=== PATIENT | female | born 1955 | race Caucasian/White ===

== ENCOUNTER 2017-04-22 16:31 | Outpatient (RCR) | payer MEDICARE, MEDICAID, SELFPAY ==
[2017-04-22 17:23] LABS: Absolute Lymphocyte Count 1.56 X10^3/ul (0.83-4.51); Absolute Neutrophil Count 4.3 X10^3/uL (2.0-7.7); Basophil# 0.06 X10^3/uL; Basophil% 0.8 % (0-1); Eosinophil# 0.39 X10^3/uL; Eosinophils% 5.4 % (0-5); Hematocrit 34.5 % (37-47); Hemoglobin 10.9 g/dl (12.0-15.0); Lymphocyte # 1.56 X10^3/ul (4.0); Lymphocyte % 21.8 % (19-41); Mean Corp Hgb Conc 31.6 g/gl (32-36); Mean Corpuscular Hgb 30.2 pg (27.0-32.0); Mean Corpuscular Volume 95.6 fL (81-99); Mean Platelet Vol. 11.1 fl (6.2-12.0); Monocyte# 0.69 X10^3/uL; Monocyte% 9.6 % (0-10); Neutrophil # 4.33 X10^3/uL (2.7-7.7); Neutrophil % 60.4 % (47-70); Platelet Count 273 K/mm3 (150-450); RBC Distribution Width CV 12.8 % (11.6-14.6); RBC Distribution Width SD 42.9 fl (35.1-43.9); Red Blood Count 3.61 M/mm3 (4.2-5.4); White Blood Count 7.2 K/mm3 (4.4-11.0)
[2017-04-22 17:24] LABS: POSITIVE COUNT YES; POSITIVE DIFFERENTIAL NO; POSITIVE MORPHOLOGY YES
[2017-04-26 09:43] LABS: Pathologist Review Reviewed
== END 2017-04-22 16:45 | disposition home or self-care (01) ==
LOC: LAB 16:31
PROVIDERS: Family Provider Internal Medicine; PCP Internal Medicine; Visit Provider Psychiatry & Neurology Child & Adolescent Psychiatry
DX: F25.0 Schizoaffective disorder, bipolar type (principal); Z51.81 Encounter for therapeutic drug level monitoring
CPT/HCPCS: 36415; 85025

== ENCOUNTER 2017-04-23 11:15 | Emergency (ER) | payer MEDICARE, MEDICAID, SELFPAY ==
[2017-04-23 11:16] VITALS: BP 134/100; PULSE 127; RESP 17; TEMP 36.7; O2SAT 93; BMI 23.8
--- NOTE | 2017-04-23 11:33 | CT_ITS ---
STUDY: CT ABDOMEN AND PELVIS WITHOUT CONTRAST REASON FOR EXAM: Female, 61 years old. BLOOD IN STOOL AND URINE. RADIATION DOSAGE (If Supplied By Facility): CTDIvol = ( 8.18 ) mGy, DLP = ( 431.23 ) mGycm TECHNIQUE: Transaxial images were obtained from the dome of the diaphragm to the symphysis pubis without oral contrast, and without intravenous contrast. Sagittal and coronal images were reconstructed. Individualized dose optimization techniques were used for this CT. COMPARISON: None. FINDINGS: The visualized lung bases are unremarkable. The visualized portions of the heart are within normal limits. Normal liver. Normal gallbladder and extrahepatic biliary system. Normal spleen. Normal pancreas. Normal bilateral adrenal glands. The kidneys demonstrate the presence of multiple bilateral nonobstructing kidney stones. The largest is at the left lower pole measuring up to 1 cm Normal visualized stomach. Normal small intestine. Normal colon. The appendix is visualized and appears normal. There is diffuse atherosclerotic calcification of the abdominal aorta, without a demonstrated aneurysm. Normal inferior vena cava. Normal retroperitoneum. Normal urinary bladder. Normal abdominal wall. Normal osseous structures. CT/Abdomen/Pelvis without Cont IMPRESSION: Bilateral nonobstructing kidney stones Electronically Signed: Kailee Amador MD at 12:31 EST Tel , Service support ,
[2017-04-23 11:46] LABS: Mucous, Urine 0 SEEN /hpf (<or=2+)
[2017-04-23 11:49] LABS: Color, Urine Yellow (Yellow); Glucose, Dipstick Normal (Normal); Ketone-Dipstick Negative (Negative); Leukocyte Esterase-Dipstick 100 /ul (Negative); Nitrite-Dipstick Negative (Negative); Occult Blood-Urine 25 /ul (Negative); Protein-Dipstick Negative (Negative); Specific Gravity, Urine 1.015 (1.002-1.030); Urine Bilirubin Dipstick Negative (Negative); Urine Clarity Clear (Clear); Urine Urobilinogen Normal (Normal)
[2017-04-23] MEDS: 0.9% Normal Saline 1,000 ML 125 ML IV (11:53)
[2017-04-23 11:56] LABS: Absolute Lymphocyte Count 1.62 X10^3/ul (0.83-4.51); Absolute Neutrophil Count 4.1 X10^3/uL (2.0-7.7); Basophil# 0.07 X10^3/uL; Eosinophil# 0.49 X10^3/uL; Hematocrit 37.1 % (37-47); Hemoglobin 11.7 g/dl (12.0-15.0); Lymphocyte # 1.62 X10^3/ul (4.0); Lymphocyte % 23.3 % (19-41); Mean Corp Hgb Conc 31.5 g/gl (32-36); Mean Corpuscular Hgb 30.2 pg (27.0-32.0); Mean Corpuscular Volume 95.9 fL (81-99); Mean Platelet Vol. 10.6 fl (6.2-12.0); Monocyte% 8.6 % (0-10); Neutrophil # 4.05 X10^3/uL (2.7-7.7); Neutrophil % 58.2 % (47-70); Platelet Count 283 K/mm3 (150-450); RBC Distribution Width SD 43.7 fl (35.1-43.9); Red Blood Count 3.87 M/mm3 (4.2-5.4)
[2017-04-23 11:57] LABS: POSITIVE COUNT NO; POSITIVE DIFFERENTIAL NO; POSITIVE MORPHOLOGY NO
[2017-04-23 11:57] LABS: Bacteria RARE /hpf (None Seen); Red Blood Cells-Urine 0-5 SEEN /hpf (0-5); Squamous Epithelial Cells - UA 0-5 SEEN /hpf (5-10); White Blood Cells 0-5 SEEN /hpf (0-5)
[2017-04-23 12:11] LABS: ALB/GLOB Ratio 1.1 RATIO (0.9-2.4); AST(SGOT) 24 U/L (15-37); Alanine Aminotransfer ALT/SGPT 60 U/L (12-78); Albumin, Serum 3.7 g/dL (3.4-5.0); Alkaline Phosphatase 68 U/L (45-117); Anion Gap 9 (5-15); BUN 10 mg/dL (7-18); BUN/Creat Ratio 16.5 RATIO (10-20); Calcium,Total 9.3 mg/dL (8.5-10.1); Chloride 104 mmol/L (98-107); Creatinine, Serum 0.61 mg/dL (0.55-1.02); EST Glomerular Filtration Rate 106 mL/min (>60); Est Glom Filt Rate - Afr Amer 129 mL/min (>60); Estimated Creatinine Clearance 96.46 ml/min; Globulin 3.4 g/dL (2.2-4.2); Glucose 116 mg/dL (70-110); Lipase 98 U/L (73-393); Potassium 3.9 mmol/L (3.5-5.1); Protein, Total 7.1 g/dL (6.4-8.2); Sodium Level 143 mmol/L (136-145)
--- NOTE | 2017-04-23 13:16 | ED.VISSUMM ---
- ER Visit Summary Date of Service: 04/23/17 Chief Complaint: [Blood in urine and stool and abdominal pain] History of Present Illness: The patient is a 61 F [presents from [facility] with caregivers with complaint of abdominal pain and dark stools ?2 days. Patient was taken to an urgent care 2 days ago and had a urine dip done that showed blood and they were instructed to come to the emergency department however the power of assistant county attorney for the patient would not authorize that. Patient continued to complain of abdominal pain apparently today and they were not instructed to bring the patient to the emergency department today. On arrival to the emergency department patient denies any abdominal pain. Patient has not had any fever. There is not been any vomiting or diarrhea. Patient denies any dysuria.] Patient has a history of schizophrenia bipolar and mild cognitive impairment. Physical Examination: [HEENT-PERRLA, EOMI. Cranial nerves II through XII grossly intact. TMs clear. Mucous membranes moist. No adenopathy. Cardiovascular-regular rate and rhythm without murmur or ectopy Lungs-clear to auscultation, chest wall stable without crepitus or subcu emphysema Abdomen-normoactive bowel sounds, soft, nontender, no rebound or rigidity, no peritoneal signs. Rectal exam-brown stool that was Hemoccult negative. No masses palpated. Extremities-intact ?4, normal range of motion, normal pulses, atraumatic] Test Results: [CBC with differential obtained was normal. Chemistries were normal. LFTs were normal. Urinalysis was normal. Hemoccult was negative. CT scan of the abdomen pelvis without contrast showed bilateral kidney stones that are nonobstructive, normal appendix, nothing else acute.] Emergency Department Course and Treatment: [Patient initially had an IV line established with normal saline.] Treatment Plan: [Follow-up with primary care physician as needed] Disposition: [Discharged home in stable condition] Impression: [Abdominal pain-etiology unclear-resolved] This note was generated with [employer] dictation software. It may contain incorrect words, spelling, and punctuation that were not noted in review of the chart prior to signing ED Disposition - Plan for ED Patient: Chief Complaint: Abd Pain Referrals: Adia Mckeon MD [Primary Care Provider] -
--- NOTE | 2017-04-23 13:19 | ED.DCSUM_ITS ---
- ER Visit Summary Date of Service: 04/23/17 Chief Complaint: [Blood in urine and stool and abdominal pain] History of Present Illness: The patient is a 61 F [presents from residential with caregivers with complaint of abdominal pain and dark stools ?2 days. Patient was taken to an urgent care 2 days ago and had a urine dip done that showed blood and they were instructed to come to the emergency department however the power of real estate attorney for the patient would not authorize that. Patient continued to complain of abdominal pain apparently today and they were not instructed to bring the patient to the emergency department today. On arrival to the emergency department patient denies any abdominal pain. Patient has not had any fever. There is not been any vomiting or diarrhea. Patient denies any dysuria.] Patient has a history of schizophrenia bipolar and mild cognitive impairment. Physical Examination: [HEENT-PERRLA, EOMI. Cranial nerves II through XII grossly intact. TMs clear. Mucous membranes moist. No adenopathy. Cardiovascular-regular rate and rhythm without murmur or ectopy Lungs-clear to auscultation, chest wall stable without crepitus or subcu emphysema Abdomen-normoactive bowel sounds, soft, nontender, no rebound or rigidity, no peritoneal signs. Rectal exam-brown stool that was Hemoccult negative. No masses palpated. Extremities-intact ?4, normal range of motion, normal pulses, atraumatic] Test Results: [CBC with differential obtained was normal. Chemistries were normal. LFTs were normal. Urinalysis was normal. Hemoccult was negative. CT scan of the abdomen pelvis without contrast showed bilateral kidney stones that are nonobstructive, normal appendix, nothing else acute.] Emergency Department Course and Treatment: [Patient initially had an IV line established with normal saline.] Treatment Plan: [Follow-up with primary care physician as needed] Disposition: [Discharged home in stable condition] Impression: [Abdominal pain-etiology unclear-resolved] This note was generated with [employer] dictation software. It may contain incorrect words, spelling, and punctuation that were not noted in review of the chart prior to signing ED Disposition - Plan for ED Patient: Chief Complaint: Abd Pain Referrals: Adia Mckeon MD [Primary Care Provider] -
--- NOTE | 2017-04-23 13:19 | ED.DEP ---
ED Disposition - Plan for ED Patient: Chief Complaint: Abd Pain Instructions: ED Abdominal Pain Unkn Cause Referrals: Adia Mckeon MD [Primary Care Provider] - As Needed
[2017-04-23 13:32] VITALS: BP 155/87; PULSE 113; RESP 18; O2SAT 96
--- NOTE | 2017-04-23 13:33 | ED.RN ---
VERBAL AND WRITTEN D/C INSTRUCTIONS GIVEN. ALL QUESTIONS ANSWERED. SKIN W/D. ABCS INTACT. GAIT STEADY OUT OF DEPARTMENT.
== END 2017-04-23 13:33 | disposition home or self-care (01) ==
LOC: ED 11:40
PROVIDERS: Emergency Provider Emergency Medicine; Family Provider Internal Medicine; PCP Internal Medicine
DX: R10.9 Unspecified abdominal pain (principal); R31.9 Hematuria, unspecified; R19.5 Other fecal abnormalities; N20.0 Calculus of kidney; F20.9 Schizophrenia, unspecified; F31.9 Bipolar disorder, unspecified; F70 Mild intellectual disabilities; Z79.84 Long term (current) use of oral hypoglycemic drugs; Z79.899 Other long term (current) drug therapy
CPT/HCPCS: 74176; 80053; 81001; 82274; 83690; 85025; 87086; 87088; 96360; 99283; J7030; A4216

== ENCOUNTER 2017-05-11 09:35 | Day surgery (SDC) | payer MEDICARE, MEDICAID, SELFPAY ==
[2017-05-11] VITALS (9 sets, daily range): BP systolic 126–149; BP diastolic 81–91; PULSE 93–112; RESP 14–17; TEMP 36.1–36.9; O2SAT 92–97; BMI 24.5
--- NOTE | 2017-05-11 09:30 | RAD_ITS ---
STUDY: X-RAY - ABDOMEN/PELVIS REASON FOR EXAM: Female, 61 years old. Kidney stones. Pre-ESWL assessment. TECHNIQUE: Single AP view of the abdomen / pelvis. COMPARISON: None. FINDINGS: There is a moderate amount of colonic fecal material. There is a 5.8 mm calculus in the lower pole of the left kidney. Adjacent to this, there is a punctate calcification. Questionable tiny calculus in the upper pole of the right kidney. Normal soft tissue structures. There are degenerative changes of the visualized lumbar spine. RAD/Abdomen Single View IMPRESSION: 2 calculi are seen in the lower pole of the left kidney. Electronically Signed: Monroe Lynne MD at 11:45 EST Tel [phone], Service support ,
[2017-05-11 10:36] LABS: Bedside Glucose 117 mg/dL (70-110)
[2017-05-11] MEDS: Cefazolin 2 GM in 0.9% Normal Saline 100 ML IV (11:30)
--- NOTE | 2017-05-11 11:41 | PCM.DC.URO ---
Discharge Diet: Light diet - advance as tolerated Discharge Activity: May Not Drive Call your doctor if your incision/area has: Sudden Increased Bleeding Call your doctor if you observe: Fever of 101 or Higher Instructions: Shock Wave Lithotripsy Allergies/Adverse Reactions: Allergies sulfamethoxazole [From Bactrim] Allergy (Verified 05/09/17 11:19) Rash trimethoprim [From Bactrim] Allergy (Verified 05/09/17 11:19) Rash Medications to take at Discharge Clozapine [Clozaril] 125 mg PO BID 09/14/13 Docusate Sodium [Colace] 100 mg PO BID 09/14/13 Ferrous Sulfate [Iron Supplement] 325 mg PO BID 09/14/13 Folic Acid 0.4 mg PO BID 09/14/13 Loratadine [Claritin] 10 mg PO DAILY 09/14/13 Lorazepam [Ativan] 1 mg PO TID 09/14/13 Metformin HCl [Glucophage] 1,000 mg PO BID 09/14/13 Nitrofurantoin Macrocrystal [Macrodantin] 100 mg PO DAILY 09/14/13 Omeprazole [Prilosec] 20 mg PO DAILY 09/14/13 Risperidone [Risperdal] 2 mg PO BID 09/14/13 Fluticasone 0.05% [Flonase Nasal [place]] 2 spray NASAL DAILY 12/05/13 Risperidone [Risperdal] 1 mg PO QHS 12/05/13 Oxybutynin Chloride [Oxybutynin Chloride ER] 10 mg PO DAILY #30 tab.er.24 12/26/13 Sertraline HCl [Zoloft] 25 mg PO DAILY 04/23/17 Multivitamin [Multiple Vitamins] 1 each PO BID 05/09/17 Simvastatin [Zocor] 20 mg PO QHS 05/09/17 Hydrocodone/Acetaminophen [[place] 5-325 Tablet] 1 ea PO Q4H PRN PRN 5 Days #14 tab 05/11/17 Primary Care Physician: Adia Mckeon MD [Primary Care Provider] - Please Follow Up With: Josef Anders MD When: May 26 at 8:45 am get xray before appt.
--- NOTE | 2017-05-11 12:00 | DCINST_ITS ---
Discharge Diet: Light diet - advance as tolerated Discharge Activity: May Not Drive Call your doctor if your incision/area has: Sudden Increased Bleeding Call your doctor if you observe: Fever of 101 or Higher Instructions: Shock Wave Lithotripsy Allergies/Adverse Reactions: Allergies sulfamethoxazole [From Bactrim] Allergy (Verified 05/09/17 11:19) Rash trimethoprim [From Bactrim] Allergy (Verified 05/09/17 11:19) Rash Medications to take at Discharge Clozapine [Clozaril] 125 mg PO BID 09/14/13 Docusate Sodium [Colace] 100 mg PO BID 09/14/13 Ferrous Sulfate [Iron Supplement] 325 mg PO BID 09/14/13 Folic Acid 0.4 mg PO BID 09/14/13 Loratadine [Claritin] 10 mg PO DAILY 09/14/13 Lorazepam [Ativan] 1 mg PO TID 09/14/13 Metformin HCl [Glucophage] 1,000 mg PO BID 09/14/13 Nitrofurantoin Macrocrystal [Macrodantin] 100 mg PO DAILY 09/14/13 Omeprazole [Prilosec] 20 mg PO DAILY 09/14/13 Risperidone [Risperdal] 2 mg PO BID 09/14/13 Fluticasone 0.05% [Flonase Nasal [place]] 2 spray NASAL DAILY 12/05/13 Risperidone [Risperdal] 1 mg PO QHS 12/05/13 Oxybutynin Chloride [Oxybutynin Chloride ER] 10 mg PO DAILY #30 tab.er.24 Sertraline HCl [Zoloft] 25 mg PO DAILY 04/23/17 Multivitamin [Multiple Vitamins] 1 each PO BID 05/09/17 Simvastatin [Zocor] 20 mg PO QHS 05/09/17 Hydrocodone/Acetaminophen [[place] 5-325 Tablet] 1 ea PO Q4H PRN PRN 5 Days #14 tab 05/11/17 Primary Care Physician: Adia Mckeon MD [Primary Care Provider] - Please Follow Up With: Josef Anders MD When: May 26 at 8:45 am get xray before appt.
--- NOTE | 2017-05-11 12:26 | PCM.OPRPT ---
Problem List (1) Calculus of left kidney Status: Acute Report of Operation Date of Procedure: 05/11/17 Pre-Operative Diagnosis: Left kidney stone Post-Operative Diagnosis: Same Surgery/Procedure Performed:: Left extracorporeal shockwave lithotripsy Description of Surgical Findings:: 61-year-old female taken back to the operating room after smooth induction of general anesthesia she was placed supine on the table we then moved the lithotripter table around and found the stone in the lower pole the left kidney we did check a right kidney there is no significant fragments that needed to be treated. We then applied 3000 shockwaves at a rate of 90 power up to 5 and 6 to the stones in the lower pole the left kidney stone broke up fairly well had a significant amount of change. Do not think she will need another treatment of the stones broke up really well patient's anesthetic was reversed she was taken back to PACU in good condition plan to see her back in a few weeks with a KUB. Type of Anesthesia:: General Drains: None - Admit VTE Documentation VTE Present on Admission: No VTE Mechan Device Prophylaxis: SCD's VTE Pharm Prophylaxis ordered?: No Reason prophylaxis not ordered:: Treatment Not Indicated
--- NOTE | 2017-05-11 13:56 | RAD_ITS ---
STUDY: X-RAY CHEST REASON FOR EXAM: Female, 61 years old. Cough and shortness of breath. TECHNIQUE: PA and lateral views of the chest. COMPARISON: None. FINDINGS: Mild degree of increased markings at the left lung base with blunting of the posterior left costophrenic angle. This may represent linear atelectasis. Normal size heart. Normal mediastinum and frederic. Normal visualized pulmonary arteries. There is atherosclerotic calcification of the aortic arch with tortuosity. Normal visualized thoracic spine. Normal visualized ribs, clavicles, and shoulders. There is no demonstrated abnormality of the visualized soft tissue structures of the upper abdomen. RAD/Chest PA and Lateral IMPRESSION: Linear increased markings at the left lung base with blunting of the left costophrenic angle suggestive of linear atelectasis. Electronically Signed: Monroe Lynne MD at 14:25 EST Tel [phone], Service support ,
[2017-05-11] MEDS: HYDROcodone Bitartrate/Apap 5/325 Tablet PO (14:46)
== END 2017-05-11 14:56 | disposition home or self-care (01) ==
LOC: SDC 09:35 → AC 09:36
PROVIDERS: Family Provider Internal Medicine; PCP Internal Medicine; Visit Provider Urology
PROC: (CPT 50590; principal; 2017-05-11 11:15)
DX: N20.0 Calculus of kidney (principal); F25.9 Schizoaffective disorder, unspecified; F41.9 Anxiety disorder, unspecified; K21.9 Gastro-esophageal reflux disease without esophagitis; E78.5 Hyperlipidemia, unspecified; E11.9 Type 2 diabetes mellitus without complications; Z79.899 Other long term (current) drug therapy; Z79.84 Long term (current) use of oral hypoglycemic drugs; D64.9 Anemia, unspecified; K59.09 Other constipation; Z87.820 Personal history of traumatic brain injury
CPT/HCPCS: 50590; 71046; 74018; 82962; J7120; J2405

== ENCOUNTER 2017-05-19 09:16 | Outpatient (RCR) | payer MEDICARE, MEDICAID, SELFPAY ==
[2017-04-23 13:32] VITALS: BP 155/87
[2017-05-19 10:17] LABS: Absolute Lymphocyte Count 0.94 X10^3/ul (0.83-4.51); Absolute Neutrophil Count 4.7 X10^3/uL (2.0-7.7); Basophil# 0.06 X10^3/uL; Basophil% 0.9 % (0-1); Eosinophils% 5.7 % (0-5); Hematocrit 37.4 % (37-47); Hemoglobin 11.5 g/dl (12.0-15.0); Lymphocyte # 0.94 X10^3/ul (4.0); Lymphocyte % 13.5 % (19-41); Mean Corp Hgb Conc 30.7 g/gl (32-36); Mean Corpuscular Hgb 29.8 pg (27.0-32.0); Mean Corpuscular Volume 96.9 fL (81-99); Mean Platelet Vol. 10.2 fl (6.2-12.0); Monocyte# 0.69 X10^3/uL; Monocyte% 9.9 % (0-10); Neutrophil # 4.74 X10^3/uL (2.7-7.7); Neutrophil % 68.1 % (47-70); Platelet Count 360 K/mm3 (150-450); RBC Distribution Width CV 12.6 % (11.6-14.6); RBC Distribution Width SD 43.5 fl (35.1-43.9); Red Blood Count 3.86 M/mm3 (4.2-5.4)
== END 2017-05-19 15:00 | disposition home or self-care (01) ==
LOC: LAB 09:16
PROVIDERS: Family Provider Internal Medicine; PCP Internal Medicine; Visit Provider Psychiatry & Neurology Child & Adolescent Psychiatry
DX: F25.0 Schizoaffective disorder, bipolar type (principal); Z51.81 Encounter for therapeutic drug level monitoring
CPT/HCPCS: 36415; 85025

== ENCOUNTER → 2017-05-26 08:12 | Outpatient (CLI) | payer MEDICARE, MEDICAID, SELFPAY ==
--- NOTE | 2017-05-26 08:17 | RAD_ITS ---
STUDY: X-RAY - ABDOMEN/PELVIS REASON FOR EXAM: Female, 61 years old. Follow-up kidney stones TECHNIQUE: Single AP view of the abdomen / pelvis. COMPARISON: CT scan 04/23/2017 and KUB 05/11/2017. FINDINGS: Normal visualized lung bases. Question of several very tiny calcifications less than 3 mm size in the lower pole of the left kidney. No other definite renal stones although much of the right kidney is obscured by fecal material. There is an unremarkable bowel gas pattern. There is no demonstrated free abdominal air. The visualized liver, spleen and kidneys are grossly normal in size and morphology. Normal soft tissue structures. Normal visualized osseous structures. RAD/Abdomen Single View IMPRESSION: Question of several very tiny calcifications less than 3 mm size in the lower pole of the left kidney. Electronically Signed: Rick Vyas MD at 17:19 EST , Service support ,
== END ==
LOC: RAD.FUTURE 08:16 → RAD 08:17
PROVIDERS: Family Provider Internal Medicine; PCP Internal Medicine; Visit Provider Nurse Practitioner Adult Health
DX: N20.0 Calculus of kidney (principal)
CPT/HCPCS: 74018

== ENCOUNTER 2017-06-02 16:27 | Outpatient (RCR) | payer MEDICARE, MEDICAID, SELFPAY ==
[2017-06-02 17:54] LABS: Absolute Lymphocyte Count 1.32 X10^3/ul (0.83-4.51); Absolute Neutrophil Count 3.4 X10^3/uL (2.0-7.7); Basophil# 0.07 X10^3/uL; Basophil% 1.2 % (0-1); Eosinophil# 0.33 X10^3/uL; Eosinophils% 5.8 % (0-5); Hematocrit 35.3 % (37-47); Hemoglobin 11.1 g/dl (12.0-15.0); Lymphocyte # 1.32 X10^3/ul (4.0); Lymphocyte % 23.1 % (19-41); Mean Corp Hgb Conc 31.4 g/gl (32-36); Mean Corpuscular Hgb 30.2 pg (27.0-32.0); Mean Corpuscular Volume 95.9 fL (81-99); Mean Platelet Vol. 10.7 fl (6.2-12.0); Monocyte# 0.49 X10^3/uL; Monocyte% 8.6 % (0-10); Neutrophil # 3.42 X10^3/uL (2.7-7.7); Neutrophil % 59.7 % (47-70); Platelet Count 297 K/mm3 (150-450); RBC Distribution Width CV 12.9 % (11.6-14.6); RBC Distribution Width SD 43.6 fl (35.1-43.9); Red Blood Count 3.68 M/mm3 (4.2-5.4); White Blood Count 5.7 K/mm3 (4.4-11.0)
[2017-06-02 18:07] LABS: POSITIVE COUNT NO; POSITIVE DIFFERENTIAL NO; POSITIVE MORPHOLOGY NO
== END 2017-06-02 17:00 | disposition home or self-care (01) ==
LOC: LAB 16:27
PROVIDERS: Family Provider Internal Medicine; PCP Internal Medicine; Visit Provider Psychiatry & Neurology Child & Adolescent Psychiatry
DX: Z51.81 Encounter for therapeutic drug level monitoring (principal); F25.0 Schizoaffective disorder, bipolar type
CPT/HCPCS: 36415; 85025

== ENCOUNTER 2017-06-30 16:04 | Outpatient (RCR) | payer MEDICARE, MEDICAID, SELFPAY ==
[2017-06-30 16:58] LABS: Absolute Lymphocyte Count 1.47 X10^3/ul (0.83-4.51); Absolute Neutrophil Count 3.8 X10^3/uL (2.0-7.7); Basophil# 0.04 X10^3/uL; Basophil% 0.6 % (0-1); Eosinophil# 0.36 X10^3/uL; Eosinophils% 5.8 % (0-5); Hemoglobin 11.2 g/dl (12.0-15.0); Lymphocyte # 1.47 X10^3/ul (4.0); Lymphocyte % 23.8 % (19-41); Mean Corp Hgb Conc 31.1 g/gl (32-36); Mean Corpuscular Hgb 29.3 pg (27.0-32.0); Mean Corpuscular Volume 94.2 fL (81-99); Mean Platelet Vol. 10.6 fl (6.2-12.0); Monocyte# 0.45 X10^3/uL; Monocyte% 7.3 % (0-10); Neutrophil # 3.76 X10^3/uL (2.7-7.7); Platelet Count 257 K/mm3 (150-450); RBC Distribution Width CV 13.2 % (11.6-14.6); RBC Distribution Width SD 45.1 fl (35.1-43.9); Red Blood Count 3.82 M/mm3 (4.2-5.4); White Blood Count 6.2 K/mm3 (4.4-11.0)
[2017-06-30 17:18] LABS: POSITIVE COUNT NO; POSITIVE DIFFERENTIAL NO; POSITIVE MORPHOLOGY NO
== END 2017-06-30 17:00 | disposition home or self-care (01) ==
LOC: LAB 16:04
PROVIDERS: Family Provider Internal Medicine; PCP Internal Medicine; Visit Provider Psychiatry & Neurology Child & Adolescent Psychiatry
DX: F25.0 Schizoaffective disorder, bipolar type (principal); Z51.81 Encounter for therapeutic drug level monitoring
CPT/HCPCS: 36415; 85025

== ENCOUNTER 2017-07-29 15:34 | Outpatient (RCR) | payer MEDICARE, MEDICAID, SELFPAY ==
[2017-07-29 17:07] LABS: Absolute Lymphocyte Count 1.71 X10^3/ul (0.83-4.51); Absolute Neutrophil Count 4.4 X10^3/uL (2.0-7.7); Basophil# 0.07 X10^3/uL; Basophil% 0.9 % (0-1); Eosinophil# 0.41 X10^3/uL; Eosinophils% 5.5 % (0-5); Hematocrit 36.2 % (37-47); Hemoglobin 11.4 g/dl (12.0-15.0); Lymphocyte # 1.71 X10^3/ul (4.0); Mean Corp Hgb Conc 31.5 g/gl (32-36); Mean Corpuscular Hgb 30.3 pg (27.0-32.0); Mean Corpuscular Volume 96.3 fL (81-99); Mean Platelet Vol. 11.1 fl (6.2-12.0); Monocyte# 0.75 X10^3/uL; Monocyte% 10.1 % (0-10); Neutrophil # 4.36 X10^3/uL (2.7-7.7); Neutrophil % 58.9 % (47-70); Platelet Count 237 K/mm3 (150-450); RBC Distribution Width CV 13.3 % (11.6-14.6); RBC Distribution Width SD 44.8 fl (35.1-43.9); Red Blood Count 3.76 M/mm3 (4.2-5.4); White Blood Count 7.4 K/mm3 (4.4-11.0)
[2017-07-29 17:20] LABS: POSITIVE COUNT NO; POSITIVE DIFFERENTIAL NO; POSITIVE MORPHOLOGY NO
== END 2017-07-29 16:00 | disposition home or self-care (01) ==
LOC: LAB 15:34
PROVIDERS: Family Provider Internal Medicine; PCP Internal Medicine; Visit Provider Psychiatry & Neurology Child & Adolescent Psychiatry
DX: F25.0 Schizoaffective disorder, bipolar type (principal); Z51.81 Encounter for therapeutic drug level monitoring
CPT/HCPCS: 36415; 85025

== ENCOUNTER 2017-09-01 15:57 | Outpatient (RCR) | payer MEDICARE, MEDICAID, SELFPAY ==
--- NOTE | 2017-09-01 15:57 | DT_ITS ---
This patient was seen during an EMR downtime August 29, 2017 - September 05, 2017. This patient may have a combination of paper and electronic documentation or all paper documentation. All documentation is viewable within the e-chart portion of [employer] for each patient visit.
[2017-09-06 01:32] LABS: Hematocrit 34.4 % (37-47); Hemoglobin 10.7 g/dl (12.0-15.0); Mean Corp Hgb Conc 31.1 g/gl (32-36); Mean Corpuscular Hgb 29.6 pg (27.0-32.0); Mean Corpuscular Volume 95.3 fL (81-99); Mean Platelet Vol. 10.6 fl (6.2-12.0); Platelet Count 247 K/mm3 (150-450); RBC Distribution Width CV 13.8 % (11.6-14.6); RBC Distribution Width SD 47.7 fl (35.1-43.9); Red Blood Count 3.61 M/mm3 (4.2-5.4); White Blood Count 7.3 K/mm3 (4.4-11.0)
[2017-09-06 01:33] LABS: Absolute Lymphocyte Count 1.79 X10^3/ul (0.83-4.51); Basophil# 0.04 X10^3/uL; Basophil% 0.5 % (0-1); Eosinophil# 0.86 X10^3/uL; Eosinophils% 11.7 % (0-5); Lymphocyte # 1.79 X10^3/ul (4.0); Lymphocyte % 24.4 % (19-41); Monocyte# 0.54 X10^3/uL; Monocyte% 7.4 % (0-10); Neutrophil # 4.04 X10^3/uL (2.7-7.7); POSITIVE COUNT NO; POSITIVE DIFFERENTIAL NO; POSITIVE MORPHOLOGY NO
== END 2017-09-01 17:00 | disposition home or self-care (01) ==
LOC: LAB 15:57
PROVIDERS: Family Provider Internal Medicine; PCP Internal Medicine; Visit Provider Psychiatry & Neurology Child & Adolescent Psychiatry
DX: F25.0 Schizoaffective disorder, bipolar type (principal); Z51.81 Encounter for therapeutic drug level monitoring
CPT/HCPCS: 36415; 85025

== ENCOUNTER 2017-10-03 15:53 | Outpatient (RCR) | payer MEDICARE, MEDICAID, SELFPAY ==
[2017-10-03 16:44] LABS: Absolute Lymphocyte Count 1.35 X10^3/ul (0.83-4.51); Absolute Neutrophil Count 4.7 X10^3/uL (2.0-7.7); Basophil# 0.03 X10^3/uL; Basophil% 0.4 % (0-1); Eosinophil# 0.35 X10^3/uL; Eosinophils% 4.9 % (0-5); Hematocrit 35.7 % (37-47); Hemoglobin 11.1 g/dl (12.0-15.0); Lymphocyte # 1.35 X10^3/ul (4.0); Mean Corp Hgb Conc 31.1 g/gl (32-36); Mean Corpuscular Hgb 29.6 pg (27.0-32.0); Mean Corpuscular Volume 95.2 fL (81-99); Mean Platelet Vol. 10.6 fl (6.2-12.0); Monocyte# 0.59 X10^3/uL; Monocyte% 8.3 % (0-10); Neutrophil # 4.68 X10^3/uL (2.7-7.7); Neutrophil % 65.9 % (47-70); Platelet Count 271 K/mm3 (150-450); RBC Distribution Width CV 13.4 % (11.6-14.6); RBC Distribution Width SD 44.4 fl (35.1-43.9); Red Blood Count 3.75 M/mm3 (4.2-5.4); White Blood Count 7.1 K/mm3 (4.4-11.0)
[2017-10-03 16:46] LABS: POSITIVE COUNT NO; POSITIVE DIFFERENTIAL NO; POSITIVE MORPHOLOGY NO
== END 2017-10-03 17:00 | disposition home or self-care (01) ==
LOC: LAB 15:53
PROVIDERS: Family Provider Internal Medicine; PCP Internal Medicine; Visit Provider Psychiatry & Neurology Child & Adolescent Psychiatry
DX: F25.0 Schizoaffective disorder, bipolar type (principal); Z51.81 Encounter for therapeutic drug level monitoring
CPT/HCPCS: 36415; 85025

== ENCOUNTER 2017-10-31 16:22 | Outpatient (RCR) | payer MEDICARE, MEDICAID, SELFPAY ==
[2017-10-31 17:05] LABS: Absolute Lymphocyte Count 1.92 X10^3/ul (0.83-4.51); Absolute Neutrophil Count 5.3 X10^3/uL (2.0-7.7); Basophil# 0.04 X10^3/uL; Basophil% 0.5 % (0-1); Eosinophil# 0.36 X10^3/uL; Eosinophils% 4.4 % (0-5); Hematocrit 35.5 % (37-47); Hemoglobin 10.9 g/dl (12.0-15.0); Lymphocyte # 1.92 X10^3/ul (4.0); Lymphocyte % 23.4 % (19-41); Mean Corp Hgb Conc 30.7 g/gl (32-36); Mean Corpuscular Hgb 29.1 pg (27.0-32.0); Mean Corpuscular Volume 94.9 fL (81-99); Mean Platelet Vol. 10.7 fl (6.2-12.0); Monocyte# 0.48 X10^3/uL; Monocyte% 5.9 % (0-10); Neutrophil # 5.31 X10^3/uL (2.7-7.7); Neutrophil % 64.7 % (47-70); Platelet Count 255 K/mm3 (150-450); RBC Distribution Width CV 13.8 % (11.6-14.6); RBC Distribution Width SD 47.9 fl (35.1-43.9); Red Blood Count 3.74 M/mm3 (4.2-5.4); White Blood Count 8.2 K/mm3 (4.4-11.0)
[2017-10-31 17:08] LABS: POSITIVE COUNT NO; POSITIVE DIFFERENTIAL NO; POSITIVE MORPHOLOGY NO
== END 2017-10-31 18:00 | disposition home or self-care (01) ==
LOC: LAB 16:22
PROVIDERS: Family Provider Internal Medicine; PCP Internal Medicine; Visit Provider Psychiatry & Neurology Child & Adolescent Psychiatry
DX: F25.0 Schizoaffective disorder, bipolar type (principal); Z51.81 Encounter for therapeutic drug level monitoring
CPT/HCPCS: 36415; 85025

== ENCOUNTER 2017-11-30 15:51 | Outpatient (RCR) | payer MEDICARE, MEDICAID, SELFPAY ==
[2017-11-30 18:43] LABS: Absolute Lymphocyte Count 1.72 X10^3/ul (0.83-4.51); Absolute Neutrophil Count 5.4 X10^3/uL (2.0-7.7); Basophil% 0.6 % (0-1); Eosinophils% 6.2 % (0-5); Hematocrit 35.1 % (37-47); Hemoglobin 10.8 g/dl (12.0-15.0); Lymphocyte # 1.72 X10^3/ul (4.0); Lymphocyte % 19.8 % (19-41); Mean Corp Hgb Conc 30.8 g/gl (32-36); Mean Corpuscular Hgb 29.7 pg (27.0-32.0); Mean Corpuscular Volume 96.4 fL (81-99); Mean Platelet Vol. 10.6 fl (6.2-12.0); Monocyte% 8.6 % (0-10); Neutrophil % 62.2 % (47-70); POSITIVE COUNT YES; POSITIVE DIFFERENTIAL NO; POSITIVE MORPHOLOGY YES; Platelet Count 303 K/mm3 (150-450); RBC Distribution Width CV 13.6 % (11.6-14.6); RBC Distribution Width SD 45.6 fl (35.1-43.9); Red Blood Count 3.64 M/mm3 (4.2-5.4); White Blood Count 8.7 K/mm3 (4.4-11.0)
[2017-11-30 18:44] LABS: Basophil# 0.05 X10^3/uL; Eosinophil# 0.54 X10^3/uL; Monocyte# 0.75 X10^3/uL
[2017-12-01 14:42] LABS: Pathologist Review Reviewed
== END 2017-12-25 12:35 | disposition home or self-care (01) ==
LOC: LAB 15:51
PROVIDERS: Family Provider Internal Medicine; PCP Internal Medicine; Visit Provider Psychiatry & Neurology Child & Adolescent Psychiatry
DX: F25.0 Schizoaffective disorder, bipolar type (principal); Z51.81 Encounter for therapeutic drug level monitoring
CPT/HCPCS: 36415; 85025

== ENCOUNTER 2018-01-18 15:51 | Outpatient (RCR) | payer MEDICARE, MEDICAID, SELFPAY ==
[2017-12-27 13:14] LABS: Absolute Lymphocyte Count 1.42 X10^3/ul (0.83-4.51); Absolute Neutrophil Count 5.4 X10^3/uL (2.0-7.7); Basophil# 0.05 X10^3/uL; Basophil% 0.6 % (0-1); Eosinophil# 0.48 X10^3/uL; Hematocrit 36.7 % (37-47); Hemoglobin 11.5 g/dl (12.0-15.0); Lymphocyte # 1.42 X10^3/ul (4.0); Lymphocyte % 17.8 % (19-41); Mean Corp Hgb Conc 31.3 g/gl (32-36); Mean Corpuscular Hgb 30.5 pg (27.0-32.0); Mean Corpuscular Volume 97.3 fL (81-99); Mean Platelet Vol. 10.6 fl (6.2-12.0); Monocyte# 0.46 X10^3/uL; Monocyte% 5.8 % (0-10); Neutrophil # 5.42 X10^3/uL (2.7-7.7); Neutrophil % 67.8 % (47-70); Platelet Count 292 K/mm3 (150-450); RBC Distribution Width CV 13.5 % (11.6-14.6); RBC Distribution Width SD 46.6 fl (35.1-43.9); Red Blood Count 3.77 M/mm3 (4.2-5.4)
[2017-12-27 13:16] LABS: Differential Indicated SCAN CRITERIA MET; POSITIVE COUNT YES; POSITIVE DIFFERENTIAL NO; POSITIVE MORPHOLOGY YES
[2017-12-28 13:02] LABS: Pathologist Review Reviewed
[2018-01-18 17:18] LABS: Basophil# 0.06 X10^3/uL; Basophil% 0.7 % (0-1); Eosinophil# 0.47 X10^3/uL; Eosinophils% 5.8 % (0-5); Hematocrit 37.8 % (37-47); Hemoglobin 11.3 g/dl (12.0-15.0); Lymphocyte % 25.8 % (19-41); Mean Corp Hgb Conc 29.9 g/gl (32-36); Mean Corpuscular Volume 97.2 fL (81-99); Mean Platelet Vol. 10.9 fl (6.2-12.0); Monocyte# 0.43 X10^3/uL; Monocyte% 5.3 % (0-10); Neutrophil # 4.99 X10^3/uL (2.7-7.7); Neutrophil % 61.3 % (47-70); Platelet Count 279 K/mm3 (150-450); RBC Distribution Width CV 13.9 % (11.6-14.6); RBC Distribution Width SD 49.3 fl (35.1-43.9); Red Blood Count 3.89 M/mm3 (4.2-5.4); White Blood Count 8.1 K/mm3 (4.4-11.0)
[2018-01-18 17:19] LABS: POSITIVE COUNT NO; POSITIVE DIFFERENTIAL NO; POSITIVE MORPHOLOGY NO
== END 2018-01-18 17:00 | disposition home or self-care (01) ==
LOC: LAB 15:51
PROVIDERS: Family Provider Internal Medicine; PCP Internal Medicine; Referring Provider Psychiatry & Neurology Child & Adolescent Psychiatry; Visit Provider Psychiatry & Neurology Child & Adolescent Psychiatry
DX: F25.0 Schizoaffective disorder, bipolar type (principal); Z51.81 Encounter for therapeutic drug level monitoring
CPT/HCPCS: 36415; 85025

== ENCOUNTER 2018-01-30 15:57 | Outpatient (RCR) | payer MEDICARE, MEDICAID, SELFPAY ==
[2018-01-30 17:21] LABS: Absolute Lymphocyte Count 1.69 X10^3/ul (0.83-4.51); Absolute Neutrophil Count 4.4 X10^3/uL (2.0-7.7); Basophil# 0.07 X10^3/uL; Eosinophil# 0.47 X10^3/uL; Eosinophils% 6.4 % (0-5); Hematocrit 38.6 % (37-47); Hemoglobin 11.5 g/dl (12.0-15.0); Lymphocyte # 1.69 X10^3/ul (4.0); Lymphocyte % 23.2 % (19-41); Mean Corp Hgb Conc 29.8 g/gl (32-36); Mean Corpuscular Volume 97.2 fL (81-99); Mean Platelet Vol. 11.1 fl (6.2-12.0); Monocyte# 0.57 X10^3/uL; Monocyte% 7.8 % (0-10); Neutrophil # 4.41 X10^3/uL (2.7-7.7); Neutrophil % 60.4 % (47-70); Platelet Count 273 K/mm3 (150-450); RBC Distribution Width CV 13.6 % (11.6-14.6); RBC Distribution Width SD 47.2 fl (35.1-43.9); Red Blood Count 3.97 M/mm3 (4.2-5.4); White Blood Count 7.3 K/mm3 (4.4-11.0)
[2018-01-30 17:24] LABS: POSITIVE COUNT NO; POSITIVE DIFFERENTIAL NO; POSITIVE MORPHOLOGY NO
== END 2018-02-24 12:31 | disposition home or self-care (01) ==
LOC: LAB 15:57
PROVIDERS: Family Provider Internal Medicine; PCP Internal Medicine; Referring Provider Psychiatry & Neurology Child & Adolescent Psychiatry; Visit Provider Psychiatry & Neurology Child & Adolescent Psychiatry
DX: F25.0 Schizoaffective disorder, bipolar type (principal)
CPT/HCPCS: 36415; 85025

== ENCOUNTER 2018-03-15 13:41 | Outpatient (RCR) | payer MEDICARE, MEDICAID, SELFPAY ==
[2018-02-27 16:28] LABS: Absolute Lymphocyte Count 1.65 X10^3/ul (0.83-4.51); Absolute Neutrophil Count 8.4 X10^3/uL (2.0-7.7); Basophil# 0.03 X10^3/uL; Basophil% 0.3 % (0-1); Eosinophil# 0.41 X10^3/uL; Eosinophils% 3.6 % (0-5); Hematocrit 37.3 % (37-47); Hemoglobin 11.4 g/dl (12.0-15.0); Lymphocyte # 1.65 X10^3/ul (4.0); Lymphocyte % 14.4 % (19-41); Mean Corp Hgb Conc 30.6 g/gl (32-36); Mean Corpuscular Hgb 29.6 pg (27.0-32.0); Mean Corpuscular Volume 96.9 fL (81-99); Mean Platelet Vol. 10.6 fl (6.2-12.0); Monocyte# 0.91 X10^3/uL; Neutrophil # 8.36 X10^3/uL (2.7-7.7); Platelet Count 260 K/mm3 (150-450); RBC Distribution Width CV 13.7 % (11.6-14.6); Red Blood Count 3.85 M/mm3 (4.2-5.4); White Blood Count 11.4 K/mm3 (4.4-11.0)
[2018-02-27 16:29] LABS: POSITIVE COUNT NO; POSITIVE DIFFERENTIAL NO; POSITIVE MORPHOLOGY NO
[2018-03-15 14:09] LABS: Absolute Neutrophil Count 4.5 X10^3/uL (2.0-7.7); Basophil# 0.07 X10^3/uL; Eosinophil# 0.45 X10^3/uL; Eosinophils% 6.1 % (0-5); Hematocrit 37.3 % (37-47); Hemoglobin 11.6 g/dl (12.0-15.0); Lymphocyte % 23.2 % (19-41); Mean Corp Hgb Conc 31.1 g/gl (32-36); Mean Corpuscular Hgb 30.2 pg (27.0-32.0); Mean Corpuscular Volume 97.1 fL (81-99); Mean Platelet Vol. 10.7 fl (6.2-12.0); Monocyte# 0.48 X10^3/uL; Monocyte% 6.6 % (0-10); Neutrophil % 61.5 % (47-70); POSITIVE COUNT NO; POSITIVE DIFFERENTIAL NO; POSITIVE MORPHOLOGY NO; Platelet Count 268 K/mm3 (150-450); RBC Distribution Width CV 13.6 % (11.6-14.6); RBC Distribution Width SD 46.9 fl (35.1-43.9); Red Blood Count 3.84 M/mm3 (4.2-5.4); White Blood Count 7.3 K/mm3 (4.4-11.0)
== END 2018-03-15 14:00 | disposition home or self-care (01) ==
LOC: LAB 13:41
PROVIDERS: Family Provider Internal Medicine; PCP Internal Medicine; Referring Provider Psychiatry & Neurology Child & Adolescent Psychiatry; Visit Provider Psychiatry & Neurology Child & Adolescent Psychiatry
DX: F25.0 Schizoaffective disorder, bipolar type (principal)
CPT/HCPCS: 36415; 85025

== ENCOUNTER 2018-04-10 10:38 | Outpatient (RCR) | payer MEDICARE, MEDICAID, SELFPAY ==
[2018-04-10 11:10] LABS: Absolute Lymphocyte Count 1.87 X10^3/ul (0.83-4.51); Absolute Neutrophil Count 5.2 X10^3/uL (2.0-7.7); Basophil# 0.06 X10^3/uL; Basophil% 0.7 % (0-1); Eosinophil# 0.42 X10^3/uL; Eosinophils% 5.2 % (0-5); Hematocrit 40.2 % (37-47); Hemoglobin 11.9 g/dl (12.0-15.0); Lymphocyte # 1.87 X10^3/ul (4.0); Mean Corp Hgb Conc 29.6 g/gl (32-36); Mean Corpuscular Hgb 29.2 pg (27.0-32.0); Mean Corpuscular Volume 98.8 fL (81-99); Mean Platelet Vol. 10.6 fl (6.2-12.0); Monocyte% 6.2 % (0-10); Neutrophil # 5.15 X10^3/uL (2.7-7.7); Neutrophil % 63.4 % (47-70); Platelet Count 318 K/mm3 (150-450); RBC Distribution Width CV 14.1 % (11.6-14.6); RBC Distribution Width SD 50.7 fl (35.1-43.9); Red Blood Count 4.07 M/mm3 (4.2-5.4); White Blood Count 8.1 K/mm3 (4.4-11.0)
[2018-04-10 11:11] LABS: POSITIVE COUNT NO; POSITIVE DIFFERENTIAL NO; POSITIVE MORPHOLOGY NO
== END 2018-04-10 12:00 | disposition home or self-care (01) ==
LOC: LAB 10:38
PROVIDERS: Family Provider Internal Medicine; PCP Internal Medicine; Referring Provider Psychiatry & Neurology Child & Adolescent Psychiatry; Visit Provider Psychiatry & Neurology Child & Adolescent Psychiatry
DX: F25.0 Schizoaffective disorder, bipolar type (principal)
CPT/HCPCS: 36415; 85025

== ENCOUNTER 2018-05-04 15:46 | Outpatient (RCR) | payer MEDICARE, MEDICAID, SELFPAY ==
[2018-05-04 16:12] LABS: Absolute Lymphocyte Count 1.39 X10^3/ul (0.83-4.51); Basophil# 0.03 X10^3/uL; Basophil% 0.5 % (0-1); Eosinophil# 0.41 X10^3/uL; Eosinophils% 6.4 % (0-5); Hematocrit 37.5 % (37-47); Hemoglobin 11.3 g/dl (12.0-15.0); Lymphocyte # 1.39 X10^3/ul (4.0); Lymphocyte % 21.8 % (19-41); Mean Corp Hgb Conc 30.1 g/gl (32-36); Mean Corpuscular Hgb 29.1 pg (27.0-32.0); Mean Corpuscular Volume 96.6 fL (81-99); Mean Platelet Vol. 10.8 fl (6.2-12.0); Monocyte# 0.45 X10^3/uL; Neutrophil # 4.03 X10^3/uL (2.7-7.7); Platelet Count 251 K/mm3 (150-450); RBC Distribution Width CV 13.9 % (11.6-14.6); Red Blood Count 3.88 M/mm3 (4.2-5.4); White Blood Count 6.4 K/mm3 (4.4-11.0)
[2018-05-04 16:19] LABS: POSITIVE COUNT NO; POSITIVE DIFFERENTIAL NO; POSITIVE MORPHOLOGY NO
== END 2018-05-25 16:00 | disposition home or self-care (01) ==
LOC: LAB 15:46
PROVIDERS: Family Provider Internal Medicine; PCP Internal Medicine; Referring Provider Psychiatry & Neurology Child & Adolescent Psychiatry; Visit Provider Psychiatry & Neurology Child & Adolescent Psychiatry
DX: F25.0 Schizoaffective disorder, bipolar type (principal)
CPT/HCPCS: 36415; 85025

== ENCOUNTER 2018-06-05 15:52 | Outpatient (RCR) | payer MEDICARE, MEDICAID, SELFPAY ==
[2018-06-05 16:26] LABS: Absolute Lymphocyte Count 1.75 X10^3/ul (0.83-4.51); Absolute Neutrophil Count 4.2 X10^3/uL (2.0-7.7); Basophil# 0.06 X10^3/uL; Basophil% 0.9 % (0-1); Eosinophil# 0.38 X10^3/uL; Eosinophils% 5.5 % (0-5); Hematocrit 36.5 % (37-47); Hemoglobin 11.2 g/dl (12.0-15.0); Lymphocyte # 1.75 X10^3/ul (4.0); Lymphocyte % 25.3 % (19-41); Mean Corp Hgb Conc 30.7 g/gl (32-36); Mean Corpuscular Hgb 29.9 pg (27.0-32.0); Mean Corpuscular Volume 97.3 fL (81-99); Mean Platelet Vol. 10.7 fl (6.2-12.0); Monocyte# 0.45 X10^3/uL; Monocyte% 6.5 % (0-10); Neutrophil # 4.21 X10^3/uL (2.7-7.7); Neutrophil % 60.6 % (47-70); Platelet Count 276 K/mm3 (150-450); RBC Distribution Width SD 49.4 fl (35.1-43.9); Red Blood Count 3.75 M/mm3 (4.2-5.4); White Blood Count 6.9 K/mm3 (4.4-11.0)
[2018-06-05 16:27] LABS: POSITIVE COUNT NO; POSITIVE DIFFERENTIAL NO; POSITIVE MORPHOLOGY NO
== END 2018-06-05 16:52 | disposition home or self-care (01) ==
LOC: LAB 15:52
PROVIDERS: Family Provider Internal Medicine; PCP Internal Medicine; Referring Provider Psychiatry & Neurology Child & Adolescent Psychiatry; Visit Provider Psychiatry & Neurology Child & Adolescent Psychiatry
DX: F25.0 Schizoaffective disorder, bipolar type (principal)
CPT/HCPCS: 36415; 85025

== ENCOUNTER 2018-07-05 10:18 | Outpatient (RCR) | payer MEDICARE, MEDICAID, SELFPAY ==
[2018-07-05 10:42] LABS: Absolute Lymphocyte Count 1.39 X10^3/ul (0.83-4.51); Absolute Neutrophil Count 4.6 X10^3/uL (2.0-7.7); Basophil# 0.04 X10^3/uL; Basophil% 0.6 % (0-1); Eosinophils% 5.8 % (0-5); Hematocrit 38.1 % (37-47); Hemoglobin 11.6 g/dl (12.0-15.0); Lymphocyte # 1.39 X10^3/ul (4.0); Lymphocyte % 20.2 % (19-41); Mean Corp Hgb Conc 30.4 g/gl (32-36); Mean Corpuscular Hgb 29.5 pg (27.0-32.0); Mean Corpuscular Volume 96.9 fL (81-99); Monocyte# 0.43 X10^3/uL; Monocyte% 6.3 % (0-10); Neutrophil # 4.57 X10^3/uL (2.7-7.7); Neutrophil % 66.4 % (47-70); Platelet Count 265 K/mm3 (150-450); RBC Distribution Width CV 13.8 % (11.6-14.6); RBC Distribution Width SD 49.2 fl (35.1-43.9); Red Blood Count 3.93 M/mm3 (4.2-5.4); White Blood Count 6.9 K/mm3 (4.4-11.0)
[2018-07-05 10:47] LABS: POSITIVE COUNT NO; POSITIVE DIFFERENTIAL NO; POSITIVE MORPHOLOGY NO
== END 2018-07-25 16:00 | disposition home or self-care (01) ==
LOC: LAB 10:18
PROVIDERS: Family Provider Internal Medicine; PCP Internal Medicine; Referring Provider Psychiatry & Neurology Child & Adolescent Psychiatry; Visit Provider Psychiatry & Neurology Child & Adolescent Psychiatry
DX: F25.0 Schizoaffective disorder, bipolar type (principal)
CPT/HCPCS: 36415; 85025

== ENCOUNTER 2018-07-26 16:25 | Outpatient (RCR) | payer MEDICARE, MEDICAID, SELFPAY ==
[2018-07-26 17:23] LABS: Absolute Lymphocyte Count 1.53 X10^3/ul (0.83-4.51); Absolute Neutrophil Count 4.2 X10^3/uL (2.0-7.7); Basophil# 0.05 X10^3/uL; Basophil% 0.7 % (0-1); Eosinophil# 0.43 X10^3/uL; Eosinophils% 6.3 % (0-5); Hematocrit 37.1 % (37-47); Hemoglobin 11.2 g/dl (12.0-15.0); Lymphocyte # 1.53 X10^3/ul (4.0); Lymphocyte % 22.4 % (19-41); Mean Corp Hgb Conc 30.2 g/gl (32-36); Mean Corpuscular Volume 96.1 fL (81-99); Mean Platelet Vol. 11.4 fl (6.2-12.0); Monocyte# 0.51 X10^3/uL; Monocyte% 7.5 % (0-10); Neutrophil # 4.22 X10^3/uL (2.7-7.7); Neutrophil % 61.9 % (47-70); Platelet Count 257 K/mm3 (150-450); RBC Distribution Width CV 13.6 % (11.6-14.6); RBC Distribution Width SD 45.7 fl (35.1-43.9); Red Blood Count 3.86 M/mm3 (4.2-5.4); White Blood Count 6.8 K/mm3 (4.4-11.0)
[2018-07-26 17:24] LABS: POSITIVE COUNT NO; POSITIVE DIFFERENTIAL NO; POSITIVE MORPHOLOGY NO
== END 2018-07-26 18:00 | disposition home or self-care (01) ==
LOC: LAB 16:25
PROVIDERS: Family Provider Internal Medicine; PCP Internal Medicine; Referring Provider Psychiatry & Neurology Child & Adolescent Psychiatry; Visit Provider Psychiatry & Neurology Child & Adolescent Psychiatry
DX: F25.0 Schizoaffective disorder, bipolar type (principal)
CPT/HCPCS: 36415; 85025

== ENCOUNTER 2018-08-29 12:36 | Outpatient (RCR) | payer MEDICARE, MEDICAID, SELFPAY ==
[2018-08-29 13:23] LABS: Absolute Lymphocyte Count 1.38 X10^3/ul (0.83-4.51); Absolute Neutrophil Count 4.2 X10^3/uL (2.0-7.7); Basophil# 0.05 X10^3/uL; Basophil% 0.8 % (0-1); Eosinophil# 0.43 X10^3/uL; Eosinophils% 6.6 % (0-5); Hematocrit 36.6 % (37-47); Hemoglobin 11.4 g/dl (12.0-15.0); Lymphocyte # 1.38 X10^3/ul (4.0); Lymphocyte % 21.1 % (19-41); Mean Corp Hgb Conc 31.1 g/gl (32-36); Mean Corpuscular Hgb 29.5 pg (27.0-32.0); Mean Corpuscular Volume 94.8 fL (81-99); Mean Platelet Vol. 10.9 fl (6.2-12.0); Monocyte# 0.46 X10^3/uL; Neutrophil # 4.15 X10^3/uL (2.7-7.7); Neutrophil % 63.6 % (47-70); Platelet Count 276 K/mm3 (150-450); RBC Distribution Width CV 13.9 % (11.6-14.6); Red Blood Count 3.86 M/mm3 (4.2-5.4); White Blood Count 6.5 K/mm3 (4.4-11.0)
[2018-08-29 13:24] LABS: POSITIVE COUNT NO; POSITIVE DIFFERENTIAL NO; POSITIVE MORPHOLOGY NO
== END 2018-09-24 12:00 | disposition home or self-care (01) ==
LOC: LAB 12:36
PROVIDERS: Family Provider Internal Medicine; PCP Internal Medicine; Referring Provider Psychiatry & Neurology Child & Adolescent Psychiatry; Visit Provider Psychiatry & Neurology Child & Adolescent Psychiatry
DX: F25.0 Schizoaffective disorder, bipolar type (principal)
CPT/HCPCS: 36415; 85025

== ENCOUNTER 2018-09-25 16:10 | Outpatient (RCR) | payer MEDICARE, MEDICAID, SELFPAY ==
[2018-09-25 17:03] LABS: Absolute Lymphocyte Count 1.72 X10^3/ul (0.83-4.51); Absolute Neutrophil Count 5.1 X10^3/uL (2.0-7.7); Basophil# 0.03 X10^3/uL; Basophil% 0.4 % (0-1); Eosinophil# 0.35 X10^3/uL; Eosinophils% 4.6 % (0-5); Hematocrit 37.4 % (37-47); Hemoglobin 11.4 g/dl (12.0-15.0); Lymphocyte # 1.72 X10^3/ul (4.0); Lymphocyte % 22.4 % (19-41); Mean Corp Hgb Conc 30.5 g/gl (32-36); Mean Corpuscular Hgb 28.9 pg (27.0-32.0); Mean Corpuscular Volume 94.7 fL (81-99); Mean Platelet Vol. 10.6 fl (6.2-12.0); Monocyte# 0.39 X10^3/uL; Monocyte% 5.1 % (0-10); Neutrophil # 5.07 X10^3/uL (2.7-7.7); Neutrophil % 66.1 % (47-70); POSITIVE COUNT NO; POSITIVE DIFFERENTIAL NO; POSITIVE MORPHOLOGY NO; Platelet Count 268 K/mm3 (150-450); RBC Distribution Width CV 13.8 % (11.6-14.6); RBC Distribution Width SD 47.6 fl (35.1-43.9); Red Blood Count 3.95 M/mm3 (4.2-5.4); White Blood Count 7.7 K/mm3 (4.4-11.0)
== END 2018-10-25 17:23 | disposition home or self-care (01) ==
LOC: LAB 16:10
PROVIDERS: Family Provider Internal Medicine; PCP Internal Medicine; Referring Provider Psychiatry & Neurology Child & Adolescent Psychiatry; Visit Provider Psychiatry & Neurology Child & Adolescent Psychiatry
DX: F25.0 Schizoaffective disorder, bipolar type (principal); Z51.81 Encounter for therapeutic drug level monitoring
CPT/HCPCS: 36415; 85025

== ENCOUNTER 2018-10-27 11:23 | Outpatient (RCR) | payer MEDICARE, MEDICAID, SELFPAY ==
[2018-10-27 12:35] LABS: Absolute Lymphocyte Count 1.23 X10^3/uL (0.83-4.51); Absolute Neutrophil Count 5.1 X10^3/uL (2.0-7.7); Basophil# 0.09 X10^3/uL; Basophil% 1.2 % (0-1); Eosinophils% 5.3 % (0-5); Hematocrit 40.4 % (37-47); Lymphocyte # 1.23 X10^3/ul (4.0); Lymphocyte % 16.3 % (19-41); Mean Corp Hgb Conc 29.7 g/dL (32-36); Mean Corpuscular Hgb 29.1 pg (27.0-32.0); Mean Corpuscular Volume 98.1 fL (81-99); Mean Platelet Vol. 11.2 fl (6.2-12.0); Monocyte# 0.62 X10^3/uL; Monocyte% 8.2 % (0-10); NRBC Flagged by Analyzer 0 % (0-5); Neutrophil # 5.07 X10^3/uL (2.7-7.7); Neutrophil % 67.4 % (47-70); Platelet Count 287 K/mm3 (150-450); RBC Distribution Width CV 13.4 % (11.6-14.6); RBC Distribution Width SD 48.3 fl (35.1-43.9); Red Blood Count 4.12 M/mm3 (4.2-5.4); White Blood Count 7.5 K/mm3 (4.4-11.0)
== END 2018-11-14 12:23 | disposition home or self-care (01) ==
LOC: LAB 11:23
PROVIDERS: Family Provider Internal Medicine; PCP Internal Medicine; Referring Provider Psychiatry & Neurology Child & Adolescent Psychiatry; Visit Provider Psychiatry & Neurology Child & Adolescent Psychiatry
DX: F25.0 Schizoaffective disorder, bipolar type (principal); Z51.81 Encounter for therapeutic drug level monitoring
CPT/HCPCS: 36415; 85025

== ENCOUNTER 2018-11-29 11:53 | Outpatient (RCR) | payer MEDICARE, MEDICAID, SELFPAY ==
[2018-11-29 12:34] LABS: Absolute Lymphocyte Count 1.41 X10^3/uL (0.83-4.51); Absolute Neutrophil Count 5.4 X10^3/uL (2.0-7.7); Basophil# 0.08 X10^3/uL; Eosinophil# 0.44 X10^3/uL; Eosinophils% 5.4 % (0-5); Hematocrit 39.8 % (37-47); Hemoglobin 11.8 g/dL (12.0-15.0); Lymphocyte # 1.41 X10^3/ul (4.0); Lymphocyte % 17.4 % (19-41); Mean Corp Hgb Conc 29.6 g/dL (32-36); Mean Corpuscular Hgb 29.1 pg (27.0-32.0); Mean Corpuscular Volume 98.3 fL (81-99); Mean Platelet Vol. 11.3 fl (6.2-12.0); Monocyte# 0.64 X10^3/uL; Monocyte% 7.9 % (0-10); NRBC Flagged by Analyzer 0 % (0-5); Neutrophil # 5.44 X10^3/uL (2.7-7.7); Neutrophil % 67.2 % (47-70); Platelet Count 265 K/mm3 (150-450); RBC Distribution Width CV 13.6 % (11.6-14.6); RBC Distribution Width SD 48.7 fl (35.1-43.9); Red Blood Count 4.05 M/mm3 (4.2-5.4); White Blood Count 8.1 K/mm3 (4.4-11.0)
[2018-11-29 13:20] LABS: ALB/GLOB Ratio 1.1 RATIO (0.9-2.4); AST(SGOT) 26 U/L (15-37); Alanine Aminotransfer ALT/SGPT 61 U/L (13-56); Albumin, Serum 3.6 g/dL (3.2-5.0); Alkaline Phosphatase 103 U/L (45-117); Anion Gap 4 (5-15); BUN 18 mg/dL (7-18); Calcium,Total 8.8 mg/dL (8.5-10.1); Chloride 105 mmol/L (98-107); Creatinine, Serum 0.75 mg/dL (0.55-1.02); EST Glomerular Filtration Rate 83 mL/min (>60); Est Glom Filt Rate - Afr Amer 100 mL/min (>60); Globulin 3.4 g/dL (2.2-4.2); Glucose 153 mg/dL (74-106); Potassium 4.4 mmol/L (3.5-5.1); Sodium Level 139 mmol/L (136-145)
== END 2018-12-25 18:00 | disposition home or self-care (01) ==
LOC: LAB 11:53
PROVIDERS: Family Provider Internal Medicine; PCP Internal Medicine; Referring Provider Psychiatry & Neurology Child & Adolescent Psychiatry; Visit Provider Psychiatry & Neurology Child & Adolescent Psychiatry
DX: F25.0 Schizoaffective disorder, bipolar type (principal); Z51.81 Encounter for therapeutic drug level monitoring
CPT/HCPCS: 36415; 80053; 85025

== ENCOUNTER 2018-12-27 12:24 | Outpatient (RCR) | payer MEDICARE, MEDICAID, SELFPAY ==
[2018-12-27 13:38] LABS: Absolute Lymphocyte Count 1.45 X10^3/uL (0.83-4.51); Basophil# 0.08 X10^3/uL; Eosinophil# 0.49 X10^3/uL; Eosinophils% 6.3 % (0-5); Hematocrit 40.5 % (37-47); Hemoglobin 12.3 g/dL (12.0-15.0); Lymphocyte # 1.45 X10^3/ul (4.0); Lymphocyte % 18.7 % (19-41); Mean Corp Hgb Conc 30.4 g/dL (32-36); Mean Corpuscular Hgb 29.9 pg (27.0-32.0); Mean Corpuscular Volume 98.5 fL (81-99); Mean Platelet Vol. 11.3 fl (6.2-12.0); Monocyte# 0.61 X10^3/uL; Monocyte% 7.9 % (0-10); NRBC Flagged by Analyzer 0 % (0-5); Neutrophil # 4.97 X10^3/uL (2.7-7.7); Neutrophil % 64.3 % (47-70); Platelet Count 275 K/mm3 (150-450); RBC Distribution Width CV 13.2 % (11.6-14.6); RBC Distribution Width SD 48.3 fl (35.1-43.9); Red Blood Count 4.11 M/mm3 (4.2-5.4); White Blood Count 7.7 K/mm3 (4.4-11.0)
== END 2018-12-27 18:00 | disposition home or self-care (01) ==
LOC: LAB 12:24
PROVIDERS: Family Provider Internal Medicine; PCP Internal Medicine; Referring Provider Psychiatry & Neurology Child & Adolescent Psychiatry; Visit Provider Psychiatry & Neurology Child & Adolescent Psychiatry
DX: F25.0 Schizoaffective disorder, bipolar type (principal); Z51.81 Encounter for therapeutic drug level monitoring
CPT/HCPCS: 36415; 85025

== ENCOUNTER 2019-01-26 16:28 | Outpatient (RCR) | payer MEDICARE, MEDICAID, SELFPAY ==
[2019-01-26 17:27] LABS: Absolute Lymphocyte Count 1.45 X10^3/uL (0.83-4.51); Absolute Neutrophil Count 4.7 X10^3/uL (2.0-7.7); Basophil# 0.08 X10^3/uL; Basophil% 1.1 % (0-1); Eosinophil# 0.32 X10^3/uL; Eosinophils% 4.4 % (0-5); Hematocrit 38.8 % (37-47); Hemoglobin 11.8 g/dL (12.0-15.0); Lymphocyte # 1.45 X10^3/ul (4.0); Lymphocyte % 20.1 % (19-41); Mean Corp Hgb Conc 30.4 g/dL (32-36); Mean Corpuscular Hgb 29.6 pg (27.0-32.0); Mean Corpuscular Volume 97.5 fL (81-99); Mean Platelet Vol. 11.5 fl (6.2-12.0); Monocyte# 0.54 X10^3/uL; Monocyte% 7.5 % (0-10); NRBC Flagged by Analyzer 0 % (0-5); Neutrophil # 4.73 X10^3/uL (2.7-7.7); Neutrophil % 65.5 % (47-70); Platelet Count 260 K/mm3 (150-450); RBC Distribution Width CV 13.2 % (11.6-14.6); RBC Distribution Width SD 47.6 fl (35.1-43.9); Red Blood Count 3.98 M/mm3 (4.2-5.4); White Blood Count 7.2 K/mm3 (4.4-11.0)
== END 2019-01-26 18:00 | disposition home or self-care (01) ==
LOC: LAB 16:28
PROVIDERS: Family Provider Internal Medicine; PCP Internal Medicine; Referring Provider Psychiatry & Neurology Child & Adolescent Psychiatry; Visit Provider Psychiatry & Neurology Child & Adolescent Psychiatry
DX: F25.0 Schizoaffective disorder, bipolar type (principal); Z51.81 Encounter for therapeutic drug level monitoring
CPT/HCPCS: 36415; 85025

== ENCOUNTER 2019-02-27 15:58 | Outpatient (RCR) | payer MEDICARE, MEDICAID, SELFPAY ==
[2019-02-27 16:30] LABS: Absolute Neutrophil Count 5.2 X10^3/uL (2.0-7.7); Basophil# 0.07 X10^3/uL; Basophil% 0.9 % (0-1); Eosinophil# 0.45 X10^3/uL; Eosinophils% 5.8 % (0-5); Hematocrit 37.6 % (37-47); Hemoglobin 11.5 g/dL (12.0-15.0); Lymphocyte % 16.9 % (19-41); Mean Corp Hgb Conc 30.6 g/dL (32-36); Mean Corpuscular Hgb 29.6 pg (27.0-32.0); Mean Corpuscular Volume 96.9 fL (81-99); Mean Platelet Vol. 11.3 fl (6.2-12.0); Monocyte# 0.58 X10^3/uL; Monocyte% 7.5 % (0-10); NRBC Flagged by Analyzer 0 % (0-5); Neutrophil % 67.5 % (47-70); Platelet Count 246 K/mm3 (150-450); RBC Distribution Width CV 13.2 % (11.6-14.6); Red Blood Count 3.88 M/mm3 (4.2-5.4); White Blood Count 7.7 K/mm3 (4.4-11.0)
[2019-02-27 16:44] LABS: Color, Urine Yellow (Yellow); Glucose, Dipstick Normal (Normal); Ketone-Dipstick 5 mg/dl (Negative); Leukocyte Esterase-Dipstick 100 /ul (Negative); Nitrite-Dipstick Negative (Negative); Occult Blood-Urine 10 /ul (Negative); Protein-Dipstick 15 mg/dl (Negative); Urine Bilirubin Dipstick Negative (Negative); Urine Clarity Sl. Cloudy (Clear); Urine Urobilinogen Normal (Normal)
[2019-02-27 16:54] LABS: ALB/GLOB Ratio 1.1 RATIO (0.9-2.4); AST(SGOT) 15 U/L (15-37); Alanine Aminotransfer ALT/SGPT 47 U/L (13-56); Albumin, Serum 3.6 g/dL (3.2-5.0); Alkaline Phosphatase 90 U/L (45-117); Anion Gap 2 (5-15); BUN 17 mg/dL (7-18); BUN/Creat Ratio 23.1 RATIO (10-20); Calcium,Total 9.6 mg/dL (8.5-10.1); Chloride 99 mmol/L (98-107); Creatinine, Serum 0.74 mg/dL (0.55-1.02); EST Glomerular Filtration Rate 85 mL/min (>60); Est Glom Filt Rate - Afr Amer 102 mL/min (>60); Globulin 3.2 g/dL (2.2-4.2); Glucose 131 mg/dL (74-106); Potassium 4.2 mmol/L (3.5-5.1); Protein, Total 6.8 g/dL (6.4-8.2); Sodium Level 139 mmol/L (136-145)
== END 2019-02-27 18:00 | disposition home or self-care (01) ==
LOC: LAB 15:58
PROVIDERS: Family Provider Internal Medicine; PCP Internal Medicine; Referring Provider Psychiatry & Neurology Child & Adolescent Psychiatry; Visit Provider Psychiatry & Neurology Child & Adolescent Psychiatry
DX: F25.0 Schizoaffective disorder, bipolar type (principal); Z51.81 Encounter for therapeutic drug level monitoring
CPT/HCPCS: 36415; 80053; 81002; 85025

== ENCOUNTER 2019-03-30 10:16 | Outpatient (RCR) | payer MEDICARE, MEDICAID, SELFPAY ==
[2019-03-30 10:39] LABS: Absolute Lymphocyte Count 2.07 X10^3/uL (0.83-4.51); Absolute Neutrophil Count 6.4 X10^3/uL (2.0-7.7); Eosinophil# 0.72 X10^3/uL; Hematocrit 40.8 % (37-47); Hemoglobin 12.3 g/dL (12.0-15.0); Lymphocyte # 2.07 X10^3/ul (4.0); Lymphocyte % 20.1 % (19-41); Mean Corp Hgb Conc 30.1 g/dL (32-36); Mean Corpuscular Hgb 29.6 pg (27.0-32.0); Mean Corpuscular Volume 98.1 fL (81-99); Mean Platelet Vol. 10.9 fl (6.2-12.0); Monocyte# 0.87 X10^3/uL; Monocyte% 8.4 % (0-10); NRBC Flagged by Analyzer 0 % (0-5); Neutrophil # 6.36 X10^3/uL (2.7-7.7); Neutrophil % 61.8 % (47-70); Platelet Count 289 K/mm3 (150-450); RBC Distribution Width CV 13.4 % (11.6-14.6); Red Blood Count 4.16 M/mm3 (4.2-5.4); White Blood Count 10.3 K/mm3 (4.4-11.0)
== END 2019-03-30 18:00 | disposition home or self-care (01) ==
LOC: LAB 10:16
PROVIDERS: Family Provider Internal Medicine; PCP Internal Medicine; Referring Provider Psychiatry & Neurology Child & Adolescent Psychiatry; Visit Provider Psychiatry & Neurology Child & Adolescent Psychiatry
DX: F25.0 Schizoaffective disorder, bipolar type (principal); Z51.81 Encounter for therapeutic drug level monitoring
CPT/HCPCS: 36415; 85025

== ENCOUNTER 2019-04-30 08:54 | Outpatient (RCR) | payer MEDICARE, MEDICAID, SELFPAY ==
[2019-04-30 09:27] LABS: Absolute Neutrophil Count 6.1 X10^3/uL (2.0-7.7); Basophil# 0.05 X10^3/uL; Basophil% 0.6 % (0-1); Eosinophil# 0.31 X10^3/uL; Eosinophils% 3.8 % (0-5); Hemoglobin 12.4 g/dL (12.0-15.0); Lymphocyte % 14.6 % (19-41); Mean Corp Hgb Conc 30.2 g/dL (32-36); Mean Corpuscular Hgb 29.6 pg (27.0-32.0); Mean Corpuscular Volume 97.9 fL (81-99); Mean Platelet Vol. 11.1 fl (6.2-12.0); Monocyte# 0.48 X10^3/uL; Monocyte% 5.8 % (0-10); NRBC Flagged by Analyzer 0 % (0-5); Neutrophil # 6.06 X10^3/uL (2.7-7.7); Neutrophil % 73.9 % (47-70); Platelet Count 303 K/mm3 (150-450); RBC Distribution Width CV 13.4 % (11.6-14.6); RBC Distribution Width SD 47.4 fl (35.1-43.9); Red Blood Count 4.19 M/mm3 (4.2-5.4); White Blood Count 8.2 K/mm3 (4.4-11.0)
== END 2019-04-30 18:00 | disposition home or self-care (01) ==
LOC: LAB 08:54
PROVIDERS: Family Provider Internal Medicine; PCP Internal Medicine; Referring Provider Psychiatry & Neurology Child & Adolescent Psychiatry; Visit Provider Psychiatry & Neurology Child & Adolescent Psychiatry
DX: F25.0 Schizoaffective disorder, bipolar type (principal); Z51.81 Encounter for therapeutic drug level monitoring
CPT/HCPCS: 36415; 85025

== ENCOUNTER 2019-05-29 07:45 | Outpatient (RCR) | payer MEDICARE, MEDICAID, SELFPAY ==
[2019-05-29 08:25] LABS: Absolute Neutrophil Count 6.5 X10^3/uL (2.0-7.7); Basophil# 0.06 X10^3/uL; Basophil% 0.7 % (0-1); Eosinophil# 0.51 X10^3/uL; Eosinophils% 5.9 % (0-5); Hematocrit 41.1 % (37-47); Hemoglobin 12.5 g/dL (12.0-15.0); Lymphocyte % 11.5 % (19-41); Mean Corp Hgb Conc 30.4 g/dL (32-36); Mean Corpuscular Hgb 29.7 pg (27.0-32.0); Mean Corpuscular Volume 97.6 fL (81-99); Mean Platelet Vol. 11.1 fl (6.2-12.0); Monocyte# 0.57 X10^3/uL; Monocyte% 6.6 % (0-10); NRBC Flagged by Analyzer 0 % (0-5); Neutrophil # 6.46 X10^3/uL (2.7-7.7); Neutrophil % 74.3 % (47-70); Platelet Count 277 K/mm3 (150-450); RBC Distribution Width CV 13.2 % (11.6-14.6); Red Blood Count 4.21 M/mm3 (4.2-5.4); White Blood Count 8.7 K/mm3 (4.4-11.0)
== END 2019-05-29 18:00 | disposition home or self-care (01) ==
LOC: LAB 07:45
PROVIDERS: Family Provider Internal Medicine; PCP Internal Medicine; Referring Provider Psychiatry & Neurology Child & Adolescent Psychiatry; Visit Provider Psychiatry & Neurology Child & Adolescent Psychiatry
DX: F25.0 Schizoaffective disorder, bipolar type (principal); Z51.81 Encounter for therapeutic drug level monitoring
CPT/HCPCS: 36415; 85025

== ENCOUNTER 2019-06-28 10:03 | Outpatient (RCR) | payer MEDICARE, MEDICAID, SELFPAY ==
[2019-06-28 10:24] LABS: Absolute Neutrophil Count 5.4 X10^3/uL (2.0-7.7); Basophil# 0.05 X10^3/uL; Basophil% 0.6 % (0-1); Eosinophil# 0.39 X10^3/uL; Eosinophils% 5.1 % (0-5); Hematocrit 40.6 % (37-47); Hemoglobin 12.4 g/dL (12.0-15.0); Lymphocyte % 15.6 % (19-41); Mean Corp Hgb Conc 30.5 g/dL (32-36); Mean Corpuscular Volume 98.3 fL (81-99); Mean Platelet Vol. 10.9 fl (6.2-12.0); Monocyte# 0.54 X10^3/uL; NRBC Flagged by Analyzer 0 % (0-5); Neutrophil # 5.44 X10^3/uL (2.7-7.7); Neutrophil % 70.5 % (47-70); Platelet Count 277 K/mm3 (150-450); RBC Distribution Width CV 13.1 % (11.6-14.6); RBC Distribution Width SD 46.5 fl (35.1-43.9); Red Blood Count 4.13 M/mm3 (4.2-5.4); White Blood Count 7.7 K/mm3 (4.4-11.0)
[2019-06-28 11:06] LABS: ALB/GLOB Ratio 1.2 RATIO (0.9-2.4); AST(SGOT) 17 U/L (15-37); Alanine Aminotransfer ALT/SGPT 44 U/L (13-56); Albumin, Serum 3.7 g/dL (3.2-5.0); Alkaline Phosphatase 92 U/L (45-117); Anion Gap 5 (5-15); BUN 23 mg/dL (7-18); BUN/Creat Ratio 28.8 RATIO (10-20); Calcium,Total 9.7 mg/dL (8.5-10.1); Chloride 102 mmol/L (98-107); EST Glomerular Filtration Rate 77 mL/min (>60); Est Glom Filt Rate - Afr Amer 93 mL/min (>60); Globulin 3.1 g/dL (2.2-4.2); Glucose 128 mg/dL (74-106); Potassium 4.4 mmol/L (3.5-5.1); Protein, Total 6.8 g/dL (6.4-8.2); Sodium Level 140 mmol/L (136-145)
== END 2019-07-26 18:00 | disposition home or self-care (01) ==
LOC: LAB 10:03
PROVIDERS: Family Provider Internal Medicine; PCP Internal Medicine; Referring Provider Psychiatry & Neurology Child & Adolescent Psychiatry; Visit Provider Psychiatry & Neurology Child & Adolescent Psychiatry
DX: F25.0 Schizoaffective disorder, bipolar type (principal); Z51.81 Encounter for therapeutic drug level monitoring
CPT/HCPCS: 36415; 80053; 85025

== ENCOUNTER 2019-07-27 08:42 | Outpatient (RCR) | payer MEDICARE, MEDICAID, SELFPAY ==
[2019-07-27 09:44] LABS: Bacteria 0 SEEN /hpf (None Seen); Mucous, Urine 0 SEEN /hpf (<or=2+); Squamous Epithelial Cells - UA 0 SEEN /hpf (5-10)
[2019-07-27 09:50] LABS: Absolute Lymphocyte Count 0.96 X10^3/uL (0.83-4.51); Absolute Neutrophil Count 6.3 X10^3/uL (2.0-7.7); Basophil# 0.06 X10^3/uL; Basophil% 0.7 % (0-1); Eosinophil# 0.24 X10^3/uL; Eosinophils% 2.9 % (0-5); Hematocrit 38.1 % (37-47); Hemoglobin 11.3 g/dL (12.0-15.0); Lymphocyte # 0.96 X10^3/ul (4.0); Lymphocyte % 11.6 % (19-41); Mean Corp Hgb Conc 29.7 g/dL (32-36); Mean Corpuscular Hgb 29.2 pg (27.0-32.0); Mean Corpuscular Volume 98.4 fL (81-99); Mean Platelet Vol. 11.5 fl (6.2-12.0); Monocyte# 0.58 X10^3/uL; NRBC Flagged by Analyzer 0 % (0-5); Neutrophil # 6.31 X10^3/uL (2.7-7.7); Platelet Count 246 K/mm3 (150-450); RBC Distribution Width CV 13.3 % (11.6-14.6); RBC Distribution Width SD 47.7 fl (35.1-43.9); Red Blood Count 3.87 M/mm3 (4.2-5.4); White Blood Count 8.3 K/mm3 (4.4-11.0)
[2019-07-27 10:13] LABS: Microalbumin:Creatinine Ratio 211.5 mg/g CRE (<30 mg/g CRE)
[2019-07-27 10:20] LABS: Cholesterol 165 mg/dL (200); High Density Lipoprotein 41 mg/dL; Triglycerides 306 mg/dL; Very Low Density Lipoprotein 61 mg/dL (5-40)
[2019-07-27 10:24] LABS: Hemoglobin A1c 7.5 % (4.2-6.3)
[2019-07-27 10:41] LABS: Color, Urine Yellow (Yellow); Glucose, Dipstick Normal (Normal); Ketone-Dipstick Negative (Negative); Leukocyte Esterase-Dipstick Negative /ul (Negative); Nitrite-Dipstick Negative (Negative); Occult Blood-Urine 10 /ul (Negative); Protein-Dipstick 30 mg/dl (Negative); Specific Gravity, Urine 1.015 (1.002-1.030); Urine Bilirubin Dipstick Negative (Negative); Urine Clarity Clear (Clear); Urine Urobilinogen Normal (Normal)
[2019-07-27 10:52] LABS: Red Blood Cells-Urine 0-5 SEEN /hpf (0-5); White Blood Cells 0-5 SEEN /hpf (0-5)
== END 2019-07-27 18:00 | disposition home or self-care (01) ==
LOC: LAB 08:42
PROVIDERS: Family Provider Internal Medicine; PCP Internal Medicine; Referring Provider Psychiatry & Neurology Child & Adolescent Psychiatry; Visit Provider Psychiatry & Neurology Child & Adolescent Psychiatry
DX: F25.0 Schizoaffective disorder, bipolar type (principal); Z51.81 Encounter for therapeutic drug level monitoring; E78.2 Mixed hyperlipidemia; E11.9 Type 2 diabetes mellitus without complications
CPT/HCPCS: 36415; 80061; 81001; 82043; 82570; 83036; 85025

== ENCOUNTER 2019-09-12 11:15 | Outpatient (RCR) | payer MEDICARE, MEDICAID, SELFPAY ==
[2019-08-28 12:47] LABS: Absolute Lymphocyte Count 1.22 X10^3/uL (0.83-4.51); Absolute Neutrophil Count 7.2 X10^3/uL (2.0-7.7); Basophil# 0.04 X10^3/uL; Basophil% 0.4 % (0-1); Eosinophil# 0.44 X10^3/uL; Eosinophils% 4.6 % (0-5); Hematocrit 41.2 % (37-47); Hemoglobin 12.1 g/dL (12.0-15.0); Lymphocyte # 1.22 X10^3/ul (4.0); Lymphocyte % 12.7 % (19-41); Mean Corp Hgb Conc 29.4 g/dL (32-36); Mean Corpuscular Hgb 29.2 pg (27.0-32.0); Mean Corpuscular Volume 99.5 fL (81-99); Mean Platelet Vol. 11.3 fl (6.2-12.0); Monocyte# 0.63 X10^3/uL; Monocyte% 6.5 % (0-10); NRBC Flagged by Analyzer 0 % (0-5); Neutrophil % 74.9 % (47-70); Platelet Count 271 K/mm3 (150-450); RBC Distribution Width CV 13.5 % (11.6-14.6); RBC Distribution Width SD 49.2 fl (35.1-43.9); Red Blood Count 4.14 M/mm3 (4.2-5.4); White Blood Count 9.6 K/mm3 (4.4-11.0)
[2019-09-12 11:32] LABS: Absolute Lymphocyte Count 1.01 X10^3/uL (0.83-4.51); Basophil# 0.06 X10^3/uL; Basophil% 0.9 % (0-1); Eosinophil# 0.37 X10^3/uL; Eosinophils% 5.3 % (0-5); Hemoglobin 11.9 g/dL (12.0-15.0); Lymphocyte # 1.01 X10^3/ul (4.0); Lymphocyte % 14.4 % (19-41); Mean Corp Hgb Conc 29.8 g/dL (32-36); Mean Corpuscular Hgb 29.8 pg (27.0-32.0); Mean Corpuscular Volume 100.3 fL (81-99); Monocyte# 0.43 X10^3/uL; Monocyte% 6.1 % (0-10); NRBC Flagged by Analyzer 0 % (0-5); Neutrophil % 71.3 % (47-70); Platelet Count 273 K/mm3 (150-450); RBC Distribution Width CV 13.2 % (11.6-14.6); RBC Distribution Width SD 49.1 fl (35.1-43.9); Red Blood Count 3.99 M/mm3 (4.2-5.4)
== END 2019-09-12 18:00 | disposition home or self-care (01) ==
LOC: LAB 11:15
PROVIDERS: Family Provider Internal Medicine; PCP Internal Medicine; Referring Provider Psychiatry & Neurology Child & Adolescent Psychiatry; Visit Provider Psychiatry & Neurology Child & Adolescent Psychiatry
DX: F25.0 Schizoaffective disorder, bipolar type (principal); Z51.81 Encounter for therapeutic drug level monitoring
CPT/HCPCS: 36415; 85025

== ENCOUNTER 2019-10-16 12:16 | Outpatient (RCR) | payer MEDICARE, MEDICAID, SELFPAY ==
[2019-10-16 12:40] LABS: Absolute Lymphocyte Count 1.18 X10^3/uL (0.83-4.51); Absolute Neutrophil Count 5.4 X10^3/uL (2.0-7.7); Basophil# 0.06 X10^3/uL; Basophil% 0.8 % (0-1); Eosinophil# 0.48 X10^3/uL; Eosinophils% 6.2 % (0-5); Hematocrit 42.3 % (37-47); Hemoglobin 12.9 g/dL (12.0-15.0); Lymphocyte # 1.18 X10^3/ul (4.0); Lymphocyte % 15.2 % (19-41); Mean Corp Hgb Conc 30.5 g/dL (32-36); Mean Corpuscular Hgb 29.7 pg (27.0-32.0); Mean Corpuscular Volume 97.5 fL (81-99); Monocyte# 0.49 X10^3/uL; Monocyte% 6.3 % (0-10); NRBC Flagged by Analyzer 0 % (0-5); Neutrophil # 5.42 X10^3/uL (2.7-7.7); Neutrophil % 70.1 % (47-70); Platelet Count 301 K/mm3 (150-450); RBC Distribution Width CV 13.6 % (11.6-14.6); RBC Distribution Width SD 48.8 fl (35.1-43.9); Red Blood Count 4.34 M/mm3 (4.2-5.4); White Blood Count 7.7 K/mm3 (4.4-11.0)
[2019-10-16 13:03] LABS: ALB/GLOB Ratio 1.2 RATIO (0.9-2.4); AST(SGOT) 14 U/L (15-37); Alanine Aminotransfer ALT/SGPT 39 U/L (13-56); Albumin, Serum 3.8 g/dL (3.2-5.0); Alkaline Phosphatase 98 U/L (45-117); Anion Gap 3 (5-15); BUN 20 mg/dL (7-18); BUN/Creat Ratio 25.3 RATIO (10-20); Calcium,Total 9.7 mg/dL (8.5-10.1); Chloride 102 mmol/L (98-107); Creatinine, Serum 0.79 mg/dL (0.55-1.02); EST Glomerular Filtration Rate 78 mL/min (>60); Est Glom Filt Rate - Afr Amer 94 mL/min (>60); Globulin 3.3 g/dL (2.2-4.2); Glucose 154 mg/dL (74-106); Potassium 4.5 mmol/L (3.5-5.1); Protein, Total 7.1 g/dL (6.4-8.2); Sodium Level 141 mmol/L (136-145)
== END 2019-10-16 18:00 | disposition home or self-care (01) ==
LOC: LAB 12:16
PROVIDERS: Family Provider Internal Medicine; PCP Internal Medicine; Referring Provider Psychiatry & Neurology Child & Adolescent Psychiatry; Visit Provider Psychiatry & Neurology Child & Adolescent Psychiatry
DX: F25.0 Schizoaffective disorder, bipolar type (principal); Z51.81 Encounter for therapeutic drug level monitoring
CPT/HCPCS: 36415; 80053; 85025

== ENCOUNTER 2019-11-13 07:13 | Outpatient (RCR) | payer MEDICARE, MEDICAID, SELFPAY ==
[2019-11-13 07:47] LABS: Absolute Lymphocyte Count 1.21 X10^3/uL (0.83-4.51); Absolute Neutrophil Count 5.1 X10^3/uL (2.0-7.7); Basophil# 0.05 X10^3/uL; Basophil% 0.7 % (0-1); Eosinophil# 0.58 X10^3/uL; Eosinophils% 7.7 % (0-5); Hematocrit 39.5 % (37-47); Lymphocyte # 1.21 X10^3/ul (4.0); Lymphocyte % 16.2 % (19-41); Mean Corp Hgb Conc 30.4 g/dL (32-36); Mean Corpuscular Hgb 30.1 pg (27.0-32.0); Mean Platelet Vol. 10.8 fl (6.2-12.0); Monocyte# 0.46 X10^3/uL; Monocyte% 6.1 % (0-10); NRBC Flagged by Analyzer 0 % (0-5); Neutrophil % 68.1 % (47-70); Platelet Count 266 K/mm3 (150-450); RBC Distribution Width CV 13.6 % (11.6-14.6); RBC Distribution Width SD 48.7 fl (35.1-43.9); Red Blood Count 3.99 M/mm3 (4.2-5.4); White Blood Count 7.5 K/mm3 (4.4-11.0)
== END 2019-11-26 18:00 | disposition home or self-care (01) ==
LOC: LAB 07:13
PROVIDERS: Family Provider Internal Medicine; PCP Internal Medicine; Referring Provider Psychiatry & Neurology Child & Adolescent Psychiatry; Visit Provider Psychiatry & Neurology Child & Adolescent Psychiatry
DX: Z79.899 Other long term (current) drug therapy (principal)
CPT/HCPCS: 36415; 85025

== ENCOUNTER 2019-12-13 11:58 | Outpatient (RCR) | payer MEDICARE, MEDICAID, SELFPAY ==
[2019-12-13 13:07] LABS: Absolute Lymphocyte Count 0.95 X10^3/uL (0.83-4.51); Absolute Neutrophil Count 4.6 X10^3/uL (2.0-7.7); Basophil# 0.06 X10^3/uL; Basophil% 0.9 % (0-1); Eosinophils% 4.6 % (0-5); Hematocrit 40.6 % (37-47); Hemoglobin 12.1 g/dL (12.0-15.0); Lymphocyte # 0.95 X10^3/ul (4.0); Lymphocyte % 14.6 % (19-41); Mean Corp Hgb Conc 29.8 g/dL (32-36); Mean Corpuscular Hgb 28.9 pg (27.0-32.0); Mean Corpuscular Volume 97.1 fL (81-99); Mean Platelet Vol. 11.2 fl (6.2-12.0); Monocyte# 0.48 X10^3/uL; Monocyte% 7.4 % (0-10); NRBC Flagged by Analyzer 0 % (0-5); Neutrophil # 4.61 X10^3/uL (2.7-7.7); Platelet Count 278 K/mm3 (150-450); RBC Distribution Width CV 13.4 % (11.6-14.6); RBC Distribution Width SD 47.2 fl (35.1-43.9); Red Blood Count 4.18 M/mm3 (4.2-5.4); White Blood Count 6.5 K/mm3 (4.4-11.0)
== END 2019-12-13 18:00 | disposition home or self-care (01) ==
LOC: LAB 11:58
PROVIDERS: Family Provider Internal Medicine; PCP Internal Medicine; Referring Provider Psychiatry & Neurology Child & Adolescent Psychiatry; Visit Provider Psychiatry & Neurology Child & Adolescent Psychiatry
DX: Z79.899 Other long term (current) drug therapy (principal)
CPT/HCPCS: 36415; 85025

== ENCOUNTER 2020-01-11 14:58 | Outpatient (RCR) | payer MEDICARE, MEDICAID, SELFPAY ==
[2020-01-11 16:19] LABS: Absolute Lymphocyte Count 1.26 X10^3/uL (0.83-4.51); Absolute Neutrophil Count 5.5 X10^3/uL (2.0-7.7); Basophil# 0.05 X10^3/uL; Basophil% 0.6 % (0-1); Eosinophil# 0.41 X10^3/uL; Eosinophils% 5.3 % (0-5); Hematocrit 40.8 % (37-47); Hemoglobin 12.3 g/dL (12.0-15.0); Lymphocyte # 1.26 X10^3/ul (4.0); Lymphocyte % 16.2 % (19-41); Mean Corp Hgb Conc 30.1 g/dL (32-36); Mean Corpuscular Hgb 29.9 pg (27.0-32.0); Mean Corpuscular Volume 99.3 fL (81-99); Mean Platelet Vol. 11.5 fl (6.2-12.0); Monocyte% 6.4 % (0-10); NRBC Flagged by Analyzer 0 % (0-5); Neutrophil # 5.47 X10^3/uL (2.7-7.7); Neutrophil % 70.2 % (47-70); Platelet Count 290 K/mm3 (150-450); RBC Distribution Width CV 13.3 % (11.6-14.6); RBC Distribution Width SD 48.1 fl (35.1-43.9); Red Blood Count 4.11 M/mm3 (4.2-5.4); White Blood Count 7.8 K/mm3 (4.4-11.0)
[2020-01-11 16:33] LABS: ALB/GLOB Ratio 1.1 RATIO (0.9-2.4); AST(SGOT) 15 U/L (15-37); Alanine Aminotransfer ALT/SGPT 42 U/L (13-56); Albumin, Serum 3.5 g/dL (3.2-5.0); Alkaline Phosphatase 104 U/L (45-117); Anion Gap 3 (5-15); BUN 23 mg/dL (7-18); BUN/Creat Ratio 27.6 RATIO (10-20); Calcium,Total 9.4 mg/dL (8.5-10.1); Chloride 101 mmol/L (98-107); Creatinine, Serum 0.83 mg/dL (0.55-1.02); EST Glomerular Filtration Rate 73 mL/min (>60); Est Glom Filt Rate - Afr Amer 88 mL/min (>60); Globulin 3.3 g/dL (2.2-4.2); Glucose 179 mg/dL (74-106); Potassium 4.5 mmol/L (3.5-5.1); Protein, Total 6.8 g/dL (6.4-8.2); Sodium Level 138 mmol/L (136-145)
== END 2020-01-11 18:00 | disposition home or self-care (01) ==
LOC: LAB 14:58
PROVIDERS: Family Provider Internal Medicine; PCP Internal Medicine; Referring Provider Psychiatry & Neurology Child & Adolescent Psychiatry; Visit Provider Psychiatry & Neurology Child & Adolescent Psychiatry
DX: Z79.899 Other long term (current) drug therapy (principal)
CPT/HCPCS: 36415; 80053; 85025

== ENCOUNTER 2020-02-08 15:42 | Outpatient (RCR) | payer MEDICARE, MEDICAID, SELFPAY ==
[2020-01-11 15:52] VITALS: BMI 28.4
[2020-02-08 16:18] LABS: Absolute Lymphocyte Count 1.45 X10^3/uL (0.83-4.51); Absolute Neutrophil Count 4.3 X10^3/uL (2.0-7.7); Basophil# 0.04 X10^3/uL; Basophil% 0.6 % (0-1); Eosinophil# 0.39 X10^3/uL; Eosinophils% 5.7 % (0-5); Hematocrit 37.7 % (37-47); Hemoglobin 11.4 g/dL (12.0-15.0); Lymphocyte # 1.45 X10^3/ul (4.0); Lymphocyte % 21.1 % (19-41); Mean Corp Hgb Conc 30.2 g/dL (32-36); Mean Corpuscular Hgb 29.9 pg (27.0-32.0); Mean Platelet Vol. 11.3 fl (6.2-12.0); Monocyte# 0.57 X10^3/uL; Monocyte% 8.3 % (0-10); NRBC Flagged by Analyzer 0 % (0-5); Neutrophil # 4.33 X10^3/uL (2.7-7.7); Neutrophil % 63.1 % (47-70); Platelet Count 249 K/mm3 (150-450); RBC Distribution Width CV 13.3 % (11.6-14.6); RBC Distribution Width SD 48.8 fl (35.1-43.9); Red Blood Count 3.81 M/mm3 (4.2-5.4); White Blood Count 6.9 K/mm3 (4.4-11.0)
== END 2020-02-08 18:00 | disposition home or self-care (01) ==
LOC: LAB 15:42
PROVIDERS: Family Provider Internal Medicine; PCP Internal Medicine; Referring Provider Psychiatry & Neurology Child & Adolescent Psychiatry; Visit Provider Psychiatry & Neurology Child & Adolescent Psychiatry
DX: Z79.899 Other long term (current) drug therapy (principal)
CPT/HCPCS: 36415; 85025

== ENCOUNTER 2020-03-13 11:21 | Outpatient (RCR) | payer MEDICARE, MEDICAID, SELFPAY ==
[2020-01-11 15:52] VITALS: BMI 28.4
[2020-03-13 12:29] LABS: Absolute Lymphocyte Count 1.33 X10^3/uL (0.83-4.51); Absolute Neutrophil Count 5.9 X10^3/uL (2.0-7.7); Basophil# 0.06 X10^3/uL; Basophil% 0.7 % (0-1); Eosinophil# 0.36 X10^3/uL; Eosinophils% 4.3 % (0-5); Hematocrit 40.4 % (37-47); Hemoglobin 12.1 g/dL (12.0-15.0); Lymphocyte # 1.33 X10^3/ul (4.0); Lymphocyte % 15.9 % (19-41); Mean Corpuscular Hgb 29.7 pg (27.0-32.0); Mean Platelet Vol. 10.9 fl (6.2-12.0); Monocyte# 0.51 X10^3/uL; Monocyte% 6.1 % (0-10); NRBC Flagged by Analyzer 0 % (0-5); Neutrophil # 5.94 X10^3/uL (2.7-7.7); Neutrophil % 71.2 % (47-70); Platelet Count 318 K/mm3 (150-450); RBC Distribution Width CV 13.3 % (11.6-14.6); RBC Distribution Width SD 48.5 fl (35.1-43.9); Red Blood Count 4.08 M/mm3 (4.2-5.4); White Blood Count 8.4 K/mm3 (4.4-11.0)
== END 2020-03-13 18:00 | disposition home or self-care (01) ==
LOC: LAB 11:21
PROVIDERS: Family Provider Internal Medicine; PCP Internal Medicine; Referring Provider Psychiatry & Neurology Child & Adolescent Psychiatry; Visit Provider Psychiatry & Neurology Child & Adolescent Psychiatry
DX: Z79.899 Other long term (current) drug therapy (principal)
CPT/HCPCS: 36415; 85025

== ENCOUNTER 2020-04-15 12:27 | Outpatient (RCR) | payer MEDICARE, MEDICAID, SELFPAY ==
[2020-01-11 15:52] VITALS: BMI 28.4
[2020-04-15 14:26] LABS: ALB/GLOB Ratio 1.1 RATIO (0.9-2.4); AST(SGOT) 15 U/L (15-37); Alanine Aminotransfer ALT/SGPT 40 U/L (13-56); Albumin, Serum 3.6 g/dL (3.2-5.0); Alkaline Phosphatase 99 U/L (45-117); Anion Gap 3 (5-15); BUN 27 mg/dL (7-18); Calcium,Total 9.8 mg/dL (8.5-10.1); Chloride 100 mmol/L (98-107); EST Glomerular Filtration Rate 67 mL/min (>60); Est Glom Filt Rate - Afr Amer 81 mL/min (>60); Globulin 3.4 g/dL (2.2-4.2); Glucose 136 mg/dL (74-106); Potassium 4.3 mmol/L (3.5-5.1); Sodium Level 139 mmol/L (136-145)
[2020-04-15 15:06] LABS: Absolute Lymphocyte Count 1.37 X10^3/uL (0.83-4.51); Absolute Neutrophil Count 5.1 X10^3/uL (2.0-7.7); Basophil# 0.07 X10^3/uL; Basophil% 0.9 % (0-1); Eosinophil# 0.35 X10^3/uL; Eosinophils% 4.7 % (0-5); Hematocrit 41.1 % (37-47); Hemoglobin 12.7 g/dL (12.0-15.0); Lymphocyte # 1.37 X10^3/ul (4.0); Lymphocyte % 18.4 % (19-41); Mean Corp Hgb Conc 30.9 g/dL (32-36); Mean Corpuscular Volume 97.2 fL (81-99); Mean Platelet Vol. 11.6 fl (6.2-12.0); Monocyte# 0.53 X10^3/uL; Monocyte% 7.1 % (0-10); NRBC Flagged by Analyzer 0 % (0-5); Neutrophil # 5.06 X10^3/uL (2.7-7.7); Platelet Count 317 K/mm3 (150-450); RBC Distribution Width CV 13.2 % (11.6-14.6); RBC Distribution Width SD 47.3 fl (35.1-43.9); Red Blood Count 4.23 M/mm3 (4.2-5.4); White Blood Count 7.5 K/mm3 (4.4-11.0)
== END 2020-04-15 18:00 | disposition home or self-care (01) ==
LOC: LAB 12:27
PROVIDERS: Family Provider Internal Medicine; PCP Internal Medicine; Referring Provider Psychiatry & Neurology Child & Adolescent Psychiatry; Visit Provider Psychiatry & Neurology Child & Adolescent Psychiatry
DX: Z79.899 Other long term (current) drug therapy (principal)
CPT/HCPCS: 36415; 80053; 85025

== ENCOUNTER 2020-05-15 08:43 | Outpatient (RCR) | payer MEDICARE, MEDICAID, SELFPAY ==
[2020-01-11 15:52] VITALS: BMI 28.4
[2020-05-15 09:59] LABS: Absolute Lymphocyte Count 0.87 X10^3/uL (0.83-4.51); Absolute Neutrophil Count 4.1 X10^3/uL (2.0-7.7); Basophil# 0.05 X10^3/uL; Basophil% 0.9 % (0-1); Eosinophil# 0.28 X10^3/uL; Eosinophils% 4.9 % (0-5); Hematocrit 40.8 % (37-47); Hemoglobin 12.5 g/dL (12.0-15.0); Lymphocyte # 0.87 X10^3/ul (4.0); Lymphocyte % 15.1 % (19-41); Mean Corp Hgb Conc 30.6 g/dL (32-36); Mean Corpuscular Hgb 29.4 pg (27.0-32.0); Mean Platelet Vol. 11.6 fl (6.2-12.0); Monocyte% 6.9 % (0-10); NRBC Flagged by Analyzer 0 % (0-5); Neutrophil # 4.12 X10^3/uL (2.7-7.7); Neutrophil % 71.3 % (47-70); Platelet Count 246 K/mm3 (150-450); RBC Distribution Width SD 45.9 fl (35.1-43.9); Red Blood Count 4.25 M/mm3 (4.2-5.4); White Blood Count 5.8 K/mm3 (4.4-11.0)
== END 2020-05-15 18:00 | disposition home or self-care (01) ==
LOC: LAB 08:43
PROVIDERS: Family Provider Internal Medicine; PCP Internal Medicine; Referring Provider Psychiatry & Neurology Child & Adolescent Psychiatry; Visit Provider Psychiatry & Neurology Child & Adolescent Psychiatry
DX: Z79.899 Other long term (current) drug therapy (principal)
CPT/HCPCS: 36415; 85025

== ENCOUNTER 2020-06-11 11:53 | Outpatient (RCR) | payer MEDICARE, MEDICAID, SELFPAY ==
[2020-01-11 15:52] VITALS: BMI 28.4
[2020-06-11 12:21] LABS: Absolute Lymphocyte Count 1.41 X10^3/uL (0.83-4.51); Absolute Neutrophil Count 4.5 X10^3/uL (2.0-7.7); Basophil# 0.05 X10^3/uL; Basophil% 0.7 % (0-1); Eosinophil# 0.36 X10^3/uL; Eosinophils% 5.2 % (0-5); Hematocrit 39.1 % (37-47); Hemoglobin 11.9 g/dL (12.0-15.0); Lymphocyte # 1.41 X10^3/ul (4.0); Lymphocyte % 20.5 % (19-41); Mean Corp Hgb Conc 30.4 g/dL (32-36); Mean Corpuscular Hgb 29.8 pg (27.0-32.0); Mean Platelet Vol. 11.5 fl (6.2-12.0); Monocyte# 0.52 X10^3/uL; Monocyte% 7.5 % (0-10); NRBC Flagged by Analyzer 0 % (0-5); Neutrophil # 4.47 X10^3/uL (2.7-7.7); Neutrophil % 64.9 % (47-70); Platelet Count 268 K/mm3 (150-450); RBC Distribution Width CV 12.9 % (11.6-14.6); RBC Distribution Width SD 46.2 fl (35.1-43.9); Red Blood Count 3.99 M/mm3 (4.2-5.4); White Blood Count 6.9 K/mm3 (4.4-11.0)
== END 2020-06-11 18:00 | disposition home or self-care (01) ==
LOC: LAB 11:53
PROVIDERS: Family Provider Internal Medicine; PCP Internal Medicine; Referring Provider Psychiatry & Neurology Child & Adolescent Psychiatry; Visit Provider Psychiatry & Neurology Child & Adolescent Psychiatry
DX: Z79.899 Other long term (current) drug therapy (principal)
CPT/HCPCS: 36415; 85025

== ENCOUNTER 2020-07-10 10:38 | Outpatient (RCR) | payer MEDICARE, MEDICAID, SELFPAY ==
[2020-01-11 15:52] VITALS: BMI 28.4
[2020-07-10 11:29] LABS: Absolute Neutrophil Count 9.7 X10^3/uL (2.0-7.7); Basophil# 0.07 X10^3/uL; Basophil% 0.6 % (0-1); Eosinophil# 0.36 X10^3/uL; Eosinophils% 2.9 % (0-5); Hematocrit 39.4 % (37-47); Hemoglobin 11.6 g/dL (12.0-15.0); Lymphocyte % 9.7 % (19-41); Mean Corp Hgb Conc 29.4 g/dL (32-36); Mean Corpuscular Hgb 29.3 pg (27.0-32.0); Mean Corpuscular Volume 99.5 fL (81-99); Mean Platelet Vol. 11.7 fl (6.2-12.0); Monocyte# 0.91 X10^3/uL; Monocyte% 7.4 % (0-10); NRBC Flagged by Analyzer 0 % (0-5); Neutrophil % 78.8 % (47-70); Platelet Count 276 K/mm3 (150-450); RBC Distribution Width CV 13.2 % (11.6-14.6); RBC Distribution Width SD 48.4 fl (35.1-43.9); Red Blood Count 3.96 M/mm3 (4.2-5.4); White Blood Count 12.3 K/mm3 (4.4-11.0)
== END 2020-07-10 18:00 | disposition home or self-care (01) ==
LOC: LAB 10:38
PROVIDERS: Family Provider Internal Medicine; PCP Internal Medicine; Referring Provider Psychiatry & Neurology Child & Adolescent Psychiatry; Visit Provider Psychiatry & Neurology Child & Adolescent Psychiatry
DX: Z79.899 Other long term (current) drug therapy (principal)
CPT/HCPCS: 36415; 85025

== ENCOUNTER 2020-08-12 11:42 | Outpatient (RCR) | payer MEDICARE, MEDICAID, SELFPAY ==
[2020-01-11 15:52] VITALS: BMI 28.4
[2020-08-12 12:27] LABS: Absolute Lymphocyte Count 1.26 X10^3/uL (0.83-4.51); Basophil# 0.06 X10^3/uL; Basophil% 0.8 % (0-1); Eosinophil# 0.33 X10^3/uL; Eosinophils% 4.5 % (0-5); Lymphocyte # 1.26 X10^3/ul (0.83-4.51); Lymphocyte % 17.3 % (19-41); Mean Corpuscular Hgb 29.6 pg (27.0-32.0); Mean Corpuscular Volume 98.8 fL (81-99); Mean Platelet Vol. 11.5 fl (6.2-12.0); Monocyte# 0.53 X10^3/uL; Monocyte% 7.3 % (0-10); NRBC Flagged by Analyzer 0 % (0-5); Neutrophil # 5.02 X10^3/uL (2.7-7.7); Neutrophil % 68.7 % (47-70); Platelet Count 283 K/mm3 (150-450); RBC Distribution Width CV 12.8 % (11.6-14.6); RBC Distribution Width SD 46.5 fl (35.1-43.9); Red Blood Count 4.05 M/mm3 (4.2-5.4); White Blood Count 7.3 K/mm3 (4.4-11.0)
[2020-08-12 13:11] LABS: ALB/GLOB Ratio 1.1 RATIO (0.9-2.4); AST(SGOT) 14 U/L (15-37); Alanine Aminotransfer ALT/SGPT 45 U/L (13-56); Albumin, Serum 3.7 g/dL (3.2-5.0); Alkaline Phosphatase 94 U/L (45-117); Anion Gap 4 (5-15); BUN 18 mg/dL (7-18); Calcium,Total 9.9 mg/dL (8.5-10.1); Chloride 99 mmol/L (98-107); Creatinine, Serum 0.69 mg/dL (0.55-1.02); EST Glomerular Filtration Rate 90 mL/min (>60); Est Glom Filt Rate - Afr Amer 109 mL/min (>60); Globulin 3.3 g/dL (2.2-4.2); Glucose 133 mg/dL (74-106); Potassium 4.4 mmol/L (3.5-5.1); Sodium Level 140 mmol/L (136-145)
== END 2020-08-12 18:00 | disposition home or self-care (01) ==
LOC: LAB 11:42
PROVIDERS: Family Provider Internal Medicine; PCP Internal Medicine; Referring Provider Psychiatry & Neurology Child & Adolescent Psychiatry; Visit Provider Psychiatry & Neurology Child & Adolescent Psychiatry
DX: Z79.899 Other long term (current) drug therapy (principal)
CPT/HCPCS: 36415; 80053; 85025

== ENCOUNTER 2020-09-12 09:16 | Outpatient (RCR) | payer MEDICARE, MEDICAID, SELFPAY ==
[2020-01-11 15:52] VITALS: BMI 28.4
[2020-09-12 10:06] LABS: Absolute Lymphocyte Count 0.92 X10^3/uL (0.83-4.51); Absolute Neutrophil Count 5.3 X10^3/uL (2.0-7.7); Basophil# 0.06 X10^3/uL; Basophil% 0.8 % (0-1); Eosinophils% 6.9 % (0-5); Hematocrit 41.3 % (37-47); Hemoglobin 12.5 g/dL (12.0-15.0); Lymphocyte # 0.92 X10^3/ul (0.83-4.51); Lymphocyte % 12.7 % (19-41); Mean Corp Hgb Conc 30.3 g/dL (32-36); Mean Corpuscular Hgb 29.6 pg (27.0-32.0); Mean Corpuscular Volume 97.6 fL (81-99); Mean Platelet Vol. 11.4 fl (6.2-12.0); Monocyte# 0.37 X10^3/uL; Monocyte% 5.1 % (0-10); NRBC Flagged by Analyzer 0 % (0-5); Neutrophil # 5.28 X10^3/uL (2.7-7.7); Neutrophil % 73.1 % (47-70); Platelet Count 300 K/mm3 (150-450); RBC Distribution Width CV 12.8 % (11.6-14.6); RBC Distribution Width SD 45.7 fl (35.1-43.9); Red Blood Count 4.23 M/mm3 (4.2-5.4); White Blood Count 7.2 K/mm3 (4.4-11.0)
== END 2020-09-12 18:00 | disposition home or self-care (01) ==
LOC: LAB 09:16
PROVIDERS: Family Provider Internal Medicine; PCP Internal Medicine; Referring Provider Psychiatry & Neurology Child & Adolescent Psychiatry; Visit Provider Psychiatry & Neurology Child & Adolescent Psychiatry
DX: Z79.899 Other long term (current) drug therapy (principal)
CPT/HCPCS: 36415; 85025

== ENCOUNTER 2020-10-10 07:58 | Outpatient (RCR) | payer MEDICARE, MEDICAID, SELFPAY ==
[2020-01-11 15:52] VITALS: BMI 28.4
[2020-10-10 08:29] LABS: Absolute Lymphocyte Count 1.09 X10^3/uL (0.83-4.51); Absolute Neutrophil Count 4.9 X10^3/uL (2.0-7.7); Basophil# 0.05 X10^3/uL; Basophil% 0.7 % (0-1); Eosinophil# 0.29 X10^3/uL; Eosinophils% 4.2 % (0-5); Hematocrit 39.6 % (37-47); Hemoglobin 12.2 g/dL (12.0-15.0); Lymphocyte # 1.09 X10^3/ul (0.83-4.51); Lymphocyte % 15.8 % (19-41); Mean Corp Hgb Conc 30.8 g/dL (32-36); Mean Corpuscular Hgb 30.2 pg (27.0-32.0); Mean Platelet Vol. 11.3 fl (6.2-12.0); Monocyte% 7.3 % (0-10); NRBC Flagged by Analyzer 0 % (0-5); Neutrophil % 71.1 % (47-70); Platelet Count 265 K/mm3 (150-450); RBC Distribution Width CV 12.7 % (11.6-14.6); RBC Distribution Width SD 45.5 fl (35.1-43.9); Red Blood Count 4.04 M/mm3 (4.2-5.4); White Blood Count 6.9 K/mm3 (4.4-11.0)
[2020-10-10 09:27] LABS: Cholesterol 190 mg/dL (200); High Density Lipoprotein 35 mg/dL; Thyroid Stim Hormone (TSH) 3.45 uIU/mL (0.358-3.74); Triglycerides 639 mg/dL
== END 2020-10-10 18:00 | disposition home or self-care (01) ==
LOC: LAB 07:58
PROVIDERS: Family Provider Internal Medicine; PCP Internal Medicine; Referring Provider Psychiatry & Neurology Child & Adolescent Psychiatry; Visit Provider Psychiatry & Neurology Child & Adolescent Psychiatry
DX: Z79.899 Other long term (current) drug therapy (principal)
CPT/HCPCS: 36415; 80061; 83036; 84443; 85025

== ENCOUNTER 2020-11-12 15:04 | Outpatient (RCR) | payer MEDICARE, MEDICAID, SELFPAY ==
[2020-01-11 15:52] VITALS: BMI 28.4
[2020-11-12 16:00] LABS: Absolute Lymphocyte Count 1.39 X10^3/uL (0.83-4.51); Absolute Neutrophil Count 4.3 X10^3/uL (2.0-7.7); Basophil# 0.04 X10^3/uL; Basophil% 0.6 % (0-1); Eosinophil# 0.38 X10^3/uL; Eosinophils% 5.6 % (0-5); Hematocrit 36.6 % (37-47); Hemoglobin 11.2 g/dL (12.0-15.0); Lymphocyte # 1.39 X10^3/ul (0.83-4.51); Lymphocyte % 20.6 % (19-41); Mean Corp Hgb Conc 30.6 g/dL (32-36); Mean Corpuscular Hgb 29.5 pg (27.0-32.0); Mean Corpuscular Volume 96.3 fL (81-99); Mean Platelet Vol. 11.6 fl (6.2-12.0); Monocyte# 0.61 X10^3/uL; NRBC Flagged by Analyzer 0 % (0-5); Neutrophil # 4.26 X10^3/uL (2.7-7.7); Platelet Count 258 K/mm3 (150-450); RBC Distribution Width CV 12.7 % (11.6-14.6); RBC Distribution Width SD 44.7 fl (35.1-43.9); White Blood Count 6.8 K/mm3 (4.4-11.0)
== END 2020-11-12 18:00 | disposition home or self-care (01) ==
LOC: LAB 15:04
PROVIDERS: Family Provider Internal Medicine; PCP Internal Medicine; Referring Provider Psychiatry & Neurology Child & Adolescent Psychiatry; Visit Provider Psychiatry & Neurology Child & Adolescent Psychiatry
DX: Z79.899 Other long term (current) drug therapy (principal)
CPT/HCPCS: 36415; 85025

== ENCOUNTER 2020-11-28 08:01 | Emergency (ER) | payer MEDICARE, MEDICAID, SELFPAY ==
[2020-11-28 08:02] VITALS: BP 150/101; PULSE 124; RESP 12; TEMP 36.8; O2SAT 94; BMI 28.9
--- NOTE | 2020-11-28 08:28 | EKG12_ITS ---
Test Reason : SOB Blood Pressure : / mmHG Vent. Rate : 116 BPM Atrial Rate : 116 BPM P-R Int : 144 ms QRS Dur : 084 ms QT Int : 328 ms P-R-T Axes : 044 014 024 degrees QTc Int : 455 ms Sinus tachycardia Otherwise normal ECG Confirmed by AVIS NAPIER, ANTIONE ([id number]), film editor supervisor ALLEN SHERIFF ([id number]) on 12/02/2020 8:34:53 AM Referred By: LUPIS Confirmed By:SHAYY ALBARRAN MD
--- NOTE | 2020-11-28 08:28 | RAD_ITS ---
STUDY: X-RAY CHEST REASON FOR EXAM: Female, 65 years old. cough TECHNIQUE: Single AP portable view of the chest. COMPARISON: 05/11/2017 FINDINGS: The lungs are clear and expanded. There is no demonstrated pleural abnormality. Normal size heart. Normal mediastinum and frederic. Normal visualized pulmonary arteries. Normal visualized aortic arch and descending thoracic aorta. Normal visualized thoracic spine. Normal visualized ribs, clavicles, and shoulders. There is no demonstrated abnormality of the visualized soft tissue structures of the upper abdomen. RAD/Chest 1 View (Portable) IMPRESSION: Normal x-ray examination of the chest. Electronically Signed: Clark Tariq MD at 10:26 EDT Tel , Service support ,
[2020-11-28 08:40] VITALS: O2SAT 91
[2020-11-28 09:02] LABS: Color, Urine Yellow (Yellow); Glucose, Dipstick Normal (Normal); Ketone-Dipstick Negative (Negative); Leukocyte Esterase-Dipstick 100 /ul (Negative); Nitrite-Dipstick Negative (Negative); Occult Blood-Urine Negative /ul (Negative); Protein-Dipstick 15 mg/dl (Negative); Urine Bilirubin Dipstick Negative (Negative); Urine Clarity Clear (Clear); Urine Urobilinogen Normal (Normal)
[2020-11-28 09:12] LABS: Red Blood Cells-Urine 0-5 SEEN /hpf (0-5); Squamous Epithelial Cells - UA 0-5 SEEN /hpf (5-10); White Blood Cells 0-5 SEEN /hpf (0-5)
[2020-11-28 09:13] LABS: Bacteria 1+ /hpf (None Seen); Mucous, Urine 1+ /hpf (<or=2+)
[2020-11-28 09:19] LABS: Absolute Lymphocyte Count 0.89 X10^3/uL (0.83-4.51); Absolute Neutrophil Count 4.8 X10^3/uL (2.0-7.7); Basophil# 0.04 X10^3/uL; Basophil% 0.6 % (0-1); Eosinophil# 0.32 X10^3/uL; Eosinophils% 4.9 % (0-5); Hemoglobin 12.2 g/dL (12.0-15.0); Lymphocyte # 0.89 X10^3/ul (0.83-4.51); Lymphocyte % 13.5 % (19-41); Mean Corp Hgb Conc 31.3 g/dL (32-36); Mean Corpuscular Volume 96.1 fL (81-99); Mean Platelet Vol. 11.4 fl (6.2-12.0); Monocyte# 0.51 X10^3/uL; Monocyte% 7.8 % (0-10); NRBC Flagged by Analyzer 0 % (0-5); Neutrophil # 4.75 X10^3/uL (2.7-7.7); Neutrophil % 72.1 % (47-70); Platelet Count 238 K/mm3 (150-450); RBC Distribution Width CV 12.6 % (11.6-14.6); RBC Distribution Width SD 43.9 fl (35.1-43.9); Red Blood Count 4.06 M/mm3 (4.2-5.4); White Blood Count 6.6 K/mm3 (4.4-11.0)
[2020-11-28 09:35] LABS: Lactic Acid 1.9 mmol/L (0.4-1.9)
[2020-11-28 09:37] LABS: ALB/GLOB Ratio 1.1 RATIO (0.9-2.4); AST(SGOT) 16 U/L (15-37); Alanine Aminotransfer ALT/SGPT 43 U/L (13-56); Albumin, Serum 3.5 g/dL (3.2-5.0); Alkaline Phosphatase 84 U/L (45-117); Anion Gap 3 (5-15); BUN 18 mg/dL (7-18); BUN/Creat Ratio 26.8 RATIO (10-20); Calcium,Total 9.3 mg/dL (8.5-10.1); Chloride 103 mmol/L (98-107); Creatinine, Serum 0.67 mg/dL (0.55-1.02); EST Glomerular Filtration Rate 93 mL/min (>60); Est Glom Filt Rate - Afr Amer 113 mL/min (>60); Globulin 3.3 g/dL (2.2-4.2); Glucose 186 mg/dL (74-106); Protein, Total 6.8 g/dL (6.4-8.2); Sodium Level 141 mmol/L (136-145); Troponin-I HS 7 pg/mL (3.0-54.0)
[2020-11-28 10:19] LABS: Procalcitonin < 0.04 ng/mL (0.00-0.09)
--- NOTE | 2020-11-28 10:40 | CT_ITS ---
STUDY: CTA CHEST REASON FOR EXAM: Female, 65 years old. hypoxia RADIATION DOSAGE (If Supplied By Facility): CTDIvol = ( 12.37 ) mGy, DLP = ( 415.07 ) mGycm TECHNIQUE: The examination was performed with the intravenous administration of IV 100ML ISOVUE 370. Post-processing of the angiographic images was performed, with multiplanar reformation and 3D reconstruction. Individualized dose optimization techniques were used for this CT. COMPARISON: Chest x-ray earlier today FINDINGS: Normal enhancement of the main pulmonary artery and right and left pulmonary arteries. Normal enhancement of the bilateral peripheral pulmonary arteries. There is no demonstrated pulmonary embolism. Normal thoracic aorta and visualized great vessels. There is no demonstrated aortic dissection. Normal heart and pericardium. Normal mediastinum. Normal hilar regions. Normal visualized trachea and bronchi. The lungs are well expanded. Normal pulmonary parenchyma. Tiny bilateral pleural effusions with some bibasilar atelectasis. Normal chest wall structures. Normal osseous structures. Normal visualized upper abdomen. CT/CTA Chest W/WO Contrast IMPRESSION: Normal CTA chest examination, without a demonstrated pulmonary embolism or arterial dissection. Electronically Signed: Clark Tariq MD at 12:06 EDT Tel , Service support ,
[2020-11-28 12:14] VITALS: BP 138/84; PULSE 101; RESP 20; TEMP 36.4; O2SAT 96
[2020-11-28 12:55] VITALS: O2SAT 95
--- NOTE | 2020-11-28 14:28 | EDS_ITS ---
HPI History of Present Illness Chief Complaint: Shortness of Breath Narrative Narrative: Patient presenting with her family member and nursing staff from her facility as she was found to be hypoxic in the 70s upon awakening today. Staff does state that they are told to warm her hands before they take her pulse ox because she has had some low readings. She also wears nail namibian. Patient does not have any symptoms of cough, fever, shortness of breath. On arrival her oxygen is in the low 90s and she was placed on O2 initially. She is reported to be otherwise active and healthy. There is some concern that she might have sleep apnea which has not been followed up on. [facility] Medical History Chest pain Depression Diabetes Diabetes HLD (hyperlipidemia) Schizoaffective disorder TBI (traumatic brain injury) Home Medications clozapine 125 mg PO BID 09/14/13 [History Last Taken 12/26/13 05:00 100] docusate sodium 100 mg PO BID 09/14/13 [History Last Taken Unknown] ferrous sulfate 325 mg PO BID 09/14/13 [History Last Taken Unknown] folic acid 0.4 mg PO BID 09/14/13 [History Last Taken Unknown] loratadine 10 mg PO DAILY 09/14/13 [History Last Taken Unknown] metformin 1,000 mg PO BID 09/14/13 [History Last Taken Unknown] nitrofurantoin macrocrystal 100 mg PO DAILY 09/14/13 [History Last Taken Unknown] omeprazole 20 mg PO DAILY 09/14/13 [History Last Taken 05/11/17 05:00 20 MG] risperidone 2 mg PO BID 09/14/13 [History Last Taken 05/11/17 05:00 2 MG] fluticasone propionate 2 spray NASAL DAILY 12/05/13 [History Last Taken Unknown] oxybutynin chloride 10 mg PO DAILY #30 tab.er.24 12/26/13 [Rx Last Taken Unknown] sertraline 25 mg PO DAILY 04/23/17 [History Last Taken 05/11/17 05:00 25 MG] atorvastatin 80 mg tablet 80 mg PO DAILY tab 01/11/20 [History Last Taken Unknown] bisacodyl 5 mg tablet,delayed release 5 mg PO ONCE 01/11/20 [History Last Taken Unknown] blood sugar diagnostic #10 ea 01/11/20 [History Last Taken Unknown] brimonidine 0.2 %-timolol 0.5 % eye drops 1 drp OPHTHALMIC DAILY ml 01/11/20 [History Last Taken Unknown] lancets 28 gauge #100 ea 01/11/20 [History Last Taken Unknown] latanoprost 0.005 % eye drops 1 drp OPHTHALMIC ml 01/11/20 [History Last Taken Unknown] nttfwkot-fqt-adcui acid 0.4 mg-lycopene 300 mcg-lutein 250 mcg tablet 1 tab PO DAILY 01/11/20 [History Last Taken Unknown] polyethylene glycol 3350 17 gram/dose oral powder g PO 01/11/20 [History Last Taken Unknown] prednisolone acetate 1 % eye drops,suspension 1 drp OPHTHALMIC ml 01/11/20 [Hi story Last Taken Unknown] sitagliptin 25 mg tablet 25 mg PO DAILY tab 01/11/20 [History Last Taken Unknown] white petrolatum 1 applic TOPICAL 6XD 01/11/20 [History Last Taken Unknown] lorazepam 2 mg IV PRN PRN 11/28/20 [History Last Taken Unknown] Allergy/AdvReac Type Severity Reaction Status Date / Time sulfamethoxazole Allergy Rash Verified 11/28/20 09:18 [From Bactrim] trimethoprim [From Bactrim] Allergy Rash Verified 11/28/20 09:18 Social History Smoking Status: Never smoker alcohol intake: never ROS ROS ED Constitutional Constitutional ED: Denies chills or fever(s) Eyes Eyes: Denies blurry vision or diplopia ENT ENT ED: Denies rhinorrhea or sore throat Cardiovascular Cardiovascular: Denies chest pain or palpitations Respiratory/Chest Respiratory/Chest: Reports other Details: Low pulse oximeter reading ; Denies cough, dyspnea or sputum Gastrointestinal Gastrointestinal: Denies abdominal pain Genitourinary Genitourinary ED: Denies dysuria or hematuria Musculoskeletal Musculoskeletal: Denies arthralgias or myalgias Integumentary Denies abscess or rash Neurologic Neurologic: Denies headache(s), paresthesias or weakness EXAM Physical Exam Const Vital Signs: 11/28/20 08:02 11/28/20 12:14 Temperature 98.2 F 97.6 F L Temperature Source Oral Temporal Pulse Rate 124 H 101 H Respiratory Rate 12 20 H Respiratory Effort Normal Non-Labored Respiratory Depth Normal Respiratory Pattern Normal Blood Pressure 150/101 H 138/84 H Blood Pressure Mean 117 102 Pulse Ox 94 96 Oxygen Delivery Method Room Air Room Air Positive well nourished General Appearance ED: NAD; Negative for pallor HEENT Reports normocephalic, head/scalp atraumatic and moist mucous membranes Eyes PERRL and EOMs intact bilaterally Neck no lymphadenopathy and supple Chest Wall inspection of chest normal and palpation of chest normal Resp normal respiratory effort and clear to auscultation bilaterally Auscultation: Negative for rales, rhonchi or wheezes Cardio regular rate and regular rhythm GI normal to inspection, nondistended, normoactive bowel sounds and non-distended Auscultation: normoactive bowel sounds Palpation: soft Narrative: Deferred Back/Spine Cervical Spine: Negative for cervical spine tenderness Extremity normal to inspection General Extremety ED: Negative for edema or tenderness General Extremity: Negative for edema Neuro oriented x3 and CN's II-XII intact bilaterally Sensorium / Orientation: alert Motor Exam: strength 5/5 throughout Psych mental status grossly normal Attitude: No agitated Skin no rashes or lesions noted and no wounds General Skin Exam: Negative for jaundice or pallor MDM MDM MDM Narrative Medical decision making narrative: Patient arriving tachypneic and tachycardic with reported hypoxia. Was placed on oxygen while evaluating. Given her vitals with a septic work-up was pursued. Patient CBC and CMP are unremarkable. Troponin is negative. EKG on my interpretation shows a sinus rhythm at a tachycardic rate of 116/min with signs of ischemic change. Chest x-ray my interpretation shows no acute cardiopulmonary process. Lactic acid is negative. Procalcitonin negative. Urinalysis negative for infection. Patient had CTA of the chest which is also negative for acute cardiopulmonary process as interp reted by the radiologist. I did review this. Upon reevaluating the patient she is sitting in the bed with a mask on without oxygen maintaining sats of 96%. She apparently had got up and walked her self to the bathroom and came back. She does not appear to be toxic or short of breath. I did have a discussion with her sister as well as her caregiver and we determined that we did ambulate her in the hallway. She did briskly ambulate around the hallway without any sort of distressed and upon coming back to her bed she was noted to be 88% which quickly cipriano to the mid 90s. She had no difficulty with this. I did have a conversation with her sister as well as her caregiver regarding the 88% and I did ask if they wanted to admit her to start oxygen therapy or whether they would feel comfortable going home. Her sister did not want her to have to wear oxygen without any further work-up. I did tell her that she may need a sleep study but that we would not be able to get that as an inpatient or in the emergency room. They did express a lot of concern about the hypoxia upon awakening. I did speak with her primary care doctor Dr. Mckeon who stated that she was happy to follow-up with her on an outpatient basis and set up a sleep study and monitor her. Her caregiver at the home will watch her pulse ox and remove her nail namibian in order to get clear pulse ox readings. They are given strict return precautions. Patient is discharged home in stable condition. Impression: 1. Hypoxia with ambulation 2. Possible sleep apnea. Lab Data Labs: Laboratory Results - last 24 hr 11/28/20 11/28/20 11/28/20 08:25 08:30 08:30 WBC Cancelled Corrected WBC Cancelled RBC Cancelled Hgb Cancelled Hct Cancelled MCV Cancelled MCH Cancelled MCHC Cancelled RDW Std Deviation Cancelled RDW Coeff of Erwin Cancelled Plt Count Cancelled MPV Cancelled Immature Gran % (Auto) Cancelled Neut % (Auto) Cancelled Lymph % (Auto) Cancelled Bailey % (Auto) Cancelled Eos % (Auto) Cancelled Baso % (Auto) Cancelled Absolute Neuts (auto) Cancelled Absolute Lymphs (auto) Cancelled Total Counted Cancelled Neutrophils % (Manual) Cancelled Band Neutrophils % Cancelled Lymphocytes % (Manual) Cancelled Monocytes % (Manual) Cancelled Eosinophils % (Manual) Cancelled Basophils % (Manual) Cancelled Metamyelocytes % Cancelled Myelocytes % Cancelled Promyelocytes % Cancelled Blast Cells % Cancelled Plasma Cell % (Manual) Cancelled Other Cells % Cancelled Nucleated RBC % Cancelled Nucleated RBCs/100 WBC Cancelled Differential Comment Cancelled Diff Path Review Cancelled Hypersegmented Neuts Cancelled Atypical Lymphocytes Cancelled Reactive Lymphocytes Cancelled Smudge Cells Cancelled Toxic Granulation Cancelled Toxic Vacuolation Cancelled Dohle Bodies Cancelled Monica Rods Cancelled Platelet Estimate Cancelled Plt Morphology Comment Cancelled RBC Morphology Cancelled Polychromasia Cancelled Hypochromasia Cancelled Poikilocytosis Cancelled Basophilic Stippling Cancelled Anisocytosis Cancelled Microcytosis Cancelled Macrocytosis Cancelled Spherocytes Cancelled Sickle Cells Cancelled Target Cells Cancelled Tear Drop Cells Cancelled Ovalocytes Cancelled Stomatocytes Cancelled [place] Bodies Cancelled [place] Cells Cancelled Bite Cells Cancelled Crenated Cell Cancelled Acanthocytes (Spur) Cancelled Rouleaux Cancelled Schistocytes Cancelled Sodium Cancelled Potassium Cancelled Chloride Cancelled Carbon Dioxide Cancelled Anion Gap Cancelled BUN Cancelled Creatinine Cancelled Estim Creat Clear Calc Cancelled Est GFR (MDRD) Af Amer Cancelled Est GFR (MDRD) Non-Af Cancelled BUN/Creatinine Ratio Cancelled Glucose Cancelled Lactic Acid Calcium Cancelled Total Bilirubin Cancelled AST Cancelled ALT Cancelled Alkaline Phosphatase Cancelled Troponin I High Sens Cancelled Total Protein Cancelled Albumin Cancelled Globulin Cancelled Albumin/Globulin Ratio Cancelled Procalcitonin Urine Color Yellow Urine Clarity Clear Urine pH 5.0 Ur Specific [place] 1.020 Urine Protein 15 H Urine Glucose (UA) Normal Urine Ketones Negative Urine Occult Blood Negative Urine Nitrite Negative Urine Bilirubin Negative Urine Urobilinogen Normal Ur Leukocyte Esterase 100 H Urine RBC 0-5 SEEN Urine WBC 0-5 SEEN Ur Squamous Epith Cells 0-5 SEEN Urine Bacteria 1+ Urine Mucus 1+ 11/28/20 11/28/20 11/28/20 09:00 09:00 09:00 WBC 6.6 Corrected WBC RBC 4.06 L Hgb 12.2 Hct 39.0 MCV 96.1 MCH 30.0 MCHC 31.3 L RDW Std Deviation 43.9 RDW Coeff of Erwin 12.6 Plt Count 238 MPV 11.4 Immature Gran % (Auto) 1.100 H Neut % (Auto) 72.1 H Lymph % (Auto) 13.5 L Bailey % (Auto) 7.8 Eos % (Auto) 4.9 Baso % (Auto) 0.6 Absolute Neuts (auto) 4.8 Absolute Lymphs (auto) 0.89 Total Counted Neutrophils % (Manual) Band Neutrophils % Lymphocytes % (Manual) Monocytes % (Manual) Eosinophils % (Manual) Basophils % (Manual) Metamyelocytes % Myelocytes % Promyelocytes % Blast Cells % Plasma Cell % (Manual) Other Cells % Nucleated RBC % 0 Nucleated RBCs/100 WBC Differential Comment Diff Path Review Hypersegmented Neuts Atypical Lymphocytes Reactive Lymphocytes Smudge Cells Toxic Granulation Toxic Vacuolation Dohle Bodies [place] Rods Platelet Estimate Plt Morphology Comment RBC Morphology Polychromasia Hypochromasia Poikilocytosis Basophilic Stippling Anisocytosis Microcytosis Macrocytosis Spherocytes Sickle Cells Target Cells Tear Drop Cells Ovalocytes Stomatocytes [place] Bodies [place] Cells Bite Cells Crenated Cell Acanthocytes (Spur) Rouleaux Schistocytes Sodium Potassium Chloride Carbon Dioxide Anion Gap BUN Creatinine Estim Creat Clear Calc Est GFR (MDRD) Af Amer Est GFR (MDRD) Non-Af BUN/Creatinine Ratio Glucose Lactic Acid 1.9 Calcium Total Bilirubin AST ALT Alkaline Phosphatase Troponin I High Sens Total Protein Albumin Globulin Albumin/Globulin Ratio Procalcitonin < 0.04 Urine Color Urine Clarity Urine pH Ur Specific [place] Urine Protein Urine Glucose (UA) Urine Ketones Urine Occult Blood Urine Nitrite Urine Bilirubin Urine Urobilinogen Ur Leukocyte Esterase Urine RBC Urine WBC Ur Squamous Epith Cells Urine Bacteria Urine Mucus 11/28/20 09:00 WBC Corrected WBC RBC Hgb Hct MCV MCH MCHC RDW Std Deviation RDW Coeff of Erwin Plt Count MPV Immature Gran % (Auto) Neut % (Auto) Lymph % (Auto) Bailey % (Auto) Eos % (Auto) Baso % (Auto) Absolute Neuts (auto) Absolute Lymphs (auto) Total Counted Neutrophils % (Manual) Band Neutrophils % Lymphocytes % (Manual) Monocytes % (Manual) Eosinophils % (Manual) Basophils % (Manual) Metamyelocytes % Myelocytes % Promyelocytes % Blast Cells % Plasma Cell % (Manual) Other Cells % Nucleated RBC % Nucleated RBCs/100 WBC Differential Comment Diff Path Review Hypersegmented Neuts Atypical Lymphocytes Reactive Lymphocytes Smudge Cells Toxic Granulation Toxic Vacuolation Dohle Bodies [place] Rods Platelet Estimate Plt Morphology Comment RBC Morphology Polychromasia Hypochromasia Poikilocytosis Basophilic Stippling Anisocytosis Microcytosis Macrocytosis Spherocytes Sickle Cells Target Cells Tear Drop Cells Ovalocytes Stomatocytes [place] Bodies [place] Cells Bite Cells Crenated Cell Acanthocytes (Spur) Rouleaux Schistocytes Sodium 141 Potassium 4.0 Chloride 103 Carbon Dioxide 35.0 H Anion Gap 3 L BUN 18 Creatinine 0.67 Estim Creat Clear Calc 49.80 Est GFR (MDRD) Af Amer 113 Est GFR (MDRD) Non-Af 93 BUN/Creatinine Ratio 26.8 H Glucose 186 H Lactic Acid Calcium 9.3 Total Bilirubin 0.20 AST 16 ALT 43 Alkaline Phosphatase 84 Troponin I High Sens 7 Total Protein 6.8 Albumin 3.5 Globulin 3.3 Albumin/Globulin Ratio 1.1 Procalcitonin Urine Color Urine Clarity Urine pH Ur Specific [place] Urine Protein Urine Glucose (UA) Urine Ketones Urine Occult Blood Urine Nitrite Urine Bilirubin Urine Urobilinogen Ur Leukocyte Esterase Urine RBC Urine WBC Ur Squamous Epith Cells Urine Bacteria Urine Mucus Radiography Diagnostic Testing: Radiology Impression Chest X-Ray 11/28/20 08:28 IMPRESSION: Normal x-ray examination of the chest. Electronically Signed: Clark Tariq MD at 10:26 EDT Tel , Service support , Chest CTA 11/28/20 10:40 IMPRESSION: Normal CTA chest examination, without a demonstrated pulmonary embolism or arterial dissection. Electronically Signed: Clark Tariq MD at 12:06 EDT Tel , Service support , Discharge Plan Triage Chief Complaint: Shortness of Breath ED Provider: Epi Ho Dx/Rx/DC Orders Instructions: ED Dyspnea Prescriptions: No Action atorvastatin 80 mg tablet 80 mg PO DAILY RF: 0 polyethylene glycol 3350 17 gram/dose powder PO RF: 0 sitagliptin 25 mg tablet 25 mg PO DAILY RF: 0 latanoprost 0.005 % drops 1 drp OPHTHALMIC RF: 0 (DME) blood sugar diagnostic Strip See Rx Instructions strip .ROUTE .MEDSUPPLY Qty: 10 RF: 0 (DME) lancets 28 gauge misc See Rx Instructions ea .ROUTE .MEDSUPPLY Qty: 100 RF: 0 white petrolatum [Vaseline] Gel 1 applic TOPICAL 6XD RF: 0 CertaVite Senior 0.4-300-250 mg-mcg-mcg tablet 1 tab PO DAILY RF: 0 brimonidine-timolol 0.2-0.5 % drops 1 drp OPHTHALMIC DAILY RF: 0 prednisolone acetate 1 % drops,suspension 1 drp OPHTHALMIC RF: 0 bisacodyl 5 mg tablet,delayed release (DR/EC) 5 mg PO ONCE RF: 0 clozapine 100 MG tablet 125 mg PO BID RF: 0 folic acid 0.4 MG tablet 0.4 mg PO BID RF: 0 ferrous sulfate 325 MG tablet 325 mg PO BID RF: 0 metformin 1,000 MG tablet 1,000 mg PO BID RF: 0 nitrofurantoin macrocrystal 100 MG capsule 100 mg PO DAILY RF: 0 docusate sodium 100 MG capsule 100 mg PO BID RF: 0 omeprazole 20 MG capsule 20 mg PO DAILY RF: 0 risperidone 1 MG tablet 2 mg PO BID RF: 0 loratadine 10 MG tablet 10 mg PO DAILY RF: 0 fluticasone propionate 1 SPRAY spray,suspension 2 spray NASAL DAILY RF: 0 oxybutynin chloride 10 MG tablet extended release 24hr 10 mg PO DAILY Qty: 30 RF: 0 sertraline 25 MG tablet 25 mg PO DAILY RF: 0 lorazepam 2 mg/mL Solution 2 mg IV PRN PRN (Reason: Anxiety) RF: 0 Primary Care Provider: Adia Mckeon Referrals: Adia Mckeon MD [Primary Care Provider] - Disposition Disposition: Home, Self Care
== END 2020-11-28 14:39 | disposition home or self-care (01) ==
PROVIDERS: Emergency Provider Student in an Organized Health Care Education/Training Program; PCP Internal Medicine
DX: R09.02 Hypoxemia (principal); E11.9 Type 2 diabetes mellitus without complications; E78.5 Hyperlipidemia, unspecified; F25.9 Schizoaffective disorder, unspecified; F32.9 Major depressive disorder, single episode, unspecified; Z87.820 Personal history of traumatic brain injury; Z79.84 Long term (current) use of oral hypoglycemic drugs; Z79.899 Other long term (current) drug therapy
CPT/HCPCS: 71045; 71275; 80053; 81001; 83605; 84145; 84484; 85025; 87040; 87426; 93005; 99285; Q9967; A4216

== ENCOUNTER 2020-12-12 07:12 | Outpatient (RCR) | payer MEDICARE, MEDICAID, SELFPAY ==
[2020-11-26 01:12] VITALS: BMI 28.4
[2020-12-12 07:31] LABS: Absolute Lymphocyte Count 1.12 X10^3/uL (0.83-4.51); Absolute Neutrophil Count 4.9 X10^3/uL (2.0-7.7); Basophil# 0.05 X10^3/uL; Basophil% 0.7 % (0-1); Eosinophil# 0.36 X10^3/uL; Eosinophils% 5.2 % (0-5); Hematocrit 37.8 % (37-47); Hemoglobin 11.7 g/dL (12.0-15.0); Lymphocyte # 1.12 X10^3/ul (0.83-4.51); Lymphocyte % 16.2 % (19-41); Mean Corpuscular Hgb 30.2 pg (27.0-32.0); Mean Corpuscular Volume 97.7 fL (81-99); Mean Platelet Vol. 11.1 fl (6.2-12.0); Monocyte# 0.42 X10^3/uL; Monocyte% 6.1 % (0-10); NRBC Flagged by Analyzer 0 % (0-5); Neutrophil # 4.92 X10^3/uL (2.7-7.7); Neutrophil % 70.9 % (47-70); Platelet Count 241 K/mm3 (150-450); RBC Distribution Width CV 12.6 % (11.6-14.6); RBC Distribution Width SD 45.1 fl (35.1-43.9); Red Blood Count 3.87 M/mm3 (4.2-5.4); White Blood Count 6.9 K/mm3 (4.4-11.0)
== END 2020-12-12 18:00 | disposition home or self-care (01) ==
LOC: LAB 07:12
PROVIDERS: Family Provider Internal Medicine; PCP Internal Medicine; Referring Provider Psychiatry & Neurology Child & Adolescent Psychiatry; Visit Provider Psychiatry & Neurology Child & Adolescent Psychiatry
DX: Z79.899 Other long term (current) drug therapy (principal)
CPT/HCPCS: 36415; 85025

== ENCOUNTER 2021-01-06 07:30 | Outpatient (RCR) | payer MEDICARE, MEDICAID, SELFPAY ==
[2020-12-26 00:43] VITALS: BMI 28.4
[2021-01-06 08:08] LABS: Absolute Lymphocyte Count 1.18 X10^3/uL (0.83-4.51); Absolute Neutrophil Count 4.7 X10^3/uL (2.0-7.7); Basophil# 0.05 X10^3/uL; Basophil% 0.7 % (0-1); Eosinophil# 0.46 X10^3/uL; Eosinophils% 6.6 % (0-5); Hematocrit 38.2 % (37-47); Hemoglobin 11.9 g/dL (12.0-15.0); Lymphocyte # 1.18 X10^3/ul (0.83-4.51); Lymphocyte % 16.8 % (19-41); Mean Corp Hgb Conc 31.2 g/dL (32-36); Mean Corpuscular Hgb 30.1 pg (27.0-32.0); Mean Corpuscular Volume 96.7 fL (81-99); Mean Platelet Vol. 11.2 fl (6.2-12.0); Monocyte# 0.51 X10^3/uL; Monocyte% 7.3 % (0-10); NRBC Flagged by Analyzer 0 % (0-5); Neutrophil # 4.73 X10^3/uL (2.7-7.7); Neutrophil % 67.5 % (47-70); Platelet Count 253 K/mm3 (150-450); RBC Distribution Width CV 12.5 % (11.6-14.6); RBC Distribution Width SD 44.4 fl (35.1-43.9); Red Blood Count 3.95 M/mm3 (4.2-5.4)
== END 2021-01-25 05:21 | disposition home or self-care (01) ==
LOC: LAB 07:30
PROVIDERS: Family Provider Internal Medicine; PCP Internal Medicine; Referring Provider Psychiatry & Neurology Child & Adolescent Psychiatry; Visit Provider Psychiatry & Neurology Child & Adolescent Psychiatry
DX: Z79.899 Other long term (current) drug therapy (principal)
CPT/HCPCS: 36415; 85025

== ENCOUNTER 2021-02-04 07:39 | Outpatient (RCR) | payer MEDICARE, MEDICAID, SELFPAY ==
[2021-01-25 05:21] VITALS: BMI 28.4
[2021-02-04 08:47] LABS: Absolute Neutrophil Count 5.6 X10^3/uL (2.0-7.7); Basophil# 0.04 X10^3/uL; Basophil% 0.6 % (0-1); Eosinophil# 0.31 X10^3/uL; Eosinophils% 4.3 % (0-5); Hemoglobin 11.6 g/dL (12.0-15.0); Mean Corp Hgb Conc 30.5 g/dL (32-36); Mean Corpuscular Hgb 29.1 pg (27.0-32.0); Mean Corpuscular Volume 95.2 fL (81-99); Mean Platelet Vol. 11.9 fl (6.2-12.0); Monocyte% 6.9 % (0-10); NRBC Flagged by Analyzer 0 % (0-5); Neutrophil # 5.56 X10^3/uL (2.7-7.7); Neutrophil % 76.6 % (47-70); Platelet Count 249 K/mm3 (150-450); RBC Distribution Width SD 42.1 fl (35.1-43.9); Red Blood Count 3.99 M/mm3 (4.2-5.4); White Blood Count 7.3 K/mm3 (4.4-11.0)
== END 2021-02-24 18:00 | disposition home or self-care (01) ==
LOC: LAB 07:39
PROVIDERS: Family Provider Internal Medicine; PCP Internal Medicine; Referring Provider Psychiatry & Neurology Child & Adolescent Psychiatry; Visit Provider Psychiatry & Neurology Child & Adolescent Psychiatry
DX: Z79.899 Other long term (current) drug therapy (principal)
CPT/HCPCS: 36415; 85025

== ENCOUNTER 2021-02-11 17:30 | Emergency (ER) | payer MEDICARE, MEDICAID, SELFPAY ==
[2021-02-11 17:31] VITALS: PULSE 125; RESP 24; TEMP 36.2; O2SAT 96; BMI 23.2
--- NOTE | 2021-02-11 18:23 | EDS_ITS ---
HPI History of Present Illness Chief Complaint: Confusion Informant: mental health staff Limited: uncooperative Onset/Context/Timing Onset: Days Context: Gradual Onset Timing: Continuous Quality: Confusion Location: General Worsened by: Nothing Relieved by: Nothing Narrative Narrative: Patient presents with abnormal behavior that has been getting worse over the past 2 days. Patient lives in a retirement. Staff states the patient has been refusing to eat or take her medications. Staff also reports the patient has not slept in 3 days. Staff reports patient does have a history of schizophrenia. Patient also has a history of frequent urinary tract infections. Patient is a poor historian and does not answer questions appropriately. [facility] Medical History Chest pain Depression Diabetes Diabetes HLD (hyperlipidemia) Schizoaffective disorder TBI (traumatic brain injury) Home Medications clozapine 50 mg PO BID 09/14/13 [History Last Taken 12/26/13 05:00 100] docusate sodium 100 mg PO BID 09/14/13 [History Last Taken Unknown] ferrous sulfate 325 mg PO BID 09/14/13 [History Last Taken Unknown] folic acid 0.4 mg PO BID 09/14/13 [History Last Taken Unknown] loratadine 10 mg PO DAILY 09/14/13 [History Last Taken Unknown] metformin 1,000 mg PO BID 09/14/13 [History Last Taken Unknown] nitrofurantoin macrocrystal 100 mg PO DAILY 09/14/13 [History Last Taken Unknown] omeprazole 20 mg PO DAILY 09/14/13 [History Last Taken 05/11/17 05:00 20 MG] risperidone 2 mg PO BID 09/14/13 [History Last Taken 05/11/17 05:00 2 MG] fluticasone propionate 2 spray NASAL DAILY 12/05/13 [History Last Taken Unknown] oxybutynin chloride 10 mg PO DAILY #30 tab.er.24 12/26/13 [Rx Last Taken Unknown] sertraline 25 mg PO DAILY 04/23/17 [History Last Taken 05/11/17 05:00 25 MG] atorvastatin 80 mg tablet 80 mg PO DAILY tab 01/11/20 [History Last Taken Unknown] bisacodyl 5 mg tablet,delayed release 5 mg PO ONCE 01/11/20 [History Last Taken Unknown] blood sugar diagnostic #10 ea 01/11/20 [History Last Taken Unknown] brimonidine 0.2 %-timolol 0.5 % eye drops 1 drp OPHTHALMIC DAILY ml 01/11/20 [History Last Taken Unknown] lancets 28 gauge #100 ea 01/11/20 [History Last Taken Unknown] latanoprost 0.005 % eye drops 1 drp OPHTHALMIC ml 01/11/20 [History Last Taken Unknown] ipumsrlc-cdw-iiggz acid 0.4 mg-lycopene 300 mcg-lutein 250 mcg tablet 1 tab PO DAILY 01/11/20 [History Last Taken Unknown] polyethylene glycol 3350 17 gram/dose oral powder g PO 01/11/20 [History Last Taken Unknown] prednisolone acetate 1 % eye drops,suspension 1 drp OPHTHALMIC ml 01/11/20 [History Last Taken Unknown] sitagliptin 25 mg tablet 25 mg PO DAILY tab 01/11/20 [History Last Taken Unknown] white petrolatum 1 applic TOPICAL 6XD 01/11/20 [History Last Taken Unknown] lorazepam 2 mg IV PRN PRN 11/28/20 [History Last Taken Unknown] cephalexin 500 mg PO Q6 #20 capsule 02/11/21 [Rx Last Taken Unknown] Allergy/AdvReac Type Severity Reaction Status Date / Time sulfamethoxazole Allergy Rash Verified 11/28/20 09:18 [From Bactrim] trimethoprim [From Bactrim] Allergy Rash Verified 11/28/20 09:18 Social History Smoking Status: Never smoker alcohol intake: never ROS ROS ED Constitutional Constitutional ED: Denies chills or fever(s) Eyes Eyes: Denies blurry vision or change in vision ENT ENT ED: Denies rhinorrhea or sore throat Cardiovascular Cardiovascular: Denies chest pain or palpitations Respiratory/Chest Respiratory/Chest: Denies cough or dyspnea Gastrointestinal Gastrointestinal: Denies nausea or vomiting Genitourinary Genitourinary ED: Denies dysuria or hematuria Musculoskeletal Musculoskeletal: Denies back pain or neck pain Integumentary Denies abscess or rash Neurologic Neurologic: Denies headache(s) or weakness Allergic/Immunologic Allergic/Immunologic ED: Denies mouth swelling or urticaria EXAM Physical Exam Const Vital Signs: 02/11/21 17:31 02/11/21 22:59 Temperature 97.2 F L Temperature Source Temporal Pulse Rate 125 H Respiratory Rate 24 H 18 Pulse Ox 96 Oxygen Delivery Method Room Air Positive well nourished and well developed General Appearance ED: well developed HEENT Reports moist mucous membranes Neck supple and no JVD Resp normal respiratory effort and clear to auscultation bilaterally Cardio regular rhythm Rate: tachycardic GI non-tender Palpation: soft Extremity normal to inspection General Extremety ED: Negative for edema or tenderness General Extremity: Negative for edema Neuro CN's II-XII intact bilaterally Sensorium / Orientation: alert Motor Exam: general weakness MDM MDM MDM Narrative Medical decision making narrative: Patient was given IV fluids. CBC showed a slight anemia with a hemoglobin of 11.4 hematocrit 35.8. Comprehensive metabolic profile was essentially within normal limits. BUN was slightly elevated at 28. Urinalysis shows urine ketones of 150. Leukocyte Estrace was 100. There were 5-10 white blood cells and 5-10 epithelial cells. There is 1+ bacteria. Since the patient has a history of frequent urinary tract infections, patient was given a dose of Keflex here. Patient was given a prescription for Keflex. Social work was also consulted to see the patient to make sure that she is safe to go back to the retirement. director workers compensation talked to the caregiver and they are agreeable that the patient will be able to go back to the retirement. Caregiver understood and was agreeable with the plan. All questions were answered. Lab Data Attestation: I reviewed the patient's lab results. Labs: Laboratory Results - last 24 hr 02/11/21 02/11/21 02/11/21 18:45 18:45 20:00 WBC 7.9 RBC 3.83 L Hgb 11.4 L Hct 35.8 L MCV 93.5 MCH 29.8 MCHC 31.8 L RDW Std Deviation 41.9 RDW Coeff of Erwin 12.3 Plt Count 297 MPV 11.6 Immature Gran % (Auto) 0.500 Neut % (Auto) 80.0 H Lymph % (Auto) 9.9 L [place] % (Auto) 7.3 Eos % (Auto) 1.9 Baso % (Auto) 0.4 Absolute Neuts (auto) 6.3 Absolute Lymphs (auto) 0.78 L Nucleated RBC % 0 Sodium 142 Potassium 3.8 Chloride 105 Carbon Dioxide 26.0 Anion Gap 11 BUN 28 H Creatinine 0.67 Estim Creat Clear Calc 57.83 Est GFR (MDRD) Af Amer 114 Est GFR (MDRD) Non-Af 94 BUN/Creatinine Ratio 42.0 H Glucose 113 H Calcium 10.1 Total Bilirubin 0.40 AST 18 ALT 36 Alkaline Phosphatase 83 Total Protein 7.2 Albumin 3.7 Globulin 3.5 Albumin/Globulin Ratio 1.1 Urine Color Yellow Urine Clarity Clear Urine pH 5.0 Ur Specific [place] 1.025 Urine Protein 30 H Urine Glucose (UA) Normal Urine Ketones 150 A* Urine Occult Blood Negative Urine Nitrite Negative Urine Bilirubin Negative Urine Urobilinogen Normal Ur Leukocyte Esterase 100 H Urine RBC 0 SEEN Urine WBC 5-10 SEEN Ur Squamous Epith Cells 5-10 SEEN Urine Bacteria 1+ Urine Mucus 0 SEEN Discharge Plan Triage Chief Complaint: Confusion ED Provider: Norberto Kay Dx/Rx/DC Orders Clinical Impression: Urinary tract infection Instructions: ED CYSTITIS Female Adult Prescriptions: New cephalexin [cephalexin] 500 MG capsule 500 mg PO Q6 Qty: 20 RF: 0 No Action atorvastatin 80 mg tablet 80 mg PO DAILY RF: 0 polyethylene glycol 3350 17 gram/dose powder PO RF: 0 sitagliptin 25 mg tablet 25 mg PO DAILY RF: 0 latanoprost 0.005 % drops 1 drp OPHTHALMIC RF: 0 (DME) blood sugar diagnostic Strip See Rx Instructions strip .ROUTE .MEDSUPPLY Qty: 10 RF: 0 (DME) lancets 28 gauge misc See Rx Instructions ea .ROUTE .MEDSUPPLY Qty: 100 RF: 0 white petrolatum [Vaseline] Gel 1 applic TOPICAL 6XD RF: 0 CertaVite Senior 0.4-300-250 mg-mcg-mcg tablet 1 tab PO DAILY RF: 0 brimonidine-timolol 0.2-0.5 % drops 1 drp OPHTHALMIC DAILY RF: 0 prednisolone acetate 1 % drops,suspension 1 drp OPHTHALMIC RF: 0 bisacodyl 5 mg tablet,delayed release (DR/EC) 5 mg PO ONCE RF: 0 clozapine 100 MG tablet 50 mg PO BID RF: 0 folic acid 0.4 MG tablet 0.4 mg PO BID RF: 0 ferrous sulfate 325 MG tablet 325 mg PO BID RF: 0 metformin 1,000 MG tablet 1,000 mg PO BID RF: 0 nitrofurantoin macrocrystal 100 MG capsule 100 mg PO DAILY RF: 0 docusate sodium 100 MG capsule 100 mg PO BID RF: 0 omeprazole 20 MG capsule 20 mg PO DAILY RF: 0 risperidone 1 MG tablet 2 mg PO BID RF: 0 loratadine 10 MG tablet 10 mg PO DAILY RF: 0 fluticasone propionate 1 SPRAY spray,suspension 2 spray NASAL DAILY RF: 0 oxybutynin chloride 10 MG tablet extended release 24hr 10 mg PO DAILY Qty: 30 RF: 0 sertraline 25 MG tablet 25 mg PO DAILY RF: 0 lorazepam 2 mg/mL Solution 2 mg IV PRN PRN (Reason: Anxiety) RF: 0 Primary Care Provider: Adia Mckeon Referrals: Adia Mckeon MD [Primary Care Provider] - 3-5 Days Disposition Disposition: Home, Self Care Discharge Date/Time: 02/11/21 22:59
[2021-02-11] MEDS: 0.9% Normal Saline 1,000 ML 1000 ML IV (18:49)
[2021-02-11 18:55] LABS: Absolute Lymphocyte Count 0.78 X10^3/uL (0.83-4.51); Absolute Neutrophil Count 6.3 X10^3/uL (2.0-7.7); Basophil# 0.03 X10^3/uL; Basophil% 0.4 % (0-1); Eosinophil# 0.15 X10^3/uL; Eosinophils% 1.9 % (0-5); Hematocrit 35.8 % (37-47); Hemoglobin 11.4 g/dL (12.0-15.0); Lymphocyte # 0.78 X10^3/ul (0.83-4.51); Lymphocyte % 9.9 % (19-41); Mean Corp Hgb Conc 31.8 g/dL (32-36); Mean Corpuscular Hgb 29.8 pg (27.0-32.0); Mean Corpuscular Volume 93.5 fL (81-99); Mean Platelet Vol. 11.6 fl (6.2-12.0); Monocyte# 0.58 X10^3/uL; Monocyte% 7.3 % (0-10); NRBC Flagged by Analyzer 0 % (0-5); Neutrophil # 6.33 X10^3/uL (2.7-7.7); Platelet Count 297 K/mm3 (150-450); RBC Distribution Width CV 12.3 % (11.6-14.6); RBC Distribution Width SD 41.9 fl (35.1-43.9); Red Blood Count 3.83 M/mm3 (4.2-5.4); White Blood Count 7.9 K/mm3 (4.4-11.0)
[2021-02-11 19:17] LABS: ALB/GLOB Ratio 1.1 RATIO (0.9-2.4); AST(SGOT) 18 U/L (15-37); Alanine Aminotransfer ALT/SGPT 36 U/L (13-56); Albumin, Serum 3.7 g/dL (3.2-5.0); Alkaline Phosphatase 83 U/L (45-117); Anion Gap 11 (5-15); BUN 28 mg/dL (7-18); Calcium,Total 10.1 mg/dL (8.5-10.1); Chloride 105 mmol/L (98-107); Creatinine, Serum 0.67 mg/dL (0.55-1.02); EST Glomerular Filtration Rate 94 mL/min (>60); Est Glom Filt Rate - Afr Amer 114 mL/min (>60); Estimated Creatinine Clearance 57.83 ml/min; Globulin 3.5 g/dL (2.2-4.2); Glucose 113 mg/dL (74-106); Potassium 3.8 mmol/L (3.5-5.1); Protein, Total 7.2 g/dL (6.4-8.2); Sodium Level 142 mmol/L (136-145)
--- NOTE | 2021-02-11 19:22 | NURSING ---
Caregiver in room with patient stated patient has not let her change her depends since yesterday. Patients depends diaper noted to be fully saturated and leaked onto ed bed. Pt assisted to bedside commode. Caregiver in room then placed two depends on patient.
[2021-02-11 20:16] LABS: Mucous, Urine 0 SEEN /hpf (<or=2+); Red Blood Cells-Urine 0 SEEN /hpf (0-5)
[2021-02-11 20:17] LABS: Color, Urine Yellow (Yellow); Glucose, Dipstick Normal (Normal); Leukocyte Esterase-Dipstick 100 /ul (Negative); Nitrite-Dipstick Negative (Negative); Occult Blood-Urine Negative /ul (Negative); Protein-Dipstick 30 mg/dl (Negative); Specific Gravity, Urine 1.025 (1.002-1.030); Urine Bilirubin Dipstick Negative (Negative); Urine Clarity Clear (Clear); Urine Urobilinogen Normal (Normal)
[2021-02-11 20:22] LABS: Ketone-Dipstick 150 mg/dl (Negative)
[2021-02-11 20:24] LABS: Bacteria 1+ /hpf (None Seen)
[2021-02-11 20:25] LABS: White Blood Cells 5-10 SEEN /hpf (0-5)
[2021-02-11 20:26] LABS: Squamous Epithelial Cells - UA 5-10 SEEN /hpf (5-10)
--- NOTE | 2021-02-11 21:42 | CM.ED ---
SOCIAL WORK Referral Source: Dr. Kay Reason for Consult: Discharge Planning Patient from [facility]. Patient presented to ER with confusion. Patient with history of schizophrenia and has not taken medication in 2 days. Patient has been diagnosed with UTI. Caregiver with patient in room. Met with patient and caregiver in room. Introduced role and reason for referral. Caregiver requested this worker speak with Georgie, senior case manager. Caregiver facilitated phone call. Per Georgie, plan for patient to return to [facility]. Caregiver will transport patient back to [facility]. Plan: Return to [facility] Cheri Irving MSW, CLAIMS COUNSEL
[2021-02-11] MEDS: Cephalexin 500 MG Capsule PO (22:31)
[2021-02-11 22:59] VITALS: RESP 18
== END 2021-02-11 22:59 | disposition home or self-care (01) ==
PROVIDERS: Emergency Provider Emergency Medicine; PCP Internal Medicine
DX: N39.0 Urinary tract infection, site not specified (principal); D64.9 Anemia, unspecified; E11.9 Type 2 diabetes mellitus without complications; E78.5 Hyperlipidemia, unspecified; F25.9 Schizoaffective disorder, unspecified; F32.A Depression, unspecified; Z87.820 Personal history of traumatic brain injury; Z87.440 Personal history of urinary (tract) infections; Z79.84 Long term (current) use of oral hypoglycemic drugs; Z79.899 Other long term (current) drug therapy
CPT/HCPCS: 80053; 81001; 85025; 96360; 96361; 99284; J7030; A4216

== ENCOUNTER 2021-03-03 11:15 | Emergency (ER) | payer MEDICARE, MEDICAID, SELFPAY ==
[2021-03-03 11:17] VITALS: BP 139/96; PULSE 103; RESP 16; TEMP 36.2; O2SAT 95; BMI 20.6
--- NOTE | 2021-03-03 12:25 | EKG12_ITS ---
Test Reason : MENTAL ALVIN Blood Pressure : / mmHG Vent. Rate : 105 BPM Atrial Rate : 105 BPM P-R Int : 132 ms QRS Dur : 080 ms QT Int : 330 ms P-R-T Axes : 066 020 022 degrees QTc Int : 436 ms Sinus tachycardia Otherwise normal ECG Confirmed by DIANE NAPIER, GRECIA ([id number]), primer expeditor and drier ALLEN SHERIFF ([id number]) on 03/05/2021 12:23:11 PM Referred By: LOC Confirmed By:GRECIA CONTRERAS MD
--- NOTE | 2021-03-03 12:27 | EX.ED.VIS.PS ---
HPI HPI - Psych History of Present Illness Chief Complaint: Mental Health Narrative Narrative: History and physical is limited secondary to MRDD. Patient presents from [facility]. bake room worker states that patient was seen by her psychiatrist today and needs evaluation. She has had abnormal behavior. She has been agitated in the past few days. She is refusing to eat. She is hallucinating, stating that she is hearing voices telling her not to eat. Additionally, there are times when the patient will take off her clothes and try to escape. The last time she started to do this, she needed stabilization in a psychiatric facility. [facility] Medical History Chest pain Depression Diabetes Diabetes HLD (hyperlipidemia) Schizoaffective disorder TBI (traumatic brain injury) Home Medications clozapine 50 mg PO BID 09/14/13 [History Last Taken 12/26/13 05:00 100] docusate sodium 100 mg PO BID 09/14/13 [History Last Taken Unknown] ferrous sulfate 325 mg PO BID 09/14/13 [History Last Taken Unknown] folic acid 0.4 mg PO BID 09/14/13 [History Last Taken Unknown] loratadine 10 mg PO DAILY 09/14/13 [History Last Taken Unknown] metformin 1,000 mg PO BID 09/14/13 [History Last Taken Unknown] nitrofurantoin macrocrystal 100 mg PO DAILY 09/14/13 [History Last Taken Unknown] omeprazole 20 mg PO DAILY 09/14/13 [History Last Taken 05/11/17 05:00 20 MG] risperidone 2 mg PO BID 09/14/13 [History Last Taken 05/11/17 05:00 2 MG] fluticasone propionate 2 spray NASAL DAILY 12/05/13 [History Last Taken Unknown] oxybutynin chloride 10 mg PO DAILY #30 tab.er.24 12/26/13 [Rx Last Taken Unknown] sertraline 25 mg PO DAILY 04/23/17 [History Last Taken 05/11/17 05:00 25 MG] atorvastatin 80 mg tablet 80 mg PO DAILY tab 01/11/20 [History Last Taken Unknown] bisacodyl 5 mg tablet,delayed release 5 mg PO ONCE 01/11/20 [History Last Taken Unknown] blood sugar diagnostic #10 ea 01/11/20 [History Last Taken Unknown] brimonidine 0.2 %-timolol 0.5 % eye drops 1 drp OPHTHALMIC DAILY ml 01/11/20 [History Last Taken Unknown] lancets 28 gauge #100 ea 01/11/20 [History Last Taken Unknown] latanoprost 0.005 % eye drops 1 drp OPHTHALMIC ml 01/11/20 [History Last Taken Unknown] njhwbyfq-zbh-jjvbv acid 0.4 mg-lycopene 300 mcg-lutein 250 mcg tablet 1 tab PO DAILY 01/11/20 [History Last Taken Unknown] polyethylene glycol 3350 17 gram/dose oral powder g PO 01/11/20 [History Last Taken Unknown] prednisolone acetate 1 % eye drops,suspension 1 drp OPHTHALMIC ml 01/11/20 [History Last Taken Unknown] sitagliptin 25 mg tablet 25 mg PO DAILY tab 01/11/20 [History Last Taken Unknown] white petrolatum 1 applic TOPICAL 6XD 01/11/20 [History Last Taken Unknown] lorazepam 2 mg IV PRN PRN 11/28/20 [History Last Taken Unknown] cephalexin 500 mg PO Q6 #20 capsule 02/11/21 [Rx Last Taken Unknown] Allergy/AdvReac Type Severity Reaction Status Date / Time sulfamethoxazole Allergy Rash Verified 03/03/21 11:17 [From Bactrim] trimethoprim [From Bactrim] Allergy Rash Verified 03/03/21 11:17 Social History Smoking Status: Never smoker alcohol intake: never ROS ROS ED ROS Narrative Unable to obtain review of systems secondary to patient's mental status at baseline/MRDD Review of Systems ROS Unobtainable: due to mental status EXAM Physical Exam Narrative Exam Narrative: Afebrile. Vital signs noted. HEENT: Normocephalic. Atraumatic. PERRL, EOMI. Neck soft and supple. No point tenderness or step off. Cardiovascular: Regular rate and rhythm. No murmurs, rubs, or gallops appreciated. Respiratory: No tachypnea. Lungs clear to auscultation bilaterally. Gastrointestinal: Abdomen soft, nontender, with normoactive bowel sounds. No rebound or guarding. Neurological: Awake. Alert. Nonfocal, nonlateralizing. Consistent with MRDD. Skin: No rash. Normal color. No pallor. Musculoskeletal: No pedal edema. Full range of motion extremities. Const Vital Signs: 03/03/21 11:17 Temperature 97.1 F L Temperature Source Temporal Pulse Rate 103 H Respiratory Rate 16 Blood Pressure 139/96 H Blood Pressure Mean 110 Pulse Ox 95 Oxygen Delivery Method Room Air MDM MDM MDM Narrative Medical decision making narrative: Medical clearance labs will be obtained. Case management will be consulted. Her CBC is grossly normal at 6.1, hemoglobin stable at 12.0. Hematocrit 39.4. Her electrolyte panel is grossly unremarkable except for CO2 of 33, glucose appropriately elevated at 122 with a normal anion gap of 5. Alcohol level is negative. Urine for drugs of abuse is negative. I do feel that she is medically cleared. Her EKG demonstrates a normal sinus rhythm that is tachycardic at [address] changes. In discussion with case management, and it was felt that she does need placement. Patient will be signed out to the oncoming physician to ensure final disposition to a psychiatric facility. She is in stable condition. Lab Data Attestation: I reviewed the patient's lab results. Labs: Laboratory Results - last 24 hr 03/03/21 03/03/21 03/03/21 13:30 13:30 13:30 WBC 6.1 RBC 4.09 L Hgb 12.0 Hct 39.4 MCV 96.3 MCH 29.3 MCHC 30.5 L RDW Std Deviation 42.5 RDW Coeff of Erwin 12.1 Plt Count 250 MPV 12.3 H Immature Gran % (Auto) 0.500 Neut % (Auto) 68.7 Lymph % (Auto) 17.6 L [place] % (Auto) 9.5 Eos % (Auto) 3.4 Baso % (Auto) 0.3 Absolute Neuts (auto) 4.2 Absolute Lymphs (auto) 1.08 Nucleated RBC % 0 Sodium 142 Potassium 4.5 Chloride 104 Carbon Dioxide 33.0 H Anion Gap 5 BUN 19 H Creatinine 0.71 Estim Creat Clear Calc 57.06 Est GFR (MDRD) Af Amer 107 Est GFR (MDRD) Non-Af 88 BUN/Creatinine Ratio 26.9 H Glucose 122 H Calcium 10.3 H Urine Opiates Screen Urine Methadone Screen Ur Barbiturates Screen Ur Phencyclidine Scrn Ur Amphetamines Screen U Methamphetamin-MDMA U Benzodiazepines Scrn Urine Cocaine Screen U Cannabinoids Screen Ur Drug Screen Comment Ethyl Alcohol < 3.0 03/03/21 14:31 WBC RBC Hgb Hct MCV MCH MCHC RDW Std Deviation RDW Coeff of Erwin Plt Count MPV Immature Gran % (Auto) Neut % (Auto) Lymph % (Auto) [place] % (Auto) Eos % (Auto) Baso % (Auto) Absolute Neuts (auto) Absolute Lymphs (auto) Nucleated RBC % Sodium Potassium Chloride Carbon Dioxide Anion Gap BUN Creatinine Estim Creat Clear Calc Est GFR (MDRD) Af Amer Est GFR (MDRD) Non-Af BUN/Creatinine Ratio Glucose Calcium Urine Opiates Screen NEGATIVE Urine Methadone Screen NEGATIVE Ur Barbiturates Screen NEGATIVE Ur Phencyclidine Scrn NEGATIVE Ur Amphetamines Screen NEGATIVE U Methamphetamin-MDMA NEGATIVE U Benzodiazepines Scrn NEGATIVE Urine Cocaine Screen NEGATIVE U Cannabinoids Screen NEGATIVE Ur Drug Screen Comment Ethyl Alcohol Discharge Plan Triage Chief Complaint: Mental Health ED Provider: Steven Gr Dx/Rx/DC Orders Clinical Impression: Developmental delay, moderate, Abnormal behavior, Aggression Prescriptions: No Action atorvastatin 80 mg tablet 80 mg PO DAILY RF: 0 polyethylene glycol 3350 17 gram/dose powder PO RF: 0 sitagliptin 25 mg tablet 25 mg PO DAILY RF: 0 latanoprost 0.005 % drops 1 drp OPHTHALMIC RF: 0 (DME) blood sugar diagnostic Strip See Rx Instructions strip .ROUTE .MEDSUPPLY Qty: 10 RF: 0 (DME) lancets 28 gauge misc See Rx Instructions ea .ROUTE .MEDSUPPLY Qty: 100 RF: 0 white petrolatum [Vaseline] Gel 1 applic TOPICAL 6XD RF: 0 CertaVite Senior 0.4-300-250 mg-mcg-mcg tablet 1 tab PO DAILY RF: 0 brimonidine-timolol 0.2-0.5 % drops 1 drp OPHTHALMIC DAILY RF: 0 prednisolone acetate 1 % drops,suspension 1 drp OPHTHALMIC RF: 0 bisacodyl [Dulcolax (bisacodyl)] 5 mg tablet,delayed release (DR/EC) 5 mg PO ONCE RF: 0 clozapine 100 MG tablet 50 mg PO BID RF: 0 folic acid 0.4 MG tablet 0.4 mg PO BID RF: 0 ferrous sulfate 325 MG tablet 325 mg PO BID RF: 0 metformin 1,000 MG tablet 1,000 mg PO BID RF: 0 nitrofurantoin macrocrystal 100 MG capsule 100 mg PO DAILY RF: 0 docusate sodium 100 MG capsule 100 mg PO BID RF: 0 omeprazole 20 MG capsule 20 mg PO DAILY RF: 0 risperidone 1 MG tablet 2 mg PO BID RF: 0 loratadine 10 MG tablet 10 mg PO DAILY RF: 0 fluticasone propionate 1 SPRAY spray,suspension 2 spray NASAL DAILY RF: 0 oxybutynin chloride 10 MG tablet extended release 24hr 10 mg PO DAILY Qty: 30 RF: 0 sertraline 25 MG tablet 25 mg PO DAILY RF: 0 lorazepam 2 mg/mL Solution 2 mg IV PRN PRN (Reason: Anxiety) RF: 0 cephalexin [cephalexin] 500 MG capsule 500 mg PO Q6 Qty: 20 RF: 0 Primary Care Provider: Adia Mckeon Referrals: Adia Mckeon MD [Primary Care Provider] - Disposition Disposition: Psychiatric Hospital or Unit
--- NOTE | 2021-03-03 13:03 | CM.ED ---
LILIA Note Referral Source: MD Referral Reason: Psych Placement LILIA met with patient and her caregiver in ED room. Patient was able to voice her name but did not participate in any of the other assessment. Staff, Mireille, from [facility] provided history and concerns. Mireille that patient was brought to the ED today as she had an appointment with Dr. Jordana Hernandez, psychiatrist who asked that patient be brought to the ED for psychiatric evaluation. LILIA asked for clarification regarding what a psychiatric evaluation is and patient's staff, Mireille, indicated that she thought that psychiatrist was referencing patient being admitted for psychiatric stabilization and treatment. Mireille said that the psychiatrist could not do med changes for patient as she is not eating or drinking and not consistently med compliant. Mireille said that patient has lost 30 lbs in 3 weeks. Mireille said that patient is refusing to eat and drink. Mireille reports that patient refuses medication but then said it's hit or miss. Patient said that the voices are talking to her and they tell her that she can't eat or drink as someone is going to hurt her and paranoid. Mireille said that patient will only drink when it is a new glass and then takes a sip and the drink has to be tossed and then then the glass can be refilled for more drink for patient. Per [facility] policy patient missed 3 consecutive doses of medication and did not eat so she was given Ativan yesterday. Mireille reports that patient took her medication this morning. Mireille thought patient has diagnosis of schizoaffective disorder and Moderate DD. LILIA inquired about IQ for patient and [facility] staff said that they do not know IQ. Mireille said that patient is able to dress herself but occasionally need help. Mireille said that patient wears depends and is incontinent but will tell you that she needs to go to the bathroom but has already started to urinate. Mireille reports patient needs help with personal hygiene such as wiping herself after going to the bathroom. Patient recently has been refusing shower and hygiene. Mireille said that in the past patient was able to shower herself but they would watch her for safety and help her with her hair. Patient has been able to eat independently previously. Patient is able to read and loves to read magazine. Patient ran around the house for 1 1/2 hours yesterday without clothes and per staff she never does that. Patient had previous psych hospitalization in 2017 at unknown facility. Plan: LILIA spoke to . Due to patients's erratic and unusual behavior, within the last 2 month, she needs inpatient psych hospitalization for crisis stabilization and medication assessment. Inpatient psych Gabriela MORALEZ
--- NOTE | 2021-03-03 13:41 | CM.ED ---
Addendum entered by Gabriela Mustafa 03/03/21 15:56: LILIA received call from Tabatha. She reported that Patient has a moderate IQ rate. Tabatha said that in 2017 the family intervined and keep patient at home for recovery for 1-2 days but patient has not had an incident since 2017. Gabriela MORALEZ Original Note: LILIA Note LILIA called Tabatha, patient's guardian/sister. She was updated regarding patient's presentation at [facility] and plan for inpatient psych. Tabatha gave consent for treatment and is in agreement with plan to transfer to psych. Tabatha said that patient graduated from high school. Tabatha said that patient's IQ is higher than she lets on.Tabatha said that patient is fairly well functioning. 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 Patient has been at [facility] for 7+ years. Tabatha is in agreement with plan for transfer to inpatient psych. Gabriela MORALEZ
[2021-03-03 13:43] LABS: Absolute Lymphocyte Count 1.08 X10^3/uL (0.83-4.51); Absolute Neutrophil Count 4.2 X10^3/uL (2.0-7.7); Basophil# 0.02 X10^3/uL; Basophil% 0.3 % (0-1); Eosinophil# 0.21 X10^3/uL; Eosinophils% 3.4 % (0-5); Hematocrit 39.4 % (37-47); Lymphocyte # 1.08 X10^3/ul (0.83-4.51); Lymphocyte % 17.6 % (19-41); Mean Corp Hgb Conc 30.5 g/dL (32-36); Mean Corpuscular Hgb 29.3 pg (27.0-32.0); Mean Corpuscular Volume 96.3 fL (81-99); Mean Platelet Vol. 12.3 fl (6.2-12.0); Monocyte# 0.58 X10^3/uL; Monocyte% 9.5 % (0-10); NRBC Flagged by Analyzer 0 % (0-5); Neutrophil % 68.7 % (47-70); Platelet Count 250 K/mm3 (150-450); RBC Distribution Width CV 12.1 % (11.6-14.6); RBC Distribution Width SD 42.5 fl (35.1-43.9); Red Blood Count 4.09 M/mm3 (4.2-5.4); White Blood Count 6.1 K/mm3 (4.4-11.0)
[2021-03-03 13:55] LABS: Anion Gap 5 (5-15); BUN 19 mg/dL (7-18); BUN/Creat Ratio 26.9 RATIO (10-20); Calcium,Total 10.3 mg/dL (8.5-10.1); Chloride 104 mmol/L (98-107); Creatinine, Serum 0.71 mg/dL (0.55-1.02); EST Glomerular Filtration Rate 88 mL/min (>60); Est Glom Filt Rate - Afr Amer 107 mL/min (>60); Estimated Creatinine Clearance 57.06 ml/min; Glucose 122 mg/dL (74-106); Potassium 4.5 mmol/L (3.5-5.1); Sodium Level 142 mmol/L (136-145)
[2021-03-03 14:06] LABS: Alcohol, Blood (Medical)-Serum < 3.0 mg/dL
[2021-03-03 14:47] LABS: Amphetamine Urine VISTA NEGATIVE (<1000 ng/mL); Barbiturate Urine VISTA NEGATIVE (< 200 ng/mL); Benzodiazepine Urine VISTA NEGATIVE (< 200 ng/mL); Cocaine Urine VISTA NEGATIVE (< 300 ng/mL); Ecstacy Urine VISTA NEGATIVE (< 500 ng/mL); Methadone Urine VISTA NEGATIVE (< 300 ng/mL); PCP Urine VISTA NEGATIVE (< 25 ng/mL); THC Urine VISTA NEGATIVE (< 50 ng/mL); Vista UDS pH Range 5
[2021-03-03 14:53] VITALS: PULSE 74; TEMP 36.8
[2021-03-03 15:51] VITALS: BP 114/68; PULSE 74; RESP 15; O2SAT 98
--- NOTE | 2021-03-03 17:57 | CM.ED ---
Addendum entered by Gabriela Mustafa 03/03/21 18:15: LILIA made referral to [facility] for patient. Original Note: LILIA Note SW received call from Lee Ann at [facility]. They declined patient due to her medical acuity. Gabriela MORALEZ
--- NOTE | 2021-03-03 18:35 | CM.ED ---
LILIA called [facility] and advised that patient's COVID screen negative. LILIA called [facility] and advised patient's COVID screen was negative. Gabriela MORALEZ
[2021-03-03 19:11] VITALS: BP 130/72; PULSE 76; RESP 17; O2SAT 98
--- NOTE | 2021-03-03 19:50 | CM.ED ---
LILIA received call from Tia at [facility]. They can not accept patient. LILIA called on line us administrative law judge line for [facility]. No beds at [facility] or [facility]. Patient is on a wait list. LILIA called [facility]. They continue to review patient's referral packet. LILIA called Deisy at [facility]. She indicated that they can review the referral. LILIA faxed referral to [facility]. LILIA updated patient's provider in the room. Plan: Inpatient psych Gabriela MORALEZ
--- NOTE | 2021-03-03 20:13 | CM.ED ---
LILIA called patient's sister/guardian Tabatha to update her. Tabatha said that in 2017 patient had similiar like symptoms but we caught it at the front end.. not the spiral that Shreya has for the past 6 weeks to 2/3 months. Tabatha said that she spoke to the Board of DD and she interviewed and brought Shreya home for a couple of days and patient got better. Tabatha indicated patient has moderate DD. Gabriela MORALEZ
--- NOTE | 2021-03-03 21:51 | CM.ED ---
LILIA Note SW received call from [facility]. They can not accept patient because no beds available. LILIA called Deisy at [facility]. They can accept patient. Deisy said that she talked to community services coordinator at [facility] who will schedule transport. Accepting MD is Castillo and patient is going to geriatric unit. RN to RN is [phone]. Deisy requested that patient's guardian be called for consent for treatment. LILIA called patient's guardian/sister, Mirella and provided her with the name and number to call at [facility] for consent for treatment. Tabatha said that she would call for consent for treatment. LILIA updated patient and [facility] staff that patient is going to [facility]. LILIA was advised that patient will be leaving in 2 hours per community services coordinator. LILIA updated patient and [facility] staff that patient is scheduled for discharge in 2 hours. LILIA faxed pink slip to [facility]. RN and biodiesel engineering manager updated. Plan: [facility] for patient Gabriela Mustafa MARCE MORALEZ
[2021-03-03 23:33] VITALS: BP 130/78; PULSE 92; RESP 16; TEMP 36.3; O2SAT 98
[2021-03-03 23:37] VITALS: RESP 16
== END 2021-03-04 00:59 ==
PROVIDERS: Emergency Provider Emergency Medicine; PCP Internal Medicine
DX: R45.4 Irritability and anger (principal); R62.50 Unspecified lack of expected normal physiological development in childhood; F70 Mild intellectual disabilities; E11.9 Type 2 diabetes mellitus without complications; E78.5 Hyperlipidemia, unspecified; F25.9 Schizoaffective disorder, unspecified; F32.A Depression, unspecified; Z87.820 Personal history of traumatic brain injury; Z79.84 Long term (current) use of oral hypoglycemic drugs; Z79.899 Other long term (current) drug therapy
CPT/HCPCS: 80048; 80307; 82077; 85025; 87426; 93005; 99285

== ENCOUNTER 2021-03-20 19:51 | Emergency (ER) | payer MEDICARE, MEDICAID, SELFPAY ==
[2021-03-20 19:52] VITALS: BP 142/94; PULSE 68; RESP 16; TEMP 36.6; O2SAT 97; BMI 22.4
--- NOTE | 2021-03-20 20:30 | EX.ED.VIS.PS ---
HPI HPI - Psych History of Present Illness Chief Complaint: Mental Health Informant: patient and mental health staff Onset/Context/Timing Onset: Days Context: Gradual Onset Timing: Continuous Current Severity: Mild Maximum Severity: Mild Associated Symptoms Associated Symptoms - Psych: Positive for Visual Hallucinations Narrative Narrative: 65-year-old female lives at [facility] home is a history of diabetes and schizoaffective disorder. Recently was hospitalized at [facility] and was just discharged 3 days ago. She has had recurrent visual hallucinations of rattlesnake's in her bathroom. She is not eating or drinking well reportedly per the recreation program specialist this with her. And she is picking at her skin. Otherwise she is not been ill or vomiting. No fever. Prior similar symptoms: Yes Recent Illness/Hospitalization: Yes [facility]SH [facility] Medical History Chest pain Depression Diabetes Diabetes HLD (hyperlipidemia) Schizoaffective disorder TBI (traumatic brain injury) Home Medications clozapine 50 mg PO BID 09/14/13 [History Last Taken 12/26/13 05:00 100] docusate sodium 100 mg PO BID 09/14/13 [History Last Taken Unknown] ferrous sulfate 325 mg PO BID 09/14/13 [History Last Taken Unknown] folic acid 0.4 mg PO BID 09/14/13 [History Last Taken Unknown] loratadine 10 mg PO DAILY 09/14/13 [History Last Taken Unknown] metformin 1,000 mg PO BID 09/14/13 [History Last Taken Unknown] nitrofurantoin macrocrystal 100 mg PO DAILY 09/14/13 [History Last Taken Unknown] omeprazole 20 mg PO DAILY 09/14/13 [History Last Taken 05/11/17 05:00 20 MG] risperidone 2 mg PO BID 09/14/13 [History Last Taken 05/11/17 05:00 2 MG] fluticasone propionate 2 spray NASAL DAILY 12/05/13 [History Last Taken Unknown] oxybutynin chloride 10 mg PO DAILY #30 tab.er.24 12/26/13 [Rx Last Taken Unknown] sertraline 25 mg PO DAILY 04/23/17 [History Last Taken 05/11/17 05:00 25 MG] atorvastatin 80 mg tablet 80 mg PO DAILY tab 01/11/20 [History Last Taken Unknown] bisacodyl 5 mg tablet,delayed release 5 mg PO ONCE 01/11/20 [History Last Taken Unknown] blood sugar diagnostic #10 ea 01/11/20 [History Last Taken Unknown] brimonidine 0.2 %-timolol 0.5 % eye drops 1 drp OPHTHALMIC DAILY ml 01/11/20 [History Last Taken Unknown] lancets 28 gauge #100 ea 01/11/20 [History Last Taken Unknown] latanoprost 0.005 % eye drops 1 drp OPHTHALMIC ml 01/11/20 [History Last Taken Unknown] bteswnop-lhp-joqls acid 0.4 mg-lycopene 300 mcg-lutein 250 mcg tablet 1 tab PO DAILY 01/11/20 [History Last Taken Unknown] polyethylene glycol 3350 17 gram/dose oral powder g PO 01/11/20 [History Last Taken Unknown] prednisolone acetate 1 % eye drops,suspension 1 drp OPHTHALMIC ml 01/11/20 [History Last Taken Unknown] sitagliptin 25 mg tablet 25 mg PO DAILY tab 01/11/20 [History Last Taken Unknown] white petrolatum 1 applic TOPICAL 6XD 01/11/20 [History Last Taken Unknown] lorazepam 2 mg IV PRN PRN 11/28/20 [History Last Taken Unknown] cephalexin 500 mg PO Q6 #20 capsule 02/11/21 [Rx Last Taken Unknown] Allergy/AdvReac Type Severity Reaction Status Date / Time sulfamethoxazole Allergy Rash Verified 03/20/21 19:54 [From Bactrim] trimethoprim [From Bactrim] Allergy Rash Verified 03/20/21 19:54 Social History Smoking Status: Never smoker alcohol intake: never ROS ROS ED ROS Narrative Denied. Review of Systems ROS Unobtainable: Denies due to encephalopathy Constitutional Constitutional ED: Denies fever(s) Eyes Eyes: Denies change in vision ENT ENT ED: Denies ear pain Cardiovascular Cardiovascular: Denies chest pain Respiratory/Chest Respiratory/Chest: Denies dyspnea Gastrointestinal Gastrointestinal: Denies abdominal pain, nausea or vomiting Genitourinary Genitourinary ED: Denies dysuria Musculoskeletal Musculoskeletal: Denies myalgias Integumentary Denies rash Neurologic Neurologic: Denies headache(s) Psychiatric Psychiatric: Denies depression Endocrine Endocrinology: Denies polyuria Hematologic/Lymphatic Hematologic/Lymphatic: Denies easy bruising Allergic/Immunologic Allergic/Immunologic ED: Denies urticaria EXAM Physical Exam Narrative Exam Narrative: 65-year-old female no acute distress vital signs stable afebrile. HEENT exam unremarkable. Neck nontender. Lungs are clear. Heart regular rhythm. Rate about 100. Chest wall nontender. Abdomen soft nontender. Moving all 4 extremities. Calves are nontender. She has been picking at her skin on her left elbow but there is no infection. There is breakdown of the skin. Calves are nontender without edema. Neurologically she is awake. She is alert. She answers questions and is moving all 4 extremities. Const Vital Signs: 03/20/21 19:52 Temperature 97.8 F Temperature Source Temporal Pulse Rate 168 H Respiratory Rate 16 Blood Pressure 142/94 H Blood Pressure Mean 110 Pulse Ox 97 Positive well nourished, well developed and obese; Negative for cachectic, contractures or unkempt General Appearance ED: well developed and NAD; Negative for unkempt, cachectic, contractures or pallor Nutritional Appearance: obese; Negative for cachectic HEENT Reports moist mucous membranes normocephalic and atraumatic; Negative for trauma or tenderness Eyes PERRL and EOMs intact bilaterally Neck no lymphadenopathy, supple and no JVD Resp normal respiratory effort and clear to auscultation bilaterally Auscultation: Negative for rales, rhonchi or wheezes Cardio S1 normal heart sound, S2 normal heart sound and no murmurs Rate: regular rate Rhythm: regular rhythm GI non-tender, non-distended and no masses Inspection: Negative for abdominal distention Auscultation: normoactive bowel sounds Palpation: soft; Negative for tender or guarding Back/Spine no CVA tenderness General Back: Negative for CVA tenderness Cervical Spine: Negative for cervical spine tenderness Extremity normal to inspection General Extremety ED: Negative for edema or tenderness General Extremity: Negative for edema Neuro Sensorium / Orientation: alert and oriented to person Motor Exam: strength 5/5 throughout Psych mental status grossly normal and activity/motor behavior normal; Negative for denies hallucinations Appearance: Negative for unkempt Skin Skin Narrative: Skin breakdown due to be taken. General Skin Exam: Negative for jaundice or pallor Lesions: no lesions Rashes: no rashes MDM MDM MDM Narrative Medical decision making narrative: 65-year-old diabetic female with schizoaffective disorder. Recently discharged from the psychiatric facility. Lives in a longterm. He thinks that she is having recurrent hallucinations and not doing well. Exam benign. She will undergo mental health evaluation and I will have our long term care social worker talk to the patient and the longterm to help decide on placement. Patient was evaluated by our long term care social worker. Will be turned over to crisis for placement. Patient is medically cleared. Lab Data Attestation: I reviewed the patient's lab results. Lab results narrative: CBC shows a white count 8. Hemoglobin 10.2 which is her baseline anemia. Platelets of 342. Electrolytes unremarkable gap at 9 BUN 23 creatinine 1. Glucose 100. Alcohol negative. Labs: Laboratory Results - last 24 hr 03/20/21 03/20/21 03/20/21 20:30 20:30 20:30 WBC 8.3 RBC 3.80 L Hgb 11.2 L Hct 36.7 L MCV 96.6 MCH 29.5 MCHC 30.5 L RDW Std Deviation 42.6 RDW Coeff of Erwin 12.1 Plt Count 342 MPV 12.1 H Immature Gran % (Auto) 1.100 H Neut % (Auto) 73.7 H Lymph % (Auto) 13.4 L Highland % (Auto) 8.3 Eos % (Auto) 2.8 Baso % (Auto) 0.7 Absolute Neuts (auto) 6.1 Absolute Lymphs (auto) 1.11 Nucleated RBC % 0 Sodium 142 Potassium 3.7 Chloride 100 Carbon Dioxide 33.0 H Anion Gap 9 BUN 23 H Creatinine 1.02 Estim Creat Clear Calc 48.82 Est GFR (MDRD) Af Amer 70 Est GFR (MDRD) Non-Af 58 L BUN/Creatinine Ratio 22.5 H Glucose 100 Calcium 10.0 Ethyl Alcohol < 3.0 Discharge Plan Triage Chief Complaint: Mental Health ED Provider: Cholo Landa Dx/Rx/DC Orders Clinical Impression: Schizoaffective disorder, Hallucinations, visual, Adult failure to thrive, History of diabetes mellitus Prescriptions: No Action atorvastatin 80 mg tablet 80 mg PO DAILY RF: 0 polyethylene glycol 3350 17 gram/dose powder PO RF: 0 sitagliptin 25 mg tablet 25 mg PO DAILY RF: 0 latanoprost 0.005 % drops 1 drp OPHTHALMIC RF: 0 (DME) blood sugar diagnostic Strip See Rx Instructions strip .ROUTE .MEDSUPPLY Qty: 10 RF: 0 (DME) lancets 28 gauge misc See Rx Instructions ea .ROUTE .MEDSUPPLY Qty: 100 RF: 0 white petrolatum [Vaseline] Gel 1 applic TOPICAL 6XD RF: 0 CertaVite Senior 0.4-300-250 mg-mcg-mcg tablet 1 tab PO DAILY RF: 0 brimonidine-timolol 0.2-0.5 % drops 1 drp OPHTHALMIC DAILY RF: 0 prednisolone acetate 1 % drops,suspension 1 drp OPHTHALMIC RF: 0 bisacodyl [Dulcolax (bisacodyl)] 5 mg tablet,delayed release (DR/EC) 5 mg PO ONCE RF: 0 clozapine 100 MG tablet 50 mg PO BID RF: 0 folic acid 0.4 MG tablet 0.4 mg PO BID RF: 0 ferrous sulfate 325 MG tablet 325 mg PO BID RF: 0 metformin 1,000 MG tablet 1,000 mg PO BID RF: 0 nitrofurantoin macrocrystal 100 MG capsule 100 mg PO DAILY RF: 0 docusate sodium 100 MG capsule 100 mg PO BID RF: 0 omeprazole 20 MG capsule 20 mg PO DAILY RF: 0 risperidone 1 MG tablet 2 mg PO BID RF: 0 loratadine 10 MG tablet 10 mg PO DAILY RF: 0 fluticasone propionate 1 SPRAY spray,suspension 2 spray NASAL DAILY RF: 0 oxybutynin chloride 10 MG tablet extended release 24hr 10 mg PO DAILY Qty: 30 RF: 0 sertraline 25 MG tablet 25 mg PO DAILY RF: 0 lorazepam 2 mg/mL Solution 2 mg IV PRN PRN (Reason: Anxiety) RF: 0 cephalexin [cephalexin] 500 MG capsule 500 mg PO Q6 Qty: 20 RF: 0 Primary Care Provider: Adia Mckeon Referrals: Adia Mckeon MD [Primary Care Provider] - Disposition Disposition: Psychiatric Hospital or Unit
--- NOTE | 2021-03-20 20:39 | CM.ED ---
SW Note Referral Source: MD Referral Reason: Decompensation in patient's behavior LILIA spoke to Cristal, from [facility] which is patient's board [facility] long-term. She said that patient came home from [facility] 3 days ago. Cristal said that patient reported hallucinations and stated that there was a rattlesnake in the bathroom and staff had to remove it prior to patient going into the bathroom. Patient, per Cristal, has eaten the tablecloth, pulling at her tongue and taste buds, picking at skin, not eating or drinking and stumbling. Cristal said that patient recently fell into a [employer] tree. Patient, per Cristal, has been sweating profusely and her pulse has been racing. Cristal said that previously patient needed verbal commands for her ADL's and now she is not can't do her ADL's. Cristal said that they are unsure if this is a reaction to the medication changes or an medication issue. Cristal said that patient's behavior has decompensated since she got back from [facility] as she is different more anxious. LILIA asked how patient did at [facility] and Cristal said the nurses told us one thing then we would have a meeting and be told another thing and then at discharge they were told another thing regarding patient's placement at [facility]. SW completed assessment on 03/03/21 and at that time patient was refusing to eat and drink and refusing medication. Patient, per staff said that she heard voices talking to her. Patient, per staff, said that patient is able to read and loves to read magazines. Patient's sister, Tabatha, who is patient's sister and guardian reports that patient graduated from high school. Tabatha had said that patient's IQ is higher than she lets on. Tabatha said that patient is fairly well functioning. 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 Patient has been at [facility] for 7+ years. SW called Faye at [facility]. They would review a referral regarding patient. SW met with patient in the room. Present in the room was patient's [place] Provider, Cristal. Sw attempted to talked to patient. Patient was not responsive to this advertising copywriter. She only responded when advertising copywriter asked about her sister and how her sister was doing and she said not good. Patient keep picking at her hair and appeared to be anxious. Patient's appearance was disheveled. Mood was anxious. Communication Pattern was incoherent. General Intellectual Functioning is below average. Patient receives Board of DD services. Due to patient's current functioning and deterioration in behavior since she has been home she needs inpatient psych for medication reevaluation and crisis stabilization. Gabriela MORALEZ
[2021-03-20 20:52] LABS: Absolute Lymphocyte Count 1.11 X10^3/uL (0.83-4.51); Absolute Neutrophil Count 6.1 X10^3/uL (2.0-7.7); Basophil# 0.06 X10^3/uL; Basophil% 0.7 % (0-1); Eosinophil# 0.23 X10^3/uL; Eosinophils% 2.8 % (0-5); Hematocrit 36.7 % (37-47); Hemoglobin 11.2 g/dL (12.0-15.0); Lymphocyte # 1.11 X10^3/ul (0.83-4.51); Lymphocyte % 13.4 % (19-41); Mean Corp Hgb Conc 30.5 g/dL (32-36); Mean Corpuscular Hgb 29.5 pg (27.0-32.0); Mean Corpuscular Volume 96.6 fL (81-99); Mean Platelet Vol. 12.1 fl (6.2-12.0); Monocyte# 0.69 X10^3/uL; Monocyte% 8.3 % (0-10); NRBC Flagged by Analyzer 0 % (0-5); Neutrophil # 6.13 X10^3/uL (2.7-7.7); Neutrophil % 73.7 % (47-70); Platelet Count 342 K/mm3 (150-450); RBC Distribution Width CV 12.1 % (11.6-14.6); RBC Distribution Width SD 42.6 fl (35.1-43.9); White Blood Count 8.3 K/mm3 (4.4-11.0)
[2021-03-20 21:04] LABS: Anion Gap 9 (5-15); BUN 23 mg/dL (7-18); BUN/Creat Ratio 22.5 RATIO (10-20); Chloride 100 mmol/L (98-107); Creatinine, Serum 1.02 mg/dL (0.55-1.02); EST Glomerular Filtration Rate 58 mL/min (>60); Est Glom Filt Rate - Afr Amer 70 mL/min (>60); Estimated Creatinine Clearance 48.82 ml/min; Glucose 100 mg/dL (74-106); Potassium 3.7 mmol/L (3.5-5.1); Sodium Level 142 mmol/L (136-145)
--- NOTE | 2021-03-20 21:13 | CM.ED ---
LILIA Note LILIA called Faye at [facility]. Faye said that they would review the referral. Referral will need to be faxed to [facility] [phone]. Fax sheet prepared for staff. LILIA called Crisis and asked to speak to reclamation furnace operatorcall out operator. LILIA spoke to Doris and updated her. LILIA faxed assessment, face sheet and MD notes to [facility]. Labs and covid are not back yet thus when they are back they will need to be faxed to [facility] and [facility] . Plan: Inpatient psych Gabriela MORALEZ
[2021-03-20 21:14] LABS: Alcohol, Blood (Medical)-Serum < 3.0 mg/dL
[2021-03-21] VITALS (11 sets, daily range): BP systolic 121–142; BP diastolic 67–99; PULSE 69–92; RESP 15–18; O2SAT 96–99
[2021-03-21 00:08] LABS: Amphetamine Urine VISTA NEGATIVE (<1000 ng/mL); Barbiturate Urine VISTA NEGATIVE (< 200 ng/mL); Benzodiazepine Urine VISTA NEGATIVE (< 200 ng/mL); Cocaine Urine VISTA NEGATIVE (< 300 ng/mL); Ecstacy Urine VISTA NEGATIVE (< 500 ng/mL); Methadone Urine VISTA NEGATIVE (< 300 ng/mL); PCP Urine VISTA NEGATIVE (< 25 ng/mL); THC Urine VISTA NEGATIVE (< 50 ng/mL); Vista UDS pH Range 5
[2021-03-21 13:00] LABS: Mucous, Urine 0 SEEN /hpf (<or=2+); Red Blood Cells-Urine 0 SEEN /hpf (0-5)
[2021-03-21 13:15] LABS: Color, Urine Yellow (Yellow); Glucose, Dipstick Normal (Normal); Ketone-Dipstick 15 mg/dl (Negative); Leukocyte Esterase-Dipstick 500 /ul (Negative); Nitrite-Dipstick Negative (Negative); Occult Blood-Urine Negative /ul (Negative); Protein-Dipstick 30 mg/dl (Negative); Specific Gravity, Urine 1.015 (1.002-1.030); Urine Clarity Turbid (Clear); Urine Urobilinogen Normal (Normal)
[2021-03-21 13:16] LABS: Urine Bilirubin Dipstick 1 mg/dL (Negative)
[2021-03-21 13:21] LABS: Bacteria 3+ /hpf (None Seen); Squamous Epithelial Cells - UA 0-5 SEEN /hpf (5-10); White Blood Cells 5-10 SEEN /hpf (0-5)
[2021-03-21 13:22] LABS: Amorphous Sediment 2+; Calcium Oxalate Crystals Ur 1+ /hpf (<or=2+)
--- NOTE | 2021-03-21 15:55 | ED.RN ---
patients caregiver notified this RN about [address] Mccartney, someone may bring in those medications for her.
--- NOTE | 2021-03-21 18:03 | ED.RN ---
patient given 1 drop Rocklatan in left eye, 1,000 mg tablet metformin, Aripiprazole 20 mg tablet bye caregiver. Per Dr. Aguilar, it is ok for caregiver to give home medications.
--- NOTE | 2021-03-21 18:23 | ED.RN ---
this nurse spoke with [facility] about the urine sample results, no new orders at this time. pt is still pending with [facility]
[2021-03-21] MEDS: Cephalexin 250 MG Capsule 500 MG PO (20:09)
--- NOTE | 2021-03-21 20:36 | ED.RN ---
Addendum entered by Sanford Gallardo 03/21/21 20:37: patient accepted by Dr. Quiros at [facility] Original Note: [facility] Nurse called and talked with this RN. Patient accepted. Patients sister Tabatha's information given to nurse to obtain consent to treat. Nurse states patient will be going to Geriatric Unit and will need a pink slip faxed over.
--- NOTE | 2021-03-21 23:27 | ED.RN ---
Nurse to Nurse report called to [facility]. This RN spoke with Harshad on the Geriatric unit. No further questions at this time.
--- NOTE | 2021-03-21 23:37 | ED.RN ---
Addendum entered by Sanford Gallardo 03/21/21 23:48: patients coat also given to caregiver Original Note: patients belongings giving to the caregiver. patient will be keeping coat.
== END 2021-03-21 23:47 ==
PROVIDERS: Emergency Medicine; Emergency Provider Emergency Medicine; PCP Internal Medicine
DX: F25.9 Schizoaffective disorder, unspecified (principal); R62.7 Adult failure to thrive; D64.9 Anemia, unspecified; N39.0 Urinary tract infection, site not specified; E11.9 Type 2 diabetes mellitus without complications; F32.A Depression, unspecified; E78.5 Hyperlipidemia, unspecified; Z87.820 Personal history of traumatic brain injury; Z79.84 Long term (current) use of oral hypoglycemic drugs; Z79.899 Other long term (current) drug therapy
CPT/HCPCS: 36415; 80048; 80307; 81001; 82077; 85025; 87426; 99281; 99285

== ENCOUNTER 2021-06-01 08:30 | Outpatient (CLI) | payer MEDICARE, MEDICAID, SELFPAY ==
[2021-06-01 09:39] LABS: Absolute Neutrophil Count 4.6 X10^3/uL (2.0-7.7); Basophil# 0.05 X10^3/uL; Basophil% 0.8 % (0-1); Eosinophil# 0.27 X10^3/uL; Eosinophils% 4.3 % (0-5); Hematocrit 35.4 % (37-47); Hemoglobin 11.3 g/dL (12.0-15.0); Lymphocyte % 14.2 % (19-41); Mean Corp Hgb Conc 31.9 g/dL (32-36); Mean Corpuscular Hgb 30.8 pg (27.0-32.0); Mean Corpuscular Volume 96.5 fL (81-99); Mean Platelet Vol. 12.1 fl (6.2-12.0); Monocyte# 0.44 X10^3/uL; Monocyte% 6.9 % (0-10); NRBC Flagged by Analyzer 0 % (0-5); Neutrophil # 4.63 X10^3/uL (2.7-7.7); Neutrophil % 72.9 % (47-70); Platelet Count 278 K/mm3 (150-450); RBC Distribution Width CV 12.4 % (11.6-14.6); RBC Distribution Width SD 43.8 fl (35.1-43.9); Red Blood Count 3.67 M/mm3 (4.2-5.4); White Blood Count 6.4 K/mm3 (4.4-11.0)
[2021-06-01 10:06] LABS: Hemoglobin A1c 5.8 % (3.8-5.6)
[2021-06-01 10:13] LABS: ALB/GLOB Ratio 1.3 RATIO (0.9-2.4); AST(SGOT) 11 U/L (15-37); Alanine Aminotransfer ALT/SGPT 23 U/L (13-56); Albumin, Serum 3.7 g/dL (3.2-5.0); Alkaline Phosphatase 68 U/L (45-117); Anion Gap 4 (5-15); BUN 25 mg/dL (7-18); BUN/Creat Ratio 36.5 RATIO (10-20); Calcium,Total 9.9 mg/dL (8.5-10.1); Chloride 103 mmol/L (98-107); Cholesterol 184 mg/dL (200); Creatinine, Serum 0.68 mg/dL (0.55-1.02); EST Glomerular Filtration Rate 91 mL/min (>60); Est Glom Filt Rate - Afr Amer 110 mL/min (>60); Globulin 2.9 g/dL (2.2-4.2); Glucose 118 mg/dL (74-106); High Density Lipoprotein 43 mg/dL; Potassium 4.2 mmol/L (3.5-5.1); Protein, Total 6.6 g/dL (6.4-8.2); Sodium Level 141 mmol/L (136-145); Triglycerides 223 mg/dL; Very Low Density Lipoprotein 45 mg/dL (5-40)
== END 2021-06-01 23:59 | disposition home or self-care (01) ==
LOC: LABSPEC 09:20
PROVIDERS: PCP Internal Medicine; Visit Provider Psychiatry & Neurology Child & Adolescent Psychiatry
DX: Z79.899 Other long term (current) drug therapy (principal)
CPT/HCPCS: 80053; 80061; 83036; 85025

== ENCOUNTER 2021-06-30 09:14 | Outpatient (CLI) | payer MEDICARE, MEDICAID, SELFPAY ==
[2021-06-30 09:25] LABS: Absolute Lymphocyte Count 1.01 X10^3/uL (0.83-4.51); Absolute Neutrophil Count 3.5 X10^3/uL (2.0-7.7); Basophil# 0.03 X10^3/uL; Basophil% 0.6 % (0-1); Eosinophils% 3.8 % (0-5); Hematocrit 33.8 % (37-47); Hemoglobin 10.6 g/dL (12.0-15.0); Lymphocyte # 1.01 X10^3/ul (0.83-4.51); Lymphocyte % 19.2 % (19-41); Mean Corp Hgb Conc 31.4 g/dL (32-36); Mean Corpuscular Hgb 29.9 pg (27.0-32.0); Mean Corpuscular Volume 95.5 fL (81-99); Mean Platelet Vol. 12.2 fl (6.2-12.0); Monocyte# 0.48 X10^3/uL; Monocyte% 9.1 % (0-10); NRBC Flagged by Analyzer 0 % (0-5); Neutrophil % 66.5 % (47-70); Platelet Count 247 K/mm3 (150-450); RBC Distribution Width CV 12.3 % (11.6-14.6); RBC Distribution Width SD 43.2 fl (35.1-43.9); Red Blood Count 3.54 M/mm3 (4.2-5.4); White Blood Count 5.3 K/mm3 (4.4-11.0)
== END 2021-06-30 23:59 | disposition home or self-care (01) ==
LOC: LABSPEC 09:16
PROVIDERS: PCP Internal Medicine; Visit Provider Psychiatry & Neurology Child & Adolescent Psychiatry
DX: Z79.899 Other long term (current) drug therapy (principal)
CPT/HCPCS: 85025

== ENCOUNTER 2021-07-22 17:31 | Emergency (ER) | payer MEDICARE, MEDICAID, SELFPAY ==
[2021-07-22 17:33] VITALS: BP 168/78; PULSE 133; RESP 16; TEMP 36.4; O2SAT 98; BMI 26.6
--- NOTE | 2021-07-22 17:57 | EDS_ITS ---
HPI HPI - Psych History of Present Illness Chief Complaint: Mental Health Informant: mental health staff Narrative Narrative: 65-year-old female with a history of developmental delay, TBI, schizoaffective disorder, from [place] [facility] presents to the emergency department for agitation. Patient was noted to not be taking her medicines today or eating or drinking. She was attempting to hit staff and they brought her medicines. She is to have a as needed Ativan injection order which helped in the past but in February she required hospitalization and when it failed to alleviate her symptoms. [facility] could not redirect her and so they brought her to emergency. They note that often times if she can rest she wakes up in a much better mood. No reported self-harm. [facility] Medical History Chest pain Depression Developmental delay, moderate Diabetes Diabetes HLD (hyperlipidemia) Schizoaffective disorder TBI (traumatic brain injury) Home Medications docusate sodium 100 mg PO BID 09/14/13 [History Last Taken Unknown] ferrous sulfate 325 mg PO BID 09/14/13 [History Last Taken Unknown] folic acid 0.4 mg PO BID 09/14/13 [History Last Taken Unknown] loratadine 10 mg PO DAILY 09/14/13 [History Last Taken Unknown] metformin 1,000 mg PO BID 09/14/13 [History Last Taken Unknown] nitrofurantoin macrocrystal 100 mg PO DAILY 09/14/13 [History Last Taken Unknown] omeprazole 20 mg PO DAILY 09/14/13 [History Last Taken 05/11/17 05:00 20 MG] fluticasone propionate 2 spray NASAL DAILY 12/05/13 [History Last Taken Unknown] oxybutynin chloride 10 mg PO DAILY #30 tab.er.24 12/26/13 [Rx Last Taken Unknown] sertraline 25 mg PO DAILY 04/23/17 [History Last Taken 05/11/17 05:00 25 MG] atorvastatin 80 mg tablet 80 mg PO DAILY tab 01/11/20 [History Last Taken Unknown] bisacodyl 5 mg tablet,delayed release 5 mg PO ONCE 01/11/20 [History Last Taken Unknown] blood sugar diagnostic #10 ea 01/11/20 [History Last Taken Unknown] brimonidine 0.2 %-timolol 0.5 % eye drops 1 drp OPHTHALMIC DAILY ml 01/11/20 [History Last Taken Unknown] lancets 28 gauge #100 ea 01/11/20 [History Last Taken Unknown] latanoprost 0.005 % eye drops 1 drp OPHTHALMIC ml 01/11/20 [History Last Taken Unknown] qqgrjanu-zcx-kxwuk acid 0.4 mg-lycopene 300 mcg-lutein 250 mcg tablet 1 tab PO DAILY 01/11/20 [History Last Taken Unknown] polyethylene glycol 3350 17 gram/dose oral powder g PO 01/11/20 [History Last Taken Unknown] prednisolone acetate 1 % eye drops,suspension 1 drp OPHTHALMIC ml 01/11/20 [History Last Taken Unknown] sitagliptin 25 mg tablet 25 mg PO DAILY tab 01/11/20 [History Last Taken Unknown] white petrolatum 1 applic TOPICAL 6XD 01/11/20 [History Last Taken Unknown] dexamethasone sodium phosphate 1 drp 03/21/21 [History Last Taken Unknown] rajvhbwplmwa-gizf-fywis acid [Certavite-Antioxidant] 1 tab PO 03/21/21 [History Last Taken Unknown] Allergy/AdvReac Type Severity Reaction Status Date / Time sulfamethoxazole Allergy Rash Verified 07/22/21 17:36 [From Bactrim] trimethoprim [From Bactrim] Allergy Rash Verified 07/22/21 17:36 Social History Smoking Status: Never smoker alcohol intake: never ROS ROS ED Constitutional Constitutional ED: Denies chills, fever(s) or weight loss Eyes Eyes: Denies change in vision or diplopia ENT ENT ED: Denies ear pain, rhinorrhea or sore throat Cardiovascular Cardiovascular: Denies chest pain, orthopnea, palpitations or racing heartbeat Respiratory/Chest Respiratory/Chest: Denies cough, dyspnea or orthopnea Gastrointestinal Gastrointestinal: Denies abdominal pain, diarrhea, nausea or vomiting Genitourinary Genitourinary ED: Denies dysuria, hematuria or urinary frequency Musculoskeletal Musculoskeletal: Denies arthralgias or myalgias Integumentary Denies abscess or rash Neurologic Neurologic: Denies headache(s) or weakness Psychiatric Psychiatric: Reports other Details: Agitation ; Denies anxiety, depression, suicidal ideation or suicidal thoughts Endocrine Endocrinology: Denies polydipsia, polyphagia or polyuria Allergic/Immunologic Allergic/Immunologic ED: Denies mouth swelling, tongue swelling or urticaria EXAM Physical Exam Const Vital Signs: 07/22/21 17:33 Temperature 97.6 F L Temperature Source Temporal Pulse Rate 133 H Respiratory Rate 16 Blood Pressure 168/78 H Blood Pressure Mean 108 Pulse Ox 98 Oxygen Delivery Method Room Air Positive well nourished and well developed General Appearance ED: well developed HEENT Reports normocephalic, head/scalp atraumatic, TM's clear and moist mucous membranes normocephalic and atraumatic Tympanic Membrane ED: Yes TM's clear Eyes PERRL and EOMs intact bilaterally Neck no lymphadenopathy, supple and no JVD Resp normal respiratory effort and clear to auscultation bilaterally Cardio regular rate, regular rhythm and no murmurs GI normal to inspection, nondistended, normoactive bowel sounds and non-tender Palpation: soft Back/Spine no CVA tenderness and normal ROM Extremity normal to inspection General Extremety ED: Negative for edema General Extremity: Negative for edema Neuro CN's II-XII intact bilaterally Sensorium / Orientation: alert Motor Exam: strength 5/5 throughout Psych Psych Narrative: Patient appears internally stimulated. She consistently just repeats the phrase Dad is . You bastard are she rocks back and forth. She is fidgety. Mood & Affect: Negative for depressed or tearful Skin no rashes or lesions noted and no wounds MDM MDM MDM Narrative Medical decision making narrative: Patient received an intramuscular dose of Ativan. She was observed. The staff that accompanies her states that often times if she can get to sleep she wakes up and is much improved. Unfortunately the patient continued to show signs of internal stimulation but did appear more relaxed. She received the second dose of Ativan when he began to get labs. And work on medically screen her in case she would need to go to psychiatric facility. At this point the care of the patient will be turned over to the oncoming physician for final disposition. Discharge Plan Triage Chief Complaint: Mental Health ED Provider: Andrzej Joe Dx/Rx/DC Orders Clinical Impression: Schizoaffective disorder, Cognitive developmental delay, Agitation Prescriptions: No Action atorvastatin 80 mg tablet 80 mg PO DAILY RF: 0 polyethylene glycol 3350 17 gram/dose powder PO RF: 0 sitagliptin 25 mg tablet 25 mg PO DAILY RF: 0 latanoprost 0.005 % drops 1 drp OPHTHALMIC RF: 0 (DME) blood sugar diagnostic Strip See Rx Instructions strip .ROUTE .MEDSUPPLY Qty: 10 RF: 0 (DME) lancets 28 gauge misc See Rx Instructions ea .ROUTE .MEDSUPPLY Qty: 100 RF: 0 white petrolatum [Vaseline] Gel 1 applic TOPICAL 6XD RF: 0 CertaVite Senior 0.4-300-250 mg-mcg-mcg tablet 1 tab PO DAILY RF: 0 brimonidine-timolol 0.2-0.5 % drops 1 drp OPHTHALMIC DAILY RF: 0 prednisolone acetate 1 % drops,suspension 1 drp OPHTHALMIC RF: 0 bisacodyl [Dulcolax (bisacodyl)] 5 mg tablet,delayed release (DR/EC) 5 mg PO ONCE RF: 0 folic acid 0.4 MG tablet 0.4 mg PO BID RF: 0 ferrous sulfate 325 MG tablet 325 mg PO BID RF: 0 metformin 1,000 MG tablet 1,000 mg PO BID RF: 0 nitrofurantoin macrocrystal 100 MG capsule 100 mg PO DAILY RF: 0 docusate sodium 100 MG capsule 100 mg PO BID RF: 0 omeprazole 20 MG capsule 20 mg PO DAILY RF: 0 loratadine 10 MG tablet 10 mg PO DAILY RF: 0 fluticasone propionate 1 SPRAY spray,suspension 2 spray NASAL DAILY RF: 0 oxybutynin chloride 10 MG tablet extended release 24hr 10 mg PO DAILY Qty: 30 RF: 0 sertraline 25 MG tablet 25 mg PO DAILY RF: 0 dexamethasone sodium phosphate 0.1 % drops 1 drp RF: 0 Certavite-Antioxidant 18-400 mg-mcg tablet 1 tab PO RF: 0 Primary Care Provider: Adia Mckeon Referrals: Adia Mckeon MD [Primary Care Provider] -
[2021-07-22] MEDS: LORazepam 2 MG/ML Syringe IM ×2 (18:00→20:27)
--- NOTE | 2021-07-22 20:10 | EKG12_ITS ---
Test Reason : PSYCH Blood Pressure : / mmHG Vent. Rate : 086 BPM Atrial Rate : 086 BPM P-R Int : 142 ms QRS Dur : 086 ms QT Int : 354 ms P-R-T Axes : 034 012 025 degrees QTc Int : 423 ms Normal sinus rhythm with sinus arrhythmia Normal ECG Confirmed by DIANE NAPIER, GRECIA ([id number]), editor city ALLEN SHERIFF ([id number]) on 07/24/2021 10:10:49 AM Referred By: RAFFI Confirmed By:GRECIA CONTRERAS MD
[2021-07-22] MEDS: Ziprasidone IM 20 MG/ML VIAL 10 MG IM (21:35)
[2021-07-22 22:18] VITALS: PULSE 90
[2021-07-22 22:22] LABS: Bacteria 0 SEEN /hpf (None Seen); Mucous, Urine 0 SEEN /hpf (<or=2+); Red Blood Cells-Urine 0 SEEN /hpf (0-5); Squamous Epithelial Cells - UA 0 SEEN /hpf (5-10); White Blood Cells 0 SEEN /hpf (0-5)
[2021-07-22 22:23] LABS: Absolute Lymphocyte Count 1.02 X10^3/uL (0.83-4.51); Absolute Neutrophil Count 5.9 X10^3/uL (2.0-7.7); Basophil# 0.03 X10^3/uL; Basophil% 0.4 % (0-1); Eosinophil# 0.07 X10^3/uL; Eosinophils% 0.9 % (0-5); Hematocrit 34.6 % (37-47); Hemoglobin 11.1 g/dL (12.0-15.0); Lymphocyte # 1.02 X10^3/ul (0.83-4.51); Lymphocyte % 13.5 % (19-41); Mean Corp Hgb Conc 32.1 g/dL (32-36); Mean Corpuscular Hgb 29.6 pg (27.0-32.0); Mean Corpuscular Volume 92.3 fL (81-99); Mean Platelet Vol. 11.3 fl (6.2-12.0); Monocyte% 6.6 % (0-10); NRBC Flagged by Analyzer 0 % (0-5); Neutrophil % 77.8 % (47-70); Platelet Count 256 K/mm3 (150-450); RBC Distribution Width CV 12.3 % (11.6-14.6); RBC Distribution Width SD 42.1 fl (35.1-43.9); Red Blood Count 3.75 M/mm3 (4.2-5.4); White Blood Count 7.6 K/mm3 (4.4-11.0)
[2021-07-22 22:25] LABS: Color, Urine Yellow (Yellow); Glucose, Dipstick Normal (Normal); Ketone-Dipstick 50 mg/dl (Negative); Leukocyte Esterase-Dipstick Negative /ul (Negative); Nitrite-Dipstick Negative (Negative); Occult Blood-Urine Negative /ul (Negative); Protein-Dipstick 30 mg/dl (Negative); Urine Bilirubin Dipstick Negative (Negative); Urine Clarity Clear (Clear); Urine Urobilinogen Normal (Normal)
[2021-07-22 22:39] LABS: Alcohol, Blood (Medical)-Serum < 3.0 mg/dL
[2021-07-22 22:52] LABS: Amphetamine Urine VISTA NEGATIVE (<1000 ng/mL); Barbiturate Urine VISTA NEGATIVE (< 200 ng/mL); Benzodiazepine Urine VISTA NEGATIVE (< 200 ng/mL); Cocaine Urine VISTA NEGATIVE (< 300 ng/mL); Ecstacy Urine VISTA NEGATIVE (< 500 ng/mL); Methadone Urine VISTA NEGATIVE (< 300 ng/mL); PCP Urine VISTA NEGATIVE (< 25 ng/mL); THC Urine VISTA NEGATIVE (< 50 ng/mL); Vista UDS pH Range 5
[2021-07-22 22:52] LABS: ALB/GLOB Ratio 1.2 RATIO (0.9-2.4); AST(SGOT) 13 U/L (15-37); Alanine Aminotransfer ALT/SGPT 28 U/L (13-56); Albumin, Serum 3.7 g/dL (3.2-5.0); Alkaline Phosphatase 69 U/L (45-117); Anion Gap 6 (5-15); BUN 24 mg/dL (7-18); Calcium,Total 9.7 mg/dL (8.5-10.1); Chloride 104 mmol/L (98-107); Creatinine, Serum 0.67 mg/dL (0.55-1.02); EST Glomerular Filtration Rate 94 mL/min (>60); Est Glom Filt Rate - Afr Amer 114 mL/min (>60); Estimated Creatinine Clearance 51.81 ml/min; Globulin 3.2 g/dL (2.2-4.2); Glucose 105 mg/dL (74-106); Potassium 3.4 mmol/L (3.5-5.1); Protein, Total 6.9 g/dL (6.4-8.2); Sodium Level 141 mmol/L (136-145); Thyroid Stim Hormone (TSH) 1.86 uIU/mL (0.358-3.74)
--- NOTE | 2021-07-23 00:07 | ED.RN ---
SPOKE WITH REVENUE FIELD AUDITOR OF [facility] AND GUARDIAN LEANN MALDONADO. BOTH ARE ADAMANT PT DOES NOT REQUIRE INPATIENT STABILIZATION AT THIS TIME. BOTH FEEL PT IS BACK AT BASELINE, THEY ARE SEEKING A NEW PSYCHIATRIST IN EFFORTS TO GET PT BACK ON MEDS THAT WORKED IN THE PAST. CURRENT PSYCHIATRIST IS DC'ING MEDS THAT WERE EFFECTIVE, HAS EVEN DC'D PRN MEDS FOR AGITATION TELLING [facility] AND GUARDIAN TO JUST TAKE HER TO THE ED WHEN SHE GETS LIKE THIS. PREVIOUSLY PT HAS HAD SIMILAR EPISODES, AFTER BEING GIVEN PRN INJECTIONS FOR AGITATION, [facility] STAFF COULD MANAGE PT EFFECTIVELY. UPDATED.
[2021-07-23 00:22] VITALS: BP 125/74; PULSE 74; RESP 16; O2SAT 96
== END 2021-07-23 00:25 | disposition home or self-care (01) ==
PROVIDERS: Emergency Provider Emergency Medicine; PCP Internal Medicine; Visit Provider Emergency Medicine
DX: F25.9 Schizoaffective disorder, unspecified (principal); E11.9 Type 2 diabetes mellitus without complications; E78.5 Hyperlipidemia, unspecified; Z87.820 Personal history of traumatic brain injury; F32.A Depression, unspecified; R62.50 Unspecified lack of expected normal physiological development in childhood; Z79.899 Other long term (current) drug therapy; Z79.84 Long term (current) use of oral hypoglycemic drugs
CPT/HCPCS: 80053; 80307; 81001; 82077; 84443; 85025; 87811; 93005; 96372; 99285; A4216; J3486

== ENCOUNTER 2021-07-24 08:17 | Outpatient (RCR) | payer MEDICARE, MEDICAID, SELFPAY ==
[2021-02-25 02:32] VITALS: BMI 28.4
[2021-07-24 09:42] LABS: Absolute Lymphocyte Count 1.04 X10^3/uL (0.83-4.51); Absolute Neutrophil Count 5.7 X10^3/uL (2.0-7.7); Basophil# 0.03 X10^3/uL; Basophil% 0.4 % (0-1); Eosinophil# 0.25 X10^3/uL; Eosinophils% 3.3 % (0-5); Hematocrit 34.5 % (37-47); Hemoglobin 10.7 g/dL (12.0-15.0); Lymphocyte # 1.04 X10^3/ul (0.83-4.51); Lymphocyte % 13.7 % (19-41); Mean Corpuscular Hgb 29.9 pg (27.0-32.0); Mean Corpuscular Volume 96.4 fL (81-99); Mean Platelet Vol. 11.6 fl (6.2-12.0); Monocyte# 0.54 X10^3/uL; Monocyte% 7.1 % (0-10); NRBC Flagged by Analyzer 0 % (0-5); Neutrophil # 5.69 X10^3/uL (2.7-7.7); Platelet Count 241 K/mm3 (150-450); RBC Distribution Width CV 12.5 % (11.6-14.6); RBC Distribution Width SD 44.3 fl (35.1-43.9); Red Blood Count 3.58 M/mm3 (4.2-5.4); White Blood Count 7.6 K/mm3 (4.4-11.0)
== END 2021-07-25 23:59 ==
LOC: LABSPEC 08:17
PROVIDERS: Family Provider Internal Medicine; PCP Internal Medicine; Referring Provider Psychiatry & Neurology Child & Adolescent Psychiatry; Visit Provider Psychiatry & Neurology Child & Adolescent Psychiatry
DX: Z79.899 Other long term (current) drug therapy (principal)
CPT/HCPCS: 85025

== ENCOUNTER → 2021-08-10 | Outpatient (CLI) | payer MEDICARE, MEDICAID, SELFPAY ==
[2021-08-10 17:32] LABS: Absolute Lymphocyte Count 1.23 X10^3/uL (0.83-4.51); Absolute Neutrophil Count 3.2 X10^3/uL (2.0-7.7); Basophil# 0.03 X10^3/uL; Basophil% 0.6 % (0-1); Eosinophil# 0.34 X10^3/uL; Eosinophils% 6.5 % (0-5); Hematocrit 31.8 % (37-47); Hemoglobin 10.1 g/dL (12.0-15.0); Lymphocyte # 1.23 X10^3/ul (0.83-4.51); Lymphocyte % 23.4 % (19-41); Mean Corp Hgb Conc 31.8 g/dL (32-36); Mean Corpuscular Hgb 30.1 pg (27.0-32.0); Mean Corpuscular Volume 94.9 fL (81-99); Mean Platelet Vol. 11.5 fl (6.2-12.0); Monocyte# 0.41 X10^3/uL; Monocyte% 7.8 % (0-10); NRBC Flagged by Analyzer 0 % (0-5); Neutrophil # 3.19 X10^3/uL (2.7-7.7); Neutrophil % 60.6 % (47-70); Platelet Count 275 K/mm3 (150-450); RBC Distribution Width CV 12.2 % (11.6-14.6); RBC Distribution Width SD 42.5 fl (35.1-43.9); Red Blood Count 3.35 M/mm3 (4.2-5.4); White Blood Count 5.3 K/mm3 (4.4-11.0)
== END | disposition home or self-care (01) ==
PROVIDERS: PCP Internal Medicine; Referring Provider Psychiatry & Neurology Child & Adolescent Psychiatry; Visit Provider Psychiatry & Neurology Child & Adolescent Psychiatry
DX: Z79.899 Other long term (current) drug therapy (principal)
CPT/HCPCS: 85025

== ENCOUNTER 2021-09-22 08:37 | Outpatient (RCR) | payer MEDICARE, MEDICAID, SELFPAY ==
[2021-07-26 00:05] VITALS: BMI 28.4
[2021-08-31 08:31] LABS: Absolute Lymphocyte Count 0.96 X10^3/uL (0.83-4.51); Absolute Neutrophil Count 3.4 X10^3/uL (2.0-7.7); Basophil# 0.05 X10^3/uL; Eosinophil# 0.33 X10^3/uL; Eosinophils% 6.3 % (0-5); Hematocrit 35.7 % (37-47); Hemoglobin 11.1 g/dL (12.0-15.0); Lymphocyte # 0.96 X10^3/ul (0.83-4.51); Lymphocyte % 18.5 % (19-41); Mean Corp Hgb Conc 31.1 g/dL (32-36); Mean Corpuscular Volume 96.5 fL (81-99); Mean Platelet Vol. 11.6 fl (6.2-12.0); Monocyte% 7.7 % (0-10); NRBC Flagged by Analyzer 0 % (0-5); Neutrophil # 3.37 X10^3/uL (2.7-7.7); Neutrophil % 64.8 % (47-70); Platelet Count 264 K/mm3 (150-450); RBC Distribution Width CV 12.3 % (11.6-14.6); RBC Distribution Width SD 43.2 fl (35.1-43.9); White Blood Count 5.2 K/mm3 (4.4-11.0)
[2021-08-31 08:43] LABS: ALB/GLOB Ratio 1.1 RATIO (0.9-2.4); AST(SGOT) 13 U/L (15-37); Alanine Aminotransfer ALT/SGPT 27 U/L (13-56); Albumin, Serum 3.6 g/dL (3.2-5.0); Alkaline Phosphatase 81 U/L (45-117); Anion Gap 1 (5-15); BUN 29 mg/dL (7-18); BUN/Creat Ratio 44.6 RATIO (10-20); Calcium,Total 9.4 mg/dL (8.5-10.1); Chloride 104 mmol/L (98-107); Creatinine, Serum 0.65 mg/dL (0.55-1.02); EST Glomerular Filtration Rate 97 mL/min (>60); Est Glom Filt Rate - Afr Amer 117 mL/min (>60); Globulin 3.2 g/dL (2.2-4.2); Glucose 117 mg/dL (74-106); Potassium 4.1 mmol/L (3.5-5.1); Protein, Total 6.8 g/dL (6.4-8.2); Sodium Level 142 mmol/L (136-145)
[2021-09-22 08:47] LABS: Absolute Lymphocyte Count 1.08 X10^3/uL (0.83-4.51); Absolute Neutrophil Count 2.4 X10^3/uL (2.0-7.7); Basophil# 0.04 X10^3/uL; Basophil% 0.9 % (0-1); Eosinophil# 0.61 X10^3/uL; Eosinophils% 13.3 % (0-5); Hematocrit 34.3 % (37-47); Hemoglobin 10.6 g/dL (12.0-15.0); Lymphocyte # 1.08 X10^3/ul (0.83-4.51); Lymphocyte % 23.6 % (19-41); Mean Corp Hgb Conc 30.9 g/dL (32-36); Mean Corpuscular Hgb 29.8 pg (27.0-32.0); Mean Corpuscular Volume 96.3 fL (81-99); Mean Platelet Vol. 11.9 fl (6.2-12.0); Monocyte# 0.39 X10^3/uL; Monocyte% 8.5 % (0-10); NRBC Flagged by Analyzer 0 % (0-5); Neutrophil % 52.6 % (47-70); Platelet Count 241 K/mm3 (150-450); RBC Distribution Width CV 12.2 % (11.6-14.6); RBC Distribution Width SD 43.1 fl (35.1-43.9); Red Blood Count 3.56 M/mm3 (4.2-5.4); White Blood Count 4.6 K/mm3 (4.4-11.0)
== END 2021-09-24 23:59 ==
LOC: LABSPEC 08:37
PROVIDERS: Family Provider Internal Medicine; PCP Internal Medicine; Referring Provider Psychiatry & Neurology Child & Adolescent Psychiatry; Visit Provider Psychiatry & Neurology Child & Adolescent Psychiatry
DX: Z79.899 Other long term (current) drug therapy (principal)
CPT/HCPCS: 80053; 85025

== ENCOUNTER 2021-10-14 07:18 | Outpatient (RCR) | payer MEDICARE, MEDICAID, SELFPAY ==
[2021-09-25 00:07] VITALS: BMI 28.4
[2021-10-14 07:32] LABS: Absolute Lymphocyte Count 0.83 X10^3/uL (0.83-4.51); Absolute Neutrophil Count 3.1 X10^3/uL (2.0-7.7); Basophil# 0.05 X10^3/uL; Basophil% 1.1 % (0-1); Eosinophil# 0.31 X10^3/uL; Eosinophils% 6.5 % (0-5); Hematocrit 35.7 % (37-47); Hemoglobin 11.1 g/dL (12.0-15.0); Lymphocyte # 0.83 X10^3/ul (0.83-4.51); Lymphocyte % 17.5 % (19-41); Mean Corp Hgb Conc 31.1 g/dL (32-36); Mean Corpuscular Hgb 30.2 pg (27.0-32.0); Mean Platelet Vol. 11.8 fl (6.2-12.0); Monocyte# 0.37 X10^3/uL; Monocyte% 7.8 % (0-10); NRBC Flagged by Analyzer 0 % (0-5); Neutrophil # 3.12 X10^3/uL (2.7-7.7); Neutrophil % 65.8 % (47-70); Platelet Count 252 K/mm3 (150-450); RBC Distribution Width CV 11.9 % (11.6-14.6); RBC Distribution Width SD 41.9 fl (35.1-43.9); Red Blood Count 3.68 M/mm3 (4.2-5.4); White Blood Count 4.7 K/mm3 (4.4-11.0)
== END 2021-10-25 23:59 ==
LOC: LABSPEC 07:18
PROVIDERS: Family Provider Internal Medicine; PCP Internal Medicine; Referring Provider Psychiatry & Neurology Child & Adolescent Psychiatry; Visit Provider Psychiatry & Neurology Child & Adolescent Psychiatry
DX: Z79.899 Other long term (current) drug therapy (principal)
CPT/HCPCS: 85025

== ENCOUNTER 2021-11-23 07:00 | Outpatient (RCR) | payer MEDICARE, MEDICAID, SELFPAY ==
[2021-10-26 00:09] VITALS: BMI 28.4
[2021-11-02 16:28] LABS: Absolute Neutrophil Count 4.3 X10^3/uL (2.0-7.7); Basophil# 0.04 X10^3/uL; Basophil% 0.6 % (0-1); Eosinophil# 0.35 X10^3/uL; Eosinophils% 5.3 % (0-5); Hemoglobin 10.8 g/dL (12.0-15.0); Lymphocyte % 19.8 % (19-41); Mean Corp Hgb Conc 31.8 g/dL (32-36); Mean Corpuscular Hgb 30.4 pg (27.0-32.0); Mean Corpuscular Volume 95.8 fL (81-99); Mean Platelet Vol. 11.9 fl (6.2-12.0); Monocyte# 0.47 X10^3/uL; Monocyte% 7.1 % (0-10); NRBC Flagged by Analyzer 0 % (0-5); Neutrophil # 4.31 X10^3/uL (2.7-7.7); Neutrophil % 65.5 % (47-70); Platelet Count 280 K/mm3 (150-450); Red Blood Count 3.55 M/mm3 (4.2-5.4); White Blood Count 6.6 K/mm3 (4.4-11.0)
[2021-11-23 12:40] LABS: Absolute Neutrophil Count 3.3 X10^3/uL (2.0-7.7); Basophil# 0.04 X10^3/uL; Basophil% 0.7 % (0-1); Eosinophils% 9.3 % (0-5); Hematocrit 36.9 % (37-47); Hemoglobin 11.4 g/dL (12.0-15.0); Lymphocyte % 18.7 % (19-41); Mean Corp Hgb Conc 30.9 g/dL (32-36); Mean Corpuscular Hgb 30.8 pg (27.0-32.0); Mean Corpuscular Volume 99.7 fL (81-99); Mean Platelet Vol. 11.9 fl (6.2-12.0); Monocyte# 0.41 X10^3/uL; Monocyte% 7.7 % (0-10); NRBC Flagged by Analyzer 0 % (0-5); Neutrophil # 3.33 X10^3/uL (2.7-7.7); Neutrophil % 62.3 % (47-70); Platelet Count 259 K/mm3 (150-450); RBC Distribution Width CV 11.9 % (11.6-14.6); RBC Distribution Width SD 43.1 fl (35.1-43.9); White Blood Count 5.4 K/mm3 (4.4-11.0)
== END 2021-11-25 23:59 ==
LOC: LABSPEC 07:00
PROVIDERS: Family Provider Internal Medicine; PCP Internal Medicine; Referring Provider Psychiatry & Neurology Child & Adolescent Psychiatry; Visit Provider Psychiatry & Neurology Child & Adolescent Psychiatry
DX: Z79.899 Other long term (current) drug therapy (principal)
CPT/HCPCS: 85025

== ENCOUNTER → 2021-12-10 | Outpatient (CLI) | payer MEDICARE, MEDICAID, SELFPAY ==
[2021-12-10 17:50] LABS: Color, Urine Yellow (Yellow); Glucose, Dipstick 1000 mg/dl (Normal); Ketone-Dipstick Negative (Negative); Leukocyte Esterase-Dipstick 100 /ul (Negative); Nitrite-Dipstick Negative (Negative); Occult Blood-Urine Negative /ul (Negative); Protein-Dipstick Negative (Negative); Urine Bilirubin Dipstick Negative (Negative); Urine Clarity Clear (Clear); Urine Urobilinogen Normal (Normal)
== END | disposition home or self-care (01) ==
LOC: LABSPEC 17:13
PROVIDERS: PCP Internal Medicine; Visit Provider Psychiatry & Neurology Child & Adolescent Psychiatry
DX: R30.0 Dysuria (principal)
CPT/HCPCS: 81002; 87086; 87088

== ENCOUNTER 2021-12-14 08:23 | Outpatient (RCR) | payer MEDICARE, MEDICAID, SELFPAY ==
[2021-11-26 00:14] VITALS: BMI 28.4
[2021-12-14 12:13] LABS: Absolute Lymphocyte Count 1.06 X10^3/uL (0.83-4.51); Absolute Neutrophil Count 6.2 X10^3/uL (2.0-7.7); Basophil# 0.04 X10^3/uL; Basophil% 0.5 % (0-1); Eosinophil# 0.33 X10^3/uL; Eosinophils% 4.1 % (0-5); Hematocrit 35.9 % (37-47); Hemoglobin 11.2 g/dL (12.0-15.0); Lymphocyte # 1.06 X10^3/ul (0.83-4.51); Mean Corp Hgb Conc 31.2 g/dL (32-36); Mean Corpuscular Hgb 30.2 pg (27.0-32.0); Mean Corpuscular Volume 96.8 fL (81-99); Mean Platelet Vol. 11.9 fl (6.2-12.0); Monocyte# 0.48 X10^3/uL; Monocyte% 5.9 % (0-10); NRBC Flagged by Analyzer 0 % (0-5); Neutrophil # 6.17 X10^3/uL (2.7-7.7); Neutrophil % 75.9 % (47-70); Platelet Count 283 K/mm3 (150-450); RBC Distribution Width CV 11.7 % (11.6-14.6); RBC Distribution Width SD 41.1 fl (35.1-43.9); Red Blood Count 3.71 M/mm3 (4.2-5.4); White Blood Count 8.1 K/mm3 (4.4-11.0)
[2021-12-14 13:02] LABS: ALB/GLOB Ratio 1.2 RATIO (0.9-2.4); AST(SGOT) 17 U/L (15-37); Alanine Aminotransfer ALT/SGPT 31 U/L (13-56); Albumin, Serum 3.7 g/dL (3.2-5.0); Alkaline Phosphatase 99 U/L (45-117); Anion Gap 8 (5-15); BUN 24 mg/dL (7-18); BUN/Creat Ratio 30.9 RATIO (10-20); Calcium,Total 9.4 mg/dL (8.5-10.1); Chloride 105 mmol/L (98-107); Cholesterol 155 mg/dL (200); Creatinine, Serum 0.78 mg/dL (0.55-1.02); EST Glomerular Filtration Rate 79 mL/min (>60); Est Glom Filt Rate - Afr Amer 95 mL/min (>60); Glucose 132 mg/dL (74-106); High Density Lipoprotein 41 mg/dL; Protein, Total 6.7 g/dL (6.4-8.2); Sodium Level 143 mmol/L (136-145); Triglycerides 233 mg/dL; Very Low Density Lipoprotein 47 mg/dL (5-40)
[2021-12-14 13:05] LABS: Hemoglobin A1c 5.8 % (3.8-5.6)
== END 2021-12-25 23:59 ==
LOC: LABSPEC 08:23
PROVIDERS: Family Provider Internal Medicine; PCP Internal Medicine; Referring Provider Psychiatry & Neurology Child & Adolescent Psychiatry; Visit Provider Psychiatry & Neurology Child & Adolescent Psychiatry
DX: Z79.899 Other long term (current) drug therapy (principal)
CPT/HCPCS: 80053; 80061; 83036; 85025

== ENCOUNTER → 2021-12-27 | Emergency (ER) | payer MEDICARE, MEDICAID, SELFPAY ==
[2021-12-27 14:10] VITALS: RESP 16; TEMP 36.6; BMI 23.3
--- NOTE | 2021-12-27 14:25 | EDS_ITS ---
HPI HPI - Psych History of Present Illness Chief Complaint: Mental Status Change Narrative Narrative: Patient brought by [facility] staff and EMS because of agitation and refusing to take her medications. She has refused to take her medicines for over 24 hours n ow, and staff member states it is the [facility] policy to have her evaluated in the ED because of that. In addition, she has been violent toward her roommate, she will not allow staff to help her, refusing to take her medications, and is swinging at everyone, making it impossible for them to care for her. EMS was not able to even get close to her, police did not feel comfortable pink sleeping her, but eventually police did help to secure her so EMS could transport her here for further evaluation. She sees Dr. Silveira psychiatry. She has a history of schizoaffective disorder in addition to mental retardation. She is on clozapine in addition to risperidone it appears for that on her medication list. [facility] Medical History Chest pain Depression Developmental delay, moderate Diabetes Diabetes HLD (hyperlipidemia) Schizoaffective disorder TBI (traumatic brain injury) Home Medications docusate sodium 100 mg capsule 100 mg PO BID 09/14/13 [History Last Taken Unknown] ferrous sulfate 325 mg (65 mg iron) tablet 325 mg PO BID 09/14/13 [History Last Taken Unknown] folic acid 400 mcg tablet 0.4 mg PO BID 09/14/13 [History Last Taken Unknown] loratadine 10 mg tablet 10 mg PO DAILY 09/14/13 [History Last Taken Unknown] metformin 1,000 mg tablet 1,000 mg PO BID 09/14/13 [History Last Taken Unknown] omeprazole 20 mg capsule,delayed release 20 mg PO DAILY 09/14/13 [History Last Taken 05/11/17 05:00 20 MG] fluticasone propionate 50 mcg/actuation nasal spray,suspension 2 spray NASAL DAILY 12/05/13 [History Last Taken Unknown] oxybutynin chloride 10 mg tablet,extended release 24 hr 10 mg PO DAILY ##30 12/26/13 [Rx Last Taken Unknown] atorvastatin 80 mg tablet 80 mg PO DAILY 01/11/20 [History Last Taken Unknown] blood sugar diagnostic #10 ea 01/11/20 [History Last Taken Unknown] lancets 28 gauge #100 ea 01/11/20 [History Last Taken Unknown] latanoprost 0.005 % eye drops 1 drp ophthalmic (eye) 01/11/20 [History Last Taken Unknown] dexamethasone sodium phosphate 0.1 % eye drops 1 drp LEFT EYE DAILY 03/21/21 [History Last Taken Unknown] brimonidine 0.2 %-timolol 0.5 % eye drops (Combigan) 1 drp EACH EYE BID 12/27/21 [History Last Taken Unknown] clozapine 200 mg tablet 200 mg PO DAILY 12/27/21 [History Last Taken Unknown] gemfibrozil 600 mg tablet 600 mg PO BID 12/27/21 [History Last Taken Unknown] lorazepam 0.5 mg tablet 0.5 mg PO BID PRN Anxiety 12/27/21 [History Last Taken Unknown] metoprolol succinate 25 mg tablet,extended release 24 hr 25 mg PO DAILY 12/27/21 [History Last Taken Unknown] bvizctgp-wub-qmjxv acid 0.4 mg-lycopene 300 mcg-lutein 250 mcg tablet (CertaVite Senior) 1 tab PO DAILY 12/27/21 [History Last Taken Unknown] netarsudil 0.02 %-latanoprost 0.005 % eye drops (Rocklatan) 1 drp EACH EYE QPM 12/27/21 [History Last Taken Unknown] polyethylene glycol 3350 17 gram oral powder packet (Gavilax) 17 g PO DAILY 12/27/21 [History Last Taken Unknown] risperidone 3 mg tablet 3 mg PO BID 12/27/21 [History Last Taken Unknown] sitagliptin 25 mg tablet (Januvia) 25 mg PO DAILY 12/27/21 [History Last Taken Unknown] zolpidem 10 mg tablet 10 mg PO QHS 12/27/21 [History Last Taken Unknown] Allergy/AdvReac Type Severity Reaction Status Date / Time sulfamethoxazole Allergy Rash Verified 12/27/21 14:09 [From Bactrim] trimethoprim [From Bactrim] Allergy Rash Verified 12/27/21 14:09 Social History Smoking Status: Never smoker alcohol intake: never ROS ROS ED Review of Systems ROS Unobtainable: due to mental condition and due to mental status EXAM Physical Exam Narrative Exam Narrative: Physical exam significantly limited because patient will not allow any of it. She is physically swinging and trying to grab the examiner with any bit of physical exam. Const Vital Signs: 12/27/21 14:10 12/27/21 16:34 Temperature 97.8 F Temperature Source Temporal Pulse Rate 72 Respiratory Rate 16 20 H Pulse Ox 99 Oxygen Delivery Method Room Air Positive well nourished and well developed General Appearance ED: well developed and NAD HEENT normocephalic and atraumatic Eyes EOMs intact bilaterally Eyes Narrative: grossly Neck supple Neck Narrative: FROM Resp normal respiratory effort Back/Spine Back/Spine Narrative: FROM Extremity normal to inspection Neuro CN's II-XII intact bilaterally Neuro Narrative: grossly on exam within limits of what I can evaluate safely. Sensorium / Orientation: alert Motor Exam: strength 5/5 throughout Psych Psych Narrative: talking to herself repeatedly. Aggressive and physically violent whenever myself or staff attempts to get to close to her. Mood & Affect: hostile affect Thought Process: disorganized and illogical Insight: poor Judgement: poor Skin Lesions: no lesions MDM MDM MDM Narrative Medical decision making narrative: In order to allow us to evaluate and treat this patient, she is requiring chemical/pharmacologic restraint in order to protect myself and staff. She will likely require [facility] psychiatric transfer since her mental condition appears to be out of control. Plan is to medically screen her first and we will need to sedate her for that, she does not have the capacity to refuse care at this time. I did review her labs which were able to get, as well as her urine and toxicology. The urine shows a few more white cells than normal but the rest of it is unremarkable and I think likely negative for infection, but I did send a culture. I do not think she needs to be treated empirically unless the culture comes back positive. Chest x-ray one-view portable is negative for any acute on my interpretation radiology in agreement. She is medically cleared. We will have crisis evaluate for [facility] psychiatric placement. She was given Geodon, this did not sedate her, but it did assist in staff to be able to safely obtain specimens from her. Since she is not aggressive or violent when staff is not around her, I am holding off on giving her anything else. She is to get Ativan at the [place] [facility], but I am trying to avoid that if possible. Lab Data Attestation: I reviewed the patient's lab results. Labs: Laboratory Results - last 24 hr 12/27/21 12/27/21 12/27/21 15:54 15:54 15:54 WBC 9.2 RBC 3.97 L Hgb 11.9 L Hct 37.4 MCV 94.2 MCH 30.0 MCHC 31.8 L RDW Std Deviation 40.5 RDW Coeff of Erwin 11.8 Plt Count 264 MPV 11.3 Immature Gran % (Auto) 0.700 Neut % (Auto) 86.9 H Lymph % (Auto) 6.7 L [place] % (Auto) 5.0 Eos % (Auto) 0.4 Baso % (Auto) 0.3 Absolute Neuts (auto) 8.0 H Absolute Lymphs (auto) 0.62 L Nucleated RBC % 0 Sodium 143 Potassium 4.3 Chloride 104 Carbon Dioxide 27.0 Anion Gap 12 BUN 18 Creatinine 0.89 Estim Creat Clear Calc 57.42 Est GFR (MDRD) Af Amer 81 Est GFR (MDRD) Non-Af 67 BUN/Creatinine Ratio 20.2 H Glucose 142 H Calcium 10.6 H Total Bilirubin 0.40 AST 9 L ALT 23 Alkaline Phosphatase 108 Total Protein 7.7 Albumin 3.9 Globulin 3.8 Albumin/Globulin Ratio 1.0 TSH 1.43 Urine Color Urine Clarity Urine pH Ur Specific Hitchcock Urine Protein Urine Glucose (UA) Urine Ketones Urine Occult Blood Urine Nitrite Urine Bilirubin Urine Urobilinogen Ur Leukocyte Esterase Urine RBC Urine WBC Ur Squamous Epith Cells Urine Bacteria Urine Mucus Urine Opiates Screen Urine Methadone Screen Ur Barbiturates Screen Ur Phencyclidine Scrn Ur Amphetamines Screen MDMA (Ecstasy) Screen U Benzodiazepines Scrn Urine Cocaine Screen U Cannabinoids Screen Ur Drug Screen Comment Ethyl Alcohol < 3.0 12/27/21 12/27/21 15:54 15:54 WBC RBC Hgb Hct MCV MCH MCHC RDW Std Deviation RDW Coeff of Erwin Plt Count MPV Immature Gran % (Auto) Neut % (Auto) Lymph % (Auto) [place] % (Auto) Eos % (Auto) Baso % (Auto) Absolute Neuts (auto) Absolute Lymphs (auto) Nucleated RBC % Sodium Potassium Chloride Carbon Dioxide Anion Gap BUN Creatinine Estim Creat Clear Calc Est GFR (MDRD) Af Amer Est GFR (MDRD) Non-Af BUN/Creatinine Ratio Glucose Calcium Total Bilirubin AST ALT Alkaline Phosphatase Total Protein Albumin Globulin Albumin/Globulin Ratio TSH Urine Color Yellow Urine Clarity Clear Urine pH 5.0 Ur Specific Hitchcock 1.025 Urine Protein 100 H Urine Glucose (UA) 1000 H Urine Ketones 150 A* Urine Occult Blood 10 H Urine Nitrite Negative Urine Bilirubin 1 H Urine Urobilinogen Normal Ur Leukocyte Esterase 25 H Urine RBC 0 SEEN Urine WBC 10-25 SEEN Ur Squamous Epith Cells 0-5 SEEN Urine Bacteria 0 SEEN Urine Mucus 0 SEEN Urine Opiates Screen NEGATIVE Urine Methadone Screen NEGATIVE Ur Barbiturates Screen NEGATIVE Ur Phencyclidine Scrn NEGATIVE Ur Amphetamines Screen NEGATIVE MDMA (Ecstasy) Screen NEGATIVE U Benzodiazepines Scrn NEGATIVE Urine Cocaine Screen NEGATIVE U Cannabinoids Screen NEGATIVE Ur Drug Screen Comment Ethyl Alcohol Radiography Diagnostic Testing: Clinical Impression(s) from Imaging Studies Chest X-Ray 12/27/21 16:16 IMPRESSION: There are no acute findings. Electronically Signed: Jason Hope MD at 16:30 EDT Reading Location ID and State: [facility] / [place] , Service support , EKG Initial EKG: Attestation: I personally reviewed and interpreted this EKG as follows: Interpretation: No Acute Injury Pattern and Sinus Tachycardia Comments: normal other than tachycardia, which is likely due to agitation since even after administering Geodon, pt needed to be physically restrained to get EKG Discharge Plan Triage Chief Complaint: Mental Status Change ED Provider: Gordon Aguilar Dx/Rx/DC Orders Clinical Impression: Acute psychosis, Schizoaffective disorder Prescriptions: No Action atorvastatin 80 mg tablet 80 mg PO DAILY 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: TAKE 1 TABLET BY MOUTHCONCE DAILY latanoprost 0.005 % drops 1 drp OPHTHALMIC 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: PLACE 1 DROP IN EACH EYEEDAILY ([facility] [place]) blood sugar diagnostic Strip See Rx Instructions .ROUTE .MEDSUPPLY Qty: 10 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: USE ONCE DAILY TO TESTDBLOOD SUGAR Rx Instructions: As directed (DME) lancets 28 gauge misc See Rx Instructions .ROUTE .MEDSUPPLY Qty: 100 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: USE ONCE DAILY TO TESTDBLOOD SUGAR Rx Instructions: As directed folic acid 0.4 MG tablet 0.4 mg PO BID 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: MINERAL SUPPLEMENT ferrous sulfate 325 MG tablet 325 mg PO BID 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: MINERAL SUPPLEMENT metformin 1,000 MG tablet 1,000 mg PO BID 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: blood sugar docusate sodium 100 MG capsule 100 mg PO BID 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: 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 omeprazole 20 MG capsule 20 mg PO DAILY 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 loratadine 10 MG tablet 10 mg PO DAILY 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: ALLERGIES fluticasone propionate 1 SPRAY spray,suspension 2 spray NASAL DAILY 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: 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 oxybutynin chloride 10 MG tablet extended release 24hr 10 mg PO DAILY Qty: 30 0RF 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: BLADDER dexamethasone sodium phosphate 0.1 % drops 1 drp LEFT EYE DAILY 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: PLACE 1 DROP INTO LEFTEEYE ONCE DAILY polyethylene glycol 3350 [Gavilax] 17 gram Powder In Packet 17 g PO DAILY risperidone 3 mg Tablet 3 mg PO BID lorazepam 0.5 mg Tablet 0.5 mg PO BID PRN (Reason: Anxiety) gemfibrozil 600 mg Tablet 600 mg PO BID metoprolol succinate 25 mg Tablet Extended Release 24 Hr 25 mg PO DAILY zolpidem 10 mg Tablet 10 mg PO QHS CertaVite Senior 0.4 mg-300 mcg- 250 mcg Tablet 1 tab PO DAILY clozapine 200 mg Tablet 200 mg PO DAILY Rx Instructions: 4pm Januvia 25 mg Tablet 25 mg PO DAILY brimonidine-timolol [Combigan] 0.2-0.5 % Drops 1 drp EACH EYE BID Rocklatan 0.02-0.005 % Drops 1 drp EACH EYE QPM Primary Care Provider: Adia Mckeon Referrals: Adia Mckeon MD [Primary Care Provider] - Disposition Disposition: Psychiatric Hospital or Unit Capacity Capacity Assessment Tool Can the patient make a choice & communicate that choice?: Unable to Determine Can the patient understand benefits, risks and alternatives?: No Can the patient make a logical, rational choice?: No Is the choice the patient makes consistent w/ their values?: Unable to Determine Is there an impending, emergent risk to the patient?: Unable to Determine Is there a Surrogate Available?: Yes ([facility] staff, they have notified her legal guardian.)
[2021-12-27] MEDS: Ziprasidone IM 20 MG/ML VIAL 10 MG IM (14:55)
[2021-12-27 16:01] LABS: Bacteria 0 SEEN /hpf (None Seen); Mucous, Urine 0 SEEN /hpf (<or=2+); Red Blood Cells-Urine 0 SEEN /hpf (0-5)
[2021-12-27 16:03] LABS: Absolute Lymphocyte Count 0.62 X10^3/uL (0.83-4.51); Basophil# 0.03 X10^3/uL; Basophil% 0.3 % (0-1); Eosinophil# 0.04 X10^3/uL; Eosinophils% 0.4 % (0-5); Hematocrit 37.4 % (37-47); Hemoglobin 11.9 g/dL (12.0-15.0); Lymphocyte # 0.62 X10^3/ul (0.83-4.51); Lymphocyte % 6.7 % (19-41); Mean Corp Hgb Conc 31.8 g/dL (32-36); Mean Corpuscular Volume 94.2 fL (81-99); Mean Platelet Vol. 11.3 fl (6.2-12.0); Monocyte# 0.46 X10^3/uL; NRBC Flagged by Analyzer 0 % (0-5); Neutrophil # 8.02 X10^3/uL (2.7-7.7); Neutrophil % 86.9 % (47-70); Platelet Count 264 K/mm3 (150-450); RBC Distribution Width CV 11.8 % (11.6-14.6); RBC Distribution Width SD 40.5 fl (35.1-43.9); Red Blood Count 3.97 M/mm3 (4.2-5.4); White Blood Count 9.2 K/mm3 (4.4-11.0)
[2021-12-27 16:05] LABS: Color, Urine Yellow (Yellow); Glucose, Dipstick 1000 mg/dl (Normal); Leukocyte Esterase-Dipstick 25 /ul (Negative); Nitrite-Dipstick Negative (Negative); Occult Blood-Urine 10 /ul (Negative); Protein-Dipstick 100 mg/dl (Negative); Specific Gravity, Urine 1.025 (1.002-1.030); Urine Clarity Clear (Clear); Urine Urobilinogen Normal (Normal)
[2021-12-27 16:07] LABS: Urine Bilirubin Dipstick 1 mg/dL (Negative)
[2021-12-27 16:08] LABS: Ketone-Dipstick 150 mg/dl (Negative)
[2021-12-27 16:09] LABS: Squamous Epithelial Cells - UA 0-5 SEEN /hpf (5-10); White Blood Cells 10-25 SEEN /hpf (0-5)
[2021-12-27 16:14] LABS: Alcohol, Blood (Medical)-Serum < 3.0 mg/dL
[2021-12-27 16:16] LABS: Amphetamine Urine VISTA NEGATIVE (<1000 ng/mL); Barbiturate Urine VISTA NEGATIVE (< 200 ng/mL); Benzodiazepine Urine VISTA NEGATIVE (< 200 ng/mL); Cocaine Urine VISTA NEGATIVE (< 300 ng/mL); Ecstacy Urine VISTA NEGATIVE (< 500 ng/mL); Methadone Urine VISTA NEGATIVE (< 300 ng/mL); PCP Urine VISTA NEGATIVE (< 25 ng/mL); THC Urine VISTA NEGATIVE (< 50 ng/mL); Vista UDS pH Range 7
--- NOTE | 2021-12-27 16:16 | RAD_ITS ---
STUDY: X-RAY CHEST REASON FOR EXAM: Female, 66 years old. medical clearance TECHNIQUE: XR Chest 1 View COMPARISON: 11/28/20 FINDINGS: There is atherosclerotic calcification of the aortic arch with tortuosity. There are diffuse degenerative changes of the visualized thoracic spine. There is degenerative osteoarthritis of the bilateral shoulders. There are bilateral pleural effusions. There are bilateral infiltrates. Normal size heart. Normal mediastinum and frederic. Normal visualized pulmonary arteries. There is no demonstrated abnormality of the visualized soft tissue structures of the upper abdomen. RAD/Chest 1 View (Portable) IMPRESSION: There are no acute findings. Electronically Signed: Jason Hope MD at 16:30 EDT ,
[2021-12-27 16:28] LABS: AST(SGOT) 9 U/L (15-37); Alanine Aminotransfer ALT/SGPT 23 U/L (13-56); Albumin, Serum 3.9 g/dL (3.2-5.0); Alkaline Phosphatase 108 U/L (45-117); Anion Gap 12 (5-15); BUN 18 mg/dL (7-18); BUN/Creat Ratio 20.2 RATIO (10-20); Calcium,Total 10.6 mg/dL (8.5-10.1); Chloride 104 mmol/L (98-107); Creatinine, Serum 0.89 mg/dL (0.55-1.02); EST Glomerular Filtration Rate 67 mL/min (>60); Est Glom Filt Rate - Afr Amer 81 mL/min (>60); Estimated Creatinine Clearance 57.42 ml/min; Globulin 3.8 g/dL (2.2-4.2); Glucose 142 mg/dL (74-106); Potassium 4.3 mmol/L (3.5-5.1); Protein, Total 7.7 g/dL (6.4-8.2); Sodium Level 143 mmol/L (136-145); Thyroid Stim Hormone (TSH) 1.43 uIU/mL (0.358-3.74)
[2021-12-27 16:34] VITALS: PULSE 72; RESP 20; O2SAT 99
--- NOTE | 2021-12-27 17:06 | NURSING ---
FAXED CHART TO [facility] [phone]
--- NOTE | 2021-12-27 17:47 | NURSING ---
CRISIS IN ROOM
--- NOTE | 2021-12-27 18:29 | ED.RN ---
PLAN TO PLACE PT LATRICE PSYCH PER CRISES
--- NOTE | 2021-12-27 20:38 | ED.RN ---
Pt. refused to take night time medications at this time. Attempted to try to give pt. water, applesauce or icecream with meds and pt. slapped applesauce away and attempted to grab this RNs hand that was holding medications.
--- NOTE | 2021-12-27 20:46 | ED.RN ---
5 mg of Ambien and 3 mg of Riseridone wasted and placed in Rx destoryer with Liana Noriega RN as a witness.
--- NOTE | 2021-12-27 20:47 | ED.RN ---
Pt. refused vitals.
[2021-12-27] MEDS: LORazepam 2 MG/ML Syringe IM (22:51)
--- NOTE | 2021-12-27 22:57 | NURSING ---
Addendum entered by Liana Noriega 01/04/22 17:26: care completed [id number] 01/04/22 Original Note: PT WILL NOT ALLOW STAFF TO OBTAIN VITALS. WONT GET INTO BED OR ALLOW STAFF TO ASSIST TO CHANGE INTO HOSPITAL GOWN. PUSHING STAFF AWAY WHEN ATTEMPTING CARE.
[2021-12-28 00:06] VITALS: RESP 20; O2SAT 100
[2021-12-28 02:00] VITALS: RESP 16
[2021-12-28 04:00] VITALS: RESP 16
[2021-12-28] MEDS: Ziprasidone IM 20 MG/ML VIAL 10 MG IM (06:43)
[2021-12-28 07:11] VITALS: PULSE 74; RESP 16; TEMP 36.6; O2SAT 98
== END ==
PROVIDERS: Emergency Provider Emergency Medicine; PCP Internal Medicine; Visit Provider Emergency Medicine
DX: F23 Brief psychotic disorder (principal); F25.9 Schizoaffective disorder, unspecified; E11.9 Type 2 diabetes mellitus without complications; F71 Moderate intellectual disabilities; E78.5 Hyperlipidemia, unspecified; R45.6 Violent behavior; Z79.84 Long term (current) use of oral hypoglycemic drugs; Z79.899 Other long term (current) drug therapy; Z87.820 Personal history of traumatic brain injury
CPT/HCPCS: 71045; 80053; 80307; 81001; 82077; 84443; 85025; 87086; 87811; 93005; 96372; 99285; J3486

== ENCOUNTER 2022-01-07 16:12 | Emergency (ER) | payer MEDICARE, MEDICAID, SELFPAY ==
[2022-01-07 16:12] VITALS: PULSE 100; RESP 17; O2SAT 97
[2022-01-07 16:14] VITALS: TEMP 37; BMI 24.2
--- NOTE | 2022-01-07 16:23 | EKG12_ITS ---
Test Reason : MENTAL Blood Pressure : / mmHG Vent. Rate : 105 BPM Atrial Rate : 105 BPM P-R Int : 142 ms QRS Dur : 080 ms QT Int : 338 ms P-R-T Axes : 066 048 046 degrees QTc Int : 446 ms Sinus tachycardia Otherwise normal ECG Confirmed by AVIS NAPIER, ANTIONE ([id number]), research editor ALLEN SHERIFF ([id number]) on 01/11/2022 9:51:25 A M Referred By: TORRIE Confirmed By:SHAYY ALBARRAN MD
--- NOTE | 2022-01-07 17:50 | EDS_ITS ---
HPI HPI - Psych History of Present Illness Chief Complaint: Mental Health Narrative Narrative: 66-year-old female from correction with history of schizophrenia. Apparently have not been giving her her medications. She is now aggressive and refusing to take them. She had a previous episode of this a few days ago and was admitted to geriatric psych facility for this. She has been back at the facility. It is unknown how much medication she has been receiving. She is difficult to get a story from. Very aggressive and hostile with staff. [facility] Medical History Chest pain Depression Developmental delay, moderate Diabetes Diabetes HLD (hyperlipidemia) Schizoaffective disorder TBI (traumatic brain injury) Home Medications docusate sodium 100 mg capsule 100 mg PO BID 09/14/13 [History Last Taken Unknown] ferrous sulfate 325 mg (65 mg iron) tablet 325 mg PO BID 09/14/13 [History Last Taken Unknown] folic acid 400 mcg tablet 0.4 mg PO BID 09/14/13 [History Last Taken Unknown] loratadine 10 mg tablet 10 mg PO DAILY 09/14/13 [History Last Taken Unknown] metformin 1,000 mg tablet 1,000 mg PO BID 09/14/13 [History Last Taken Unknown] omeprazole 20 mg capsule,delayed release 20 mg PO DAILY 09/14/13 [History Last Taken 05/11/17 05:00 20 MG] fluticasone propionate 50 mcg/actuation nasal spray,suspension 2 spray NASAL DAILY 12/05/13 [History Last Taken Unknown] oxybutynin chloride 10 mg tablet,extended release 24 hr 10 mg PO DAILY ##30 12/26/13 [Rx Last Taken Unknown] atorvastatin 80 mg tablet 80 mg PO DAILY 01/11/20 [History Last Taken Unknown] blood sugar diagnostic #10 ea 01/11/20 [History Last Taken Unknown] lancets 28 gauge #100 ea 01/11/20 [History Last Taken Unknown] latanoprost 0.005 % eye drops 1 drp ophthalmic (eye) 01/11/20 [History Last Taken Unknown] dexamethasone sodium phosphate 0.1 % eye drops 1 drp LEFT EYE DAILY 03/21/21 [History Last Taken Unknown] brimonidine 0.2 %-timolol 0.5 % eye drops (Combigan) 1 drp EACH EYE BID 12/27/21 [History Last Taken Unknown] clozapine 200 mg tablet 200 mg PO DAILY 12/27/21 [History Last Taken Unknown] gemfibrozil 600 mg tablet 600 mg PO BID 12/27/21 [History Last Taken Unknown] lorazepam 0.5 mg tablet 0.5 mg PO BID PRN Anxiety 12/27/21 [History Last Taken Unknown] metoprolol succinate 25 mg tablet,extended release 24 hr 25 mg PO DAILY 12/27/21 [History Last Taken Unknown] mvsxxcjn-eca-xkdny acid 0.4 mg-lycopene 300 mcg-lutein 250 mcg tablet (CertaVite Senior) 1 tab PO DAILY 12/27/21 [History Last Taken Unknown] netarsudil 0.02 %-latanoprost 0.005 % eye drops (Rocklatan) 1 drp EACH EYE QPM 12/27/21 [History Last Taken Unknown] polyethylene glycol 3350 17 gram oral powder packet (Gavilax) 17 g PO DAILY 12/27/21 [History Last Taken Unknown] risperidone 3 mg tablet 3 mg PO BID 12/27/21 [History Last Taken Unknown] sitagliptin 25 mg tablet (Januvia) 25 mg PO DAILY 12/27/21 [History Last Taken Unknown] zolpidem 10 mg tablet 10 mg PO QHS 12/27/21 [History Last Taken Unknown] Allergy/AdvReac Type Severity Reaction Status Date / Time sulfamethoxazole Allergy Rash Verified 01/07/22 16:14 [From Bactrim] trimethoprim [From Bactrim] Allergy Rash Verified 01/07/22 16:14 Social History Smoking Status: Never smoker alcohol intake: never ROS ROS ED Review of Systems ROS Unobtainable: due to mental status EXAM Physical Exam Const Vital Signs: 01/07/22 16:14 01/07/22 16:12 Temperature 98.6 F Temperature Source Temporal Pulse Rate 100 Respiratory Rate 17 Pulse Ox 97 Oxygen Delivery Method Room Air Positive well nourished and unkempt General Appearance ED: unkempt, irritable and NAD; Negative for pallor HEENT normocephalic Eyes PERRL and EOMs intact bilaterally Resp normal respiratory effort and clear to auscultation bilaterally Cardio Rate: regular rate Rhythm: regular rhythm GI non-tender Neuro CN's II-XII intact bilaterally Sensorium / Orientation: alert Psych Appearance: unkempt Attitude: uncooperative, agitated, aggressive and hostile Activity / Motor Behavior: psychomotor agitation, hyperactive and disorganized Speech: rapid Mood & Affect: irritable and hostile affect Thought Process: confused Thought Content: No suicidality and No hallucination(s) Attention / Concentration: attention grossly impaired and concentration grossly impaired Memory / Cognition: cognition impaired Insight: poor Judgement: poor Skin General Skin Exam: Negative for jaundice or pallor MDM MDM MDM Narrative Medical decision making narrative: Patient agitated and aggressive with staff. She required Geodon to sedate her. Blood work will be obtained. Medical clearance will be needed. Patient did not respond to Geodon. There is been a delay in care to get lab work because she is so agitated. Patient given 5 of Haldol, 25 Benadryl, 2 of Ativan. She may need to be restrained physically in order to obtain blood work. CBC within normal limits. BMP shows a slightly elevated CO2 at 34 unclear relevance of this. Re nal function electrolytes are normal. EtOH negative. Chest x-ray my interpretation shows no acute cardiopulmonary process and the radiologist does agree. Rapid COVID is negative. Awaiting urinalysis and urine drug screen. Patient will be signed out to incoming ED physician for monitoring and follow up on UDS. Impression: 1. Acute psychosis Lab Data Attestation: I reviewed the patient's lab results. Labs: Laboratory Results - last 24 hr 01/07/22 01/07/22 01/07/22 21:12 21:12 21:12 WBC 10.0 RBC 3.88 L Hgb 11.9 L Hct 37.4 MCV 96.4 MCH 30.7 MCHC 31.8 L RDW Std Deviation 41.8 RDW Coeff of Erwin 12.0 Plt Count 288 MPV 11.1 Immature Gran % (Auto) 0.800 Neut % (Auto) 81.1 H Lymph % (Auto) 9.1 L [place] % (Auto) 7.2 Eos % (Auto) 1.2 Baso % (Auto) 0.6 Absolute Neuts (auto) 8.1 H Absolute Lymphs (auto) 0.91 Nucleated RBC % 0 Sodium 141 Potassium 3.7 Chloride 102 Carbon Dioxide 34.0 H Anion Gap 5 BUN 19 H Creatinine 0.91 Estim Creat Clear Calc 56.16 Est GFR (MDRD) Af Amer 79 Est GFR (MDRD) Non-Af 65 BUN/Creatinine Ratio 20.8 H Glucose 106 Calcium 10.2 H Ethyl Alcohol < 3.0 Radiography Diagnostic Testing: Clinical Impression(s) from Imaging Studies Chest X-Ray 01/07/22 21:40 IMPRESSION: 1. No evidence of acute cardiopulmonary process. Shallow inspiration mild crowding of bronchovascular markings. Electronically Signed: Clark Seay MD at 22:09 EDT , Discharge Plan Triage Chief Complaint: Mental Health ED Provider: Epi Ho Dx/Rx/DC Orders Prescriptions: No Action atorvastatin 80 mg tablet 80 mg PO DAILY 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: TAKE 1 TABLET BY MOUTHCONCE DAILY latanoprost 0.005 % drops 1 drp OPHTHALMIC 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: PLACE 1 DROP IN EACH EYEEDAILY (DME) blood sugar diagnostic Strip See Rx Instructions .ROUTE .MEDSUPPLY Qty: 10 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: USE ONCE DAILY TO TESTDBLOOD SUGAR Rx Instructions: As directed (DME) lancets 28 gauge misc See Rx Instructions .ROUTE .MEDSUPPLY Qty: 100 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: USE ONCE DAILY TO TESTDBLOOD SUGAR Rx Instructions: As directed folic acid 0.4 MG tablet 0.4 mg PO BID 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: MINERAL SUPPLEMENT ferrous sulfate 325 MG tablet 325 mg PO BID 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: MINERAL SUPPLEMENT metformin 1,000 MG tablet 1,000 mg PO BID 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: blood sugar docusate sodium 100 MG capsule 100 mg PO BID 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: 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 omeprazole 20 MG capsule 20 mg PO DAILY 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 loratadine 10 MG tablet 10 mg PO DAILY 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: ALLERGIES fluticasone propionate 1 SPRAY spray,suspension 2 spray NASAL DAILY 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: 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 oxybutynin chloride 10 MG tablet extended release 24hr 10 mg PO DAILY Qty: 30 0RF 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: BLADDER dexamethasone sodium phosphate 0.1 % drops 1 drp LEFT EYE DAILY 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: PLACE 1 DROP INTO LEFTEEYE ONCE DAILY polyethylene glycol 3350 [Gavilax] 17 gram Powder In Packet 17 g PO DAILY risperidone 3 mg Tablet 3 mg PO BID lorazepam 0.5 mg Tablet 0.5 mg PO BID PRN (Reason: Anxiety) gemfibrozil 600 mg Tablet 600 mg PO BID metoprolol succinate 25 mg Tablet Extended Release 24 Hr 25 mg PO DAILY zolpidem 10 mg Tablet 10 mg PO QHS CertaVite Senior 0.4 mg-300 mcg- 250 mcg Tablet 1 tab PO DAILY clozapine 200 mg Tablet 200 mg PO DAILY Rx Instructions: 4pm Januvia 25 mg Tablet 25 mg PO DAILY brimonidine-timolol [Combigan] 0.2-0.5 % Drops 1 drp EACH EYE BID Rocklatan 0.02-0.005 % Drops 1 drp EACH EYE QPM Primary Care Provider: Adia Mckeon Referrals: Adia Mckeon MD [Primary Care Provider] -
[2022-01-07] MEDS: Ziprasidone IM 20 MG/ML VIAL IM (18:10)
[2022-01-07] MEDS: Haloperidol Lactate 5 MG/ML Vial IM (19:31)
[2022-01-07] MEDS: LORazepam 2 MG/ML Syringe 1 MG IM (19:31)
[2022-01-07] MEDS: DiphenhydrAMINE 50 MG/ML Syringe 25 MG IM (19:31)
[2022-01-07 21:26] LABS: Absolute Lymphocyte Count 0.91 X10^3/uL (0.83-4.51); Absolute Neutrophil Count 8.1 X10^3/uL (2.0-7.7); Basophil# 0.06 X10^3/uL; Basophil% 0.6 % (0-1); Eosinophil# 0.12 X10^3/uL; Eosinophils% 1.2 % (0-5); Hematocrit 37.4 % (37-47); Hemoglobin 11.9 g/dL (12.0-15.0); Lymphocyte # 0.91 X10^3/ul (0.83-4.51); Lymphocyte % 9.1 % (19-41); Mean Corp Hgb Conc 31.8 g/dL (32-36); Mean Corpuscular Hgb 30.7 pg (27.0-32.0); Mean Corpuscular Volume 96.4 fL (81-99); Mean Platelet Vol. 11.1 fl (6.2-12.0); Monocyte# 0.72 X10^3/uL; Monocyte% 7.2 % (0-10); NRBC Flagged by Analyzer 0 % (0-5); Neutrophil # 8.12 X10^3/uL (2.7-7.7); Neutrophil % 81.1 % (47-70); Platelet Count 288 K/mm3 (150-450); RBC Distribution Width SD 41.8 fl (35.1-43.9); Red Blood Count 3.88 M/mm3 (4.2-5.4)
[2022-01-07 21:40] LABS: Anion Gap 5 (5-15); BUN 19 mg/dL (7-18); BUN/Creat Ratio 20.8 RATIO (10-20); Calcium,Total 10.2 mg/dL (8.5-10.1); Chloride 102 mmol/L (98-107); Creatinine, Serum 0.91 mg/dL (0.55-1.02); EST Glomerular Filtration Rate 65 mL/min (>60); Est Glom Filt Rate - Afr Amer 79 mL/min (>60); Estimated Creatinine Clearance 56.16 ml/min; Glucose 106 mg/dL (74-106); Potassium 3.7 mmol/L (3.5-5.1); Sodium Level 141 mmol/L (136-145)
--- NOTE | 2022-01-07 21:40 | RAD_ITS ---
INDICATION: MENTAL HEALTH EXAMINATION/TECHNIQUE: X-RAY - XR Chest 1 View COMPARISON: 12/27/2021 FINDINGS: LIFE-SUPPORT AND LINES: 1. None HEART AND VESSELS: The cardiac silhouette, pulmonary vasculature have normal appearance. No evidence of congestive failure. LUNGS AND PLEURAL SPACES: Lungs are clear. No focal infiltrate, consolidation or effusions. No evidence of pneumothorax. There is shallow inspiration and mild crowding of bronchovascular markings. No focal infiltrate. MEDIASTINUM AND HILAR REGIONS: No masses adenopathy noted. No areas of calcification. Visualized upper airway is normal in position. BONY ELEMENTS: No acute bony changes noted. RAD/Chest 1 View (Portable) IMPRESSION: 1. No evidence of acute cardiopulmonary process. Shallow inspiration mild crowding of bronchovascular markings. Electronically Signed: Clark Seay MD at 22:09 EDT ,
[2022-01-07 21:42] LABS: Alcohol, Blood (Medical)-Serum < 3.0 mg/dL
[2022-01-07 23:52] VITALS: RESP 16
[2022-01-08 00:16] VITALS: RESP 16
[2022-01-08 01:25] VITALS: RESP 18
[2022-01-08 02:18] VITALS: RESP 16
[2022-01-08 03:09] VITALS: RESP 16
[2022-01-08 08:00] VITALS: BP 117/70; PULSE 95; RESP 18; TEMP 36.8; O2SAT 98
[2022-01-08 08:42] LABS: Amphetamine Urine VISTA NEGATIVE (<1000 ng/mL); Barbiturate Urine VISTA NEGATIVE (< 200 ng/mL); Benzodiazepine Urine VISTA NEGATIVE (< 200 ng/mL); Cocaine Urine VISTA NEGATIVE (< 300 ng/mL); Ecstacy Urine VISTA NEGATIVE (< 500 ng/mL); Methadone Urine VISTA NEGATIVE (< 300 ng/mL); PCP Urine VISTA NEGATIVE (< 25 ng/mL); THC Urine VISTA NEGATIVE (< 50 ng/mL); Vista UDS pH Range 8
--- NOTE | 2022-01-08 11:01 | CM.ED ---
Addendum entered by Gabriela Mustafa 01/08/22 13:15: LILIA Note SW was advised that patient had no UTI. updated Theron from [facility] about patient's blood and urine results. LILIA called patient's sister, Mirella Alvarez and advised her that patient has returned to [facility] and advised her of the patient's blood and urine results. LILIA updated Alina at Crisis that patient was discharged back to [facility] Gabriela MORALEZ Original Note: LILIA called Alina at Crisis and reviewed plan for patient. Per Alina the plan was for the guardian to come in this morning and see if she could take the patient home. LILIA met with patient and her caregiver, Theron. Theron said that patient wants to return home. Theron voiced that [facility] can and feels comfortable with taking the patient home. LILIA will speak to guardianTabatha. LILIA called saeed Mays. Tabatha stated that she had been updated by Eliezer about that patient was supposed to rest and then test for an UTI. Tabatha said that they are also going to update patient's SSA, Alina [place]. Tabatha stated that she is comfortable with patient going back to [facility] and [place]. LILIA is waiting for urine test to come back to determine if patient has an UTI as per sister patient said that an UTI is a crisis for her and she acts like she did. LILIA called Alina at Crisis. Alina said that patient was not oriented and aggressive and refusing medication but it is fine with Crisis if patient returns to [facility]. Alina said that it would probably be better for patient if she returns to an familiar environment. Plan: Return to [facility] pending urine Gabriela MORALEZ
[2022-01-08 11:04] LABS: Bacteria 0 SEEN /hpf (None Seen); Mucous, Urine 0 SEEN /hpf (<or=2+); Red Blood Cells-Urine 0 SEEN /hpf (0-5); Squamous Epithelial Cells - UA 0 SEEN /hpf (5-10); White Blood Cells 0 SEEN /hpf (0-5)
[2022-01-08 11:06] LABS: Color, Urine Yellow (Yellow); Glucose, Dipstick Normal (Normal); Ketone-Dipstick 15 mg/dl (Negative); Leukocyte Esterase-Dipstick 25 /ul (Negative); Nitrite-Dipstick Negative (Negative); Occult Blood-Urine Negative /ul (Negative); Protein-Dipstick Negative (Negative); Urine Bilirubin Dipstick Negative (Negative); Urine Clarity Clear (Clear); Urine Urobilinogen Normal (Normal)
[2022-01-08 12:43] VITALS: BP 140/74; PULSE 78; RESP 17; O2SAT 99
== END 2022-01-08 12:47 | disposition home or self-care (01) ==
PROVIDERS: Emergency Medicine; Emergency Provider Student in an Organized Health Care Education/Training Program; PCP Internal Medicine; Visit Provider Student in an Organized Health Care Education/Training Program
DX: F20.9 Schizophrenia, unspecified (principal); E11.9 Type 2 diabetes mellitus without complications; Z20.822 Contact with and (suspected) exposure to COVID-19; E78.5 Hyperlipidemia, unspecified; Z91.A4 Caregiver's other noncompliance with patient's medication regimen; Z79.899 Other long term (current) drug therapy
CPT/HCPCS: 36415; 71045; 80048; 80307; 81001; 82077; 85025; 87811; 93005; 96372; 99285; J3486

== ENCOUNTER 2022-01-13 12:22 | Emergency (ER) | payer MEDICARE, MEDICAID, SELFPAY ==
[2022-01-13 12:23] VITALS: RESP 16; TEMP 36.2; BMI 22.2
--- NOTE | 2022-01-13 12:26 | ED.RN ---
pt arrives to ed stating he's carmen. [facility] staff are directing pt with body barriers. she refused to allow vitals beyond temperature and respiratory rate in triage. she arrives with a lorazepam in her hand from [facility] staff. she placed it in her mouth during triage evaluation. pt behavior and medication relayed to keg varnisher. danica leach rn [id number]
--- NOTE | 2022-01-13 12:48 | EKG12_ITS ---
Test Reason : Blood Pressure : / mmHG Vent. Rate : 099 BPM Atrial Rate : 099 BPM P-R Int : 140 ms QRS Dur : 084 ms QT Int : 348 ms P-R-T Axes : 052 008 028 degrees QTc Int : 446 ms Normal sinus rhythm Normal ECG Confirmed by DIANE NAPIER, GRECIA ([id number]), general expeditor ALLEN SHERIFF ([id number]) on 01/18/2022 9:37:26 AM Referred By: Confirmed By:GRECIA CONTRERAS MD
--- NOTE | 2022-01-13 12:49 | CT_ITS ---
STUDY: CT BRAIN WITHOUT CONTRAST REASON FOR EXAM: Female, 66 years old. Change in Mental Status RADIATION DOSAGE (If Supplied By Facility): CTDIvol = ( 47.06 ) mGy, DLP = ( 907.97 ) mGycm TECHNIQUE: Transaxial CT imaging of the brain was performed without administration of intravenous contrast material. Individualized dose optimization techniques were used for this CT. COMPARISON: No relevant priors. FINDINGS: Normal soft tissue structures. Normal calvarium. Normal size ventricles and extra-axial spaces for the patient''s age. Normal white matter tracts of the cerebral hemispheres. Normal basal ganglia and thalami. Normal brainstem. Normal cerebellum. There is no intracranial hemorrhage. There are no findings of an acute ischemic infarction. There is mucoperiosteal inflammatory disease of the paranasal sinuses consistent with moderate chronic sinusitis. CT/Brain/Head without Contrast IMPRESSION: Chronic involutional changes of the brain. No acute hemorrhage Paranasal sinusitis Electronically Signed: Jorge Kay MD at 15:25 EDT ,
--- NOTE | 2022-01-13 12:50 | EX.ED.VIS.PS ---
HPI HPI - Psych History of Present Illness Chief Complaint: Mental Health Informant: mental health staff Narrative Narrative: 66-year-old female presenting from custodial with alteration in mental status. Patient reportedly has a history of schizoaffective disorder and developmental delay (moderate) Since Tuesday the patient has been refusing to each shower or take her medications. Staff notes insomnia. They note that she has been aggressive with staff over the past several days. Patient was seen in the emergency department last Tuesday after being home for approximately 4 days following a weeklong admission at a psychiatric facility in [place]. [facility] staff is not sure what medication changes were made. The patient hit herself in triage. She will not let people come near her. [facility] Medical History Chest pain Depression Developmental delay, moderate Diabetes Diabetes HLD (hyperlipidemia) Schizoaffective disorder TBI (traumatic brain injury) Home Medications docusate sodium 100 mg capsule 100 mg PO BID 09/14/13 [History Last Taken Unknown] ferrous sulfate 325 mg (65 mg iron) tablet 325 mg PO QMWF 09/14/13 [History Last Taken Unknown] folic acid 400 mcg tablet 1 mg PO DAILY 09/14/13 [History Last Taken Unknown] loratadine 10 mg tablet 10 mg PO DAILY 09/14/13 [History Last Taken Unknown] metformin 1,000 mg tablet 1,000 mg PO BID 09/14/13 [History Last Taken Unknown] omeprazole 20 mg capsule,delayed release 20 mg PO DAILY 09/14/13 [History Last Taken 05/11/17 05:00 20 MG] fluticasone propionate 50 mcg/actuation nasal spray,suspension 2 spray NASAL DAILY 12/05/13 [History Last Taken Unknown] oxybutynin chloride 10 mg tablet,extended release 24 hr 10 mg PO DAILY ##30 12/26/13 [Rx Last Taken Unknown] atorvastatin 80 mg tablet 80 mg PO DAILY 01/11/20 [History Last Taken Unknown] blood sugar diagnostic #10 ea 01/11/20 [History Last Taken Unknown] lancets 28 gauge #100 ea 01/11/20 [History Last Taken Unknown] dexamethasone sodium phosphate 0.1 % eye drops 1 drp LEFT EYE BID 03/21/21 [History Last Taken Unknown] brimonidine 0.2 %-timolol 0.5 % eye drops (Combigan) 1 drp LEFT EYE BID 12/27/21 [History Last Taken Unknown] clozapine 200 mg tablet 100 mg PO BREAKFAST 12/27/21 [History Last Taken Unknown] gemfibrozil 600 mg tablet 600 mg PO DAILY 12/27/21 [History Last Taken Unknown] lorazepam 0.5 mg tablet 0.5 mg PO BID PRN Anxiety 12/27/21 [History Last Taken Unknown] risperidone 3 mg tablet 2 mg PO BID 12/27/21 [History Last Taken Unknown] sitagliptin 25 mg tablet (Januvia) 25 mg PO DAILY 12/27/21 [History Last Taken Unknown] clozapine 100 mg tablet 250 mg PO QHS 01/08/22 [History Last Taken Unknown] gabapentin 100 mg capsule 100 mg PO QHS 01/08/22 [History Last Taken Unknown] metoprolol succinate 25 mg tablet,extended release 24 hr 25 mg PO DAILY 01/08/22 [History Last Taken Unknown] nitrofurantoin macrocrystal 100 mg capsule 100 mg PO DAILY 01/08/22 [History Last Taken Unknown] nystatin-triamcinolone 100,000 unit/gram-0.1 % topical ointment 2 applic topical DAILY 01/08/22 [History Last Taken Unknown] polyethylene glycol 3350 17 gram oral powder packet (Miralax) 17 g PO DAILY 01/08/22 [History Last Taken Unknown] bisacodyl 5 mg tablet,delayed release 5 mg PO DAILY 01/13/22 [History Last Taken Unknown] carboxymethylcellulose sodium 1 % eye liquid gel drops 1 drp EACH EYE BID 01/13/22 [History Last Taken Unknown] mfyzgojcotoy-wyqrwtvf-kiwmwb tablet 1 tab PO DAILY 01/13/22 [History Last Taken Unknown] zolpidem 10 mg tablet 10 mg PO QHS 01/13/22 [History Last Taken Unknown] Allergy/AdvReac Type Severity Reaction Status Date / Time sulfamethoxazole Allergy Rash Verified 01/13/22 12:23 [From Bactrim] trimethoprim [From Bactrim] Allergy Rash Verified 01/13/22 12:23 Social History Smoking Status: Never smoker alcohol intake: never ROS ROS ED Review of Systems ROS Unobtainable: due to mental condition EXAM Physical Exam Narrative Exam Narrative: Patient appears internally stimulated. She is standing in the corner of her room rocking back and forth and fidgety with her fingers. She will not speak. Const Vital Signs: 01/13/22 12:23 Temperature 97.2 F L Temperature Source Temporal Respiratory Rate 16 Oxygen Delivery Method Room Air Positive well nourished and well developed General Appearance ED: well developed HEENT Reports normocephalic, head/scalp atraumatic and moist mucous membranes Eyes PERRL and EOMs intact bilaterally Neck no lymphadenopathy, supple and no JVD Resp normal respiratory effort and clear to auscultation bilaterally Cardio regular rate, regular rhythm and no murmurs GI normal to inspection, nondistended, normoactive bowel sounds and non-tender Palpation: soft Back/Spine no CVA tenderness and normal ROM Extremity normal to inspection General Extremety ED: Negative for edema General Extremity: Negative for edema Neuro CN's II-XII intact bilaterally Sensorium / Orientation: alert Motor Exam: strength 5/5 throughout Psych Attitude: paranoid and withdrawn Activity / Motor Behavior: fidgetting and restless Speech: mute Skin no rashes or lesions noted and no wounds MDM MDM MDM Narrative Medical decision making narrative: In the past the patient has required sedation or physical restraint in order to get medical screening labs. 10 mg of Haldol was delivered intramuscular. Unfortunately this did not change the patient's mental state. Therefore additional Haldol and Ativan were ordered. Care the patient will be turned over to the oncoming physician for check of labs. Social work is already involved in the care. We are going to be working towards a psychiatric admission. Discharge Plan Triage Chief Complaint: Mental Health ED Provider: Andrzej Joe Dx/Rx/DC Orders Prescriptions: No Action atorvastatin 80 mg tablet 80 mg PO DAILY 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: TAKE 1 TABLET BY MOUTHCONCE DAILY (DME) blood sugar diagnostic Strip See Rx Instructions .ROUTE .MEDSUPPLY Qty: 10 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: USE ONCE DAILY TO TESTDBLOOD SUGAR Rx Instructions: As directed (DME) lancets 28 gauge misc See Rx Instructions .ROUTE .MEDSUPPLY Qty: 100 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: USE ONCE DAILY TO TESTDBLOOD SUGAR Rx Instructions: As directed folic acid 0.4 MG tablet 1 mg PO DAILY 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: MINERAL SUPPLEMENT ferrous sulfate 325 MG tablet 325 mg PO QMWF 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: MINERAL SUPPLEMENT metformin 1,000 MG tablet 1,000 mg PO BID 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: blood sugar docusate sodium 100 MG capsule 100 mg PO BID 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: 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 omeprazole 20 MG capsule 20 mg PO DAILY 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: acid environmental services associate loratadine 10 MG tablet 10 mg PO DAILY 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: ALLERGIES fluticasone propionate 1 SPRAY spray,suspension 2 spray NASAL DAILY 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: 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 oxybutynin chloride 10 MG tablet extended release 24hr 10 mg PO DAILY Qty: 30 0RF 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: BLADDER dexamethasone sodium phosphate 0.1 % drops 1 drp LEFT EYE BID 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: PLACE 1 DROP INTO LEFTEEYE ONCE DAILY risperidone 3 mg Tablet 2 mg PO BID lorazepam 0.5 mg Tablet 0.5 mg PO BID PRN (Reason: Anxiety) gemfibrozil 600 mg Tablet 600 mg PO DAILY clozapine 200 mg Tablet 100 mg PO BREAKFAST Rx Instructions: 4pm Januvia 25 mg Tablet 25 mg PO DAILY brimonidine-timolol [Combigan] 0.2-0.5 % Drops 1 drp LEFT EYE BID polyethylene glycol 3350 [Miralax] 17 gram Powder In Packet 17 g PO DAILY clozapine 100 mg tablet 250 mg PO QHS 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: TAKE 2 TABLETS (200MG)EONCE DAILY AT 4PMD/ nystatin-triamcinolone 100,000-0.1 unit/gram-% ointment 2 applic TOPICAL DAILY nitrofurantoin macrocrystal 100 mg capsule 100 mg PO DAILY 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: TAKE (1) CAPSULE BY MOUTHDDAILY. gabapentin 100 mg capsule 100 mg PO QHS 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: TAKE (1) CAPSULE BY MOUTHDDAILY AT BEDTIME metoprolol succinate 25 mg tablet extended release 24 hr 25 mg PO DAILY 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: TAKE 1 TABLET BY MOUTHCONCE DAILY Certa Plus SENIOR Tablet 1 tab PO DAILY bisacodyl 5 mg tablet,delayed release (DR/EC) 5 mg PO DAILY 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: TAKE 1 TABLET ONCE DAILYTAS NEEDED FOR CONSTIPATION NOT RESOLVED FROM MILK OF MAGNESIA carboxymethylcellulose sodium [Refresh] 1 % Drops, Liquid Gel 1 drp EACH EYE BID zolpidem 10 mg Tablet 10 mg PO QHS Primary Care Provider: Adia Mckeon Referrals: Adia Mckeon MD [Primary Care Provider] -
--- NOTE | 2022-01-13 13:00 | ED.RN ---
pt given haldol im
[2022-01-13] MEDS: Haloperidol Lactate 5 MG/ML Vial 10 MG IM ×2 (13:04→13:50)
--- NOTE | 2022-01-13 13:44 | ED.RN ---
PT CONTINUES TO BE UP WALKING IN ROOM. THIS RN NOT ABLE TO APPROACH PT OR DRAW BLOOD
[2022-01-13] MEDS: LORazepam 2 MG/ML Syringe IM (13:48)
--- NOTE | 2022-01-13 13:54 | CM.ED ---
Social Work Consult: Mental Health Referral source: Dr. Joe Informants: Dr. Joe, Medical chart, skilled nursing staff, patient sister (guardian). Chief Complaint: Staff at patient skilled nursing report that patient is not eating, sleeping or taking prescribed medications. Marital/Social History: Single. Patient has a legal guardian, Mirella Alvarez. Mirella is also patient sister. Living Situation: [facility], [place]. Support/Resources: Patient psychiatrist is Dr. Gretchen Simental. Dr. Simental has an independent practice. Patient home care physical therapist through board of developmental disabilities is Jazz Montana ([phone] xt: [phone]). History: N/A. Education/Employment History: Patient graduated from high school. Patient identified to have moderated developmental delays per patient medical chart. Patient participates in the day program through [employer] [facility] Mirella. Mental Health Treatment/History: Patient diagnosed with Schizophrenia. Patient prescribed medication help patient manage mental health. Patient has been noncompliant with medication per skilled nursing staff/Dr. Joe. Patient with history of inpatient psychiatric placement with last placement to [facility] in the past few weeks. Per Dr. Joe medication changes happened but skilled nursing where not sure of the medication changes from the inpatient psychiatric placement. Triggers/Stressors: Not taking medication. Patient has not been eating or sleeping. Coping Skills: Unable to assess as assessment is not able to be completed with patient currently. Mirella reports that when patient is taking medication she does great and is so sweet. Abuse Issues: Unable to assess. Substance Abuse Hx: unabel to assess. Risk to Self/Others: Unable to assess fully with patient. Patient is at risk of self neglect due to not taking prescribed medication, showering and eating. Patient is typically able to manage own ADL's with direction from staff. Patient currently declining to participate in ADL's. Appearance/General Behavior: Disheveled. Unkept. Mood/Affect: Anxious. Communication Pattern: Does not participate in assessment. Thought Process: Unable to assess Judgement: Poor Insight: Poor Assessment: This social media marketer unable to meet with patient in room due to patient level of agitation and not wanting to participate in assessment. Per Dr. Joe patient in room and standing in corner. Patient has not been noted to be aggressive towards staff. Patient appears to be over stimulated. Staff working towards helping patient to relax to be able to obtain medical workup. Nursing to collect lab work. This social media marketer collaborating with Dr. Joe. Dr. Joe recommending inpatient psychiatric placement as patient was recently in the ED (4 days ago) and sent home after similar episode and patient is now back in the ED. Dr. Joe recommending inpatient psychiatric placement for stabilization. Telephone call to patient guardian (sister), Mirella. Mirella assisted this social media marketer in completing information from above assessment. Mirella reports to have initially been against inpatient psychiatric placement for patient and this is why patient was sent home 4 days ago. Mirella request for referral to be sent to [facility] ([facility]). Mirella reports that patient has been to [facility], last year about this time and they really helped her. Mirella believes that main trigger is patient not taking medications. Mirella believes that if patient is able to be admitted to an inpatient psychiatric facility and can become stable there then return to the skilled nursing and continue with medication and routine that patient will do well. Mirella reports that patient is typically compliant and does well when patient is taking medication. Mirella also reports to believe that patient would have been diagnosed with autism in this day and age versus moderate developmental disability. This social media marketer thanked Mirella for the information. Mirella consents for transfer of patient to an inpatient psychiatric facility. PLAN: Inpatient Psychiatric Facility Will continue to follow. Cornelia ZHENG, RICARDO
[2022-01-13 14:44] LABS: Absolute Neutrophil Count 5.4 X10^3/uL (2.0-7.7); Basophil# 0.05 X10^3/uL; Basophil% 0.8 % (0-1); Eosinophil# 0.09 X10^3/uL; Eosinophils% 1.4 % (0-5); Hemoglobin 11.7 g/dL (12.0-15.0); Lymphocyte % 9.1 % (19-41); Mean Corp Hgb Conc 31.6 g/dL (32-36); Mean Corpuscular Hgb 29.7 pg (27.0-32.0); Mean Corpuscular Volume 93.9 fL (81-99); Mean Platelet Vol. 11.3 fl (6.2-12.0); Monocyte# 0.45 X10^3/uL; Monocyte% 6.8 % (0-10); NRBC Flagged by Analyzer 0 % (0-5); Neutrophil # 5.38 X10^3/uL (2.7-7.7); Neutrophil % 81.3 % (47-70); POSITIVE DIFFERENTIAL YES; Platelet Count 321 K/mm3 (150-450); RBC Distribution Width CV 11.9 % (11.6-14.6); RBC Distribution Width SD 41.4 fl (35.1-43.9); Red Blood Count 3.94 M/mm3 (4.2-5.4); White Blood Count 6.6 K/mm3 (4.4-11.0)
[2022-01-13 14:47] LABS: Differential Indicated SCAN CRITERIA MET
--- NOTE | 2022-01-13 14:55 | ED.RN ---
THIS RN DRAWS BLOOD FROM LEFT AC. PT COOPERATIVE AND PLEASANT AT THIS TIME
[2022-01-13 15:07] LABS: Platelet Estimate ADEQUATE (ADEQ); Red Cell Morphology NORM C+C NORMAL (NORM C&C)
[2022-01-13 15:08] LABS: ALB/GLOB Ratio 1.2 RATIO (0.9-2.4); AST(SGOT) 13 U/L (15-37); Alanine Aminotransfer ALT/SGPT 23 U/L (13-56); Albumin, Serum 4.2 g/dL (3.2-5.0); Alkaline Phosphatase 98 U/L (45-117); Anion Gap 9 (5-15); BUN 23 mg/dL (7-18); BUN/Creat Ratio 21.9 RATIO (10-20); Calcium,Total 10.3 mg/dL (8.5-10.1); Chloride 102 mmol/L (98-107); Creatinine, Serum 1.05 mg/dL (0.55-1.02); EST Glomerular Filtration Rate 56 mL/min (>60); Est Glom Filt Rate - Afr Amer 67 mL/min (>60); Estimated Creatinine Clearance 48.67 ml/min; Globulin 3.6 g/dL (2.2-4.2); Glucose 132 mg/dL (74-106); Potassium 3.8 mmol/L (3.5-5.1); Protein, Total 7.8 g/dL (6.4-8.2); Sodium Level 139 mmol/L (136-145); Thyroid Stim Hormone (TSH) 2.94 uIU/mL (0.358-3.74)
--- NOTE | 2022-01-13 15:30 | NURSING ---
Pt appropriate and cooperative while this RN straight caths for urine.
[2022-01-13 15:55] LABS: Color, Urine Yellow (Yellow); Glucose, Dipstick Normal (Normal); Ketone-Dipstick 50 mg/dl (Negative); Leukocyte Esterase-Dipstick 100 /ul (Negative); Nitrite-Dipstick Negative (Negative); Occult Blood-Urine 25 /ul (Negative); Protein-Dipstick 30 mg/dl (Negative); Specific Gravity, Urine 1.025 (1.002-1.030); Urine Clarity Clear (Clear); Urine Urobilinogen 1 mg/dl (Normal)
[2022-01-13 16:00] VITALS: O2SAT 89
[2022-01-13 16:01] LABS: Urine Bilirubin Dipstick 1 mg/dL (Negative)
[2022-01-13 16:08] LABS: Bacteria 1+ /hpf (None Seen); Red Blood Cells-Urine 10-25 SEEN /hpf (0-5); Squamous Epithelial Cells - UA 5-10 SEEN /hpf (5-10); White Blood Cells 0-5 SEEN /hpf (0-5)
[2022-01-13 16:09] LABS: Hyaline Cast 25-50 SEEN /lpf (0-5); Mucous, Urine 4+ /hpf (<or=2+)
[2022-01-13 16:10] VITALS: PULSE 90; O2SAT 99
[2022-01-13 16:17] LABS: Amphetamine Urine VISTA NEGATIVE (<1000 ng/mL); Barbiturate Urine VISTA NEGATIVE (< 200 ng/mL); Benzodiazepine Urine VISTA NEGATIVE (< 200 ng/mL); Cocaine Urine VISTA NEGATIVE (< 300 ng/mL); Ecstacy Urine VISTA NEGATIVE (< 500 ng/mL); Methadone Urine VISTA NEGATIVE (< 300 ng/mL); PCP Urine VISTA NEGATIVE (< 25 ng/mL); THC Urine VISTA NEGATIVE (< 50 ng/mL); Vista UDS pH Range 5
[2022-01-13 16:32] LABS: Alcohol, Blood (Medical)-Serum < 3.0 mg/dL
--- NOTE | 2022-01-13 16:40 | CM.ED ---
Social Work Telephone call to [facility], intake. Intake reports to have open beds, but limited. Clinical information faxed. Will continue to follow. Cornelia ZHENG, RICARDO
--- NOTE | 2022-01-13 18:17 | CM.ED ---
Social Work Telephone call to RIMartha Solis. Martha confirms to have received referral and it is being reviewed. Will continue to follow. Cornelia Rojas MSW, RICARDO
[2022-01-13 18:45] VITALS: O2SAT 96
--- NOTE | 2022-01-13 20:05 | CM.ED ---
Social Work Telephone call to [facility], intake. Patient case continues to be reviewed. This older adult social work specialist updated intake that end of older adult social work specialist shift at 8:30pm. This older adult social work specialist provided main ED number for [facility] to call about determination. Telephone call to crisis, [facility]. This older adult social work specialist updated [facility] on above information. Clinical information faxed for crisis to continue to follow. Medical team updated. Cornelia ZHENG, RICARDO
[2022-01-13] MEDS: Zolpidem Tartrate 5 MG Tablet 10 MG PO (21:47)
[2022-01-13] MEDS: Metoprolol(XL)Succ 25 MG Tablet PO (21:48)
[2022-01-13] MEDS: RisperiDONE 2 MG Tablet PO (21:48)
[2022-01-13] MEDS: metFORMIN HCl 1,000 MG Tablet 1000 MG PO (21:49)
[2022-01-13 22:00] VITALS: BP 110/80; PULSE 105; RESP 18; TEMP 36.4; O2SAT 97
[2022-01-14] VITALS: RESP 15
[2022-01-14 02:00] VITALS: RESP 16
[2022-01-14 06:51] VITALS: PULSE 65; RESP 18; O2SAT 100
== END 2022-01-14 06:54 ==
PROVIDERS: Emergency Provider Emergency Medicine; PCP Internal Medicine; Visit Provider Emergency Medicine
DX: F25.9 Schizoaffective disorder, unspecified (principal); E11.9 Type 2 diabetes mellitus without complications; E78.5 Hyperlipidemia, unspecified; R62.50 Unspecified lack of expected normal physiological development in childhood; Z91.14 Patient's other noncompliance with medication regimen; Z20.822 Contact with and (suspected) exposure to COVID-19
CPT/HCPCS: 70450; 80053; 80307; 81001; 82077; 84443; 85025; 87811; 93005; 96372; 99285

== ENCOUNTER → 2022-05-31 | Outpatient (CLI) | payer MEDICARE, MEDICAID, SELFPAY ==
[2022-05-31 08:28] LABS: Cholesterol 145 mg/dL (200); High Density Lipoprotein 48 mg/dL; Triglycerides 177 mg/dL; Very Low Density Lipoprotein 35 mg/dL (5-40)
[2022-05-31 08:33] LABS: Hemoglobin A1c 5.1 % (3.8-5.6); Vitamin D,25 Hydroxy 50.7 ng/mL
== END | disposition home or self-care (01) ==
LOC: LABSPEC 08:04
PROVIDERS: PCP Internal Medicine; Visit Provider Internal Medicine
DX: E11.9 Type 2 diabetes mellitus without complications (principal); E55.9 Vitamin D deficiency, unspecified
CPT/HCPCS: 80061; 82306; 83036

== ENCOUNTER → 2022-08-30 | Outpatient (CLI) | payer MEDICARE, MEDICAID, SELFPAY ==
[2022-08-30 08:19] LABS: Hemoglobin 11.2 g/dL (12.0-15.0); Mean Corp Hgb Conc 31.1 g/dL (32-36); Mean Corpuscular Hgb 30.4 pg (27.0-32.0); Mean Corpuscular Volume 97.8 fL (81-99); Mean Platelet Vol. 11.9 fl (6.2-12.0); Platelet Count 269 K/mm3 (150-450); RBC Distribution Width SD 43.4 fl (35.1-43.9); Red Blood Count 3.68 M/mm3 (4.2-5.4); White Blood Count 5.9 K/mm3 (4.4-11.0)
[2022-08-30 08:56] LABS: ALB/GLOB Ratio 1.1 RATIO (0.9-2.4); AST(SGOT) 13 U/L (15-37); Alanine Aminotransfer ALT/SGPT 19 U/L (13-56); Albumin, Serum 3.7 g/dL (3.2-5.0); Alkaline Phosphatase 83 U/L (45-117); Anion Gap 5 (5-15); BUN 24 mg/dL (7-18); BUN/Creat Ratio 27.5 RATIO (10-20); Calcium,Total 9.8 mg/dL (8.5-10.1); Chloride 105 mmol/L (98-107); Creatinine, Serum 0.87 mg/dL (0.55-1.02); EST Glomerular Filtration Rate 69 mL/min (>60); Est Glom Filt Rate - Afr Amer 83 mL/min (>60); Globulin 3.5 g/dL (2.2-4.2); Glucose 155 mg/dL (74-106); Potassium 3.8 mmol/L (3.5-5.1); Protein, Total 7.2 g/dL (6.4-8.2); Sodium Level 140 mmol/L (136-145)
[2022-08-30 09:47] LABS: Hemoglobin A1c 5.3 % (3.8-5.6)
== END | disposition home or self-care (01) ==
LOC: LABSPEC 08:05
PROVIDERS: PCP Internal Medicine; Referring Provider Internal Medicine; Visit Provider Internal Medicine
DX: E11.9 Type 2 diabetes mellitus without complications (principal); Z51.81 Encounter for therapeutic drug level monitoring
CPT/HCPCS: 80053; 83036; 85027

== ENCOUNTER 2024-05-07 10:51 | Observation (INO) | payer MEDICARE, MEDICAID, SELFPAY ==
[2024-05-07] VITALS (13 sets, daily range): BP systolic 77–126; BP diastolic 50–101; PULSE 67–98; RESP 15–18; TEMP 36.2–37; O2SAT 98–100; BMI 23.5; BMI 23.0
--- NOTE | 2024-05-07 11:11 | CT_ITS ---
EXAM: STROKE BRAIN/HEAD WITHOUT CONT CLINICAL HISTORY: Neuro deficit. Acute stroke suspected. COMPARISON: Comparison is made with prior study dated January 13, 2022. TECHNIQUE: Multiple axial tomographic images were obtained without intravenous contrast administration. Coronal and sagittal reconstruction was obtained as well. FINDINGS: Mild degree of cerebral atrophy. No focal abnormality is seen. Atherosclerotic plaque formation of the cavernous portions of the internal carotid arteries bilaterally. Mucosal thickening of the left maxillary sinus and ethmoid sinus. CT/STROKE Brain/Head without Cont IMPRESSION: Cerebral atrophy. Stable examination. The results of the examination were communicated by telephone to Dr. Lauren johnson the ER department. Reading Location: [facility]
--- NOTE | 2024-05-07 11:11 | EKG12_ITS ---
Test Reason : POSS STROKE Blood Pressure : */* mmHG Vent. Rate : 98 BPM Atrial Rate : 98 BPM P-R Int : 144 ms QRS Dur : 80 ms QT Int : 368 ms P-R-T Axes : 15 43 11 degrees QTcB Int : 469 ms Sinus rhythm with frequent Premature ventricular complexes Otherwise normal ECG Confirmed by Soy Giron ([id number]), managing editor ALLEN SHERIFF ([id number]) on 05/08/2024 10:06:30 AM Referred By: Confirmed By: Soy Giron
--- NOTE | 2024-05-07 11:11 | CT_ITS ---
PROCEDURE: STROKE CTA HEAD AND NECK W/CON TECHNIQUE: CTA imaging of the head and neck from the aortic arch to the skull vertex with intravenous contrast. 3D reconstructions. CONTRAST: 100 cc of Isovue 370. COMPARISON: Comparison is made with prior CT scan of the head done earlier in the day. # of known CTs in the past 12 months: 0 # of known Cardiac Nuclear Medicine Studies in the past 12 months: 0 FINDINGS: Mild enlargement of the right lobe of the thyroid. Aortic Arch: Normal size and branching pattern. No significant atherosclerotic plaque. Brachiocephalic and Subclavians: Unremarkable RIGHT Carotid: Right CCA: Unremarkable. Right ICA: Unremarkable. Right ECA: Unremarkable. LEFT Carotid: Left CCA: Unremarkable. Left ICA: Unremarkable. Left ECA: Unremarkable. Vertebrals: Codominant. Arise from the subclavians. Both vertebrals form the basilar. RIGHT Vertebral: Unremarkable. LEFT Vertebral: Unremarkable. No intracranial aneurysms or large vascular malformations are identified. Anterior cerebral arteries: Unremarkable. Middle cerebral arteries: Unremarkable. Basilar artery: Unremarkable. Posterior cerebral arteries: Unremarkable. Other major branches of the posterior circulation: Unremarkable. Major venous structures: Unremarkable. Other findings: No lymphadenopathy. Lung apices are clear. Bones are unremarkable. CT/STROKE CTA Head AND Neck W/Con IMPRESSION: RIGHT CAROTID: Unremarkable LEFT CAROTID: Unremarkable VERTEBRALS: Unremarkable INTRACRANIAL: Unremarkable One or more dose reduction techniques were used (e.g., Automated exposure contr ol, adjustment of the mA and/or kV according to patient size, use of iterative reconstruction technique). Reading Location: [place] [id number]
--- NOTE | 2024-05-07 11:11 | ED.VIS.STROK ---
HPI History of Present Illness Chief Complaint: Headache Informant: patient and mental health staff Limited: uncooperative Onset/Context/Timing Onset: Today (about 2 hrs prior to arrival) Narrative Narrative: 68-year-old female with mental retardation and schizoaffective disorder was at baseline this morning at the shelter and went to workshop, she arrived there at 9 AM, staff at the shelter and van drivers said that she was doing okay and walking okay, 15 minutes after she arrived there, they got her up from her seated position in a chair, and she was shuffling, leaning to the right, and not walking normally for her. She needed assistance to walk and was having difficulty. They called someone from the shelter to come and she states this is all new and not normal for her. The patient complains of a headache and dizziness, but she denies any other focal complaints right now. When asked if she is feeling lightheaded she states yes and when asked if she is having spinning she states yes. She had no falls or injuries that we know of. [facility] Medical History (Updated 05/07/24 @ 14:[address] Tierra Quintanilla, DO) Ataxia Anemia Calculus of left kidney Sciatica Developmental delay, moderate TBI (traumatic brain injury) Schizoaffective disorder Diabetes Depression HLD (hyperlipidemia) Chest pain Diabetes Home Medications ?Medication ?Instructions ?Recorded ?Last Taken ?Type ferrous sulfate 325 mg (65 mg 325 mg PO QMWF 09/14/13 Unknown History iron) tablet folic acid 400 mcg tablet 1 mg PO DAILY 09/14/13 Unknown History loratadine 10 mg tablet 10 mg PO DAILY 09/14/13 Unknown History metformin 1,000 mg tablet 1,000 mg PO BID 09/14/13 Unknown History omeprazole 20 mg capsule,delayed 20 mg PO DAILY 09/14/13 05/11/17 05:00 History release 20 MG fluticasone propionate 50 2 spray NASAL DAILY 12/05/13 Unknown History mcg/actuation nasal spray,suspension oxybutynin chloride 10 mg 10 mg PO DAILY ##30 12/26/13 Unknown Rx tablet,extended release 24 hr atorvastatin 80 mg tablet 80 mg PO DAILY 01/11/20 Unknown History blood sugar diagnostic #10 ea 01/11/20 Unknown History lancets 28 gauge #100 ea 01/11/20 Unknown History dexamethasone sodium phosphate 0.1 1 drp LEFT EYE BID 03/21/21 Unknown History % eye drops brimonidine 0.2 %-timolol 0.5 % 1 drp LEFT EYE BID 12/27/21 Unknown History eye drops (Combigan) sitagliptin phosphate 25 mg tablet 25 mg PO DAILY 12/27/21 Unknown History (Januvia) metoprolol succinate 25 mg 25 mg PO DAILY 01/08/22 Unknown History tablet,extended release 24 hr nystatin-triamcinolone 100,000 2 applic topical DAILY 01/08/22 Unknown History unit/gram-0.1 % topical ointment polyethylene glycol 3350 17 gram 17 g PO DAILY 01/08/22 Unknown History oral powder packet (Miralax) bisacodyl 5 mg tablet,delayed 5 mg PO DAILY 01/13/22 Unknown History release zolpidem 10 mg tablet 10 mg PO QHS 01/13/22 Unknown History benztropine 1 mg tablet 1 mg PO BID 03/30/23 Unknown History cholecalciferol (vitamin D3) 25 25 mcg PO DAILY 03/30/23 Unknown History mcg (1,000 unit) tablet dorzolamide 2 % eye drops 1 drp ophthalmic (eye) BID 03/30/23 Unknown History fluphenazine decanoate 25 mg/mL 62.5 mg IM Q2W 03/30/23 Unknown History injection solution gemfibrozil 600 mg tablet 600 mg PO BID 03/30/23 Unknown History glycerin-min oil-w.pet-dimeth ea topical DAILY PRN dry eye 03/30/23 Unknown History lotion olanzapine 10 mg tablet 10 mg PO DAILY 03/30/23 Unknown History olanzapine 20 mg tablet 20 mg PO QHS 03/30/23 Unknown History olopatadine 0.2 % eye drops 1 drp ophthalmic (eye) DAILY PRN 03/30/23 Unknown History dry eye quetiapine 50 mg tablet 50 mg PO QHS 03/30/23 Unknown History Allergy/AdvReac Type Severity Reaction Status Date / Time sulfamethoxazole (From Allergy Rash Verified 05/07/24 10:54 Bactrim) trimethoprim (From Bactrim) Allergy Rash Verified 05/07/24 10:54 Social History (Updated 05/07/24 @ 11:21 by Nay Pelayo) household members: caregiver housing: assisted living facility current occupational status: disabled Smoking Status: Never smoker alcohol intake: never ROS ROS ED Review of Systems ROS Unobtainable: due to mental condition Cardiovascular Cardiovascular: Denies chest pain Gastrointestinal Gastrointestinal: Denies abdominal pain or vomiting Musculoskeletal Musculoskeletal: Denies back pain, extremity pain or neck pain Neurologic Neurologic: Reports as per HPI, abnormal gait, abnormal speech, dizziness and headache(s) EXAM Physical Exam Const Vital Signs: 05/07/24 10:54 05/07/24 11:11 05/07/24 11:14 Temperature 98.4 F Temperature Source Oral Pulse Rate 98 94 Respiratory Rate 18 16 Blood Pressure 77/51 L 113/101 H Blood Pressure Mean 59 105 Pulse Ox 98 100 Oxygen Delivery Method Room Air Room Air Room Air 05/07/24 11:41 05/07/24 12:11 05/07/24 12:30 Temperature Temperature Source Pulse Rate 78 78 78 Respiratory Rate 16 16 16 Blood Pressure 112/68 100/50 L 112/82 H Blood Pressure Mean 82 66 92 Pulse Ox 98 98 99 Oxygen Delivery Method 05/07/24 13:00 05/07/24 13:30 Temperature Temperature Source Pulse Rate 78 78 Respiratory Rate 16 16 Blood Pressure 107/78 126/86 H Blood Pressure Mean 87 99 Pulse Ox 99 98 Oxygen Delivery Method Positive well nourished and well developed General Appearance ED: well developed and NAD HEENT Reports moist mucous membranes normocephalic and atraumatic Eyes PERRL and EOMs intact bilaterally Neck full ROM and supple Resp normal respiratory effort and clear to auscultation bilaterally Cardio regular rate, regular rhythm and no murmurs GI non-tender and non-distended Auscultation: normoactive bowel sounds Palpation: soft Back/Spine no CVA tenderness General Back: other FROM Extremity normal to inspection General Extremety ED: Negative for edema, pulses abnormal or tenderness General Extremity: Negative for edema or pulses abnormal Neuro CN's II-XII intact bilaterally and no sensory deficits noted Neuro Narrative: Normal [id number] bilaterally. Refuses to attempt [id number]. There are some inappropriate answers to questions, seemingly aphasic. Does not have dysarthria. Disconjugate gaze which is at baseline according to shelter staff. She is able to move her eyes to both sides. Sensorium / Orientation: awake and alert Motor Exam: strength 5/5 throughout Psych Psych Narrative: After half of the physical exam, patient is refusing to cooperate for the rest of it. Skin no rashes or lesions noted and no wounds NIHSS NIHSS Initial: 1a Level of Consciousness: 0 1b LOC Questions (Score 2 if aphasic/stupor): 2 1c LOC Commands (Only score 1st attempt): 0 2 Best Gaze (If aphasic, use reflexive mvmts.): 0 3 Visual: 0 4 Facial Palsy: 0 5 Motor Arm Right (UN = amputation/fusion): 0 5 Motor Arm Left: 0 6 Motor Leg Right: 0 6 Motor Leg Left: 0 7 Limb ataxia (Only + if out of proportion): UN 8 Sensory (Aphasia/stupor=0 or 1, coma=2): 0 9 Best Language: 1 10 Dysarthria (mute, coma=2, intubated=UN): 0 11 Extinction and Inattention (only scored if +): 0 Total Score: 3 MDM MDM MDM Narrative Medical decision making narrative: Stroke alert was called during my evaluation, as we determine the last known well was just over 2 hours prior to my evaluation, and she has no obvious contraindications to getting thrombolytics. She went directly to CT, I reviewed the plain CT images, on my interpretation there is no hemorrhage, radiology discussed with me and agrees. I discussed with stroke neurology back in the room over telestroke, Dr. Marroquin and we examined the patient together. She is naming the images on the screen and speaking more normally. The shelter staff is in agreement. The rest of her exam is nonlateralizing right now and she is cooperative. We both agree that given the rapid improvement as well as her relatively low blood pressure which is questionably inaccurate due to the patient moving her arm around during the cuff, we are getting pressures anywhere from 71 systolic to 114 systolic, and she appears very well smiling and shaking everyone's hand. However they are certainly not high pressures, although this does not rule out the possibility of a primary stroke. Metabolic infectious workup still underway and reviewed, relatively unremarkable, may be mildly dehydrated. Fluids were given and blood pressures remained more consistently normal, but again I do not think her low blood pressures were causing her symptoms. CT angiography is negative for LVO, I reviewed the images and the report which I agree with. 1 view chest x-ray on my interpretation negative for pneumonia. We did eventually obtain a urine specimen which returned suspicious for infection, I am sending a culture and giving her empiric Rocephin for that. The plan will be for admission. Lab Data Attestation: I reviewed the patient's lab results. Labs: Laboratory Results - last 24 hr 05/07/24 05/07/24 05/07/24 11:06 11:14 12:50 WBC 10.2 RBC 3.58 L Hgb 10.5 L Hct 33.3 L MCV 93.0 MCH 29.3 MCHC 31.5 L RDW Std Deviation 44.5 H RDW Coeff of Erwin 13.2 Plt Count 355 MPV 11.0 Immature Gran % (Auto) 0.700 Neut % (Auto) 81.8 H Lymph % (Auto) 7.7 L Rankin % (Auto) 7.2 Eos % (Auto) 2.0 Baso % (Auto) 0.6 Absolute Neuts (auto) 8.3 H Absolute Lymphs (auto) 0.78 L Nucleated RBC % 0 PT 14.7 INR 1.1 APTT 24.7 Sodium 142 Potassium 3.8 Chloride 112 H Carbon Dioxide 20.0 L Anion Gap 10 BUN 30 H Creatinine 1.25 H Estim Creat Clear Calc 38.22 Est GFR (MDRD) Af Amer 55 L Est GFR (MDRD) Non-Af 45 L BUN/Creatinine Ratio 24.0 H Glucose 102 Calcium 9.8 Troponin I High Sens 6 Urine Color Yellow Urine Clarity Sl. Cloudy Urine pH 6.0 Ur Specific [place] 1.010 Urine Protein 30 H Urine Glucose (UA) Normal Urine Ketones Negative Urine Occult Blood 250 H Urine Nitrite Positive H Urine Bilirubin Negative Urine Urobilinogen Normal Ur Leukocyte Esterase 500 H Urine RBC 0-5 SEEN Urine WBC 50-100 SEEN Ur Squamous Epith Cells 0 SEEN Calcium Oxalate Crystal 1+ Urine Bacteria 1+ Urine Mucus 0 SEEN POC Glucose 82 Radiography Diagnostic Testing: Clinical Impression(s) from Imaging Studies Brain CT 05/07/24 11:11 IMPRESSION: Cerebral atrophy. Stable examination. The results of the examination were communicated by telephone to Dr. Aguilar from the ER department. Reading Location: [facility] Head/Neck CTA 05/07/24 11:11 IMPRESSION: RIGHT CAROTID: Unremarkable LEFT CAROTID: Unremarkable VERTEBRALS: Unremarkable INTRACRANIAL: Unremarkable One or more dose reduction techniques were used (e.g., Automated exposure control, adjustment of the mA and/or kV according to patient size, use of iterative reconstruction technique). Reading Location: [facility]-1 Chest X-Ray 05/07/24 12:25 IMPRESSION: No acute cardiopulmonary process. Reading [facility] Rhythm Strip Rhythm Strip: Sinus Rhythm Rate: 90 Ectopy: PVC(s) EKG Initial EKG: Attestation: I personally reviewed and interpreted this EKG as follows: Interpretation: Sinus Rhythm and No Acute Injury Pattern Comments: Nml axis & intervals; nml EKG except for frequent PVCs Management Discussion w/another healthcare provider: Hospitalist, Button Inspector (stroke neuro) and Radiologist Stroke Documentation Questions Stroke Team Activated: Yes Was Patient considered for Endovascular Intervention?: No-CTA negative, determined not to be an endovascular candidate IV Thrombolytic Administered: No (Due to rapidly improving symptoms) Critical Care Time Critical Care Time: Yes Critical care time (excluding procedures): 30-74 minutes (36 min), Including time spent:, Discussing w/Patient &/or Family/Engineer Rf Deployment, Discussing w/Consultants, Arranging Admission or Transfer and Performing Direct Patient Care at Bedside Discharge Plan Dx/Rx/DC Orders Clinical Impression: Ataxia, Expressive aphasia, Mild dehydration, Acute UTI Disposition Disposition: [facility]
[2024-05-07 11:23] LABS: Absolute Lymphocyte Count 0.78 X10^3/uL (0.83-4.51); Absolute Neutrophil Count 8.3 X10^3/uL (2.0-7.7); Basophil# 0.06 X10^3/uL; Basophil% 0.6 % (0-1); Hematocrit 33.3 % (37-47); Hemoglobin 10.5 g/dL (12.0-15.0); Lymphocyte # 0.78 X10^3/ul (0.83-4.51); Lymphocyte % 7.7 % (19-41); Mean Corp Hgb Conc 31.5 g/dL (32-36); Mean Corpuscular Hgb 29.3 pg (27.0-32.0); Monocyte# 0.73 X10^3/uL; Monocyte% 7.2 % (0-10); NRBC Flagged by Analyzer 0 % (0-5); Neutrophil # 8.32 X10^3/uL (2.7-7.7); Neutrophil % 81.8 % (47-70); Platelet Count 355 K/mm3 (150-450); RBC Distribution Width CV 13.2 % (11.6-14.6); RBC Distribution Width SD 44.5 fl (35.1-43.9); Red Blood Count 3.58 M/mm3 (4.2-5.4); White Blood Count 10.2 K/mm3 (4.4-11.0)
[2024-05-07 11:24] LABS: Bedside Glucose 82 mg/dL (74-106)
[2024-05-07] MEDS: 0.9% Normal Saline (1000mL) 1,000 ML 999 ML IV (11:29)
[2024-05-07 11:31] LABS: International Normalized Ratio 1.1; Prothrombin Time (Protime)PT. 14.7 SECONDS (11.7-14.9)
[2024-05-07 11:32] LABS: Partial Thromboplast Time 24.7 Seconds (24.1-36.2)
--- NOTE | 2024-05-07 11:40 | CM.ED ---
Social Work Reason for visit: Stroke Alert Patient was brought to ER after showing a decline in ability to walk when she was at workshop. Workshop staff said that this is abnormal for her. SW offered to call patients family, workshop staff member stated they had already contacted her sister. No further needs identified at this time. Nicki Jimenez, [employer], PARK SUPERINTENDENT
[2024-05-07 11:43] LABS: Anion Gap 10 (5-15); BUN 30 mg/dL (7-18); Calcium,Total 9.8 mg/dL (8.5-10.1); Chloride 112 mmol/L (98-107); Creatinine, Serum 1.25 mg/dL (0.55-1.02); EST Glomerular Filtration Rate 45 mL/min (>60); Est Glom Filt Rate - Afr Amer 55 mL/min (>60); Estimated Creatinine Clearance 38.22 ml/min; Glucose 102 mg/dL (74-106); Potassium 3.8 mmol/L (3.5-5.1); Sodium Level 142 mmol/L (136-145); Troponin-I HS 6 pg/mL (3.0-54.0)
--- NOTE | 2024-05-07 12:25 | RAD_ITS ---
EXAM: XR Chest, 1 View CLINICAL INDICATION: TECHNIQUE: Frontal view of the chest. COMPARISON: No relevant prior studies available. FINDINGS: LUNGS AND PLEURAL SPACES: Unremarkable. No consolidation. No pneumothorax. HEART: Unremarkable. No cardiomegaly. MEDIASTINUM: Unremarkable. Normal mediastinal contour. BONES/JOINTS: Unremarkable. No acute fracture. RAD/Chest 1 View IMPRESSION: No acute cardiopulmonary process. Reading Location: [facility]
[2024-05-07 12:59] LABS: Mucous, Urine 0 SEEN /hpf (<or=2+); Squamous Epithelial Cells - UA 0 SEEN /hpf (5-10)
[2024-05-07 13:02] LABS: Color, Urine Yellow (Yellow); Glucose, Dipstick Normal (Normal); Ketone-Dipstick Negative (Negative); Leukocyte Esterase-Dipstick 500 /ul (Negative); Nitrite-Dipstick Positive (Negative); Occult Blood-Urine 250 /ul (Negative); Protein-Dipstick 30 mg/dl (Negative); Urine Bilirubin Dipstick Negative (Negative); Urine Clarity Sl. Cloudy (Clear); Urine Urobilinogen Normal (Normal)
[2024-05-07 13:08] LABS: White Blood Cells 50-100 SEEN /hpf (0-5)
[2024-05-07 13:09] LABS: Bacteria 1+ /hpf (None Seen); Red Blood Cells-Urine 0-5 SEEN /hpf (0-5)
[2024-05-07 13:12] LABS: Calcium Oxalate Crystals Ur 1+ /hpf (<or=2+)
--- NOTE | 2024-05-07 13:57 | PCM.HP.STD ---
HPI - General General Date of Admission: 05/07/24 Date of Service: 05/07/24 Chief Complaint: Headache/Ataxia/Dizziness HPI Narrative DAVID ELIZONDO, is a 68 F who presented to the emergency department at [facility] on 05/07/2024 from her intermediate due to having an episode with abnormal gait, leaning to the right and vertigo. 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 She arrived there at about 9 AM and she was doing fine without any gait abnormalities however about 15 minutes after arrival she got up from a seated position and was shuffling and leaning to the right. It was noted that this was not normal for her. She complained of associated headache and dizziness at this time but had no other focal complaints. It did not sound like she had true vertiginous syndrome as she did report that the room was spinning however by the time I evaluated her she had complete resolution of her symptoms. She did complain of some dysuria. Her caregiver did indicate she was confused compared to her baseline. Vital signs on presentation showed a temperature of 98.4, heart rate 98, respiratory rate was 18, initial blood pressure 77/55 with immediate repeat at 113/101, pulse ox was 100% room air. CBC showed a normal white count with a stable anemia however she did have a significant left shift with an 81.8% neutrophils failure. Coags were normal. Chemistry panel showed some MATHEW with a serum creatinine of 1.25 and a baseline of 0.7-0.9. Troponin was normal. EKG was unremarkable when compared to previous. Given her dysuria, a UA was obtained and was consistent with infection having occult blood, nitrite, leuk esterase and white cells along with 21+ bacteria. CT of the brain showed cerebral atrophy with stable exam. CTA of the head and neck was unremarkable. Chest x-ray is unremarkable. [facility] telestroke was consulted emergency department and recommended stroke rule out workup but felt that this may be nonischemic etiologies and given the finding of an abnormal UA this could be related to urinary tract infection. She was started on ceftriaxone emergency department after urine culture was sent. [facility] Medical History Ataxia Anemia Calculus of left kidney Sciatica Developmental delay, moderate TBI (traumatic brain injury) Schizoaffective disorder Diabetes Depression HLD (hyperlipidemia) Chest pain Diabetes Home Medications ?Medication ?Instructions ?Recorded ?Last Taken ?Type ferrous sulfate 325 mg (65 mg 325 mg PO QMWF 09/14/13 Unknown History iron) tablet folic acid 400 mcg tablet 1 mg PO DAILY 09/14/13 Unknown History loratadine 10 mg tablet 10 mg PO DAILY 09/14/13 Unknown History metformin 1,000 mg tablet 1,000 mg PO BID 09/14/13 Unknown History omeprazole 20 mg capsule,delayed 20 mg PO DAILY 09/14/13 05/11/17 05:00 History release 20 MG fluticasone propionate 50 2 spray NASAL DAILY 12/05/13 Unknown History mcg/actuation nasal spray,suspension oxybutynin chloride 10 mg 10 mg PO DAILY ##30 12/26/13 Unknown Rx tablet,extended release 24 hr atorvastatin 80 mg tablet 80 mg PO DAILY 01/11/20 Unknown History blood sugar diagnostic #10 ea 01/11/20 Unknown History lancets 28 gauge #100 ea 01/11/20 Unknown History dexamethasone sodium phosphate 0.1 1 drp LEFT EYE BID 03/21/21 Unknown History % eye drops brimonidine 0.2 %-timolol 0.5 % 1 drp LEFT EYE BID 12/27/21 Unknown History eye drops (Combigan) sitagliptin phosphate 25 mg tablet 25 mg PO DAILY 12/27/21 Unknown History (Januvia) metoprolol succinate 25 mg 25 mg PO DAILY 01/08/22 Unknown History tablet,extended release 24 hr nystatin-triamcinolone 100,000 2 applic topical DAILY 01/08/22 Unknown History unit/gram-0.1 % topical ointment polyethylene glycol 3350 17 gram 17 g PO DAILY 01/08/22 Unknown History oral powder packet (Miralax) bisacodyl 5 mg tablet,delayed 5 mg PO DAILY 01/13/22 Unknown History release zolpidem 10 mg tablet 10 mg PO QHS 01/13/22 Unknown History benztropine 1 mg tablet 1 mg PO BID 03/30/23 Unknown History cholecalciferol (vitamin D3) 25 25 mcg PO DAILY 03/30/23 Unknown History mcg (1,000 unit) tablet dorzolamide 2 % eye drops 1 drp ophthalmic (eye) BID 03/30/23 Unknown History fluphenazine decanoate 25 mg/mL 62.5 mg IM Q2W 03/30/23 Unknown History injection solution gemfibrozil 600 mg tablet 600 mg PO BID 03/30/23 Unknown History glycerin-min oil-w.pet-dimeth ea topical DAILY PRN dry eye 03/30/23 Unknown History lotion olanzapine 10 mg tablet 10 mg PO DAILY 03/30/23 Unknown History olanzapine 20 mg tablet 20 mg PO QHS 03/30/23 Unknown History olopatadine 0.2 % eye drops 1 drp ophthalmic (eye) DAILY PRN 03/30/23 Unknown History dry eye quetiapine 50 mg tablet 50 mg PO QHS 03/30/23 Unknown History Allergy/AdvReac Type Severity Reaction Status Date / Time sulfamethoxazole (From Allergy Rash Verified 05/07/24 10:54 Bactrim) trimethoprim (From Bactrim) Allergy Rash Verified 05/07/24 10:54 Family History Father CVA (cerebral vascular accident) Mother Heart disease Brother Myocardial infarction no surgical history Social History (Updated 05/07/24 @ 21:[address] Tierra Quintanilla DO) household members: caregiver housing: other details: care home current occupational status: disabled Smoking Status: Never smoker alcohol intake: never ROS Constitutional Constitutional: Denies anorexia, change in weight, chills, fatigue, fever(s), malaise, night sweats, weakness or other Eyes Eyes: Denies blurry vision, change in eye color, change in vision, discharge from eye(s), double vision, erythema, eye pain, loss of vision or other ENT HEENT: Denies abnormal hearing, dysphagia, ear pain, epistaxis, headache(s), hearing loss, nasal congestion, nasal discharge, post nasal drip, sinus pressure, sore throat or other Cardiovascular Cardiovascular: Reports lightheadedness; Denies chest pain, claudication, dyspnea on exertion, edema, orthopnea, palpitations, paroxysmal nocturnal dyspnea, rapid heart rate, syncope or other Respiratory/Chest Respiratory/Chest: Denies cough, dyspnea, excessive phlegm production, hemoptysis, productive cough, shortness of breath at rest, shortness of breath with exertion, wheezing or other Gastrointestinal Gastrointestinal: Denies abdominal pain, coffee ground emesis, constipation, diarrhea, dyspepsia, hematemesis, hematochezia, loose stools, melena, nausea, vomiting or other Genitourinary Genitourinary: Reports burning urination, dysuria and urinary frequency; Denies difficulty urinating, hematuria, nocturia, urinary hesitancy, urinary incontinence, urinary urgency or other Musculoskeletal Musculoskeletal: Denies arthralgias, back pain, joint pain, joint stiffness, joint swelling, myalgias, neck pain or other Neurologic Neurologic: Reports abnormal gait, confusion and dizziness; Denies abnormal speech, disequilibrium, focal weakness, headache(s), numbness, paresthesias, seizure-like activity, seizures, syncope, tingling, tremor(s) or other Psychiatric Psychiatric: Reports anxiety and depression; Denies homicidal ideation, suicidal ideation or other Endocrine Endocrinology: Denies change in body appearance, cold intolerance, excessive sweating, heat intolerance, polydipsia, polyuria or other Hematologic/Lymphatic Hematologic/Lymphatic: Denies anemia, easy bleeding, easy bruising, lymphadenopathy or other Allergic/Immunologic Allergic/Immunologic: Denies rhinitis, hives, eczemia, asthma or other Vital Signs Vital Signs Vital Signs: 05/07/24 10:54 05/07/24 11:11 05/07/24 11:14 Temperature 98.4 F Temperature Source Oral Pulse Rate 98 94 Respiratory Rate 18 16 Blood Pressure 77/51 L 113/101 H Blood Pressure Mean 59 105 Pulse Ox 98 100 Oxygen Delivery Method Room Air Room Air Room Air 05/07/24 11:41 05/07/24 12:11 05/07/24 12:30 Temperature Temperature Source Pulse Rate 78 78 78 Respiratory Rate 16 16 16 Blood Pressure 112/68 100/50 L 112/82 H Blood Pressure Mean 82 66 92 Pulse Ox 98 98 99 Oxygen Delivery Method 05/07/24 13:00 05/07/24 13:30 Temperature Temperature Source Pulse Rate 78 78 Respiratory Rate 16 16 Blood Pressure 107/78 126/86 H Blood Pressure Mean 87 99 Pulse Ox 99 98 Oxygen Delivery Method Weight Weight: 64.2 kg Body Mass Index (BMI) 23.5 Results Lab / Micro Data 05/07/24 11:14 05/07/24 11:14 Labs: Laboratory Results - last 24 hr 05/07/24 11:06: POC Glucose 82 05/07/24 11:14: WBC 10.2, RBC 3.58 L, Hgb 10.5 L, Hct 33.3 L, MCV 93.0, MCH 29.3, MCHC 31.5 L, RDW Std Deviation 44.5 H, RDW Coeff of Erwin 13.2, Plt Count 355, MPV 11.0, Immature Gran % (Auto) 0.700, Neut % (Auto) 81.8 H, Lymph % (Auto) 7.7 L, [facility] % (Auto) 7.2, Eos % (Auto) 2.0, Baso % (Auto) 0.6, Absolute Neuts (auto) 8.3 H, Absolute Lymphs (auto) 0.78 L, Nucleated RBC % 0, PT 14.7, INR 1.1, APTT 24.7, Sodium 142, Potassium 3.8, Chloride 112 H, Carbon Dioxide 20.0 L, Anion Gap 10, BUN 30 H, Creatinine 1.25 H, Estim Creat Clear Calc 38.22, Est GFR (MDRD) Af Amer 55 L, Est GFR (MDRD) Non-Af 45 L, BUN/Creatinine Ratio 24.0 H, Glucose 102, Calcium 9.8, Troponin I High Sens 6 05/07/24 12:50: Urine Color Yellow, Urine Clarity Sl. Cloudy, Urine pH 6.0, Ur Specific Purvis 1.010, Urine Protein 30 H, Urine Glucose (UA) Normal, Urine Ketones Negative, Urine Occult Blood 250 H, Urine Nitrite Positive H, Urine Bilirubin Negative, Urine Urobilinogen Normal, Ur Leukocyte Esterase 500 H, Urine RBC 0-5 SEEN, Urine WBC 50-100 SEEN, Ur Squamous Epith Cells 0 SEEN, Calcium Oxalate Crystal 1+, Urine Bacteria 1+, Urine Mucus 0 SEEN Rhythm Strip Rhythm Strip: Sinus Rhythm Rate: 90 Ectopy: PVC(s) Imaging Radiology Impression Brain CT 05/07/24 11:11 IMPRESSION: Cerebral atrophy. Stable examination. The results of the examination were communicated by telephone to Dr. Aguilar from the ER department. Reading Location: [facility] Head/Neck CTA 05/07/24 11:11 IMPRESSION: RIGHT CAROTID: Unremarkable LEFT CAROTID: Unremarkable VERTEBRALS: Unremarkable INTRACRANIAL: Unremarkable One or more dose reduction techniques were used (e.g., Automated exposure control, adjustment of the mA and/or kV according to patient size, use of iterative reconstruction technique). Reading [facility] Chest X-Ray 05/07/24 12:25 IMPRESSION: No acute cardiopulmonary process. Reading Location: [facility] Assessment & Plan Assessment/Plan (1) Expressive aphasia: (2) Ataxia: (3) Abnormal urinalysis: (4) Toxic metabolic encephalopathy: (5) MATHEW (acute kidney injury): PLAN: Plan Ataxia/expressive aphasia/disequilibrium -Stroke rule out -CT of the brain unremarkable for any acute findings -CTA head and neck unremarkable for any acute findings -Start aspirin 81 mg daily -Check lipids -Check hemoglobin A1c -Continue home atorvastatin 80 mg daily -Check echocardiogram -Check MRI -Neuro consultation Abnormal UA -Patient is symptomatic and highly suspect UTI -Urine culture is pending -Continue ceftriaxone 1 g daily and await culture results Microscopic hematuria -Likely related to infection If it would recommend repeat UA after UTI is cleared Toxic/metabolic encephalopathy -Highly suspect related to UTI -Anticipate should improve with improvement of underlying infection MATHEW -Serum creatinine is 1.25 -Baseline is 0.65-0.9 -Will give 1 L of IV fluids -Reassess in a.m. -Patient does appear dry clinically Anemia -Hemoglobin 10.5 -MCV is normal -Slightly down from previous but still within the range for lab error -Anticipate some drop with IV fluids -No signs of acute bleeding -Repeat in a.m. -Continue home iron supplementation DM-2 -Check hemoglobin A1c as per stroke protocol -Hold home metformin -SSI with Accu-Cheks as ordered -Once passes for diet cardiac/carb controlled diet with 1800 kcal Hyperlipidemia/essential hypertension -Continue home atorvastatin -Continue metoprolol -Continue home gemfibrozil Constipation -Continue home Dulcolax Schizoaffective disorder -continue home Cogentin -Patient does get fluphenazine decanoate every 2 weeks -Continue home olanzapine MRDD -Patient lives at intermediate next -Case management/social work is consulted Glaucoma -Continue home eyedrops DVT prophylaxis -Subcu Lovenox 40 daily CODE STATUS -Full code verified by caregiver Charges/Coding Visit Charges Inpatient E&M: 65198 Init Hosp L2
--- NOTE | 2024-05-07 14:52 | ECHOD_ITS ---
Reason For Study Reason For Study: TIA/CVA Procedure This was a 2D Doppler, Color Flow transthoracic echocardiogram. Exam performed in department. Left Ventricle Normal LV size. The estimated ejection fraction is 60 %. No evidence for diastolic dysfunction. No regional wall motion abnormalities noted. Right Ventricle Normal RV size. Normal systolic function. Atria The left and right atria are normal. No doppler evidence for ASD. Mitral Valve There is no mitral valve stenosis. Trivial mitral valve insufficiency. Tricuspid Valve There is no tricuspid stenosis. Unable to estimate RV systolic pressure due to insufficient tricuspid regurgitant envelope. Trivial tricuspid valve insufficiency. Aortic Valve Trisinus/trileaflet aortic valve. There is no aortic stenosis. No aortic valve insufficiency. Pulmonic Valve There is no pulmonic valvular stenosis. Trivial pulmonic valve insufficiency. Great Vessels Normal aortic root. Pericardium/Pleural No pericardial effusion. MMode/2D Measurements & Calculations LVIDd: 3.9 cm IVSd: 1.2 cm LVOT diam: 1.9 cm LVIDs: 2.4 cm LVPWd: 0.97 cm LVOT area: 2.8 cm2 RVDd: 3.2 cm FS: 38.9 % asc Aorta Diam: 2.9 cm LAV(MOD-bp): 44.7 ml LVAd ap4: 23.4 cm2 LAV(MOD-bp) Indexed: 26.0 ml/m2 LVLd ap4: 7.6 cm LAV(MOD-sp2): 49.8 ml EDV(MOD-sp4): 58.8 ml LAV(MOD-sp4): 39.3 ml EDV(sp4-el): 61.0 ml LVAs ap4: 13.8 cm2 LVLs ap4: 6.2 cm ESV(MOD-sp4): 26.4 ml ESV(sp4-el): 25.9 ml EF(MOD-sp4): 55.1 % EF(sp4-el): 57.6 % LVAd ap2: 23.6 cm2 SV(MOD-sp4): 32.4 ml SV(MOD-sp2): 35.6 ml LVLd ap2: 7.5 cm SI(MOD-sp4): 18.8 ml/m2 SI(MOD-sp2): 20.7 ml/m2 EDV(MOD-sp2): 61.8 ml EDV(sp2-el): 63.0 ml LVAs ap2: 13.9 cm2 LVLs ap2: 6.1 cm ESV(MOD-sp2): 26.2 ml ESV(sp2-el): 26.5 ml EF(MOD-sp2): 57.6 % SV(sp4-el): 35.2 ml Ao sinus diam: 2.[address] Junction: 2.6 cm LA dimension(2D): 2.9 cm LA A4 area: 16.1 cm2 RA A4 area: 11.3 cm2 TAPSE: 1.3 cm Time Measurements MV dec time: 0.23 sec Doppler Measurements & Calculations MV E max franklin: 67.8 cm/sec Lat Peak E' Franklin: 11.4 cm/sec Med Peak E' Franklin: 8.7 cm/sec MV A max franklin: 83.4 cm/sec E/E' lat: 6.0 E/E' med: 7.8 MV E/A: 0.81 MV dec slope: 291.7 cm/sec2 Ao V2 max: 154.0 cm/sec LV V1 max: 105.9 cm/sec Ao max P.5 mmHg LV V1 max P.5 mmHg Ao V2 mean: 111.7 cm/sec LV V1 mean P.4 mmHg Ao mean P.4 mmHg LV V1 mean: 71.0 cm/sec Ao V2 VTI: 26.1 cm LV V1 VTI: 17.2 cm AV (velocity ratio): 0.66 JUSTEN(I,D): 1.9 cm2 JUSTEN(V,D): 1.9 cm2 SV(LVOT): 48.6 ml PA V2 max: 97.7 cm/sec TR max franklin: 231.8 cm/sec TR max P.5 mmHg ECHO/Echo Complete Interpretation Summary The estimated ejection fraction is 60 %. No evidence for diastolic dysfunction. Trivial mitral valve insufficiency. Ordering Physician: Tierra Quintanilla Referring Physician: Adia Mckeon M.D. Performed By: Sonya Hess RDCS
[2024-05-07] MEDS: Ceftriaxone 1 GM/50 ML BAG IV (15:02)
[2024-05-07] MEDS: Lactated Ringers 1,000 ML 75 ML IV (18:02)
[2024-05-07 19:37] LABS: Bedside Glucose 90 mg/dL (74-106)
--- NOTE | 2024-05-07 19:47 | CPS ---
Pt refused continuous pulse oximeter, RN aware.
[2024-05-07 20:24] LABS: Hemoglobin A1c 5.8 % (3.8-5.6)
[2024-05-07] MEDS: Benztropine Mesylate 0.5 MG TABLET 1 MG PO (21:20)
[2024-05-07] MEDS: OLANZapine 10 MG Tablet 20 MG PO (21:21)
[2024-05-07] MEDS: Atorvastatin Calcium 80 MG Tablet PO (21:21)
[2024-05-07] MEDS: Nystatin/Triamcin Oint 1 APPLIC TOPICAL (21:22)
[2024-05-07] MEDS: Timolol 0.5% 5ML OPTH.BTL 1 DRP LEFT EYE (21:23)
[2024-05-07] MEDS: BRIMONIDINE 0.2% 5ML BOTTLE 1 DRP LEFT EYE (21:23)
[2024-05-07] MEDS: Dorzolamide 2% 10ml Bottle 1 DRP OPHTHALMIC (21:24)
[2024-05-07 23:14] LABS: Bedside Glucose 103 mg/dL (74-106)
[2024-05-07] MEDS: Ondansetron 4 MG/2 ML Vial IV (23:28)
[2024-05-07] MEDS: 0.9% Saline Lock 10 ML Syringe IV (23:28)
[2024-05-08] VITALS (11 sets, daily range): BP systolic 85–114; BP diastolic 55–70; PULSE 66–101; RESP 16–18; TEMP 36.4–36.9; O2SAT 95–99; BMI 23.0
--- NOTE | 2024-05-08 01:19 | NURSING ---
This RN attempted to preform an NIHSS exam at 0100. Pt was not cooperative with exam. Caregiver at bedside attempted to calm pt down but patient continuously yelled let me sleep. NIHSS exam not preformed at this time. MD aware. Alexandra Anthony RN
--- NOTE | 2024-05-08 05:04 | NURSING ---
This RN attempted an NIHSS assessment at 0500. Pt refused to open eyes or participate in the assessment. Pt just repeatedly stated Im asleep, let me sleep. Alexandra Anthony RN
[2024-05-08] MEDS: Gemfibrozil 600 MG Tablet PO ×2 (06:41→17:25)
[2024-05-08 07:05] LABS: Absolute Neutrophil Count 6.4 X10^3/uL (2.0-7.7); Basophil# 0.03 X10^3/uL; Basophil% 0.4 % (0-1); Eosinophil# 0.32 X10^3/uL; Hematocrit 30.1 % (37-47); Hemoglobin 9.3 g/dL (12.0-15.0); Lymphocyte % 7.5 % (19-41); Mean Corp Hgb Conc 30.9 g/dL (32-36); Mean Corpuscular Hgb 28.6 pg (27.0-32.0); Mean Corpuscular Volume 92.6 fL (81-99); Mean Platelet Vol. 11.1 fl (6.2-12.0); Monocyte# 0.53 X10^3/uL; Monocyte% 6.7 % (0-10); NRBC Flagged by Analyzer 0 % (0-5); Neutrophil # 6.43 X10^3/uL (2.7-7.7); Neutrophil % 80.9 % (47-70); POSITIVE DIFFERENTIAL YES; Platelet Count 293 K/mm3 (150-450); RBC Distribution Width CV 13.3 % (11.6-14.6); RBC Distribution Width SD 44.7 fl (35.1-43.9); Red Blood Count 3.25 M/mm3 (4.2-5.4)
[2024-05-08] MEDS: Acetaminophen 325 MG Tablet 650 MG PO (07:05)
[2024-05-08 07:08] LABS: Bedside Glucose 105 mg/dL (74-106)
[2024-05-08 07:38] LABS: AST(SGOT) 13 U/L (15-37); Alanine Aminotransfer ALT/SGPT 16 U/L (13-56); Albumin, Serum 3.2 g/dL (3.2-5.0); Alkaline Phosphatase 84 U/L (45-117); Anion Gap 7 (5-15); BUN 20 mg/dL (7-18); BUN/Creat Ratio 20.9 RATIO (10-20); Calcium,Total 8.9 mg/dL (8.5-10.1); Chloride 115 mmol/L (98-107); Cholesterol 119 mg/dL (200); Creatinine, Serum 0.96 mg/dL (0.55-1.02); EST Glomerular Filtration Rate 61 mL/min (>60); Est Glom Filt Rate - Afr Amer 74 mL/min (>60); Estimated Creatinine Clearance 51.78 ml/min; Globulin 3.2 g/dL (2.2-4.2); Glucose 116 mg/dL (74-106); High Density Lipoprotein 32 mg/dL; Magnesium 1.4 mg/dL (1.6-2.6); Phosphorus 2.7 mg/dL (2.5-4.9); Potassium 3.2 mmol/L (3.5-5.1); Protein, Total 6.4 g/dL (6.4-8.2); Sodium Level 142 mmol/L (136-145); Triglycerides 221 mg/dL; Very Low Density Lipoprotein 44 mg/dL (5-40)
--- NOTE | 2024-05-08 09:00 | MRI_ITS ---
PROCEDURE: BRAIN WITHOUT CONTRAST REASON FOR EXAM: Stroke. TECHNIQUE: Multiplanar, multisequence MRI of the brain without intravenous gadolinium-based contrast. COMPARISON: Head CT of 05/07/2024. FINDINGS: Diffusion-weighted images demonstrate no area of restricted diffusion. Mild generalized cerebral atrophy is noted. Ventricles appear symmetric and within the normal range for age. No extra-axial fluid collection is seen. No orbital pathology is noted. Mild mucosal thickening is seen at the paranasal sinuses, with sparing of the sphenoid sinuses. No air-fluid level is noted. Internal auditory canals appear symmetric and within the normal range. MRI/Brain without Contrast IMPRESSION: 1. Chronic appearing paranasal sinus disease. 2. No acute intracranial process is seen. Reading Location: [id number]
[2024-05-08] MEDS: LORazepam 2 MG/ML Syringe 1 MG IV (09:19)
[2024-05-08] MEDS: 0.9% Saline Lock 10 ML Syringe IV ×2 (09:19→11:49)
--- NOTE | 2024-05-08 11:17 | NURSING ---
Attempted to complete NIH at 0913 prior to MRI and pt refusing to participate in assessment. Reattempted [facility] MRI for NIH due at 1035. Pt refusing to participate and agitated yelling at staff to leave her alone. notified.
[2024-05-08] MEDS: Ceftriaxone 1 GM/50 ML BAG IV (11:49)
--- NOTE | 2024-05-08 13:58 | CON.PCM.NE_ITS ---
Assessment and Plan: Stroke Assessment/Plan DAVID ELIZONDO, is a 68 F with developmental delay and schizoaffective disorder who lives at a long term who presents with slowness in her gait and confusion. She apparently was seen in her normal state of health prior tuesday but since then she was going into one of her behavioral episodes where she is has psychosis, not wanting to take her meds and not acting like herself. This is not uncommon for her. This occurs in the setting of UTIs which she has. Given the confusion she was brought to OSH. OSH consulted stroke team. CT/CTAs/MRI all unrevealing. Exam global weakness and encephalopathy. 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 No further workup. Treat UTI. Please reachout for any questions or concerns. Stroke to sign off. HPI Consult Data Date of Consult: 05/08/24 HPI Narrative HPI Narrative: DAVID ELIZONDO, is a 68 F with developmental delay and schizoaffective disorder who lives at a long term who presents with slowness in her gait and confusion. She apparently was seen in her normal state of health prior tuesday but since then she was going into one of her behavioral episodes where she is has psychosis, not wanting to take her meds and not acting like herself. This is not uncommon for her. This occurs in the setting of UTIs which she has. Given the confusion she was brought to OSH. OSH consulted stroke team. CT/CTAs/MRI all unrevealing. Exam global weakness and encephalopathy. 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 No further workup. Treat UTI. Please reachout for any questions or concerns. Stroke to sign off. [facility] Medical History Ataxia Anemia Calculus of left kidney Sciatica Developmental delay, moderate TBI (traumatic brain injury) Schizoaffective disorder Diabetes Depression HLD (hyperlipidemia) Chest pain Diabetes Home Medications ?Medication ?Instructions ?Recorded ?Last Taken ?Type ferrous sulfate 325 mg (65 mg 325 mg PO QMWF 09/14/13 Unknown History iron) tablet folic acid 400 mcg tablet 1 mg PO DAILY 09/14/13 Unkno wn History loratadine 10 mg tablet 10 mg PO DAILY 09/14/13 Unkn own History metformin 1,000 mg tablet 1,000 mg PO BID 09/14/13 Unk nown History omeprazole 20 mg capsule,delayed 20 mg PO DAILY 05/11/17 05:00 History release 20 MG fluticasone propionate 50 2 spray NASAL DAILY 12/05/13 Unknown History mcg/actuation nasal spray,suspension oxybutynin chloride 10 mg 10 mg PO DAILY ##30 12/26/13 Unknown Rx tablet,extended release 24 hr atorvastatin 80 mg tablet 80 mg PO DAILY 01/11/20 Unkn own History blood sugar diagnostic #10 ea 01/11/20 Unknown Hist ory lancets 28 gauge #100 ea 01/11/20 Unknown His tory dexamethasone sodium phosphate 0.1 1 drp LEFT EYE BID 03/21/21 Unknown History % eye drops brimonidine 0.2 %-timolol 0.5 % 1 drp LEFT EYE BID 05/19 Unknown History eye drops (Combigan) sitagliptin phosphate 25 mg tablet 25 mg PO DAILY 05/19 Unknown History (Januvia) metoprolol succinate 25 mg 25 mg PO DAILY 01/08/22 Unk nown History tablet,extended release 24 hr nystatin-triamcinolone 100,000 2 applic topical DAILY 01/08/22 Unknown History unit/gram-0.1 % topical ointment polyethylene glycol 3350 17 gram 17 g PO DAILY 2 Unknown History oral powder packet (Miralax) bisacodyl 5 mg tablet,delayed 5 mg PO DAILY 01/13/22 U nknown History release zolpidem 10 mg tablet 10 mg PO QHS 01/13/22 Unknow n History benztropine 1 mg tablet 1 mg PO BID 03/30/23 Unknown History cholecalciferol (vitamin D3) 25 25 mcg PO DAILY Unknown History mcg (1,000 unit) tablet dorzolamide 2 % eye drops 1 drp ophthalmic (eye) BID 0 03/30/23 Unknown History fluphenazine decanoate 25 mg/mL 62.5 mg IM Q2W 4 Unknown History injection solution gemfibrozil 600 mg tablet 600 mg PO BID 03/30/23 Unkno wn History glycerin-min oil-w.pet-dimeth 1 ea topical DAILY PRN d ry eye 03/30/23 Unknown History lotion olanzapine 10 mg tablet 10 mg PO DAILY 03/30/23 Unkn own History olanzapine 20 mg tablet 20 mg PO QHS 03/30/23 Unknow n History olopatadine 0.2 % eye drops 1 drp ophthalmic (eye) ALOK LY PRN 03/30/23 Unknown History dry eye acetazolamide 500 mg 500 mg PO Q12H water pill Unknown History capsule,extended release Allergy/AdvReac Type Severity Reaction Status Date / Time sulfamethoxazole (From Allergy Rash Verified 05/07/24 10:54 Bactrim) trimethoprim (From Bactrim) Allergy Rash Verified 05/07/24 10:54 Family History Father CVA (cerebral vascular accident) Mother Heart disease Brother Myocardial infarction Surgical History no surgical history Social History (Updated 05/07/24 @ 21:[address] Tierra Quintanilla DO) household members: caregiver housing: other details: [facility] current occupational status: disabled Smoking Status: Never smoker alcohol intake: never Vital Signs Vital Signs Vital Signs: 05/07/24 14:00 05/07/24 14:34 05/07/24 15:04 Temperature 98.6 F Temperature Source Pulse Rate 89 92 93 Respiratory Rate 16 17 15 Respiratory Effort Respiratory Depth Respiratory Pattern Blood Pressure 116/76 126/77 H 112/89 H Blood Pressure Mean 89 93 96 Blood Pressure Source Blood Pressure Position Blood Pressure Location Pulse Ox 98 98 99 Oxygen Delivery Method Room Air Oxygen Flow Rate (L/min) 05/07/24 17:00 05/07/24 19:30 05/07/24 21:05 Temperature 97.1 F L 98.0 F Temperature Source Temporal Oral Pulse Rate 67 89 Respiratory Rate 18 16 Respiratory Effort Respiratory Depth Respiratory Pattern Blood Pressure 107/51 L 105/78 Blood Pressure Mean 69 87 Blood Pressure Source Monitor Monitor Blood Pressure Position Semi-Fowlers Semi-Fowlers Blood Pressure Location Left Arm Right Arm Pulse Ox 100 100 99 Oxygen Delivery Method Room Air Room Air Room Air Oxygen Flow Rate (L/min) 05/07/24 21:05 05/07/24 21:37 05/08/24 01:00 Temperature 98.0 F 97.6 F L Temperature Source Oral Axillary Pulse Rate 89 94 Respiratory Rate 16 18 Respiratory Effort Normal Non-Labored Respiratory Depth Normal Respiratory Pattern Normal Blood Pressure 105/78 91/64 Blood Pressure Mean 87 73 Blood Pressure Source Monitor Monitor Blood Pressure Position Semi-Fowlers Semi-Fowlers Blood Pressure Location Right Arm Right Arm Pulse Ox 99 96 Oxygen Delivery Method Room Air Room Air Room Air Oxygen Flow Rate (L/min) 05/08/24 06:30 05/08/24 06:35 05/08/24 06:35 Temperature 98.4 F 98.4 F Temperature Source Axillary Oral Pulse Rate 101 H 101 H Respiratory Rate 18 18 Respiratory Effort Normal Non-Labored Respiratory Depth Normal Respiratory Pattern Normal Blood Pressure 114/63 114/63 Blood Pressure Mean 80 80 Blood Pressure Source Monitor Monitor Blood Pressure Position Semi-Fowlers Semi-Fowlers Blood Pressure Location Left Arm Left Arm Pulse Ox 95 95 Oxygen Delivery Method Room Air Room Air Room Air Oxygen Flow Rate (L/min) 05/08/24 08:03 05/08/24 09:13 05/08/24 09:46 Temperature 98.1 F Temperature Source Axillary Pulse Rate 94 66 Respiratory Rate 16 16 Respiratory Effort Respiratory Depth Respiratory Pattern Blood Pressure 100/63 85/58 L Blood Pressure Mean 75 67 Blood Pressure Source Monitor Monitor Blood Pressure Position Semi-Fowlers Supine Blood Pressure Location Left Arm Right Arm Pulse Ox 95 95 97 Oxygen Delivery Method Room Air Room Air Nasal Cannula Oxygen Flow Rate (L/min) 3 05/08/24 09:56 05/08/24 10:06 05/08/24 10:35 Temperature 97.7 F L Temperature Source Oral Pulse Rate 92 94 97 Respiratory Rate 16 16 18 Respiratory Effort Respiratory Depth Respiratory Pattern Blood Pressure 93/61 96/68 112/55 L Blood Pressure Mean 71 77 74 Blood Pressure Source Monitor Monitor Monitor Blood Pressure Position Supine Supine Semi-Fowlers Blood Pressure Location Right Arm Right Arm Left Arm Pulse Ox 98 98 95 Oxygen Delivery Method Nasal Cannula Nasal Cannula Room Air Oxygen Flow Rate (L/min) 3 3 Weight Weight: 64.8 kg Body Mass Index (BMI) 23.0 EEG Results Procedure Details EEG Procedure Details: DAVID ELIZONDO is a 68 year old F with a past medical history of , who presents for evaluation of Electroencephalogram on DATE at TIME NIHSS NIHSS Nursing Documentation NIHSS Nursing Documentation: NIH Stroke Scale Start: 05/07/24 11:06 Freq: Status: Discharge Protocol: Activity Type Activity Date Activity User E-sign Co-sign Detail Recorded Client Recorded Date Recorded By Document 05/07/24 11:06 [id number] 05/07/24 11:08 HO 05/07/24 11:06 NIH Stroke Scale [NIHSS] A score of 0 is normal or asymptomatic . Total possible score is 42. Inpatient: RN or Physician to activate a stroke alert for onset of new stroke symptoms or with NIHSS increase >/= 3 points. Following change in neurological status, NIHSS will be performed per physician order or more frequently PRN. -1a. Level of Consciousness Alert; keenly responsive -1b. LOC Questions Answers neither question correctly. -1c. LOC Commands Performs one task correctly. -2. Best Gaze Normal -3. Visual No visual loss -4. Facial Palsy Normal symmetrical movements -5a. Left Arm No drift; arm holds 90 (or 45 ) degrees for full 10 seconds -5b. Right Arm No drift; arm holds 90 (or 45 ) degrees for full 10 seconds -6a. Left Leg No drift; leg holds 30-degree position for full 5 seconds -6b. Right Leg No drift; leg holds 30-degree position for full 5 seconds -7. Limb Ataxia Present in 1 limb -8. Sensory Normal; no sensory loss -9. Best Language No aphasia; normal -10. Dysarthria Normal -11. Extinction and Inattention No abnormality -Total 4 Query Text:A score of 0 is normal or asymptomatic. Total possible score is 42 . ED: Notify Physician for NIHSS increase by > / = 3 points. Inpatient: RN or Physician to activate a stroke alert for NIHSS increase of > / = 3 points. NIHSS: Ischemic Stroke/TIA Start: 05/07/24 16:25 Text: For PCU Patients: NIH and Neuro Check every 4 Status: Complete hours, PRN and with change in RN caregiver. Freq: [id number] Protocol: Activity Type Activity Date Activity User E-sign Co-sign Detail Recorded Client Recorded Date Recorded By Document 05/08/24 06:35 MG [id number] 05/08/24 06:55 MG 05/08/24 06:35 -1a. Level of Consciousness Alert; keenly responsive -1b. LOC Questions Answers BOTH questions correctly. -1c. LOC Commands Performs both tasks correctly . -2. Best Gaze Normal -3. Visual No visual loss -4. Facial Palsy Normal symmetrical movements -5a. Left Arm No drift; arm holds 90 (or 45 ) degrees for full 10 seconds -5b. Right Arm No drift; arm holds 90 (or 45 ) degrees for full 10 seconds -6a. Left Leg No drift; leg holds 30-degree position for full 5 seconds -6b. Right Leg No drift; leg holds 30-degree position for full 5 seconds -7. Limb Ataxia Present in 2 limbs -8. Sensory Normal; no sensory loss -9. Best Language No aphasia; normal -10. Dysarthria Normal -11. Extinction and Inattention No abnormality -Total 2 Query Text:A score of 0 is normal or asymptomatic. Total possible score is 42 . ED: Notify Physician for NIHSS increase by > / = 3 points. Inpatient: RN or Physician to activate a stroke alert for NIHSS increase of > / = 3 points. Coma Scale [Assess] -Eye Opening Spontaneous -Motor Obeys Commands -Verbal Oriented [Total] -Coma Scale Total 15 Physical Exam Narrative Physical Exam: - General: NAD, pleasant, cooperative, well nourished, well developed - Head/Eyes: Atraumatic, normocephalic, clear cornea, normal sclera/conjunctive - Neuro: ? Mental Status: AAO to name and only ? Speech: Minimal speech, able to name some objects, slight dysarthria ? CN II: Visual anguiano unable to test given confusion ? CN III, IV, : EOMI, no gaze preference, no nystagmus, no ptosis ? CN V: Facial sensation is intact to light touch throughout. ? CN VII: Face is symmetric with normal eye closure and smile. ? CN VII: Hearing is grossly normal to conversational speech. - Moving all limbs symmetrically ? Sensation: Normal to light touch bilaterally. ? Coordination: Difficult to assess given confusion Lab / Micro Data 05/08/24 06:52 05/08/24 06:52 Labs: Laboratory Results - last 24 hr 05/07/24 11:14: Hemoglobin A1c 5.8 H 05/07/24 18:07: POC Glucose 90 05/07/24 21:16: POC Glucose 103 05/08/24 06:37: POC Glucose 105 05/08/24 06:52: WBC 8.0, RBC 3.25 L, Hgb 9.3 L, Hct 30.1 L, MCV 92.6, MCH 28.6, MCHC 30.9 L, RDW Std Deviation 44.7 H, RDW Coeff of Erwin 13.3, Plt Count 293, MPV 11.1, Immature Gran % (Auto) 0.500, Neut % (Auto) 80.9 H, Lymph % (Auto) 7.5 L, Archer % (Auto) 6.7, Eos % (Auto) 4.0, Baso % (Auto) 0.4, Absolute Neuts (auto) 6.4, Absolute Lymphs (auto) 0.60 L, Nucleated RBC % 0, Sodium 142, Potassium 3.2 L, Chloride 115 H, Carbon Dioxide 20.0 L, Anion Gap 7, BUN 20 H, Creatinine 0.96, Estim Creat Clear Calc 51.78, Est GFR (MDRD) Af Amer 74, Est GFR (MDRD) Non-Af 61, BUN/Creatinine Ratio 20.9 H, Glucose 116 H, Calcium 8.9, Phosphorus 2.7, Magnesium 1.4 L, Total Bilirubin 0.20, AST 13 L, ALT 16, Alkaline Phosphatase 84, Total Protein 6.4, Albumin 3.2, Globulin 3.2, Albumin/Globulin Ratio 1.0, Triglycerides 221 H, Cholesterol 119, LDL Cholesterol 43, VLDL Cholesterol 44 H, HDL Cholesterol 32 L Micro: Microbiology 05/07/24 12:50 Interface Orders Urine Culture - Preliminary Presumptive E. coli Rhythm Strip Rhythm Strip: Sinus Rhythm Rate: 90 Ectopy: PVC(s) Imaging Radiology Impression Brain MRI 05/08/24 09:00 IMPRESSION: 1. Chronic appearing paranasal sinus disease. 2. No acute intracranial process is seen. Reading Location: [address] Active Medications Active Medications Active Medications: Current Medications Generic Name Dose Route Start Last Admin Trade Name Freq PRN Reason Stop Dose Admin Acetaminophen 650 mg 05/07/24 16:25 05/08/24 07:05 Acetaminophen 325 Mg Tablet PO 650 mg Q4H PRN PRN Administration Pain 1-10 Or Fever>99.6 Aspirin 81 mg 05/08/24 08:00 Aspirin 81 Mg Tab.Chew PO BREAKFAST LUCRECIA Atorvastatin Calcium 80 mg 05/07/24 22:00 05/07/24 21:21 Atorvastatin Calcium 80 Mg Tablet PO 80 mg QHS [facility] Administration Benztropine Mesylate 1 mg 05/07/24 22:00 05/07/24 21:20 Benztropine Mesylate 0.5 Mg Tablet PO 1 mg BID [facility] Administration Bisacodyl 5 mg 05/08/24 10:00 Bisacodyl 5 Mg Tablet PO DAILY [facility] Brimonidine Tartrate 1 drp 05/07/24 22:00 05/07/24 21:23 Brimonidine 0.2% 5ml Bottle LEFT EYE 1 drp BID [facility] Administration Cholecalciferol 25 mcg 05/08/24 10:00 Cholecalciferol (Vit D3) 25 Mcg Tablet (1,000 Units) PO DAILY [facility] Clarify Med Order 1 each 05/08/24 10:00 05/08/24 11:38 Clarify Order NOTE Not Given CLARIFY [facility] Dexamethasone Sodium Phosphate 0 ml 05/08/24 10:00 Dexamethasone Sodium Phosphate 5 Ml Drops LEFT EYE BID [facility] Dorzolamide HCl 1 drp 05/07/24 22:00 05/07/24 21:24 Dorzolamide 2% 10ml Bottle OPHTHALMIC 1 drp BID [facility] Administration Enoxaparin Sodium 40 mg 05/08/24 10:00 Enoxaparin 40 Mg/0.4 Ml Syringe SC DAILY [facility] Ferrous Sulfate 325 mg 05/09/24 08:00 Ferrous Sulfate 325 Mg Tablet PO [id number] [facility] Fluticasone Propionate 2 spray 05/08/24 10:00 Fluticasone 0.05% 1 [place] Nasal.Sry NASAL DAILY [facility] Folic Acid 1 mg 05/08/24 08:00 Folic Acid 1 Mg Tablet PO BREAKFAST [facility] Gemfibrozil 600 mg 05/08/24 07:00 05/08/24 06:41 Gemfibrozil 600 Mg Tablet PO 600 mg BIDAC [facility] Administration Glucagon 1 mg 05/07/24 16:25 Glucagon 1 Mg/Ml Syringe IM X1 PRN HYPOGLYCEMIA Protocol Hydralazine HCl 5 mg 05/07/24 16:25 Hydralazine 20 Mg/Ml Vial IV 05/08/24 16:25 Q30M PRN maintain BP parameters with HR <60 Ceftriaxone Sodium 1 gm in 50 mls @ 100 mls/hr 05/08/24 10:00 05/08/24 11:49 Rocephin IV 100 mls/hr Q24 [facility] Administration Dextrose 250 mls @ 0 mls/hr 05/07/24 16:25 Dextrose 10%-Water IV .Q0M PRN HYPOGLYCEMIA Protocol As Directed Insulin Human Lispro 0 unit 05/07/24 16:25 05/08/24 11:38 Insulin Lispro 100 Unit/Ml Insuln.Pen SC Not Given ACHS [facility]CREC[facility] Protocol Labetalol HCl 10 - 20 mg 05/07/24 16:25 Labetalol 20mg/4ml Syringe IV 05/08/24 16:25 Q10M PRN PRN maintain BP parameters with HR >/=60 Loratadine 10 mg 05/08/24 10:00 Loratadine 10 Mg Tablet PO DAILY [facility] Melatonin 3 mg 05/07/24 16:25 Melatonin 3 Mg Tablet PO QHS PRN PRN INSOMNIA Metoprolol Succinate 25 mg 05/08/24 10:00 Metoprolol(Xl)Succ 25 Mg Tablet PO DAILY [facility] Protocol Non-Formulary Medication 62.5 mg 05/07/24 16:25 Fluphenazine Decanoate IM Q2W [facility] Non-Formulary Medication 1 drp 05/07/24 16:25 Olopatadine OPHTHALMIC DAILY PRN dry eye Nystatin/Triamcinolone Acetonide 1 applic 05/07/24 22:00 05/07/24 21:22 Nystatin/Triamcin Oint TOPICAL 1 applic BID [facility] Administration Protocol Olanzapine 10 mg 05/08/24 10:00 Olanzapine 10 Mg Tablet PO DAILY [facility] Protocol Olanzapine 20 mg 05/07/24 22:00 05/07/24 21:21 Olanzapine 10 Mg Tablet PO 20 mg QHS [facility] Administration Ondansetron HCl 4 mg 05/07/24 16:25 05/07/24 23:28 Ondansetron 4 Mg/2 Ml Vial IV 4 mg Q8H PRN PRN Administration NAUSEA/VOMITING Senna/Docusate Sodium 2 tablet 05/07/24 16:25 Senna/Docusate Sodium 1 Tablet PO BID PRN PRN Constipation Sodium Chloride 10 - 40 ml 05/07/24 16:28 05/08/24 11:49 0.9% Saline Lock 10 Ml Syringe IV 10 ml UD PRN Administration SALINE FLUSH Timolol Maleate 1 drp 05/07/24 22:00 05/07/24 21:23 Timolol 0.5% 5ml Opth.Btl LEFT EYE 1 drp BID LCURECIA Administration
--- NOTE | 2024-05-08 14:00 | CASEMGMT ---
LILIA met with patient and her sister Mirella. LILIA introduced self and role at [facility]. Mirella said the plan is for patient to return to the longterm. Mirella was not sure who the contact lens polisher would be for social work. The longterm is through [facility]. LILIA called [place] and was directed to Jenny one of the nurses for the longterm. Jenny's number is [phone]. LILIA called Jenny and there shouldn't be any reason patient could not return to the longterm. Jenny said the longterm will pick her up at discharge. Someone would just need to give Jenny a call when patient is ready for discharge. They will need a resumption order for home health fdc and if patient needs PT/OT that would need to be added. Natalie Hancock GENERAL OFFICE CLERK MAGDI
[2024-05-08] MEDS: Benztropine Mesylate 0.5 MG TABLET 1 MG PO (14:22)
[2024-05-08] MEDS: Aspirin 81 MG TAB.CHEW PO (14:22)
[2024-05-08] MEDS: Metoprolol(XL)Succ 25 MG Tablet PO (14:23)
[2024-05-08] MEDS: Enoxaparin 40 MG/0.4 ML Syringe SC (14:23)
[2024-05-08] MEDS: Bisacodyl 5 MG Tablet PO (14:23)
[2024-05-08] MEDS: OLANZapine 10 MG Tablet PO (14:24)
[2024-05-08] MEDS: Cholecalciferol (VIT D3) 25 MCG TABLET (1,000 UNITS) PO (14:24)
[2024-05-08] MEDS: BRIMONIDINE 0.2% 5ML BOTTLE 1 DRP LEFT EYE (14:25)
[2024-05-08] MEDS: DEXAMETHASONE SODIUM PHOSPHATE LEFT EYE (14:25)
[2024-05-08] MEDS: Dorzolamide 2% 10ml Bottle 1 DRP OPHTHALMIC (14:27)
[2024-05-08] MEDS: Timolol 0.5% 5ML OPTH.BTL 1 DRP LEFT EYE (14:27)
--- NOTE | 2024-05-08 14:28 | CASEMGMT ---
Met with patient and her sister, Mirella (legal guardian) to complete [employer] form. [employer] form explained to Mirella who voiced understanding and signed form. Original form placed in pt?s chart and copy provided to patient. Gretchen Staley, Discharge Planning Asst
--- NOTE | 2024-05-08 15:40 | CASEMGMT ---
LILIA called Jenny and let her know that physician plans on discharging patient today. Jenny asked if d/c instructions could include return to work information. Jenny also asked if d/c instructions could be faxed to [phone]. Staff also needs to call Jenny when patient is ready to go. (Jenny's phone number: [phone] and fax: [phone]) Natalie [facility]
--- NOTE | 2024-05-08 15:51 | CASEMGMT ---
SW did not complete a PHQ 9 as per physician patient did not have a Stroke. Natalie [facility]IRBANKS
--- NOTE | 2024-05-08 16:08 | PCM.DC ---
Discharge Instructions Diet Discharge Diet: 1800 Calorie Control Diet DC O2, CPAP, BIPAP needs Home O2 Discharge instructions: No Dressing / Incision Discharge Activity: Return to Normal Activity Return to work on:: 05/10/24 Weight Bearing Status: Full weight bearing Follow Up Care Test Results: Test results from this visit will be discussed in further detail at your follow-up appointment, if applicable. Discharge Plan Admission Admit Date/Time: 05/07/24 14:40 Primary Reason for Your Visit: Urinary tract infection Attending Provider: Ammon Woo Primary Care Provider: Adia Mckeon Consulting Providers: Toro Cardona; Justine Nuno; Karen Lassiter; Analia Matute; María Elena Allen; Evgeny Wright; Pita Wahl; Abel Fletcher; Prabhjot Correa; Casper Gannon; Erica Friedman; Jaycob Love; Christin Frost; Toy Larson; German Cohn; Ashu Razo; Melia Lewis; Daniel Boyd; Fabby Quintanilla; Isaiah Riley; Tierra Quintanilla Instructions Additional Instructions / Restrictions: Patient may return to work on 05/10/2024 Discharge Orders/Prescriptions Prescriptions: New cefdinir 300 mg capsule 300 mg PO BID Qty: 10 0RF Rx Instructions: start on 05/09/24 Continued atorvastatin 80 mg tablet 80 mg PO DAILY Patient Comments: TAKE 1 TABLET BY MOUTHCONCE DAILY (DME) blood sugar diagnostic Strip See Rx Instructions .ROUTE .MEDSUPPLY Qty: 10 Patient Comments: USE ONCE DAILY TO TESTDBLOOD SUGAR Rx Instructions: As directed (DME) lancets 28 gauge misc See Rx Instructions .ROUTE .MEDSUPPLY Qty: 100 Patient Comments: USE ONCE DAILY TO TESTDBLOOD SUGAR Rx Instructions: As directed fluphenazine decanoate 25 mg/mL solution 62.5 mg IM Q2W olanzapine 10 mg tablet 10 mg PO DAILY benztropine 1 mg tablet 1 mg PO BID dorzolamide 2 % drops 1 drp ophthalmic (eye) BID olanzapine 20 mg tablet 20 mg PO QHS cholecalciferol (vitamin D3) 25 mcg (1,000 unit) tablet 25 mcg PO DAILY olopatadine 0.2 % drops 1 drp ophthalmic (eye) DAILY PRN (Reason: dry eye) glycerin-min oil-w.pet-dimeth Lotion 1 ea topical DAILY PRN (Reason: dry eye) folic acid 0.4 MG tablet 1 mg PO DAILY Patient Comments: MINERAL SUPPLEMENT ferrous sulfate 325 MG tablet 325 mg PO QMWF Patient Comments: MINERAL SUPPLEMENT metformin 1,000 MG tablet 1,000 mg PO BID Patient Comments: blood sugar omeprazole 20 MG capsule 20 mg PO DAILY Patient Comments: acid state assessed properties director loratadine 10 MG tablet 10 mg PO DAILY Patient Comments: ALLERGIES fluticasone propionate 1 SPRAY spray,suspension 2 spray NASAL DAILY 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 oxybutynin chloride 10 MG tablet extended release 24hr 10 mg PO DAILY Qty: 30 0RF Patient Comments: BLADDER dexamethasone sodium phosphate 0.1 % drops 1 drp LEFT EYE BID Patient Comments: PLACE 1 DROP INTO LEFTEEYE ONCE DAILY Januvia 25 mg Tablet 25 mg PO DAILY brimonidine-timolol [Combigan] 0.2-0.5 % Drops 1 drp LEFT EYE BID gemfibrozil 600 mg tablet 600 mg PO BID polyethylene glycol 3350 [Miralax] 17 gram Powder In Packet 17 g PO DAILY nystatin-triamcinolone 100,000-0.1 unit/gram-% ointment 2 applic TOPICAL DAILY metoprolol succinate 25 mg tablet extended release 24 hr 25 mg PO DAILY Patient Comments: TAKE 1 TABLET BY MOUTHCONCE DAILY bisacodyl 5 mg tablet,delayed release (DR/EC) 5 mg PO DAILY Patient Comments: TAKE 1 TABLET ONCE DAILYTAS NEEDED FOR CONSTIPATION NOT RESOLVED FROM MILK OF MAGNESIA zolpidem 10 mg Tablet 10 mg PO QHS acetazolamide 500 mg capsule, extended release 500 mg PO Q12H Patient Comments: [NO ORIGINAL SIG] Rx Instructions: was started apr 30, 2024 Referrals / Follow Up: Adia Mckeon MD [Primary Care Provider] - Within 1 Month Disposition Disposition (needs filled in before D/C Order can be placed): Home, Self Care
--- NOTE | 2024-05-08 16:17 | DS.PCM_ITS ---
Providers Date of Admission: 05/07/24 Date of Discharge: 05/08/24 Primary Care Physician: Dr. Adia Mckeon MD Consultations 05/07/24 16:25 Consult: Tele-Neurology Routine Consulting Provider: [facility] Reason for Consult: Acute Ischemic Stroke/TIA EMERGENT Consult: No MD Notified: Yes Date Notified: 05/07/24 Time Notified: 16:39 Method of Notification: Answering Service Nursing Unit Staff Notify [facility] of Tele-Neurology Consult: Yes Reason For Visit: APHASIS/ATAXIA/ABN UA Diagnosis Discharge Diagnosis (1) Expressive aphasia: Status: Acute Code(s): R47.01 - Aphasia (2) Ataxia: Status: Acute Code(s): R27.0 - Ataxia, unspecified (3) Abnormal urinalysis: Status: Acute Code(s): R82.90 - Unspecified abnormal findings in urine (4) Toxic metabolic encephalopathy: Status: Acute Code(s): G92.8 - Other toxic encephalopathy (5) MATHEW (acute kidney injury): Status: Acute Code(s): N17.9 - Acute kidney failure, unspecified Plan 1. Ataxia and debility secondary to acute cystitis with E. coli #2 acute cystitis with E. coli #3 acute kidney injury #4 type 2 diabetes #5 MRDD #6 schizoaffective disorder Medications at Discharge Home Medications ferrous sulfate 325 mg (65 mg iron) tablet 325 mg PO QMWF 09/14/13 folic acid 400 mcg tablet 1 mg PO DAILY 09/14/13 loratadine 10 mg tablet 10 mg PO DAILY 09/14/13 metformin 1,000 mg tablet 1,000 mg PO BID 09/14/13 omeprazole 20 mg capsule,delayed release 20 mg PO DAILY 09/14/13 fluticasone propionate 50 mcg/actuation nasal spray,suspension 2 spray NASAL DAILY 12/05/13 oxybutynin chloride 10 mg tablet,extended release 24 hr 10 mg PO DAILY ##30 12/26/13 atorvastatin 80 mg tablet 80 mg PO DAILY 01/11/20 blood sugar diagnostic #10 ea 01/11/20 lancets 28 gauge #100 ea 01/11/20 dexamethasone sodium phosphate 0.1 % eye drops 1 drp LEFT EYE BID 03/21/21 brimonidine 0.2 %-timolol 0.5 % eye drops (Combigan) 1 drp LEFT EYE BID 12/27/21 sitagliptin phosphate 25 mg tablet (Januvia) 25 mg PO DAILY 12/27/21 metoprolol succinate 25 mg tablet,extended release 24 hr 25 mg PO DAILY 01/08/22 nystatin-triamcinolone 100,000 unit/gram-0.1 % topical ointment 2 applic topical DAILY 01/08/22 polyethylene glycol 3350 17 gram oral powder packet (Miralax) 17 g PO DAILY 01/08/22 bisacodyl 5 mg tablet,delayed release 5 mg PO DAILY 01/13/22 zolpidem 10 mg tablet 10 mg PO QHS 01/13/22 benztropine 1 mg tablet 1 mg PO BID 03/30/23 cholecalciferol (vitamin D3) 25 mcg (1,000 unit) tablet 25 mcg PO DAILY 03/30/23 dorzolamide 2 % eye drops 1 drp ophthalmic (eye) BID 03/30/23 fluphenazine decanoate 25 mg/mL injection solution 62.5 mg IM Q2W 03/30/23 gemfibrozil 600 mg tablet 600 mg PO BID 03/30/23 glycerin-min oil-w.pet-dimeth lotion 1 ea topical DAILY PRN dry eye 03/30/23 olanzapine 10 mg tablet 10 mg PO DAILY 03/30/23 olanzapine 20 mg tablet 20 mg PO QHS 03/30/23 olopatadine 0.2 % eye drops 1 drp ophthalmic (eye) DAILY PRN dry eye 03/30/23 acetazolamide 500 mg capsule,extended release 500 mg PO Q12H water pill 05/08/24 cefdinir 300 mg capsule 300 mg PO BID #10 caps 05/08/24 Hospital Course Operations None Procedures 2-D Echocardiogram Summary of Care Provided Minutes Spent on Discharge: 31 Hospital Course: This 68-year-old white female was seen in the emergency room at [facility] with complaints of ataxia and difficulty walking at the senior living where she resides. Patient has a history of MRDD and schizoaffective disorder, initial evaluation showed an NIH score of 3, imaging studies did not reveal any abnormality, there was rapid improvement in her symptoms during her emergency room stay and tenecteplase was not ordered. Labs were obtained, patient's white blood cell count was 10.2, hemoglobin was 10.5, creatinine was 1.25 and BUN was 30. Patient's urinalysis indicated a urinary tract infection with 50-100 WBCs and +1 bacteria. Patient was placed in observation status on PCU, she was seen by teleneurology and underwent an MRI of the brain which showed no evidence of acute stroke, patient's urine grew out E. coli, antibiotics were continued while she was in the hospital and a prescription was given to the patient for outpatient antibiotics for cystitis. On 05/08/2024, patient was seen and examined: On examination she appeared to have cognitive impairment, she does not appear to be in any distress. Vital signs as documented. Skin warm and dry and without overt rashes. Neck without JVD, thyroid appears normal, trachea is midline, neck is supple. Lungs clear, normal air movement was noted. Heart exam notable for regular rhythm, normal sounds and absence of murmurs, rubs or gallops. Abdomen unremarkable and without evidence of organomegaly, masses, or abdominal aortic enlargement, bowel sounds are present in all 4 quadrants, no abdominal tenderness was noted. Extremities nonedematous, no cyanosis was noted, no clubbing was noted. Neuro: Cranial nerves II through XII are grossly intact, no focal motor deficits were noted, sensation to light touch and pinprick is intact, motor exam 5/5 throughout. Psych: Patient is alert, she does not appear anxious or depressed, she does not appear agitated. There is signs of obvious cognitive impairment Patient was discharged to her senior living on 05/08/2024 in stable condition Weight / BMI Weight Weight: 64.8 kg Body Mass Index (BMI) 23.0 ABG / Lab / Microbiology Data 05/08/24 06:52 05/08/24 06:52 Laboratory: Laboratory Results - last 24 hr 05/07/24 11:14: Hemoglobin A1c 5.8 H 05/07/24 18:07: POC Glucose 90 05/07/24 21:16: POC Glucose 103 05/08/24 06:37: POC Glucose 105 05/08/24 06:52: WBC 8.0, RBC 3.25 L, Hgb 9.3 L, Hct 30.1 L, MCV 92.6, MCH 28.6, MCHC 30.9 L, RDW Std Deviation 44.7 H, RDW Coeff of Erwin 13.3, Plt Count 293, MPV 11.1, Immature Gran % (Auto) 0.500, Neut % (Auto) 80.9 H, Lymph % (Auto) 7.5 L, [place] % (Auto) 6.7, Eos % (Auto) 4.0, Baso % (Auto) 0.4, Absolute Neuts (auto) 6.4, Absolute Lymphs (auto) 0.60 L, Nucleated RBC % 0, Sodium 142, Potassium 3.2 L, Chloride 115 H, Carbon Dioxide 20.0 L, Anion Gap 7, BUN 20 H, Creatinine 0.96, Estim Creat Clear Calc 51.78, Est GFR (MDRD) Af Amer 74, Est GFR (MDRD) Non-Af 61, BUN/Creatinine Ratio 20.9 H, Glucose 116 H, Calcium 8.9, Phosphorus 2.7, Magnesium 1.4 L, Total Bilirubin 0.20, AST 13 L, ALT 16, Alkaline Phosphatase 84, Total Protein 6.4, Albumin 3.2, Globulin 3.2, Albumin/Globulin Ratio 1.0, Triglycerides 221 H, Cholesterol 119, LDL Cholesterol 43, VLDL Cholesterol 44 H, HDL Cholesterol 32 L Microbiology: Microbiology 05/07/24 12:50 Interface Orders Urine Culture - Final Presumptive E. coli Radiography Diagnostic Testing: Radiology Impression Brain MRI 05/08/24 09:00 IMPRESSION: 1. Chronic appearing paranasal sinus disease. 2. No acute intracranial process is seen. Reading Location: [address] D/C Instructions Discharge Diet: 1800 Calorie Control Diet Return to work on: 05/10/24 Weight Bearing Status: Full weight bearing DC O2, CPAP, BIPAP Needs Home O2 Discharge instructions: No Meaningful Use Info Meaningful Use Meaningful Use Diagnoses (Choose all that apply): None applicable Ischemic Stroke Statin Dosing Therapy Reference: STATIN DOSE THERAPY REFERENCE: * Patients > 75 years receive moderate or high dose statin therapy. * Patients 75 years or YOUNGER should receive HIGH intensity statin dose unless contraindicated. You will be required to document reason for non-treatment if statin daily dose does not meet guidelines. HIGH DOSE STATIN THERAPY DAILY Atorvastatin > than or = to 40 mg Rosuvastatin > than or = to 20 mg Amlodipine + Atorvastatin > than or = to 2.5/40 mg Ezetimibe + Simvastatin 10/80 mg Simvastatin 80mg Discharge Plan Admission Admit Date/Time: 05/07/24 14:40 Primary Reason for Your Visit: Urinary tract infection Attending Provider: Ammon Woo Primary Care Provider: Adia Mckeon Consulting Providers: Toro Cardona; Justine Nuno; Karen Lassiter; Analia Matute; María Elena Allen; Evgeny Wright; Pita Wahl; Abel Fletcher; Prabhjot Correa; Casper Gannon; Erica Friedman; Jaycob Love; Christin Frost; Toy Larson; German Cohn; Ashu Rzao; Melia Lewis; Daniel Boyd; Fabby Quintanilla; Isaiah Riley; Tierra Quintanilla Instructions Additional Instructions / Restrictions: Patient may return to work on 05/10/2024 Discharge Orders/Prescriptions Prescriptions: New cefdinir 300 mg capsule 300 mg PO BID Qty: 10 0RF Rx Instructions: start on 05/09/24 Continued atorvastatin 80 mg tablet 80 mg PO DAILY Patient Comments: TAKE 1 TABLET BY MOUTHCONCE DAILY (DME) blood sugar diagnostic Strip See Rx Instructions .ROUTE .MEDSUPPLY Qty: 10 Patient Comments: USE ONCE DAILY TO TESTDBLOOD SUGAR Rx Instructions: As directed (DME) lancets 28 gauge misc See Rx Instructions .ROUTE .MEDSUPPLY Qty: 100 Patient Comments: USE ONCE DAILY TO TESTDBLOOD SUGAR Rx Instructions: As directed fluphenazine decanoate 25 mg/mL solution 62.5 mg IM Q2W olanzapine 10 mg tablet 10 mg PO DAILY benztropine 1 mg tablet 1 mg PO BID dorzolamide 2 % drops 1 drp ophthalmic (eye) BID olanzapine 20 mg tablet 20 mg PO QHS cholecalciferol (vitamin D3) 25 mcg (1,000 unit) tablet 25 mcg PO DAILY olopatadine 0.2 % drops 1 drp ophthalmic (eye) DAILY PRN (Reason: dry eye) glycerin-min oil-w.pet-dimeth Lotion 1 ea topical DAILY PRN (Reason: dry eye) folic acid 0.4 MG tablet 1 mg PO DAILY Patient Comments: MINERAL SUPPLEMENT ferrous sulfate 325 MG tablet 325 mg PO QMWF Patient Comments: MINERAL SUPPLEMENT metformin 1,000 MG tablet 1,000 mg PO BID Patient Comments: blood sugar omeprazole 20 MG capsule 20 mg PO DAILY 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 loratadine 10 MG tablet 10 mg PO DAILY Patient Comments: ALLERGIES fluticasone propionate 1 SPRAY spray,suspension 2 spray NASAL DAILY 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 oxybutynin chloride 10 MG tablet extended release 24hr 10 mg PO DAILY Qty: 30 0RF Patient Comments: BLADDER dexamethasone sodium phosphate 0.1 % drops 1 drp LEFT EYE BID Patient Comments: PLACE 1 DROP INTO LEFTEEYE ONCE DAILY Januvia 25 mg Tablet 25 mg PO DAILY brimonidine-timolol [Combigan] 0.2-0.5 % Drops 1 drp LEFT EYE BID gemfibrozil 600 mg tablet 600 mg PO BID polyethylene glycol 3350 [Miralax] 17 gram Powder In Packet 17 g PO DAILY nystatin-triamcinolone 100,000-0.1 unit/gram-% ointment 2 applic TOPICAL DAILY metoprolol succinate 25 mg tablet extended release 24 hr 25 mg PO DAILY Patient Comments: TAKE 1 TABLET BY MOUTHCONCE DAILY bisacodyl 5 mg tablet,delayed release (DR/EC) 5 mg PO DAILY Patient Comments: TAKE 1 TABLET ONCE DAILYTAS NEEDED FOR CONSTIPATION NOT RESOLVED FROM MILK OF MAGNESIA zolpidem 10 mg Tablet 10 mg PO QHS acetazolamide 500 mg capsule, extended release 500 mg PO Q12H Patient Comments: [NO ORIGINAL SIG] Rx Instructions: was started apr 30, 2024 Referrals / Follow Up: Adia Mckeon MD [Primary Care Provider] - Within 1 Month Disposition Disposition (needs filled in before D/C Order can be placed): Home, Self Care Charges/Coding Visit Charges Inpatient E&M: 97915 Disch Hosp >30min
--- NOTE | 2024-05-08 16:26 | CASEMGMT ---
LILIA faxed d/c instructions and order for resumption of snf and adding PT,OT. D/c instructions also included when patient can return to work. LILIA called Jenny with the long term and left her a voice mail letting her know orders were faxed and antibiotic script was sent to [facility]. RN is requesting a 530 car pick up driver. LILIA left number for PCU should she have questions. Natalie Hancock [employer]
[2024-05-08] MEDS: Potassium Chloride Oral Tablet 20 MEQ 40 MEQ PO (17:23)
[2024-05-08] MEDS: Magnesium Chloride 64 MG Delay Rel.Tablet 128 MG PO (17:23)
[2024-05-08 20:00] LABS: Bedside Glucose 93 mg/dL (74-106)
[2024-05-08 20:00] LABS: Bedside Glucose 106 mg/dL (74-106)
== END 2024-05-08 16:17 | disposition home or self-care (01) ==
LOC: ED 11:52 → PCU 15:08
PROVIDERS: Admitting Provider Internal Medicine; Emergency Provider Emergency Medicine; PCP Internal Medicine; Visit Provider Internal Medicine
DX: N30.00 Acute cystitis without hematuria (principal); F25.9 Schizoaffective disorder, unspecified; E11.9 Type 2 diabetes mellitus without complications; N17.9 Acute kidney failure, unspecified; F71 Moderate intellectual disabilities; E78.5 Hyperlipidemia, unspecified; R41.89 Other symptoms and signs involving cognitive functions and awareness; D64.9 Anemia, unspecified; G92.8 Other toxic encephalopathy; R27.0 Ataxia, unspecified; R53.81 Other malaise; R47.01 Aphasia; Z79.84 Long term (current) use of oral hypoglycemic drugs; E86.0 Dehydration; Z79.899 Other long term (current) drug therapy; B96.20 Unspecified Escherichia coli [E. coli] as the cause of diseases classified elsewhere; Z79.51 Long term (current) use of inhaled steroids
CPT/HCPCS: 70450; 70496; 70498; 70551; 71045; 80048; 80053; 80061; 81001; 82962; 83036; 83735; 84100; 84484; 85025; 85610; 85730; 87086; 87088; 87186; 93005; 93306; 94762; 96361; 96365; 96366; 96372; 96375; 97162; 97166; 99221; 99285; Q9957; Q9967; A4216; G0378; J2405

== ENCOUNTER 2024-05-11 11:53 | Emergency (ER) | payer MEDICARE, MEDICAID, SELFPAY ==
[2024-05-11 11:55] VITALS: BP 93/75; PULSE 73; RESP 17; TEMP 37.1; O2SAT 96; BMI 24.7
--- NOTE | 2024-05-11 12:24 | CT_ITS ---
PROCEDURE: ABDOMEN/PELVIS W IV CONT ONLY REASON FOR EXAM: Acute kidney injury. TECHNIQUE: Abdomen and pelvis CT with intravenous contrast. No oral contrast. IV CONTRAST: 98 cc of Isovue-300.1 COMPARISON: None. FINDINGS: Lung bases: Minimal degree of right basilar atelectasis. Liver: Unremarkable. Gallbladder: Unremarkable. Spleen: Unremarkable. Pancreas: Unremarkable. Adrenals: Unremarkable. Kidneys: 6 mm nonobstructive calculus in the upper pole calyx of the right kidney. Cortical scarring in the posterior upper pole of the left kidney with 2 small adjacent renal cysts. Tiny cysts in the right kidney. Nonobstructive 8 mm calculus in the lower pole calyx of the left kidney. Bladder: Unremarkable. Reproductive Organs: Unremarkable. Bowel: Moderate amount of fecal material is seen in the right hemicolon. Appendix: Normal. Lymph nodes: No suspicious lymph node enlargement. Vasculature: Major vascular structures are unremarkable. Peritoneum / Retroperitoneum: No ascites. No free air. Bones: Degenerative changes of the spine. CT/Abdomen/Pelvis W IV Cont ONLY IMPRESSION: Nonobstructive bilateral intrarenal calculi as well as small bilateral renal cy sts with cortical scarring as described. No evidence of obstructive uropathy. Moderate amount of fecal material is seen throughout the colon. One or more dose reduction techniques were used (e.g., Automated exposure contr ol, adjustment of the mA and/or kV according to patient size, use of iterative reconstruction technique). Reading Location: [id number]
--- NOTE | 2024-05-11 12:27 | EX.ED.DYSGE1 ---
HPI History of Present Illness Chief Complaint: Abd Pain Informant: patient and EMS Narrative Narrative: Patient is a 68-year-old female with history of abdominal delay, TBI, schizoaffective disorder, depression, diabetes mellitus and recent mission for encephalopathy and MATHEW [facility] from [facility] for concern of [facility]. Patient was complaining of lower abdominal pain today as well as some left arm pain. No report of any falls or trauma. 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 No report of any fevers. Patient was recently started on acetazolamide and they are wondering if this could be a symptom related to that. Patient currently is not complaining of any arm pain but is having lower abdominal discomfort. [facility] Medical History Ataxia Anemia Calculus of left kidney Sciatica Developmental delay, moderate TBI (traumatic brain injury) Schizoaffective disorder Diabetes Depression HLD (hyperlipidemia) Chest pain Diabetes Home Medications ?Medication ?Instructions ?Recorded ?Last Taken ?Type ferrous sulfate 325 mg (65 mg 325 mg PO QMWF 09/14/13 Unknown History iron) tablet folic acid 400 mcg tablet 1 mg PO DAILY 09/14/13 Unknown History loratadine 10 mg tablet 10 mg PO DAILY 09/14/13 Unknown History metformin 1,000 mg tablet 1,000 mg PO BID 09/14/13 Unknown History omeprazole 20 mg capsule,delayed 20 mg PO DAILY 09/14/13 05/11/17 05:00 History release 20 MG fluticasone propionate 50 2 spray NASAL DAILY 12/05/13 Unknown History mcg/actuation nasal spray,suspension oxybutynin chloride 10 mg 10 mg PO DAILY ##30 12/26/13 Unknown Rx tablet,extended release 24 hr atorvastatin 80 mg tablet 80 mg PO DAILY 01/11/20 Unknown History blood sugar diagnostic #10 ea 01/11/20 Unknown History lancets 28 gauge #100 ea 01/11/20 Unknown History dexamethasone sodium phosphate 0.1 1 drp LEFT EYE BID 03/21/21 Unknown History % eye drops brimonidine 0.2 %-timolol 0.5 % 1 drp LEFT EYE BID 12/27/21 Unknown History eye drops (Combigan) sitagliptin phosphate 25 mg tablet 25 mg PO DAILY 12/27/21 Unknown History (Januvia) metoprolol succinate 25 mg 25 mg PO DAILY 01/08/22 Unknown History tablet,extended release 24 hr nystatin-triamcinolone 100,000 2 applic topical DAILY 01/08/22 Unknown History unit/gram-0.1 % topical ointment polyethylene glycol 3350 17 gram 17 g PO DAILY 01/08/22 Unknown History oral powder packet (Miralax) bisacodyl 5 mg tablet,delayed 5 mg PO DAILY 01/13/22 Unknown History release zolpidem 10 mg tablet 10 mg PO QHS 01/13/22 Unknown History benztropine 1 mg tablet 1 mg PO BID 03/30/23 Unknown History cholecalciferol (vitamin D3) 25 25 mcg PO DAILY 03/30/23 Unknown History mcg (1,000 unit) tablet dorzolamide 2 % eye drops 1 drp ophthalmic (eye) BID 03/30/23 Unknown History fluphenazine decanoate 25 mg/mL 62.5 mg IM Q2W 03/30/23 Unknown History injection solution gemfibrozil 600 mg tablet 600 mg PO BID 03/30/23 Unknown History glycerin-min oil-w.pet-dimeth 1 ea topical DAILY PRN dry eye 03/30/23 Unknown History lotion olanzapine 10 mg tablet 10 mg PO DAILY 03/30/23 Unknown History olanzapine 20 mg tablet 20 mg PO QHS 03/30/23 Unknown History olopatadine 0.2 % eye drops 1 drp ophthalmic (eye) DAILY PRN 03/30/23 Unknown History dry eye acetazolamide 500 mg 500 mg PO Q12H water pill 05/08/24 Unknown History capsule,extended release cefdinir 300 mg capsule 300 mg PO BID #10 caps 05/08/24 Unknown Rx Allergy/AdvReac Type Severity Reaction Status Date / Time sulfamethoxazole (From Allergy Rash Verified 05/11/24 11:59 Bactrim) trimethoprim (From Bactrim) Allergy Rash Verified 05/11/24 11:59 Family History Father CVA (cerebral vascular accident) Mother Heart disease Brother Myocardial infarction Social History household members: caregiver housing: other details: prison current occupational status: disabled Smoking Status: Never smoker alcohol intake: never ROS ROS ED Review of Systems ROS Unobtainable: due to mental status Gastrointestinal Gastrointestinal: Reports abdominal pain Musculoskeletal Musculoskeletal: Reports other Details: Left arm pain?denies any currently EXAM Physical Exam Const Vital Signs: 05/11/24 11:55 05/11/24 13:54 05/11/24 15:02 Temperature 98.7 F 97.7 F L Temperature Source Oral Pulse Rate 73 78 79 Respiratory Rate 17 20 H Blood Pressure 93/75 94/59 L 102/68 Blood Pressure Mean 81 70 79 Pulse Ox 96 98 100 Oxygen Delivery Method Room Air Room Air Positive well nourished and well developed General Appearance ED: well developed and NAD HEENT Reports moist mucous membranes Neck supple and no JVD Chest Wall inspection of chest normal and palpation of chest normal Resp normal respiratory effort and clear to auscultation bilaterally Cardio regular rate and regular rhythm Cardio Narrative: 2+ radial and DP pulses present GI normal to inspection, nondistended, normoactive bowel sounds GI Narrative: No tenderness to palpation on exam but patient points to her pelvic area and lower abdomen as where her pain is Auscultation: normoactive bowel sounds Palpation: soft; Negative for tender or guarding Back/Spine General Back: Negative for CVA tenderness Extremity normal to inspection General Extremety ED: Negative for edema General Extremity: Negative for edema Neuro Neuro Narrative: Patient at her baseline, no focal deficits appreciated Sensorium / Orientation: alert Motor Exam: Negative for general weakness Psych mental status grossly normal Skin no rashes or lesions noted and no wounds MDM MDM MDM Narrative Medical decision making narrative: Patient evaluated for left arm pain as well as lower abdominal pain. Patient is not a particularly reliable historian due to her TBI and developmental delay so broader workup was initiated. Differential includes pneumonia, ACS, small bowel obstruction, diverticulitis, constipation, MATHEW, urinary tract infection. CBC unremarkable. Patient has mild anemia but her hemoglobin is at baseline (10.0). She does not have a leukocytosis or left shift. High sensitive troponin normal at 5. Driving these are pain is referred cardiac pain. CMP largely normal. Creatinine at baseline. Urinalysis shows 25 leukocyte esterase with no contamination and no bacteria. I do not think this is consistent with infection. CT of the abdomen and pelvis does show moderate amount of fecal material throughout the colon with nonobstructive bilateral renal calculi with no evidence of obstructive uropathy. I suspect her symptoms are more related to her increased stool burden. Patient appears to be on daily MiraLAX and has as needed Fleet enema, docusate suppositories and milk of magnesia. Counseled with [facility] member that patient needs to start taking her as needed medications and can also double up her MiraLAX. [facility] with these instructions. At this time I do not think she requires admission. Patient overall is well-appearing with stable vital signs in the emergency room. Patient has no further arm pain in the ER as I do not think she requires imaging as I do not think there is an acute traumatic process as it is not reproducible at this time. Lab Data Attestation: I reviewed the patient's lab results. Labs: Laboratory Results - last 24 hr 05/11/24 05/11/24 12:45 14:12 WBC 7.0 RBC 3.52 L Hgb 10.0 L Hct 33.8 L MCV 96.0 MCH 28.4 MCHC 29.6 L RDW Std Deviation 49.3 H RDW Coeff of Erwin 14.2 Plt Count TNP MPV 11.8 Immature Gran % (Auto) 0.900 Neut % (Auto) 75.2 H Lymph % (Auto) 10.3 L Darke % (Auto) 7.4 Eos % (Auto) 5.6 H Baso % (Auto) 0.6 Absolute Neuts (auto) 5.3 Absolute Lymphs (auto) 0.72 L Nucleated RBC % 0 Differential Comment SCANNED Platelet Estimate ADEQUATE Plt Morphology Comment CLUMPED RBC Morphology NORM C+C Sodium 143 Potassium 4.1 Chloride 115 H Carbon Dioxide 24.0 Anion Gap 4 L BUN 21 H Creatinine 0.89 Estim Creat Clear Calc 55.85 Est GFR (MDRD) Af Amer 81 Est GFR (MDRD) Non-Af 67 BUN/Creatinine Ratio 23.5 H Glucose 94 Lactic Acid 1.4 Calcium 9.9 Total Bilirubin 0.20 AST 10 L ALT 15 Alkaline Phosphatase 87 Troponin I High Sens 5 Total Protein 6.8 Albumin 3.2 Globulin 3.6 Albumin/Globulin Ratio 0.9 Urine Color Yellow Urine Clarity Clear Urine pH 7.0 Ur Specific Alta 1.015 Urine Protein 15 H Urine Glucose (UA) Normal Urine Ketones Negative Urine Occult Blood Negative Urine Nitrite Negative Urine Bilirubin Negative Urine Urobilinogen Normal Ur Leukocyte Esterase 25 H Urine RBC 0-5 SEEN Urine WBC 0-5 SEEN Ur Squamous Epith Cells 0 SEEN Urine Bacteria 0 SEEN Urine Mucus 0 SEEN Radiography Diagnostic Testing: Clinical Impression(s) from Imaging Studies Abdomen/Pelvis CT 05/11/24 12:24 IMPRESSION: Nonobstructive bilateral intrarenal calculi as well as small bilateral renal cysts with cortical scarring as described. No evidence of obstructive uropathy. Moderate amount of fecal material is seen throughout the colon. One or more dose reduction techniques were used (e.g., Automated exposure control, adjustment of the mA and/or kV according to patient size, use of iterative reconstruction technique). Reading Location: [id number] Chest X-Ray 05/11/24 14:20 IMPRESSION: Mild cardiomegaly. Reading Location: [id number] Discharge Plan Triage Chief Complaint: Abd Pain ED Provider: Marilia Iglesias Dx/Rx/DC Orders Clinical Impression: Abdominal pain, Constipation Instructions: ED Abdominal Pain Unkn Cause Fem, ED Constipation (Adult) Prescriptions: No Action atorvastatin 80 mg tablet 80 mg PO DAILY Patient Comments: TAKE 1 TABLET BY MOUTHCONCE DAILY (DME) blood sugar diagnostic Strip See Rx Instructions .ROUTE .MEDSUPPLY Qty: 10 Patient Comments: USE ONCE DAILY TO TESTDBLOOD SUGAR Rx Instructions: As directed (DME) lancets 28 gauge misc See Rx Instructions .ROUTE .MEDSUPPLY Qty: 100 Patient Comments: USE ONCE DAILY TO TESTDBLOOD SUGAR Rx Instructions: As directed fluphenazine decanoate 25 mg/mL solution 62.5 mg IM Q2W olanzapine 10 mg tablet 10 mg PO DAILY benztropine 1 mg tablet 1 mg PO BID dorzolamide 2 % drops 1 drp ophthalmic (eye) BID olanzapine 20 mg tablet 20 mg PO QHS cholecalciferol (vitamin D3) 25 mcg (1,000 unit) tablet 25 mcg PO DAILY olopatadine 0.2 % drops 1 drp ophthalmic (eye) DAILY PRN (Reason: dry eye) glycerin-min oil-w.pet-dimeth Lotion 1 ea topical DAILY PRN (Reason: dry eye) folic acid 0.4 MG tablet 1 mg PO DAILY Patient Comments: MINERAL SUPPLEMENT ferrous sulfate 325 MG tablet 325 mg PO QMWF Patient Comments: MINERAL SUPPLEMENT metformin 1,000 MG tablet 1,000 mg PO BID Patient Comments: blood sugar omeprazole 20 MG capsule 20 mg PO DAILY Patient 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: 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 loratadine 10 MG tablet 10 mg PO DAILY Patient Comments: ALLERGIES fluticasone propionate 1 SPRAY spray,suspension 2 spray NASAL DAILY 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 oxybutynin chloride 10 MG tablet extended release 24hr 10 mg PO DAILY Qty: 30 0RF Patient Comments: BLADDER dexamethasone sodium phosphate 0.1 % drops 1 drp LEFT EYE BID Patient Comments: PLACE 1 DROP INTO LEFTEEYE ONCE DAILY Januvia 25 mg Tablet 25 mg PO DAILY brimonidine-timolol [Combigan] 0.2-0.5 % Drops 1 drp LEFT EYE BID gemfibrozil 600 mg tablet 600 mg PO BID polyethylene glycol 3350 [Miralax] 17 gram Powder In Packet 17 g PO DAILY nystatin-triamcinolone 100,000-0.1 unit/gram-% ointment 2 applic TOPICAL DAILY metoprolol succinate 25 mg tablet extended release 24 hr 25 mg PO DAILY Patient Comments: TAKE 1 TABLET BY MOUTHCONCE DAILY bisacodyl 5 mg tablet,delayed release (DR/EC) 5 mg PO DAILY Patient Comments: TAKE 1 TABLET ONCE DAILYTAS NEEDED FOR CONSTIPATION NOT RESOLVED FROM MILK OF MAGNESIA zolpidem 10 mg Tablet 10 mg PO QHS acetazolamide 500 mg capsule, extended release 500 mg PO Q12H Patient Comments: [NO ORIGINAL SIG] Rx Instructions: was started apr 30, 2024 cefdinir 300 mg capsule 300 mg PO BID Qty: 10 0RF Rx Instructions: start on 05/09/24 Primary Care Provider: Adia Mckeon Referrals: Adia Mckeon MD [Primary Care Provider] - Activity Restrictions/Additional Instructions: Cristal should continue to take her MiraLAX daily. She may also increase it to twice a day. In addition I do recommend she take her as needed constipation medications including milk of magnesia and Fleet enema as she does have significantly increased stool burden on her CT consistent with constipation and this might be causing her abdominal pain. Workup today was otherwise normal and very reassuring. Please follow-up with your primary care doctor and return to the ER if there is further concerns or worsening of symptoms. Print Language: [place] Disposition Disposition: Home, Self Care
[2024-05-11 12:59] LABS: Absolute Lymphocyte Count 0.72 X10^3/uL (0.83-4.51); Absolute Neutrophil Count 5.3 X10^3/uL (2.0-7.7); Basophil# 0.04 X10^3/uL; Basophil% 0.6 % (0-1); Eosinophil# 0.39 X10^3/uL; Eosinophils% 5.6 % (0-5); Hematocrit 33.8 % (37-47); Lymphocyte # 0.72 X10^3/ul (0.83-4.51); Lymphocyte % 10.3 % (19-41); Mean Corp Hgb Conc 29.6 g/dL (32-36); Mean Corpuscular Hgb 28.4 pg (27.0-32.0); Monocyte# 0.52 X10^3/uL; Monocyte% 7.4 % (0-10); NRBC Flagged by Analyzer 0 % (0-5); Neutrophil # 5.25 X10^3/uL (2.7-7.7); Neutrophil % 75.2 % (47-70); POSITIVE COUNT YES; RBC Distribution Width CV 14.2 % (11.6-14.6); RBC Distribution Width SD 49.3 fl (35.1-43.9); Red Blood Count 3.52 M/mm3 (4.2-5.4)
[2024-05-11 13:21] LABS: Lactic Acid 1.4 mmol/L (0.4-1.9)
[2024-05-11 13:27] LABS: ALB/GLOB Ratio 0.9 RATIO (0.9-2.4); AST(SGOT) 10 U/L (15-37); Alanine Aminotransfer ALT/SGPT 15 U/L (13-56); Albumin, Serum 3.2 g/dL (3.2-5.0); Alkaline Phosphatase 87 U/L (45-117); Anion Gap 4 (5-15); BUN 21 mg/dL (7-18); BUN/Creat Ratio 23.5 RATIO (10-20); Calcium,Total 9.9 mg/dL (8.5-10.1); Chloride 115 mmol/L (98-107); Creatinine, Serum 0.89 mg/dL (0.55-1.02); EST Glomerular Filtration Rate 67 mL/min (>60); Est Glom Filt Rate - Afr Amer 81 mL/min (>60); Estimated Creatinine Clearance 55.85 ml/min; Globulin 3.6 g/dL (2.2-4.2); Glucose 94 mg/dL (74-106); Potassium 4.1 mmol/L (3.5-5.1); Protein, Total 6.8 g/dL (6.4-8.2); Sodium Level 143 mmol/L (136-145); Troponin-I HS 5 pg/mL (3.0-54.0)
[2024-05-11 13:31] LABS: Differential Indicated SCAN CRITERIA MET
[2024-05-11 13:34] LABS: Mean Platelet Vol. 11.8 fl (6.2-12.0)
[2024-05-11 13:45] LABS: Differential Comment SCANNED; Platelet Estimate ADEQUATE (ADEQ); Platelet Morphology CLUMPED; Red Cell Morphology NORM C+C NORMAL (NORM C&C)
[2024-05-11 13:54] VITALS: BP 94/59; PULSE 78; O2SAT 98
[2024-05-11 14:18] LABS: Bacteria 0 SEEN /hpf (None Seen); Mucous, Urine 0 SEEN /hpf (<or=2+); Squamous Epithelial Cells - UA 0 SEEN /hpf (5-10)
[2024-05-11 14:20] LABS: Color, Urine Yellow (Yellow); Glucose, Dipstick Normal (Normal); Ketone-Dipstick Negative (Negative); Leukocyte Esterase-Dipstick 25 /ul (Negative); Nitrite-Dipstick Negative (Negative); Occult Blood-Urine Negative /ul (Negative); Protein-Dipstick 15 mg/dl (Negative); Specific Gravity, Urine 1.015 (1.002-1.030); Urine Bilirubin Dipstick Negative (Negative); Urine Clarity Clear (Clear); Urine Urobilinogen Normal (Normal)
--- NOTE | 2024-05-11 14:20 | RAD_ITS ---
EXAM: CHEST PA AND LATERAL CLINICAL HISTORY: Left arm pain. Cough. COMPARISON: Comparison is made with prior study dated May 07, 2024. TECHNIQUE: AP and lateral views were obtained. FINDINGS: EKG electrodes are seen. Mild cardiomegaly. The lungs are clear. Degenerative changes of the thoracic vertebrae as well as both shoulders. RAD/Chest PA and Lateral IMPRESSION: Mild cardiomegaly. Reading Location: [facility]
[2024-05-11 14:31] LABS: Red Blood Cells-Urine 0-5 SEEN /hpf (0-5); White Blood Cells 0-5 SEEN /hpf (0-5)
[2024-05-11 15:02] VITALS: BP 102/68; PULSE 79; RESP 20; TEMP 36.5; O2SAT 100
[2024-05-11] MEDS: Acetaminophen 325 MG Tablet 650 MG PO (15:36)
== END 2024-05-11 15:40 | disposition home or self-care (01) ==
PROVIDERS: Emergency Provider Emergency Medicine; PCP Internal Medicine; Visit Provider Emergency Medicine
DX: R10.30 Lower abdominal pain, unspecified (principal); F25.9 Schizoaffective disorder, unspecified; E11.9 Type 2 diabetes mellitus without complications; K59.00 Constipation, unspecified; E78.5 Hyperlipidemia, unspecified; Z79.84 Long term (current) use of oral hypoglycemic drugs; Z79.899 Other long term (current) drug therapy
CPT/HCPCS: 71046; 74177; 80053; 81001; 83605; 84484; 85025; 99284; Q9967; A4216

== ENCOUNTER 2024-05-15 20:52 | Emergency (ER) | payer MEDICARE, MEDICAID, SELFPAY ==
[2024-05-15 20:57] VITALS: BP 93/72; PULSE 94; RESP 18; TEMP 36.5; O2SAT 100; BMI 24.0
[2024-05-15 23:00] VITALS: BP 93/65; PULSE 92; RESP 18; O2SAT 97
--- NOTE | 2024-05-16 00:13 | EX.ED.DYSGE1 ---
HPI History of Present Illness Chief Complaint: General Illness Informant: patient and mental health staff Narrative Narrative: Patient is a 68-year-old female with past medical history of schizoaffective disorder type 2 diabetes and hyperlipidemia. care home states that the patient was recently started on acetazolamide. They state that since starting this they have felt she has had increased confusion weakness and facial droop. They state that they were going over her newest medication package insert and found that the new medication/acetazolamide may cause these adverse reactions. However as there is also concern it could be neurologic she was brought in for evaluation. [facility] Medical History Ataxia Anemia Calculus of left kidney Sciatica Developmental delay, moderate TBI (traumatic brain injury) Schizoaffective disorder Diabetes Depression HLD (hyperlipidemia) Chest pain Diabetes Home Medications ?Medication ?Instructions ?Recorded ?Last Taken ?Type ferrous sulfate 325 mg (65 mg 325 mg PO QMWF 09/14/13 Unknown History iron) tablet folic acid 400 mcg tablet 1 mg PO DAILY 09/14/13 Unknown History loratadine 10 mg tablet 10 mg PO DAILY 09/14/13 Unknown History metformin 1,000 mg tablet 1,000 mg PO BID 09/14/13 Unknown History omeprazole 20 mg capsule,delayed 20 mg PO DAILY 09/14/13 05/11/17 05:00 History release 20 MG fluticasone propionate 50 2 spray NASAL DAILY 12/05/13 Unknown History mcg/actuation nasal spray,suspension oxybutynin chloride 10 mg 10 mg PO DAILY ##30 12/26/13 Unknown Rx tablet,extended release 24 hr atorvastatin 80 mg tablet 80 mg PO DAILY 01/11/20 Unknown History blood sugar diagnostic #10 ea 01/11/20 Unknown History lancets 28 gauge #100 ea 01/11/20 Unknown History dexamethasone sodium phosphate 0.1 1 drp LEFT EYE BID 03/21/21 Unknown History % eye drops brimonidine 0.2 %-timolol 0.5 % 1 drp LEFT EYE BID 12/27/21 Unknown History eye drops (Combigan) sitagliptin phosphate 25 mg tablet 25 mg PO DAILY 12/27/21 Unknown History (Januvia) metoprolol succinate 25 mg 25 mg PO DAILY 01/08/22 Unknown History tablet,extended release 24 hr nystatin-triamcinolone 100,000 2 applic topical DAILY 01/08/22 Unknown History unit/gram-0.1 % topical ointment polyethylene glycol 3350 17 gram 17 g PO DAILY 01/08/22 Unknown History oral powder packet (Miralax) zolpidem 10 mg tablet 10 mg PO QHS 01/13/22 Unknown History benztropine 1 mg tablet 1 mg PO BID 03/30/23 Unknown History cholecalciferol (vitamin D3) 25 25 mcg PO DAILY 03/30/23 Unknown History mcg (1,000 unit) tablet dorzolamide 2 % eye drops 1 drp ophthalmic (eye) BID 03/30/23 Unknown History fluphenazine decanoate 25 mg/mL 62.5 mg IM Q2W 03/30/23 Unknown History injection solution gemfibrozil 600 mg tablet 600 mg PO BID 03/30/23 Unknown History glycerin-min oil-w.pet-dimeth 1 ea topical DAILY PRN dry eye 03/30/23 Unknown History lotion olanzapine 10 mg tablet 10 mg PO DAILY 03/30/23 Unknown History olanzapine 20 mg tablet 20 mg PO QHS 03/30/23 Unknown History olopatadine 0.2 % eye drops 1 drp ophthalmic (eye) DAILY PRN 03/30/23 Unknown History dry eye acetazolamide 500 mg 500 mg PO Q12H water pill 05/08/24 Unknown History capsule,extended release cefdinir 300 mg capsule 300 mg PO BID #10 caps 05/08/24 Unknown Rx Allergy/AdvReac Type Severity Reaction Status Date / Time sulfamethoxazole (From Allergy Rash Verified 05/15/24 20:56 Bactrim) trimethoprim (From Bactrim) Allergy Rash Verified 05/15/24 20:56 Family History Father CVA (cerebral vascular accident) Mother Heart disease Brother Myocardial infarction Social History household members: caregiver housing: other details: care home current occupational status: disabled Smoking Status: Never smoker alcohol intake: never ROS ROS ED Constitutional Constitutional ED: Denies chills or fever(s) Eyes Eyes: Denies change in vision ENT ENT ED: Denies sore throat Cardiovascular Cardiovascular: Denies chest pain or palpitations Respiratory/Chest Respiratory/Chest: Denies cough or dyspnea Gastrointestinal Gastrointestinal: Denies abdominal pain, diarrhea, nausea or vomiting Genitourinary Genitourinary ED: Denies dysuria Musculoskeletal Musculoskeletal: Denies myalgias Integumentary Denies rash Neurologic Neurologic: Reports weakness; Denies headache(s) Hematologic/Lymphatic Hematologic/Lymphatic: Denies easy bleeding or easy bruising EXAM Physical Exam Const Vital Signs: 05/15/24 20:57 05/15/24 23:00 05/15/24 23:31 Temperature 97.7 F L Temperature Source Oral Pulse Rate 94 92 Respiratory Rate 18 18 Respiratory Effort Normal Non-Labored Respiratory Pattern Normal Blood Pressure 93/72 93/65 Blood Pressure Mean 79 74 Pulse Ox 100 97 Oxygen Delivery Method Room Air Room Air Positive well nourished and well developed General Appearance ED: well developed; Negative for pallor HEENT HEENT Narrative: Normocephalic atraumatic Eyes PERRL and EOMs intact bilaterally General Eye ED: Negative for scleral icterus Neck supple Neck Narrative: No nuchal rigidity or meningeal signs noted Resp normal respiratory effort and clear to auscultation bilaterally Resp Narrative: Breath sounds are diminished throughout but overall clear to auscultation without signs of respiratory distress Cardio regular rate and regular rhythm Rate: other Other Details: Radial and carotid pulses are equal and symmetric GI normal to inspection, nondistended, normoactive bowel sounds, non-tender, non-distended and no masses GI Narrative: Soft nontender nondistended with normal active bowel sounds no voluntary guarding or rigidity or pulsatile mass Auscultation: normoactive bowel sounds Palpation: soft Extremity normal to inspection Extremity Narrative: No signs of long bone injury no bony deformity or joint effusion and compartments are soft and compressible going against compartment syndrome Neuro Neuro Narrative: Patient is awake and alert and at her baseline mental status. There is left-sided facial droop noted however with stimulation this seems to resolve. Speech is somewhat slurred but the patient states this is her baseline although correction staff believe it is slightly worse No aphasia noted There is no obvious new or focal neurologic deficit Sensorium / Orientation: alert Psych Psych Narrative: Patient has a flat affect Skin no rashes or lesions noted General Skin Exam: Negative for jaundice or pallor MDM MDM MDM Narrative Medical decision making narrative: Patient arrived to the ER with stable vitals. care home staff believes that her slurred speech and left-sided facial droop are increased from baseline but the patient is disagreeing with this. She does have a new onset of medication acetazolamide which does cause these potential changes of slurred speech and neurologic findings. The patient's previous ED visit as well as imaging and labs were reviewed. She has had recent CT and MRI which showed no sign of acute stroke and blood work revealed no sign of clinically significant changes. Therefore I do not feel that repeat imaging or labs was necessary as the patient's vitals are stable and she feels her symptoms are at baseline. This is most likely related to adverse medication reaction/side effects from the acetazolamide. The patient does not wish any testing be obtained either as she is recently undergone a workup with imaging and blood work. Therefore at this time as this is most likely related to adverse medication reaction the patient feels that her symptoms are stable/at her baseline and her vitals are stable and she has had an overall negative workup within the past week I do not feel there is need for further evaluation and she is otherwise safe for discharge. As correction staff feels that her slurred speech and droop are more intense/severe since the acetazolamide administration I will recommend this is held to see if her symptoms resolve History & Record Review Discussion w/independent historian: Patient Additional record(s) reviewed:: Prior inpatient record and Prior ED visit Discharge Plan Triage Chief Complaint: General Illness ED Provider: Altaf Escamilla Dx/Rx/DC Orders Clinical Impression: Adverse drug reaction, Schizoaffective disorder, Type 2 diabetes mellitus, Hyperlipidemia Instructions: ED Drug Reaction, Other Prescriptions: No Action atorvastatin 80 mg tablet 80 mg PO DAILY Patient Comments: TAKE 1 TABLET BY MOUTHCONCE DAILY (DME) blood sugar diagnostic Strip See Rx Instructions .ROUTE .MEDSUPPLY Qty: 10 Patient Comments: USE ONCE DAILY TO TESTDBLOOD SUGAR Rx Instructions: As directed (DME) lancets 28 gauge misc See Rx Instructions .ROUTE .MEDSUPPLY Qty: 100 Patient Comments: USE ONCE DAILY TO TESTDBLOOD SUGAR Rx Instructions: As directed fluphenazine decanoate 25 mg/mL solution 62.5 mg IM Q2W olanzapine 10 mg tablet 10 mg PO DAILY benztropine 1 mg tablet 1 mg PO BID dorzolamide 2 % drops 1 drp ophthalmic (eye) BID olanzapine 20 mg tablet 20 mg PO QHS cholecalciferol (vitamin D3) 25 mcg (1,000 unit) tablet 25 mcg PO DAILY olopatadine 0.2 % drops 1 drp ophthalmic (eye) DAILY PRN (Reason: dry eye) glycerin-min oil-w.pet-dimeth Lotion 1 ea topical DAILY PRN (Reason: dry eye) folic acid 0.4 MG tablet 1 mg PO DAILY Patient Comments: MINERAL SUPPLEMENT ferrous sulfate 325 MG tablet 325 mg PO QMWF Patient Comments: MINERAL SUPPLEMENT metformin 1,000 MG tablet 1,000 mg PO BID Patient Comments: blood sugar omeprazole 20 MG capsule 20 mg PO DAILY Patient Comments: acid take away man loratadine 10 MG tablet 10 mg PO DAILY Patient Comments: ALLERGIES fluticasone propionate 1 SPRAY spray,suspension 2 spray NASAL DAILY 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 oxybutynin chloride 10 MG tablet extended release 24hr 10 mg PO DAILY Qty: 30 0RF Patient Comments: BLADDER dexamethasone sodium phosphate 0.1 % drops 1 drp LEFT EYE BID Patient Comments: PLACE 1 DROP INTO LEFTEEYE ONCE DAILY Januvia 25 mg Tablet 25 mg PO DAILY brimonidine-timolol [Combigan] 0.2-0.5 % Drops 1 drp LEFT EYE BID gemfibrozil 600 mg tablet 600 mg PO BID polyethylene glycol 3350 [Miralax] 17 gram Powder In Packet 17 g PO DAILY nystatin-triamcinolone 100,000-0.1 unit/gram-% ointment 2 applic TOPICAL DAILY metoprolol succinate 25 mg tablet extended release 24 hr 25 mg PO DAILY Patient Comments: TAKE 1 TABLET BY MOUTHCONCE DAILY zolpidem 10 mg Tablet 10 mg PO QHS acetazolamide 500 mg capsule, extended release 500 mg PO Q12H Patient Comments: [NO ORIGINAL SIG] Rx Instructions: was started apr 30, 2024 cefdinir 300 mg capsule 300 mg PO BID Qty: 10 0RF Rx Instructions: start on 05/09/24 Primary Care Provider: Adia Mckeon Referrals: Adia Mckeon MD [Primary Care Provider] - Activity Restrictions/Additional Instructions: Please stop your acetazolamide as this is most likely the reason for your worsening symptoms. You had a CT of your head CTA of your head and neck and MRI of your brain all within the last week which revealed no signs of acute stroke and your lab work from May 11 showed no signs of infectious process. Therefore continue all of your medications except for the acetazolamide and follow-up with your family doctor for repeat evaluation Print Language: Slovenian Disposition Disposition: Home, Self Care Discharge Date/Time: 05/16/24 00:35
[2024-05-16 00:23] VITALS: BP 124/84; PULSE 91; RESP 18; TEMP 36.8; O2SAT 100
== END 2024-05-16 00:35 | disposition home or self-care (01) ==
PROVIDERS: Emergency Provider Emergency Medicine; PCP Internal Medicine; Visit Provider Emergency Medicine
DX: R53.1 Weakness (principal); F25.9 Schizoaffective disorder, unspecified; E11.9 Type 2 diabetes mellitus without complications; T50.2X5A Adverse effect of carbonic-anhydrase inhibitors, benzothiadiazides and other diuretics, initial encounter; E78.5 Hyperlipidemia, unspecified; Z79.84 Long term (current) use of oral hypoglycemic drugs; R29.810 Facial weakness; R41.0 Disorientation, unspecified
CPT/HCPCS: 99282

== ENCOUNTER → 2024-10-30 | Outpatient (CLI) | payer MEDICARE, MEDICAID, SELFPAY ==
[2024-10-30 10:06] LABS: Hematocrit 35.7 % (37-47); Hemoglobin 10.8 g/dL (12.0-15.0); Mean Corp Hgb Conc 30.3 g/dL (32-36); Mean Corpuscular Volume 97.3 fL (81-99); Mean Platelet Vol. 12.2 fl (6.2-12.0); Platelet Count 283 K/mm3 (150-450); RBC Distribution Width CV 12.5 % (11.6-14.6); RBC Distribution Width SD 45.1 fl (35.1-43.9); Red Blood Count 3.67 M/mm3 (4.2-5.4); White Blood Count 5.2 K/mm3 (4.4-11.0)
[2024-10-30 10:39] LABS: AST(SGOT) 18 U/L (<=31); Alanine Aminotransfer ALT/SGPT 14 U/L (<=34); Albumin, Serum 4.4 g/dL (3.4-4.8); Alkaline Phosphatase 85 U/L (35-104); Anion Gap 11 (5-15); BUN 32 mg/dL (4-19); BUN/Creat Ratio 33.2 RATIO (10-20); Calcium,Total 9.6 mg/dL (7.6-11.0); Carbon Dioxide 26.1 mmol/L (21.0-32.0); Chloride 104 mmol/L (98-108); Globulin 2.4 g/dL (2.2-4.2); Glucose 77 mg/dL (70-99); Potassium 4.7 mmol/L (3.3-5.1)
== END | disposition home or self-care (01) ==
LOC: HHLAB 09:40
PROVIDERS: PCP Internal Medicine; Referring Provider Nurse Practitioner Psychiatric/Mental Health; Visit Provider Nurse Practitioner Psychiatric/Mental Health
DX: F20.9 Schizophrenia, unspecified (principal)
CPT/HCPCS: 80053; 85027